=== PATIENT | male | born 1945 | race Caucasian/White ===

== ENCOUNTER 2016-11-28 21:06 | Emergency (ER) | payer MEDICARE, BC ==
[2016-11-28 21:22] VITALS: BP 131/71
[2016-11-28] MEDS ORDERED: methylPREDNISolone Sodium Succinate 40 MG/1 ML SDV IM ONE (22:57)
--- NOTE | 2016-11-28 22:57 | EDM.PDOC ---
ED HPI GENERAL MEDICAL PROBLEM - General Chief Complaint: Lower Extremity Injury/Pain Stated Complaint: PAIN IN THE LEG [id number] Time Seen by Provider: 11/28/16 22:57 Source of Information: Reports: Patient History Limitations: Reports: No Limitations - History of Present Illness INITIAL COMMENTS - FREE TEXT/NARRATIVE: This 71 yo male patient reports to the ED with left knee pain that started this morning and has been getting worse throughout the day. The patient reports he has a history of diabetes, gout and has a stent in his left lower leg. The patient reports all of his pain is in the knee. Onset: Today Duration: Constant, Getting Worse Location: Reports: Lower Extremity, Left Quality: Reports: Ache, Dull Severity: Moderate Improves with: Reports: None Worsens with: Reports: None Associated Symptoms: Reports: No Other Symptoms Left Lower Posterior Leg Pain Score (Numeric/FACES): 10 - Related Data Allergies Allergy/AdvReac Type Severity Reaction Status Date / Time Penicillins Allergy Rash Verified 11/28/16 21:15 Home Meds: Home Meds Albuterol [Proair HFA] 2 puff INH ASDIRECTED PRN 02/08/14 [History] Allopurinol [Allopurinol] 300 mg PO DAILY 02/08/14 [History] Aspirin [Low Dose Aspirin EC] 81 mg PO DAILY 02/08/14 [History] Atenolol [Tenormin] 50 mg PO DAILY 02/08/14 [History] Furosemide [Furosemide] 20 mg PO DAILY 02/08/14 [History] Gabapentin [Gabapentin] 300 mg PO BID 02/08/14 [History] Gemfibrozil [Gemfibrozil] 600 mg PO BID 02/08/14 [History] Insulin Glarg,Human.Rec.Analog [Lantus Solostar] 20 units SQ BEDTIME 02/08/14 [ History] Insulin Lispro [Humalog] 5 units SUBCUT TID 02/08/14 [History] Nitroglycerin [Nitrostat] 0.4 mg SL ASDIRECTED 02/08/14 [History] Omeprazole [Prilosec] 20 mg PO DAILY 02/08/14 [History] Prasugrel [Effient] 10 mg PO DAILY 02/08/14 [History] Pravastatin [Pravachol] 20 mg PO DAILY 02/08/14 [History] amLODIPine/Valsartan [Exforge 10-320 MG] 1 tab PO DAILY 02/08/14 [History] glyBURIDE [Glyburide] 5 mg PO BID 02/08/14 [History] metFORMIN [Glucophage] 1,000 mg PO BID 02/08/14 [History] Past Medical History HEENT History: Reports: Impaired Vision Other HEENT History: wears flasses Cardiovascular History: Reports: ME Gastrointestinal History: Reports: GERD Musculoskeletal History: Reports: Gout Neurological History: Reports: None Psychiatric History: Reports: None Endocrine/Metabolic History: Reports: Diabetes, Type II Hematologic History: Reports: None Immunologic History: Reports: None Oncologic (Cancer) History: Reports: None Dermatologic History: Reports: None - Past Surgical History Cardiovascular Surgical History: Reports: Coronary Artery Stent Other Cardiovascular Surgeries/Procedures: stents in legs Social & Family History - Tobacco Use Smoking Status *Q: Never Smoker - Recreational Drug Use Recreational Drug Use: No Review of Systems - Review of Systems Review Of Systems: ROS reveals no pertinent complaints other than HPI. ED EXAM, GENERAL - Physical Exam Exam: See Below General Appearance: Alert, WD/WN, Moderate Distress Eye Exam: Bilateral Eye: EOMI, Normal Inspection, PERRL Ears: Normal External Exam, Normal Canal, Hearing Grossly Normal, Normal TMs Nose: Normal Inspection, Normal Mucosa, No Blood Throat/Mouth: Normal Inspection, Normal Lips, Normal Teeth, Normal Gums, Normal Oropharynx, Normal Voice, No Airway Compromise Head: Atraumatic, Normocephalic Neck: Normal Inspection, Supple, Non-Tender, Full Range of Motion Respiratory/Chest: No Respiratory Distress, Lungs Clear, Normal Breath Sounds, No Accessory Muscle Use, Chest Non-Tender Cardiovascular: Normal Peripheral Pulses, Regular Rate, Rhythm, No Edema, No Gallop, No JVD, No Murmur, No Rub GI/Abdominal: Normal Bowel Sounds, Soft, Non-Tender, No Organomegaly, No Distention, No Abnormal Bruit, No Mass (Male) Exam: Deferred Rectal (Males) Exam: Deferred Back Exam: Normal Inspection, Full Range of Motion, NT Extremities: Joint Swelling (left knee), Limited Range of Motion, Other ( tenderness to palpation of entire knee joint) Neurological: Alert, Oriented, CN II-XII Intact, Normal Cognition, Normal Gait, Normal Reflexes, No Motor/Sensory Deficits Psychiatric: Normal Affect, Normal Mood Skin Exam: Warm, Dry, Intact, Normal Color, No Rash Lymphatic: No Adenopathy Course - Vital Signs Last Recorded V/S: Last Vital Signs Temp 36.8 C 11/28/16 21:16 Pulse 88 11/28/16 21:16 Resp 18 11/28/16 21:16 BP 131/71 11/28/16 21:16 Pulse Ox 99 11/28/16 21:16 - Orders/Labs/Meds Labs: Laboratory Tests 11/28/16 11/28/16 Range/Units 21:40 21:40 D-Dimer, Quantitative 250 (0-400) ng/mL Uric Acid 7.7 H (2.6-7.2) mg/dL Departure - Departure Time of Disposition: 23:03 Disposition: Home, Self-Care 01 Condition: Fair Clinical Impression: Gout Qualifiers: Gout site: knee Gout etiology: unspecified cause Chronicity: acute Laterality: left Qualified Code(s): M10.9 - Gout, unspecified - Discharge Information Instructions: Low-Purine Diet, Gout, [id number] Forms: ED Department Discharge Care Plan Goals: The patient was advised of the examination and lab results during the visit. The patient was given a dose of IM steroids (Solumedrol). The patient was discharged with a script for a Medrol Dose pack to take as directed. If the patient has any additional symptoms or concerns, the patient should follow-up with his primary care facility or return to the emergency department.
== END 2016-11-28 23:12 | disposition home or self-care (01) ==
LOC: DL.ED 21:06
DX: M10.9 Gout, unspecified (principal); H54.7 Unspecified visual loss; I25.2 Old myocardial infarction; K21.9 Gastro-esophageal reflux disease without esophagitis; E11.9 Type 2 diabetes mellitus without complications; Z95.5 Presence of coronary angioplasty implant and graft; Z88.0 Allergy status to penicillin; Z79.899 Other long term (current) drug therapy; Z79.82 Long term (current) use of aspirin; Z79.4 Long term (current) use of insulin
CPT/HCPCS: 36415; 84550; 85379; 96372; 99283; J2920

== ENCOUNTER 2020-06-27 22:35 | Emergency (ER) | payer MEDICARE, BC ==
[2020-06-27] MEDS ORDERED: Albuterol/Ipratropium 3.0-0.5 MG/3 ML Neb Soln NEB ONE (22:40)
[2020-06-27] MEDS ORDERED: Albuterol/Ipratropium 3.0-0.5 MG/3 ML Neb Soln ONE (22:41)
--- NOTE | 2020-06-27 22:46 | EDM.PDOC ---
ED HPI GENERAL MEDICAL PROBLEM - General Stated Complaint: TROUBLE BREATHING,CHILLS Time Seen by Provider: 06/27/20 22:45 Source of Information: Reports: Patient History Limitations: Reports: No Limitations - History of Present Illness INITIAL COMMENTS - FREE TEXT/NARRATIVE: sudden onset SOB while watching TV. denies CP. denies prior h/o. Throat Pain Score (Numeric/FACES): 8 - Related Data Allergies Allergy/AdvReac Type Severity Reaction Status Date / Time Penicillins Allergy Rash Verified 06/27/20 22:41 Home Meds: Home Meds Albuterol [Proair HFA] 2 puff INH ASDIRECTED PRN 02/08/14 [History] Aspirin [Low Dose Aspirin EC] 81 mg PO DAILY 02/08/14 [History] Gabapentin 300 mg PO BID 02/08/14 [History] Gemfibrozil 600 mg PO BID 02/08/14 [History] Nitroglycerin [Nitrostat] 0.4 mg SL ASDIRECTED 02/08/14 [History] Omeprazole [Prilosec] 20 mg PO DAILY 02/08/14 [History] Pravastatin [Pravachol] 80 mg PO DAILY 02/08/14 [History] metFORMIN [Glucophage] 1,000 mg PO BID 02/08/14 [History] Amlodipine Besylate/Valsartan [Amlodipine-Valsartan 10-320 mg] 10 - 320 mg PO DAILY 04/26/18 [History] Clopidogrel [Plavix] 75 mg PO DAILY 04/26/18 [History] Insulin Aspart [NovoLOG] 10 - 17 units SQ TID 04/26/18 [History] Insulin Detemir [Levemir Flextouch] 30 - 40 units SQ BEDTIME 04/26/18 [History] Warfarin Sodium [Jantoven] 5 mg PO ASDIRECTED 04/26/18 [History] allopurinoL [Zyloprim] 300 mg PO DAILY 04/26/18 [History] Magnesium Oxide 400 mg PO DAILY 05/06/18 [History] Furosemide 20 mg PO DAILY 01/09/20 [History] Metoprolol Succinate 25 mg PO DAILY 01/09/20 [History] Multivitamin [Multi-Vitamin Daily] 1 tab PO DAILY 01/09/20 [History] [place]-3/DHA/Epa/Fish Oil [[place]-3 Fish Oil 1,000 MG Sfgl] 1,000 mg PO DAILY 01/09/20 [History] Potassium Chloride 10 meq PO DAILY 01/09/20 [History] Isosorbide Mononitrate [Imdur] 30 mg PO DAILY 03/12/20 [History] Past Medical History HEENT History: Reports: Impaired Vision Other HEENT History: wears glasses Cardiovascular History: Reports: Blood Clots/VTE/DVT, CAD, Heart Valve Replacement, High Cholesterol, Hypertension, [place], Pacemaker, PTCA, Stents Gastrointestinal History: Reports: GERD Other Genitourinary History: Chronic kidney disease,stage 3 Musculoskeletal History: Reports: Gout Neurological History: Reports: Neuropathy, Peripheral Psychiatric History: Reports: None Endocrine/Metabolic History: Reports: Diabetes, Type II Hematologic History: Reports: None Immunologic History: Reports: None Oncologic (Cancer) History: Reports: None Dermatologic History: Reports: None - Past Surgical History Cardiovascular Surgical History: Reports: Coronary Artery Stent, Valve Replacement Other Cardiovascular Surgeries/Procedures: stents in legs ED ROS GENERAL - Review of Systems Review Of Systems: Comprehensive ROS is negative, except as noted in HPI. ED EXAM, GENERAL - Physical Exam Exam: See Below Exam Limited By: No Limitations General Appearance: Alert, WD/WN, Mild Distress, Moderate Distress, Other (SOB) Ears: Hearing Grossly Normal Throat/Mouth: Normal Voice, No Airway Compromise Head: Atraumatic Neck: Non-Tender, Full Range of Motion Respiratory/Chest: Decreased Breath Sounds, Rhonchi, Wheezing, Accessory Muscle Use Cardiovascular: Regular Rate, Rhythm GI/Abdominal: Soft, Non-Tender (Male) Exam: Deferred Rectal (Males) Exam: Deferred Back Exam: Full Range of Motion Extremities: Pedal Edema, Other (2+ bilateral) Neurological: Alert, Oriented, Normal Cognition, Normal Gait, No Motor/Sensory Deficits Psychiatric: Anxious Skin Exam: Warm, Dry, Normal Color Lymphatic: No Adenopathy Course - Vital Signs Last Recorded V/S: Last Vital Signs Temp 36.3 C 06/27/20 22:47 Pulse 78 06/27/20 23:28 Resp 26 H 06/27/20 23:28 BP 123/49 L 06/27/20 23:28 Pulse Ox 94 L 06/27/20 23:28 - Orders/Labs/Meds Orders: Active Orders 24 hr Category Date Time Status RT Aerosol Therapy [RC] ASDIRECTED Care 06/27/20 22:40 Active RT Aerosol Therapy [RC] ASDIRECTED Care 06/27/20 22:55 Active CULTURE BLOOD [BC] Stat Lab 06/27/20 23:51 Results Cefepime [Maxipime] 1 gm Med 06/28/20 00:23 Active Sodium Chloride 0.9% [Normal Saline] 50 ml IV ONETIME Medication Orders Cefepime HCl 1 gm/ Sodium (Chloride) 50 mls @ 100 mls/hr IV ONETIME ONE Stop: 06/28/20 00:52 Labs: Laboratory Tests 06/27/20 06/27/20 06/27/20 Range/Units 22:51 22:51 22:51 WBC 7.5 (5.0-10.0) 10^3/uL RBC 4.54 L (4.6-6.2) 10^6/uL Hgb 12.9 L (14.0-18.0) g/dL Hct 40.8 (40.0-54.0) % MCV 89.9 (80-100) fL MCH 28.4 (27.0-34.0) pg MCHC 31.6 L (33.0-35.0) g/dL Plt Count 283 (150-450) 10^3/uL Neut % (Auto) 75.6 H (42.2-75.2) % Lymph % (Auto) 17.7 L (20.5-50.1) % Isabela % (Auto) 1.1 L (2-8) % Eos % (Auto) 5.1 H (1.0-3.0) % Baso % (Auto) 0.5 (0.0-1.0) % PT 22.0 H D (9.0-12.0) SEC INR 2.3 H (0.9-1.2) APTT 45.6 H (22.0-34.0) SEC D-Dimer, Quantitative 1020 H (0-400) ng/mL ABG pH (7.35-7.45) ABG pCO2 (35-45) mmHg ABG pO2 (70-100) mmHg ABG HCO3 (22-26) mmol/L ABG O2 Saturation (95-100) % ABG Base Excess ((-2)-(+3)) mmol/L Khurram Test O2 Delivery Device Oxygen Flow Rate Sodium 143 (136-145) mmol/L Potassium 4.4 (3.5-5.1) mmol/L Chloride 105 (98-107) mmol/L Carbon Dioxide 26 (21-32) mmol/L Anion Gap 16.4 H (7-13) mEq/L BUN 54 H (7-18) mg/dL Creatinine 1.79 H (0.70-1.30) mg/dL Est Cr Clr Drug Dosing TNP Estimated GFR (MDRD) 37 BUN/Creatinine Ratio 30.2 (No establ ref range) Glucose 249 H (74-99) mg/dL Lactic Acid (0.4-2.0) mmol/L Calcium 9.6 (8.5-10.1) mg/dL Total Bilirubin 0.4 (0.2-1.0) mg/dL AST 30 (15-37) U/L ALT 19 (16-63) U/L Alkaline Phosphatase 165 H (46-116) U/L Troponin I 0.107 H* (0.000-0.056) ng/mL B-Natriuretic Peptide 1220 H (0-100) pg/ml Total Protein 8.0 (6.4-8.2) g/dL Albumin 3.5 (3.4-5.0) g/dL Globulin 4.5 Albumin/Globulin Ratio 0.8 Urine Color (YELLOW) Urine Appearance (CLEAR) Urine pH (5.0-9.0) Ur Specific [place] (1.005-1.030) Urine Protein (NEGATIVE) Urine Glucose (UA) (NEGATIVE) Urine Ketones (NEGATIVE) Urine Occult Blood (NEGATIVE) Urine Nitrite (NEGATIVE) Urine Bilirubin (NEGATIVE) Urine Urobilinogen (0.2-1.0) mg/dL Ur Leukocyte Esterase (NEGATIVE) Urine RBC /HPF Urine WBC (0-5/HPF) /HPF Ur Epithelial Cells (NOT SEEN) /HPF Amorphous Sediment (NOT SEEN) /HPF Urine Bacteria (0-FEW/HPF) /HPF Granular Casts (Auto) Fine Granular Casts (NOT SEEN) /LPF Urine Mucus (NOT SEEN) /LPF Influenza Type A RNA (NEGATIVE) Influenza Type B RNA (NEGATIVE) SARS-CoV-2 RNA (SHERMAN) (NEGATIVE) 06/27/20 06/27/20 06/27/20 Range/Units 22:51 23:05 23:15 WBC (5.0-10.0) 10^3/uL RBC (4.6-6.2) 10^6/uL Hgb (14.0-18.0) g/dL Hct (40.0-54.0) % MCV (80-100) fL MCH (27.0-34.0) pg MCHC (33.0-35.0) g/dL Plt Count (150-450) 10^3/uL Neut % (Auto) (42.2-75.2) % Lymph % (Auto) (20.5-50.1) % Isabela % (Auto) (2-8) % Eos % (Auto) (1.0-3.0) % Baso % (Auto) (0.0-1.0) % PT (9.0-12.0) SEC INR (0.9-1.2) APTT (22.0-34.0) SEC D-Dimer, Quantitative (0-400) ng/mL ABG pH 7.37 (7.35-7.45) ABG pCO2 34 L (35-45) mmHg ABG pO2 68 L (70-100) mmHg ABG HCO3 18.9 L (22-26) mmol/L ABG O2 Saturation 91 L (95-100) % ABG Base Excess -5 L ((-2)-(+3)) mmol/L Khurram Test pos O2 Delivery Device Om Oxygen Flow Rate 15 Sodium (136-145) mmol/L Potassium (3.5-5.1) mmol/L Chloride (98-107) mmol/L Carbon Dioxide (21-32) mmol/L Anion Gap (7-13) mEq/L BUN (7-18) mg/dL Creatinine (0.70-1.30) mg/dL Est Cr Clr Drug Dosing Estimated GFR (MDRD) BUN/Creatinine Ratio (No establ ref range) Glucose (74-99) mg/dL Lactic Acid 2.4 H* (0.4-2.0) mmol/L Calcium (8.5-10.1) mg/dL Total Bilirubin (0.2-1.0) mg/dL AST (15-37) U/L ALT (16-63) U/L Alkaline Phosphatase (46-116) U/L Troponin I (0.000-0.056) ng/mL B-Natriuretic Peptide (0-100) pg/ml Total Protein (6.4-8.2) g/dL Albumin (3.4-5.0) g/dL Globulin Albumin/Globulin Ratio Urine Color (YELLOW) Urine Appearance (CLEAR) Urine pH (5.0-9.0) Ur Specific [place] (1.005-1.030) Urine Protein (NEGATIVE) Urine Glucose (UA) (NEGATIVE) Urine Ketones (NEGATIVE) Urine Occult Blood (NEGATIVE) Urine Nitrite (NEGATIVE) Urine Bilirubin (NEGATIVE) Urine Urobilinogen (0.2-1.0) mg/dL Ur Leukocyte Esterase (NEGATIVE) Urine RBC /HPF Urine WBC (0-5/HPF) /HPF Ur Epithelial Cells (NOT SEEN) /HPF Amorphous Sediment (NOT SEEN) /HPF Urine Bacteria (0-FEW/HPF) /HPF Granular Casts (Auto) Fine Granular Casts (NOT SEEN) /LPF Urine Mucus (NOT SEEN) /LPF Influenza Type A RNA Negative (NEGATIVE) Influenza Type B RNA Negative (NEGATIVE) SARS-CoV-2 RNA (SHERMAN) Negative (NEGATIVE) 06/27/20 Range/Units 23:19 WBC (5.0-10.0) 10^3/uL RBC (4.6-6.2) 10^6/uL Hgb (14.0-18.0) g/dL Hct (40.0-54.0) % MCV (80-100) fL MCH (27.0-34.0) pg MCHC (33.0-35.0) g/dL Plt Count (150-450) 10^3/uL Neut % (Auto) (42.2-75.2) % Lymph % (Auto) (20.5-50.1) % Isabela % (Auto) (2-8) % Eos % (Auto) (1.0-3.0) % Baso % (Auto) (0.0-1.0) % PT (9.0-12.0) SEC INR (0.9-1.2) APTT (22.0-34.0) SEC D-Dimer, Quantitative (0-400) ng/mL ABG pH (7.35-7.45) ABG pCO2 (35-45) mmHg ABG pO2 (70-100) mmHg ABG HCO3 (22-26) mmol/L ABG O2 Saturation (95-100) % ABG Base Excess ((-2)-(+3)) mmol/L Khurram Test O2 Delivery Device Oxygen Flow Rate Sodium (136-145) mmol/L Potassium (3.5-5.1) mmol/L Chloride (98-107) mmol/L Carbon Dioxide (21-32) mmol/L Anion Gap (7-13) mEq/L BUN (7-18) mg/dL Creatinine (0.70-1.30) mg/dL Est Cr Clr Drug Dosing Estimated GFR (MDRD) BUN/Creatinine Ratio (No establ ref range) Glucose (74-99) mg/dL Lactic Acid (0.4-2.0) mmol/L Calcium (8.5-10.1) mg/dL Total Bilirubin (0.2-1.0) mg/dL AST (15-37) U/L ALT (16-63) U/L Alkaline Phosphatase (46-116) U/L Troponin I (0.000-0.056) ng/mL B-Natriuretic Peptide (0-100) pg/ml Total Protein (6.4-8.2) g/dL Albumin (3.4-5.0) g/dL Globulin Albumin/Globulin Ratio Urine Color Yellow (YELLOW) Urine Appearance Clear (CLEAR) Urine pH 5.5 (5.0-9.0) Ur Specific [place] 1.025 (1.005-1.030) Urine Protein >=300 H (NEGATIVE) Urine Glucose (UA) Negative (NEGATIVE) Urine Ketones Negative (NEGATIVE) Urine Occult Blood Trace-intact H (NEGATIVE) Urine Nitrite Negative (NEGATIVE) Urine Bilirubin Negative (NEGATIVE) Urine Urobilinogen 0.2 (0.2-1.0) mg/dL Ur Leukocyte Esterase Negative (NEGATIVE) Urine RBC 0-5 /HPF Urine WBC 0-5 (0-5/HPF) /HPF Ur Epithelial Cells Rare (NOT SEEN) /HPF Amorphous Sediment Rare (NOT SEEN) /HPF Urine Bacteria Few (0-FEW/HPF) /HPF Granular Casts (Auto) Rare Fine Granular Casts Occasional H (NOT SEEN) /LPF Urine Mucus Rare (NOT SEEN) /LPF Influenza Type A RNA (NEGATIVE) Influenza Type B RNA (NEGATIVE) SARS-CoV-2 RNA (SHERMAN) (NEGATIVE) Meds: Medications Generic Name Dose Route Start Last Admin Trade Name Freq PRN Reason Stop Dose Admin Cefepime HCl 1 gm/ Sodium 50 mls @ 100 mls/hr 06/28/20 00:23 Chloride IV 06/28/20 00:52 ONETIME ONE Discontinued Medications Generic Name Dose Route Start Last Admin Trade Name Freq PRN Reason Stop Dose Admin Albuterol Confirm 06/27/20 22:49 06/27/20 22:55 Proventil Neb Soln Administered 06/27/20 22:50 Not Given Dose 2.5 mg .ROUTE .STK-MED ONE Albuterol Confirm 06/27/20 22:50 06/27/20 22:55 Proventil Neb Soln Administered 06/27/20 22:51 Not Given Dose 2.5 mg .ROUTE .STK-MED ONE Albuterol 2.5 mg 06/27/20 22:55 06/27/20 22:56 Proventil Neb Soln NEB 06/27/20 22:56 2.5 mg ONETIME ONE Administration Albuterol/Ipratropium 3 ml 06/27/20 22:40 06/27/20 22:43 Duoneb 3.0-0.5 Mg/3 Ml NEB 06/27/20 22:41 3 ml ONETIME ONE Administration Albuterol/Ipratropium Confirm 06/27/20 22:41 06/27/20 22:55 Duoneb 3.0-0.5 Mg/3 Ml Administered 06/27/20 22:42 Not Given Dose 3 ml .ROUTE .STK-MED ONE Furosemide 40 mg 06/28/20 00:23 Lasix IVPUSH 06/28/20 00:24 NOW ONE Methylprednisolone Sodium Succinate 125 mg 06/27/20 22:54 06/27/20 22:57 Solu-Medrol IVPUSH 06/27/20 22:55 125 mg ONETIME ONE Administration - Re-Assessments/Exams Free Text/Narrative Re-Assessment/Exam: 06/28/20 00:[address] Jones @ [facility] who kindly accepted pt. 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: with mcfp use Qualified Code(s): E11.65 - Type 2 diabetes mellitus with hyperglycemia; Z79.4 - shelter (current) use of insulin - Discharge Information Forms: ED Department Discharge, Interfacility Transfer [facility] Sepsis Event Note (ED) - Focused Exam Vital Signs: Vital Signs Temp Pulse Resp BP Pulse Ox 06/27/20 23:28 78 26 H 123/49 L 94 L 06/27/20 22:47 36.3 C 84 21 H 154/59 H 74 L - My Orders Last 24 Hours: My Active Orders 06/27/20 22:40 RT Aerosol Therapy [RC] ASDIRECTED 06/27/20 22:55 RT Aerosol Therapy [RC] ASDIRECTED 06/27/20 23:51 CULTURE BLOOD [BC] Stat 06/28/20 00:23 Cefepime [Maxipime] 1 gm Sodium Chloride 0.9% [Normal Saline] 50 ml IV ONETIME - Assessment/Plan Last 24 Hours: My Active Orders 06/27/20 22:40 RT Aerosol Therapy [RC] ASDIRECTED 06/27/20 22:55 RT Aerosol Therapy [RC] ASDIRECTED 06/27/20 23:51 CULTURE BLOOD [BC] Stat 06/28/20 00:23 Cefepime [Maxipime] 1 gm Sodium Chloride 0.9% [Normal Saline] 50 ml IV ONETIME
[2020-06-27] MEDS ORDERED: Albuterol 0.083% 2.5 MG/3 ML Neb Soln ONE ×2 (22:49→22:50)
[2020-06-27] MEDS ORDERED: methylPREDNISolone Sodium Succinate 125 MG/2 ML SDV IVPUSH ONE (22:54)
[2020-06-27] MEDS ORDERED: Albuterol 0.083% 2.5 MG/3 ML Neb Soln NEB ONE (22:55)
[2020-06-27 23:16] LABS: BASE EXCESS ARTERIAL -5 mmol/L ((-2)-(+3)); BICARBONATE,ARTERIAL 18.9 mmol/L (22-26); O2 DELIVERY DEVICE OM; O2 SATURATION ARTERIAL 91 % (95-100); PCO2 ARTERIAL 34 mmHg (35-45); PO2 ARTERIAL 68 mmHg (70-100)
[2020-06-27 23:19] LABS: ALLEN TEST pos; O2 FLOW RATE 15
[2020-06-27 23:27] LABS: ANION GAP 16.4 mEq/L (7-13); CHLORIDE,CL 105 mmol/L (98-107); SODIUM,NA 143 mmol/L (136-145)
[2020-06-27 23:29] VITALS: BP 123/49; PULSE 78
[2020-06-27 23:38] LABS: PTT,PARTIAL THROMBOPLSTIN TIME 45.6 SEC (22.0-34.0)
--- NOTE | 2020-06-28 00:04 | CR ---
PROCEDURE INFORMATION: Exam: XR Chest, 1 View Exam date and time: 06/27/2020 11:45 PM Age: 75 years old Clinical indication: Shortness of breath; Additional info: SOB TECHNIQUE: Imaging protocol: XR of the chest Views: 1 view. Total images: 2 COMPARISON: No relevant prior studies available. FINDINGS: Lungs: Low lung volumes. Mild central vascular congestion. Question mild bilateral perihilar and basilar alveolar opacities which may reflect subsegmental atelectasis versus mild edema or pneumonia. Pleural spaces: No pleural effusion. No pneumothorax. Heart/Mediastinum: Mild cardiomegaly. Prior median sternotomy. No tracheal/mediastinal shift. Bones/joints: Cardiac pacemaker without gross hardware complication. No acute osseous abnormalities are identified. IMPRESSION: 1. Low lung volumes. 2. Mild perihilar and basilar alveolar opacities which could represent atelectasis versus mild edema or multifocal pneumonia. 3. Mild cardiomegaly and vascular congestion with prior median sternotomy and cardiac pacemaker.
[2020-06-28 00:06] LABS: CORONAVIRUS COVID-19 NAA NEGATIVE (NEGATIVE)
[2020-06-28] MEDS ORDERED: Cefepime 1 GM in Sodium Chloride 0.9% 50 ML IV ONE (00:23)
[2020-06-28] MEDS ORDERED: Furosemide 40 MG/4 ML VIAL IVPUSH ONE (00:23)
== END 2020-06-28 00:48 ==
LOC: DL.ED 22:35
DX: J18.9 Pneumonia, unspecified organism (principal); E11.65 Type 2 diabetes mellitus with hyperglycemia; R06.03 Acute respiratory distress; R09.02 Hypoxemia; R79.1 Abnormal coagulation profile; R79.89 Other specified abnormal findings of blood chemistry; I12.9 Hypertensive chronic kidney disease with stage 1 through stage 4 chronic kidney disease, or unspecified chronic kidney disease; E11.22 Type 2 diabetes mellitus with diabetic chronic kidney disease; N18.30 Chronic kidney disease, stage 3 unspecified; I25.10 Atherosclerotic heart disease of native coronary artery without angina pectoris; I25.2 Old myocardial infarction; E11.42 Type 2 diabetes mellitus with diabetic polyneuropathy; Z20.822 Contact with and (suspected) exposure to COVID-19; Z88.0 Allergy status to penicillin; Z79.4 Long term (current) use of insulin; Z79.82 Long term (current) use of aspirin; Z79.02 Long term (current) use of antithrombotics/antiplatelets; Z79.01 Long term (current) use of anticoagulants; Z79.899 Other long term (current) drug therapy
CPT/HCPCS: 0240U; 36415; 36600; 51702; 71045; 80053; 81001; 82803; 83605; 83880; 84484; 85025; 85379; 85610; 85730; 87040; 87077; 87186; 96374; 96375; 99285; J0692; J2930; 99284; J7613-GY; J7620-GY

== ENCOUNTER 2020-08-06 10:31 | Inpatient (IN) | payer MEDICARE, BC ==
[~2020-08-06 10:31] MED LIST: Calcitriol 0.25 MCG Cap PO SCH
--- NOTE | 2020-08-06 12:50 | PCM.HP ---
H&P History of Present Illness - General Date of Service: 08/06/20 Admit Problem/Dx: Admission Diagnosis/Problem Admission Diagnosis/Problem CHF, Congestive heart failure - History of Present Illness Initial Comments - Free Text/Narative: 75M w/ pmh systolic and diastolic CHF, CAD, CKD3, chronic DVT, DM2, CHB s/p PPM, s/p bioprosthetic AVR in 2018, COPD, gout, HT recently w/ in-stent re-stenosis of multiple LAD lesions treated w/ ballooning only followed by re-admission 07/25-08/06 for acute hypoxic respiratory failure 2/2 CHF exacerbation c/b cardiorenal syndrome and NSTEMI where he was nearly started on HD (even had perm cath placed - since removed) but turned around and now transferred to for Swing Bed. Pt currently only c/o 'butt pain' meaning his decubiti. He denies any dyspnea, pain, nausea. He has a good appetite. There is 2+ b/l LE edema but he is unsure whether this is improved from prior. Right Buttock Pain Score (Numeric/FACES): 7 - Related Data Allergies/Adverse Reactions: Allergies Allergy/AdvReac Type Severity Reaction Status Date / Time Penicillins Allergy Rash Verified 06/27/20 22:41 Home Medications: Home Meds Nitroglycerin [Nitrostat] 0.4 mg SL ASDIRECTED 02/08/14 [History] Clopidogrel [Plavix] 75 mg PO DAILY 04/26/18 [History] Insulin Aspart [NovoLOG] 10 - 17 units SQ TID 04/26/18 [History] Insulin Detemir [Levemir Flextouch] 26 units SQ BEDTIME 04/26/18 [History] Warfarin Sodium [Jantoven] 5 mg PO ASDIRECTED 04/26/18 [History] Metoprolol Succinate 25 mg PO DAILY 01/09/20 [History] Multivitamin [Multi-Vitamin Daily] 1 tab PO DAILY 01/09/20 [History] Acetaminophen 650 mg PO Q6HR 08/06/20 [History] Albuterol [Proventil Neb Soln] 2.5 inhalation INH Q4HR PRN 08/06/20 [History] Escitalopram [Lexapro] 10 mg PO DAILY 08/06/20 [History] Isosorbide Dinitrate 5 mg PO TID 08/06/20 [History] Lidocaine 5% [Lidoderm 5%] 1 patch TOP DAILY 08/06/20 [History] Rosuvastatin [Crestor] 20 mg PO DAILY 08/06/20 [History] Sodium Bicarbonate 650 mg PO TID 08/06/20 [History] Torsemide 40 mg PO DAILY 08/06/20 [History] calcitrioL [Calcitriol] 0.25 mcg PO .Q48HRS 08/06/20 [History] traZODone 50 mg PO BEDTIME PRN 08/06/20 [History] Past Medical History HEENT History: Reports: Impaired Vision Other HEENT History: wears glasses Cardiovascular History: Reports: Blood Clots/VTE/DVT, CAD, Heart Failure, Heart Valve Replacement, High Cholesterol, Hypertension, RI, Pacemaker, PTCA, Stents Respiratory History: Reports: COPD Gastrointestinal History: Reports: GERD Genitourinary History: Reports: Acute Renal Failure, Chronic Renal Insuffiency, Dialysis Other Genitourinary History: Chronic kidney disease,stage 3 Musculoskeletal History: Reports: Arthritis, Back Pain, Chronic, Gout Neurological History: Reports: CVA, Neuropathy, Diabetic, Neuropathy, Peripheral Psychiatric History: Reports: None, Depression Endocrine/Metabolic History: Reports: Diabetes, Type II Hematologic History: Reports: Anticoagulation Therapy Immunologic History: Reports: None Oncologic (Cancer) History: Reports: None Dermatologic History: Reports: None - Infectious Disease History Infectious Disease History: Reports: Chicken Pox - Past Surgical History Head Surgeries/Procedures: Reports: None Cardiovascular Surgical History: Reports: Coronary Artery Stent, Valve Replacement Other Cardiovascular Surgeries/Procedures: stents in legs GI Surgical History: Reports: Hernia, Inguinal, Hernia Repair/Other Male Surgical History: Reports: None Endocrine Surgical History: Reports: None Neurological Surgical History: Reports: None Musculoskeletal Surgical History: Reports: None Dermatological Surgical History: Reports: None Social & Family History - Family History Family Medical History: No Pertinent Family History - Tobacco Use Tobacco Use Status *Q: Former Tobacco User Used Tobacco, but Quit: Yes Month/Year Tobacco Last Used: 2008 - Caffeine Use Caffeine Use: Reports: Coffee, Soda, Tea - Recreational Drug Use Recreational Drug Use: No H&P Review of Systems - Review of Systems: Review Of Systems: See Below General: Denies: Fever, Chills HEENT: Denies: Headaches Pulmonary: Denies: Shortness of Breath, Wheezing, Cough Cardiovascular: Denies: Chest Pain, Palpitations Gastrointestinal: Denies: Abdominal Pain Genitourinary: Denies: Dysuria Musculoskeletal: Denies: Neck Pain Skin: Reports: Wound (buttock) Psychiatric: Denies: Confusion Neurological: Denies: Dizziness Hematologic/Lymphatic: Reports: Easy Bruising Immunologic: Denies: Food Allergy Exam - Exam Exam: See Below - Exam Quality Assessment: No: Supplemental Oxygen General: Alert, Oriented, Cooperative HEENT: Conjunctiva Clear Neck: Supple Lungs: Clear to Auscultation, Normal Respiratory Effort Cardiovascular: Regular Rate, Regular Rhythm, Diastolic Murmur GI/Abdominal Exam: Normal Bowel Sounds, Soft, Non-Tender, No Distention Back Exam: Other (could not exam due to body haibuts - will attempt w/ RN during dressing change) Extremities: Pedal Edema (2+ b/l pitting) Neurological: Cranial Nerves Intact Neuro Extensive - Mental Status: Alert, Oriented x3, Normal Mood/Affect Psychiatric: Alert, Normal Affect, Normal Mood - Patient Data Lab Results Last 24 hrs: Laboratory Results - last 24 hr 08/06/20 Range/Units 11:35 POC Glucose 228 H (83-110) mg/dl Problem List Initiated/Reviewed/Updated: No Orders Last 24hrs: Active Orders 24 hr Category Date Time Status Patient Status [ADT] Routine ADT 08/06/20 12:38 Ordered Antiembolic Devices [RC] PER UNIT ROUTINE Care 08/06/20 12:41 Ordered Oxygen Therapy [RC] PRN Care 08/06/20 12:38 Ordered VTE/DVT Education [RC] PER UNIT ROUTINE Care 08/06/20 12:38 Ordered Vital Signs [RC] QSHIFT Care 08/06/20 12:38 Ordered OT Evaluation and Treatment [CONS] Routine Cons 08/06/20 12:38 Ordered PT Evaluation and Treatment [CONS] Routine Cons 08/06/20 12:38 Ordered Heart Healthy Diet [DIET] Diet 08/06/20 Dinner Ordered BASIC METABOLIC PANEL,BMP [CHEM] AM Lab 08/07/20 05:11 Ordered CBC W/O DIFF,HEMOGRAM [HEME] AM Lab 08/07/20 05:11 Ordered INR,PT,PROTHROMBIN TIME [COAG] AM Lab 08/07/20 05:11 Ordered MAGNESIUM [CHEM] AM Lab 08/07/20 05:11 Ordered PHOSPHORUS [CHEM] AM Lab 08/07/20 05:11 Ordered Acetaminophen [TylenoL] Med 08/06/20 12:38 Ordered 650 mg PO Q4H PRN Antiembolic Hose [OM.PC] Per Unit Routine Oth 08/06/20 12:39 Ordered Resuscitation Status Routine Resus Stat 08/06/20 12:38 Ordered Assessment/Plan Comment:: #chronic systolic and diastolic CHF - c/w torsemide and BB #acute hypoxic respiratory failure and cardiorenal syndrome - 2/2 above - respiratory failure resolved - Cr at baseline however BUN still markedly high - high risk for relapse and re-admission - strict daily weights, free water r estriction, med compliance #chronic DVT - c/w coumadin #DM2 - A1c was 9 at OSH - c/w lantus and SORAIDA - adjust as needed #gout / HT / CAD / COPD / hx bioprosthetic AVR - c/w home meds PPX - on coumadin PT/OT eval and treat Full code
[2020-08-06] MEDS ORDERED: Albuterol 0.083% 2.5 MG/3 ML Neb Soln INH PRN (13:32)
[2020-08-06] MEDS ORDERED: traZODone 50 MG Tab PO PRN (13:32)
[2020-08-06] MEDS ORDERED: 50% Dextrose in Water 50 ML Syringe IV PRN (13:41)
[2020-08-06] MEDS ORDERED: Glucagon,Human Recombinant 1 MG Vial IM PRN (13:41)
[2020-08-06] MEDS ORDERED: Warfarin 2.5 MG Tab PO ONE (14:30)
[2020-08-06] MEDS: Isosorbide Dinitrate 10 MG Tab PO SCH ×2 (14:47→20:54)
[2020-08-06] MEDS: Acetaminophen 325 MG Tab PO PRN ×2 (14:48→20:55)
[2020-08-06] MEDS: Sodium Bicarbonate 650 MG Tab PO SCH ×2 (14:48→20:54)
[2020-08-06] MEDS: Insulin Lispro 100 Units/ML 3 ML Vial SUBCUT SCH ×2 (17:39→20:57)
[2020-08-06] MEDS ORDERED: Insulin Glarg,Human.Rec.Analog 100 Unit/ML SUBCUT SCH (21:00)
[2020-08-06] MEDS ORDERED: Bumetanide 1 MG/4 ML MDV IVPUSH ONE (23:05)
--- NOTE | 2020-08-06 23:14 | PCM.PN ---
- General Info Date of Service: 08/06/20 Admission Dx/Problem (Free Text): CRIB TENDER note Called by RN at 1040 pm that pt is in respiratory distress. At shift change pt was reportedly quiet but comfortable and w/ clear lungs. Now pt is requiring 10L via oxy mask, ill appearing, w/ tachypnea. Otherwise VSS. Lung exam nota ble for diffuse rales which is new. Legs w/ 2+ edema same as on admit. Abdominal breathing pattern. Non distended bladder. 12 lead EKG is dual paced and unchanged from prior - no further interpretation can be made. Review of MAR from [facility] included in d/c packet reveals that pt had required 'extra' diuresis w/ IV bumex as recently as yesterday on top of his maintenance torsemide. Will place silverio for strict I/O in this critically ill patient and dose 1 mg IV bumex state. If further doses will be needed to stabilize the pt will require conversion to in-patient status. d/w RN. dx acute hypoxic respiratory failure 2/2 acute cardiogenic pulmonary edema CC time 30 min - Patient Data Vitals - Most Recent: Last Vital Signs Temp 100.4 F 08/06/20 22:40 Pulse 73 08/06/20 22:40 Resp 24 H 08/06/20 22:40 BP 148/59 H 08/06/20 22:40 Pulse Ox 95 08/06/20 22:40 Weight - Most Recent: 222 lb 10.67 oz I&O - Last 24 Hours: Intake & Output 08/06/20 08/06/20 08/07/20 14:59 22:59 06:59 Intake Total 1100 300 Output Total 300 Balance 1100 0 Lab Results Last 24 Hours: Laboratory Results - last 24 hr 08/06/20 08/06/20 08/06/20 Range/Units 11:35 17:02 20:52 POC Glucose 228 H 189 H 228 H (83-110) mg/dl - Patient Data Lab Results Last 24 hrs: Laboratory Results - last 24 hr 08/06/20 08/06/20 08/06/20 Range/Units 11:35 17:02 20:52 POC Glucose 228 H 189 H 228 H (83-110) mg/dl Sepsis Event Note - Evaluation Sepsis Screening Result: No Definite Risk - Focused Exam Vital Signs: Vital Signs Temp Pulse Resp BP BP BP Pulse Ox 08/06/20 22:40 100.4 F 73 24 H 148/59 H 95 08/06/20 20:54 106/66 08/06/20 17:13 98.6 F 71 20 120/57 L 94 L 08/06/20 14:47 125/63 08/06/20 11:30 97.1 F 90 18 125/63 97 - Problem List Review Problem List Initiated/Reviewed/Updated: No - My Orders Last 24 Hours: My Active Orders 08/06/20 09:00 calcitrioL [Rocaltrol] 0.25 mcg PO Q48H 08/06/20 12:38 Patient Status [ADT] Routine Oxygen Therapy [RC] PRN VTE/DVT Education [RC] , Vital Signs [RC] , OT Evaluation and Treatment [CONS] Routine PT Evaluation and Treatment [CONS] Routine Acetaminophen [TylenoL] 650 mg PO Q4H PRN Resuscitation Status Routine 08/06/20 12:39 Antiembolic Hose [OM.PC] Per Unit Routine 08/06/20 12:41 Antiembolic Devices [RC] PER UNIT ROUTINE 08/06/20 13:32 Albuterol [Proventil Neb Soln] 2.5 mg INH Q4H PRN traZODone 50 mg PO BEDTIME PRN 08/06/20 13:40 RT Aerosol Therapy [RC] ASDIRECTED 08/06/20 13:41 Dextrose 50% in Water 50 ml IV ASDIRECTED PRN Glucagon,Human Recombinant [GlucaGen] 1 mg IM ASDIRECTED PRN 08/06/20 13:42 Blood Glucose Check, Bedside [RC] WITHMEALSANDBED 08/06/20 14:00 Isosorbide Dinitrate [Isordil] 5 mg PO TID Sodium Bicarbonate 650 mg PO TID 08/06/20 Dinner Fluid Restriction [DIET] Heart Healthy Diet [DIET] 08/06/20 18:00 Insulin Lispro [HumaLOG] See Protocol SUBCUT WITHMEALSANDBED 08/06/20 21:00 Insulin Glarg,Human.Rec.Analog [LantUS] 26 unit SUBCUT BEDTIME Remove Patch 1 ea TRDERM DAILY@2100 08/06/20 22:41 Chest 1V Frontal [CR] Routine 08/06/20 23:04 Urinary Catheter Assessment [RC] ASDIRECTED 08/06/20 23:15 Silverio Catheter Insertion [Insert Urinary Catheter] [OM.PC] Q24H 08/07/20 05:11 BASIC METABOLIC PANEL,BMP [CHEM] AM CBC W/O DIFF,HEMOGRAM [HEME] AM INR,PT,PROTHROMBIN TIME [COAG] AM MAGNESIUM [CHEM] AM PHOSPHORUS [CHEM] AM 08/07/20 09:00 Clopidogrel [Plavix] 75 mg PO DAILY Escitalopram [Lexapro] 10 mg PO DAILY Lidocaine 5% [Lidoderm 5%] 700 mg TOP DAILY Metoprolol Succinate [Toprol XL] 25 mg PO DAILY Multivitamins,Therapeutic [Thera] 1 each PO DAILY Rosuvastatin [Crestor] 20 mg PO DAILY Torsemide [Demadex] 40 mg PO DAILY - Plan Plan:: #chronic systolic and diastolic CHF - c/w torsemide and BB #acute hypoxic respiratory failure and cardiorenal syndrome - 2/2 above - respiratory failure resolved - Cr at baseline however BUN still markedly high - high risk for relapse and re-admission - strict daily weights, free water restriction, med compliance #chronic DVT - c/w coumadin #DM2 - A1c was 9 at OSH - c/w lantus and SORAIDA - adjust as needed #gout / HT / CAD / COPD / hx bioprosthetic AVR - c/w home meds PPX - on coumadin PT/OT eval and treat Full code
--- NOTE | 2020-08-06 23:17 | CR ---
PROCEDURE INFORMATION: Exam: XR Chest Exam date and time: 08/06/2020 10:51 PM Age: 75 years old Clinical indication: Shortness of breath; Prior surgery TECHNIQUE: Imaging protocol: XR of the chest Views: 1 view. Total images: 1 COMPARISON: CR Chest 1V Frontal 06/27/2020 11:45 PM FINDINGS: Lungs: Low lung volumes. Increased alveolar opacities in the right mid lung and bilateral medial basilar distributions concerning for multifocal pneumonia or edema. Pleural spaces: Blunted left lateral costophrenic angle suspicious for small basilar effusion. No pneumothorax. Heart/Mediastinum: Mild cardiomegaly. No tracheal/mediastinal shift. Bones/joints: Prior median sternotomy. Cardiac pacemaker without gross hardware complication or change. No acute osseous abnormalities are identified. IMPRESSION: 1. Increased alveolar density in the right mid lung and lung bases concerning for multifocal pneumonia versus edema. 2. Cardiomegaly and vascular congestion suggesting an element of chronic CHF, with prior sternotomy and unchanged cardiac pacemaker.
[2020-08-07 00:07] LABS: ANION GAP 14.3 mEq/L (7-13)
[2020-08-07] MEDS ORDERED: Bumetanide 1 MG/4 ML MDV IVPUSH ONE ×2 (00:22→06:00)
[2020-08-07] MEDS ORDERED: Sodium Chloride 0.9% 10 ML Syringe FLUSH PRN (05:49)
[2020-08-07 07:26] LABS: ANION GAP 16.1 mEq/L (7-13)
[2020-08-07] MEDS: Insulin Lispro 100 Units/ML 3 ML Vial SUBCUT SCH (08:41)
[2020-08-07] MEDS: Sodium Bicarbonate 650 MG Tab PO SCH (08:43)
[2020-08-07] MEDS: Isosorbide Dinitrate 10 MG Tab PO SCH (08:43)
[2020-08-07 08:44] VITALS: BP 122/61; PULSE 100
[2020-08-07] MEDS ORDERED: Lidocaine 5% 700 MG Patch TOP SCH (09:00)
[2020-08-07] MEDS ORDERED: Metoprolol Succinate 25 MG Tab.ER PO SCH (09:00)
[2020-08-07] MEDS ORDERED: Rosuvastatin 10 MG Tab PO SCH (09:00)
[2020-08-07] MEDS ORDERED: Torsemide 20 MG Tab PO SCH (09:00)
[2020-08-07] MEDS ORDERED: Clopidogrel 75 MG Tab PO SCH (09:00)
[2020-08-07] MEDS ORDERED: Escitalopram 10 MG Tab PO SCH (09:00)
[2020-08-07] MEDS ORDERED: Multivitamins,Therapeutic Tab PO SCH (09:00)
[2020-08-07] MEDS ORDERED: Potassium Chloride 10 MEQ Tab.ER PO ONE (10:38)
[2020-08-07] MEDS ORDERED: Bumetanide 1 MG/4 ML MDV IVPUSH SCH (14:00)
[2020-08-07] MEDS ORDERED: Warfarin 5 MG Tab PO ONE (14:00)
--- NOTE | 2020-08-07 17:13 | PCM.DCSUM1 ---
Discharge Summary - Hospital Course Free Text/Narrative:: 75M w/ pmh systolic and diastolic CHF, CAD, CKD3, chronic DVT, DM2, CHB s/p PPM, s/p bioprosthetic AVR in 2018, COPD, gout, HT recently w/ in-stent re-stenosis of multiple LAD lesions treated w/ ballooning only followed by re-admission 07/25-08/06 for acute hypoxic respiratory failure 2/2 CHF exacerbation c/b cardiorenal syndrome and NSTEMI where he was nearly started on HD (even had perm cath placed - since removed) but turned around and now transferred to for Swing Bed. The very first night after admission the pt developed respiratory distress and relapse of respiratory failure requiring 10L o2 supp via oxy mask. He required 2 mg IV bumex to produce a diuretic response and 'rescue' him from impending critical respiratory failure. He is being converted from Swing Bed to in- patient since he will need continued IV diuresis and acute level of care and monitoring. Diagnosis: Stroke: No - Discharge Data Discharge Date: 08/07/20 Discharge Disposition: DC/Tfer to Acute Hospital 02 Condition: Serious - Referral to Home Health Primary Care Physician: PCP None - Patient Summary/Data Consults: Consultations 08/06/20 12:38 OT Evaluation and Treatment [CONS] Routine PT Evaluation and Treatment [CONS] Routine - Discharge Plan Home Medications: Home Meds Nitroglycerin [Nitrostat] 0.4 mg SL ASDIRECTED 02/08/14 [History] Clopidogrel [Plavix] 75 mg PO DAILY 04/26/18 [History] Insulin Aspart [NovoLOG] 10 - 17 units SQ TID 04/26/18 [History] Insulin Detemir [Levemir Flextouch] 26 units SQ BEDTIME 04/26/18 [History] Warfarin Sodium [Jantoven] 5 mg PO ASDIRECTED 04/26/18 [History] Metoprolol Succinate 25 mg PO DAILY 01/09/20 [History] Multivitamin [Multi-Vitamin Daily] 1 tab PO DAILY 01/09/20 [History] Acetaminophen 650 mg PO Q6HR 08/06/20 [History] Albuterol [Proventil Neb Soln] 2.5 inhalation INH Q4HR PRN 08/06/20 [History] Escitalopram [Lexapro] 10 mg PO DAILY 08/06/20 [History] Isosorbide Dinitrate 5 mg PO TID 08/06/20 [History] Lidocaine 5% [Lidoderm 5%] 1 patch TOP DAILY 08/06/20 [History] Rosuvastatin [Crestor] 20 mg PO DAILY 08/06/20 [History] Sodium Bicarbonate 650 mg PO TID 08/06/20 [History] calcitrioL [Calcitriol] 0.25 mcg PO .Q48HRS 08/06/20 [History] traZODone 50 mg PO BEDTIME PRN 08/06/20 [History] Acetaminophen [Tylenol] 650 mg PO Q4H PRN tablet 08/07/20 [Rx] Dextrose 50% in Water [Dextrose 50%-Water] 50 ml IV ASDIRECTED PRN syringe 08/07/20 [Rx] Glucagon,Human Recombinant [Glucagen] 1 mg IM ASDIRECTED PRN vial 08/07/20 [Rx] Insulin Glarg,Human.Rec.Analog [Lantus] 26 unit SUBCUT BEDTIME ml 08/07/20 [Rx] Insulin Lispro [HumaLOG] 0 unit SUBCUT WITHMEALSANDBED vial 08/07/20 [Rx] - Discharge Summary/Plan Comment DC Time >30 min.: No - Patient Data Vitals - Most Recent: Last Vital Signs Temp 98.3 F 08/07/20 08:00 Pulse 100 08/07/20 08:43 Resp 20 08/07/20 08:00 BP 122/61 08/07/20 08:43 Pulse Ox 98 08/07/20 08:20 Weight - Most Recent: 225 lb I&O - Last 24 hours: Intake & Output 08/07/20 08/07/20 08/07/20 06:59 14:59 22:59 Intake Total 250 320 Output Total 550 Balance -300 320 Lab Results - Last 24 hrs: Laboratory Results - last 24 hr 08/06/20 08/06/20 08/06/20 Range/Units 17:02 20:52 23:37 WBC 14.2 H (5.0-10.0) 10^3/uL RBC 3.34 L (4.6-6.2) 10^6/uL Hgb 9.2 L D (14.0-18.0) g/dL Hct 29.2 L (40.0-54.0) % MCV 87.4 (80-100) fL MCH 27.5 (27.0-34.0) pg MCHC 31.5 L (33.0-35.0) g/dL Plt Count 193 D (150-450) 10^3/uL PT (9.0-12.0) SEC INR (0.9-1.2) Sodium (136-145) mmol/L Potassium (3.5-5.1) mmol/L Chloride (98-107) mmol/L Carbon Dioxide (21-32) mmol/L Anion Gap (7-13) mEq/L BUN (7-18) mg/dL Creatinine (0.70-1.30) mg/dL Est Cr Clr Drug Dosing mL/min Estimated GFR (MDRD) Glucose (74-99) mg/dL POC Glucose 189 H 228 H (83-110) mg/dl Calcium (8.5-10.1) mg/dL Phosphorus (2.6-4.7) mg/dL Magnesium (1.8-2.4) mg/dL Troponin I (0.000-0.056) ng/mL 08/06/20 08/07/20 08/07/20 Range/Units 23:37 06:44 06:44 WBC 11.6 H (5.0-10.0) 10^3/uL RBC 3.20 L (4.6-6.2) 10^6/uL Hgb 8.9 L (14.0-18.0) g/dL Hct 28.5 L (40.0-54.0) % MCV 89.1 (80-100) fL MCH 27.8 (27.0-34.0) pg MCHC 31.2 L (33.0-35.0) g/dL Plt Count 181 (150-450) 10^3/uL PT 16.7 H D (9.0-12.0) SEC INR 1.8 H (0.9-1.2) Sodium 140 (136-145) mmol/L Potassium 3.3 L (3.5-5.1) mmol/L Chloride 100 (98-107) mmol/L Carbon Dioxide 29 (21-32) mmol/L Anion Gap 14.3 H (7-13) mEq/L BUN 119 H D (7-18) mg/dL Creatinine 1.84 H (0.70-1.30) mg/dL Est Cr Clr Drug Dosing 36.92 mL/min Estimated GFR (MDRD) 36 Glucose 192 H (74-99) mg/dL POC Glucose (83-110) mg/dl Calcium 9.7 (8.5-10.1) mg/dL Phosphorus (2.6-4.7) mg/dL Magnesium (1.8-2.4) mg/dL Troponin I 0.307 H* (0.000-0.056) ng/mL 08/07/20 08/07/20 08/07/20 Range/Units 06:44 06:44 08:09 WBC (5.0-10.0) 10^3/uL RBC (4.6-6.2) 10^6/uL Hgb (14.0-18.0) g/dL Hct (40.0-54.0) % MCV (80-100) fL MCH (27.0-34.0) pg MCHC (33.0-35.0) g/dL Plt Count (150-450) 10^3/uL PT (9.0-12.0) SEC INR (0.9-1.2) Sodium 143 (136-145) mmol/L Potassium 3.1 L (3.5-5.1) mmol/L Chloride 102 (98-107) mmol/L Carbon Dioxide 28 (21-32) mmol/L Anion Gap 16.1 H (7-13) mEq/L BUN 121 H (7-18) mg/dL Creatinine 1.86 H (0.70-1.30) mg/dL Est Cr Clr Drug Dosing 36.52 mL/min Estimated GFR (MDRD) 36 Glucose 171 H (74-99) mg/dL POC Glucose 180 H (83-110) mg/dl Calcium 8.9 (8.5-10.1) mg/dL Phosphorus 3.1 (2.6-4.7) mg/dL Magnesium 2.0 (1.8-2.4) mg/dL Troponin I 0.492 H* (0.000-0.056) ng/mL 08/07/20 Range/Units 11:59 WBC (5.0-10.0) 10^3/uL RBC (4.6-6.2) 10^6/uL Hgb (14.0-18.0) g/dL Hct (40.0-54.0) % MCV (80-100) fL MCH (27.0-34.0) pg MCHC (33.0-35.0) g/dL Plt Count (150-450) 10^3/uL PT (9.0-12.0) SEC INR (0.9-1.2) Sodium (136-145) mmol/L Potassium (3.5-5.1) mmol/L Chloride (98-107) mmol/L Carbon Dioxide (21-32) mmol/L Anion Gap (7-13) mEq/L BUN (7-18) mg/dL Creatinine (0.70-1.30) mg/dL Est Cr Clr Drug Dosing mL/min Estimated GFR (MDRD) Glucose (74-99) mg/dL POC Glucose 221 H (83-110) mg/dl Calcium (8.5-10.1) mg/dL Phosphorus (2.6-4.7) mg/dL Magnesium (1.8-2.4) mg/dL Troponin I (0.000-0.056) ng/mL Med Orders - Current: Current Medications Acetaminophen (Acetaminophen 325 Mg Tab) 650 mg PO Q4H PRN PRN Reason: Pain (Mild 1-3)/fever Last Admin: 08/06/20 20:55 Dose: 650 mg Documented by: - Exam Quality Assessment: Reports: Supplemental Oxygen (4L) General: Reports: Alert, Oriented, Cooperative, Other (ill appearing) HEENT: Reports: Pupils Equal, Pupils Reactive Neck: Reports: Supple Lungs: Reports: Other (dec BS bilaterall, rales at bases) Cardiovascular: Reports: Regular Rate, Regular Rhythm, Other (diastolic ) GI/Abdominal Exam: Normal Bowel Sounds, Soft, Non-Tender, No Distention Back Exam: Reports: Other (aliya-rectal, coccyx stage 3 decubitus ulcer - see pictures in EMR) Extremities: Pedal Edema (2+) Skin: Reports: Warm, Dry Neurological: Reports: No New Focal Deficit Psy/Mental Status: Reports: Alert, Normal Affect, Depressed
--- OUTSIDE RECORDS SUMMARY | 2020-08-09 13:54 | XMSREPORT ---
:1945 Author Organization [facility] s Address [facility] [address] [place] [address] Care Team Providers Name Role Phone MD Paulina Primary Care Provider Provider, Attributed RESOURCE Attributed Provider Unavailab le Reason for Referral (Routine) Status Reason Specialty Diagnoses / Procedures Referred By Tiffanie valencia Referred To Contact [address] [address] Phone: [phone] (Routine) Status Reason Specialty Diagnoses / Procedures Referred By Tiffanie valencia Referred To Contact [address] [address] Phone: [phone] Transitions of Care (Routine) Status Reason Specialty Diagnoses / Referred By Referred To Procedures Contact Contact New Request Patient Diagnoses Acute on chronic HFrEF (heart failure with reduced ejection fraction) (HCC) Amber Holly Go, Jason S, Preference ISAI VALENTINO [address] [place] [id number] [facility] Phone: [place] [address] Fax: Transitions of Care (Urgent) Status Reason Specialty Diagnoses / Referred By Referred To Procedures Contact Contact New Request Patient Diagnoses Stage 4 chronic kidney disease (HCC) Amber Holly Rahman, Malcolm Morales MD [address] [place] [address] [place] [address] Phone: [place] [address] Fax: Reason for Visit Reason Comments Auth/Cert Status Reason Specialty Diagnoses / Procedures Referred By Tiffanie valencia Referred To Contact Encounter Details Date Type Department Care Team Description 07/25/2020 [facility] [address] [place] [address] Acute on chronic 08/06/2020 CENTER [facility] Barbara Mejia MD [address] [place] [address] HFrEF (heart failure [address] [facility] Nidia Lentz MD [address] [place] [address] [phone] [place] [address] Saroj Wilson MD [address] [place] [address] [phone] ejection fraction) [phone] Kenneth Salinas MD [address] [place] [address] [phone] (HCC) Allergies Active Allergy Reactions Severity Noted Date Comments Penicillin Hives (High) High 06/28/2020 documented as of this encounter (statuses as of 08/06/2020) Medications Medication Sig Dispensed Refills Start End Status Date Date nitroglycerin Dissolve 1 tablet 0 Active (NITROSTAT) 0.4 under the tongue 0 mg sublingual Every 5 minutes as tablet needed for chest pain MAX 3 doses acetaminophen Take 2 tablets 100 tablet 0 Active (TYLENOL) 325 mg (650 mg) by mouth 1 tabletIndications Every 6 hours For : SI (sacroiliac) back pain joint dysfunction sodium Take 1 tablet (650 90 tablet 0 A ctive bicarbonate 650 mg) by mouth 3 1 MG times a day CKD tabletIndications : Stage 4 chronic kidney disease ([facility]) isosorbide Take 1 tablet (5 90 tablet 0 Ac tive dinitrate mg) by mouth 3 1 (ISORDIL) 5 mg times a day tabletIndications nitrate CAD/angina : Acute on chronic congestive heart failure, unspecified heart failure type ([facility]) albuterol Inhale 1 nebule 12 each 0 Acti ve (PROVENTIL) (2.5 (2.5 mg) by 1 022 mg/3mL) 0.083% nebulization Every inhalation 4 hours as needed solutionIndicatio for wheezing ns: Wheezing warfarin Take 2.5 mg 3 days 0 A ctive (COUMADIN) 5 mg per week and take 1 tablet 5 mg 4 days per week Hx DVT escitalopram Take 1 tablet (10 90 tablet 3 Active (LEXAPRO) 10 mg mg) by mouth 1 1 tablet time per day Depression traZODone Take 1 tablet (50 30 tablet 0 Ac tive (DESYREL) 50 mg mg) by mouth at 1 022 tabletIndications bedtime as needed : Insomnia, for insomnia unspecified type insulin detemir Inject 26 Units 0 Active (LEVEMIR subcutaneously 1 1 FLEXTOUCH) time a day in the subcutaneous evening injection (pen) insulin aspart TID with meals- 3 mL 0 Active (NOVOLOG) SQ Sliding scale 1 correction scale 150-200- 2units, (Adult) 201-250 4 units, 251-300 6 units, 301-350 8 units, >351 call provider metoprolol Take 1 tablet (25 30 tablet 0 A ctive succinate (TOPROL mg) by mouth 1 1 XL) 25 mg SR time per day CHF/ tablet (24 hr) HTN rosuvastatin Take 1 tablet (20 30 tablet 0 Active (CRESTOR) 20 mg mg) by mouth 1 1 tabletIndications time per day : Acute on Hyperlipidemia/CAD chronic HFrEF (heart failure with reduced ejection fraction) ([facility]), Dyslipidemia lidocaine Apply 1 patch 30 patch 0 Active (LIDODERM) 5% topically 1 time 1 patchIndications: per day Patches SI (sacroiliac) may be left on for joint dysfunction up 12 hours in a 24 hour period. Right SI joint area torsemide Take 2 tablets (40 30 tablet 0 A ctive (DEMADEX) 20 mg mg) by mouth 1 1 tabletIndications time per day CHF : Stage 4 chronic kidney disease ([facility]), Acute on chronic HFrEF (heart failure with reduced ejection fraction) ([facility]) calcitriol Take 1 capsule 30 capsule 0 Act stacia (ROCALTROL) 0.25 (0.25 mcg) by 1 mcg mouth Every other capsuleIndication day CKD s: Stage 4 chronic kidney disease ([facility]) clopidogrel Take 1 tablet (75 90 tablet 3 Active (PLAVIX) 75 mg mg) by mouth 1 1 tabletIndications time per day SP : S/P coronary stent artery stent placement multivitamin Take 1 tablet by 30 tablet 0 Active therapeutic with mouth 1 time per 1 minerals (THERA day Supplement M) TABS tablet multivitamin Take 1 tablet by 0 Discontinued therapeutic with mouth 1 time per 1 021 (Reorder) minerals (THERA day M) TABS tablet albuterol HFA Inhale 2 puffs 0 D iscontinued (PROVENTIL,PROAIR orally every 6 0 021 (Stop Taking at ,VENTOLIN) 108 hours as needed Discharge) (90 Base) MCG/ACT for wheezing inhaler insulin detemir Inject 40 Units 0 Discontinued (LEVEMIR subcutaneously 1 0 021 (Re order) FLEXTOUCH) time a day in the subcutaneous evening injection (pen) metFORMIN Take 1 tablet by 0 Dis continued (GLUCOPHAGE) 1000 mouth 2 times a 1 021 (entry level accounting clerk MG tablet day with meals error ) omega-3 fatty Take 1,000 mg by 0 Discontinued acids (FISH OIL) mouth 1 time per 021 (Stop Taking at 1000 mg capsule day Disc harge) warfarin Take 2.5 mg 3 days 0 D iscontinued (COUMADIN) 5 mg per week and take 0 021 (Reorder) tablet 5 mg 4 days per week clopidogrel Take 1 tablet (75 90 tablet 3 Discontinued (PLAVIX) 75 mg mg) by mouth 1 1 021 (Reorder) tabletIndications time per day : S/P coronary artery stent placement gabapentin Take 1 capsule 30 capsule 0 Dis continued (NEURONTIN) 100 (100 mg) by mouth 1 021 (entry level accounting clerk mg capsule every night at erro r) bedtime Take 1 capsule (100 mg) at bedtime. isosorbide Take 1 tablet (5 90 tablet 0 Di scontinued dinitrate mg) by mouth 3 021 (Reor tito) (ISORDIL) 5 mg times a day tabletIndications nitrate : Acute on chronic congestive heart failure, unspecified heart failure type (HCC) bumetanide Take 1 tablet (2 30 tablet 0 Di scontinued (BUMEX) 2 mg mg) by mouth 1 1 021 (S top Taking at tabletIndications time per day Take Discharge) : Acute on on Wednesday, chronic , congestive heart Wednesday, Wednesday failure, ONLY. Do NOT take unspecified heart on dialysis days failure type (MWF). (HCC) allopurinol Take 1 tablet (300 30 tablet 0 Discontinued (ZYLOPRIM) 300 mg mg) by mouth 1 1 021 (Stop Taking at tablet time per day Dischar ge) gemfibrozil Take 1 tablet (600 60 tablet 0 Discontinued (LOPID) 600 mg mg) by mouth 2 1 021 (Stop Taking at tablet times a day before D ischarge) meals metoprolol Take 1 tablet (25 30 tablet 0 D iscontinued succinate (TOPROL mg) by mouth 1 1 021 (Reorder) XL) 25 mg SR time per day tablet (24 hr) pravastatin Take 1 tablet (80 30 tablet 0 Discontinued (PRAVACHOL) 80 mg mg) by mouth 1 1 021 (Stop Taking at tabletIndications time a day in the Discharge) : Acute on evening chronic congestive heart failure, unspecified heart failure type (HCC) sevelamer Take 2 tablets 15 tablet 0 Disco ntinued carbonate (1,600 mg) by 1 021 (entry level accounting clerk (RENVELA) 800 mg mouth 3 times a error) tabletIndications day with meals Do : ESRD (end stage not give on an renal disease) empty stomach, (HCC) must be given with food to be effective. NOVOLOG FLEXPEN Inject 2-8 Units 7.2 mL 0 Discontinued subcutaneous subcutaneously 3 (Stop Taking at injection times a day with Dis charge) (pen)Indications: meals Diabetes mellitus, type II, insulin dependent (HCC) escitalopram Take 10 mg by 0 Dis continued (LEXAPRO) 10 mg mouth 1 time per (Reorder) tablet day documented as of this encounter (statuses as of 08/06/2020) Active Problems Problem Noted Date Stage 4 chronic kidney disease 08/04/2020 Heart failure 07/26/2020 Hx of cardiac pacemaker 06/29/2020 Chronic combined systolic and diastolic CHF (congestiv e heart failure) 06/29/2020 S/P coronary artery stent placement 06/29/2020 Overview: - 06/26/2019 [facility] at [facility] - 90%p LAD ISR s/p PC/ROSEMARIE, PTCA 80% dLAD ISR, 80% mCIRC s/p PCI/RONALD - 01/04/2020 [facility] at [facility] - PCI/RONALD to IS R pLAD and dLAD and PTCA dLAD. PCI/RONALD to mCIRC. - 01/2018 [facility] at [facility] - pRCA and multip le PCI prior Pneumonia due to infectious organism 06/29/2020 Positive D dimer 06/29/2020 Non-ST elevation [place] (NSTEMI) 06/29/2020 Acute on chronic HFrEF (heart failure with reduced eje ction fraction) 06/28/2020 Diabetes mellitus, type II, insulin dependent 05/11/20 18 Complete heart block 03/23/2018 Overview: [employer] Pacemaker at [facility] 03/22/2018 S/P AVR (aortic valve replacement) 03/23/2018 Atherosclerosis of coronary artery 09/04/2009 Overview: Stents to RCA and LAD in 2009. Cath 08/16/09, Stress 06/21/09 Essential hypertension 09/04/2009 Dyslipidemia 09/04/2009 documented as of this encounter (statuses as of 08/06/2020) Immunizations Name Administration Dates Next Due FLU VACCINE HIGH DOSE 65YR+(Fluzone) 03/25/2018, 05/13/2015, 04/13/2014 Flu Vaccine Subunit Multidose 04/03/2019 4yr+(flucelvax) Influenza Vaccine,unspecified 04/17/2013 Pneumococcal Conj PCV13 01/15/2016 Pneumococcal Polysaccharide PPSV23 03/25/2018, 11/25/2010 TDAP 04/13/2014 documented as of this encounter Social History Tobacco Use Types Packs/Day Years Used Date Former Smoker Smokeless Tobacco: Never Used Alcohol Use Drinks/Week oz/Week Comments Not Currently Sexually Active Control Partners Comments Not Currently Sex Assigned at Date Recorded Not on file documented as of this encounter Last Filed Vital Signs Vital Sign Reading Time Taken Comments Blood Pressure 100/88 08/06/2020 7:20 AM SECURITY AND COMPLIANCE PROJECT MANAGER Pulse 91 08/06/2020 7:20 AM SECURITY AND COMPLIANCE PROJECT MANAGER Temperature 35.8 C (96.5 F) 08/06/2020 7:20 AM SECURITY AND COMPLIANCE PROJECT MANAGER Respiratory Rate 16 08/06/2020 7:20 AM SECURITY AND COMPLIANCE PROJECT MANAGER Oxygen Saturation 93% 08/06/2020 7:20 AM SECURITY AND COMPLIANCE PROJECT MANAGER Inhaled Oxygen Concentration - - Weight 99.7 kg (219 lb 12.8 oz) 08/06/2020 7:20 AM SECURITY AND COMPLIANCE PROJECT MANAGER Height 177.8 cm (5' 10") 07/25/2020 7:08 PM SECURITY AND COMPLIANCE PROJECT MANAGER Body Mass Index 31.54 07/25/2020 7:08 PM SECURITY AND COMPLIANCE PROJECT MANAGER documented in this encounter Functional Status Functional Status Response Date of Assessment Do you have difficulty with walking, balance, climbing No 07/26/2020 stairs, or had a fall in the last 3 months? documented as of this encounter Discharge Summaries Not on filedocumented in this encounter Discharge Instructions Deandra Sierra, PHARM D - 07/27/2020Heart Failure Discharge Instructions Activity: ? Be as active as possible ? Break down tasks to small activities to avoid becoming overly tired ? Talk to your doctor before lifting more than 10 pounds ? Begin to exercise slowly and increase only as tolerated; refer to your education book ? Balance activity and rest periods Nutrition: ? Follow a low sodium (salt) diet ? Choose no added salt or low sodium foods; choose fresh foods as much as possible ? Avoid adding salt to food when cooking or at the table ? Read the nutrition facts labels and avoid foods with more than 300 mg of sodium per serving Medication: ? Make a list and schedule of the medications you take ? Keep a current list of your medications with you ? Take your medications as prescribed ? Avoid NSAIDs or Non-Steroidal Anti-Inflammatory Drugs (i.e. Advil, Ibuprofen, Motrin, etc.) Self-Care: ? Weigh yourself and write it down first thing in the morning after you empty your bladder and before you eat or drink ? Check for swelling of your feet, ankles, legs, and stomach ? Do your daily exercise ? If you smoke, stop ? Keep all follow-up appointments and bring your medications and weight log with you Review the Living Well with Heart Failure booklet for more information on caring for yourself or your loved one at home. Call Your Doctor or Health Brick Sorter If You Have: ? Weight gain of more than 2 pounds overnight or 5 pounds in one week (or whatever weight gain you were told to report by your doctor) ? New or increased swelling of your legs or ankles, swelling or pain in your stomach ? Decrease in amount you urinate ? Increased shortness of breath ? Increased cough with yellow or green sputum (mucus) ? Increased breathing trouble at night (waking up short of breath, needing more pillows to breathe) ? Feeling much more tired than usual ? Racing or pounding heart beat ? Dizziness Go To The Nearest Emergency Room or Call 911 If You Have: ? Shortness of breath so severe that you cannot catch your breath even while resting ? [place], foamy sputum (mucus) ? New problem sleeping; you need to sit straight up to sleep or are not able to sleep due to shortness of breath ? Severe chest pain that does not resolve with rest or Nitroglycerin ? New or increased confusion or cannot think clearly ? A continuous rapid or irregular heart beat ? Fainting or feeling to dizzy to stand up Warfarin Discharge Instructions: Warfarin dose NOT given 08/06/20 in the hospital. Plan to give 2.5 mg at [facility]. Check INR tomorrow on 08/07/20 AttachmentsThe following attachments cannot be sent through Care Everywhere. Heart Failure: Taking Medicine to Control (Brazilian)Kidney Disease, Discharge Instructions for Chronic (Brazilian)documented in this encounter Medications at Time of Discharge Medication Sig Dispensed Refills Start Date End Date acetaminophen Take 2 tablets (650 100 tablet 0 08/06/2020 (TYLENOL) 325 mg mg) by mouth Every 6 tabletIndications: SI hours For back pain (sacroiliac) joint dysfunction sodium bicarbonate 650 Take 1 tablet (650 mg) 90 tablet 0 0 08/05/2020 MG tabletIndications: by mouth 3 times a day Stage 4 chronic kidney CKD disease (HCC) isosorbide dinitrate Take 1 tablet (5 mg) 90 tablet 0 08/05 (ISORDIL) 5 mg by mouth 3 times a day tabletIndications: nitrate CAD/angina Acute on chronic congestive heart failure, unspecified heart failure type ([facility]) albuterol (PROVENTIL) Inhale 1 nebule (2.5 12 each 0 12/202008/10/2021 (2.5 mg/3mL) 0.083% mg) by nebulization inhalation Every 4 hours as solutionIndications: needed for wheezing Wheezing warfarin (COUMADIN) 5 Take 2.5 mg 3 days per 0 mg tablet week and take 5 mg 4 days per week Hx DVT escitalopram (LEXAPRO) Take 1 tablet (10 mg) 90 tablet 3 10 mg tablet by mouth 1 time per day Depression traZODone (DESYREL) 50 Take 1 tablet (50 mg) 30 tablet 0 08/10/2021 mg tabletIndications: by mouth at bedtime as Insomnia, unspecified needed for insomnia type insulin detemir Inject 26 Units 0 08/05/2020 (LEVEMIR FLEXTOUCH) subcutaneously 1 time subcutaneous injection a day in the evening (pen) insulin aspart TID with meals- 3 mL 0 08/05/2020 (NOVOLOG) SQ Sliding scale 150-200- correction scale 2units, 201-250 4 (Adult) units, 251-300 6 units, 301-350 8 units, >351 call provider metoprolol succinate Take 1 tablet (25 mg) 30 tablet 0 12/2020 (TOPROL XL) 25 mg SR by mouth 1 time per tablet (24 hr) day CHF/ HTN rosuvastatin (CRESTOR) Take 1 tablet (20 mg) 30 tablet 0 20 mg by mouth 1 time per tabletIndications: day Hyperlipidemia/CAD Acute on chronic HFrEF (heart failure with reduced ejection fraction) ([facility]), Dyslipidemia lidocaine (LIDODERM) Apply 1 patch 30 patch 0 08/06/2020 5% patchIndications: topically 1 time per SI (sacroiliac) joint day Patches may be dysfunction left on for up 12 hours in a 24 hour period. Right SI joint area torsemide (DEMADEX) 20 Take 2 tablets (40 mg) 30 tablet 0 0 08/06/2020 mg tabletIndications: by mouth 1 time per Stage 4 chronic kidney day CHF disease ([facility]), Acute on chronic HFrEF (heart failure with reduced ejection fraction) ([facility]) calcitriol (ROCALTROL) Take 1 capsule (0.25 30 capsule 0 01/2021 0.25 mcg mcg) by mouth Every capsuleIndications: other day CKD Stage 4 chronic kidney disease ([facility]) clopidogrel (PLAVIX) Take 1 tablet (75 mg) 90 tablet 3 12/2020 75 mg by mouth 1 time per tabletIndications: S/P day SP stent coronary artery stent placement multivitamin Take 1 tablet by mouth 30 tablet 0 08/05/2020 therapeutic with 1 time per day minerals (THERA M) Supplement TABS tablet nitroglycerin Dissolve 1 tablet 0 05/17/2020 (NITROSTAT) 0.4 mg under the tongue Every sublingual tablet 5 minutes as needed for chest pain MAX 3 doses documented as of this encounter Progress Notes Cookie Tamayo RN - 08/05/2020 3:00 PM CSTPt continues to be alert and orientated but is more lethargic today per family. He is showing tachy paced rhythm on telemetry. He was assisted by staff with a shower, he exhibited minimal effort duringprocess. Pressure sore to coccyx opened up from rubbed away skin, barrier cream applied after shower. Lidocaine patch applied to R side. Extra IV diuretic and iron dose administered per JUL. Continues to tolerate ambulation with Ax1 and FWW. Has spent time between chair and bed. No dialysis at this time d/t improving Cr. Call light in reach and will continue to be monitored. RITY AND COMPLIANCE PROJECT MANAGER Deandra Kay, PHARM D - 08/05/2020 11:26 AM CST Warfarin Initial Consult Note Mr. Ruiz has been initiated on warfarin per pharmacy protocol for afib. Desired goal INR is 2-3. Patient has previously been on anticoagulation therapy. Reversal agents given (dose/route/timing): Vitamin K 5 mg PO x1 on 08/02 Labs: Lab Results Component Value Date INR 1.4 (L) 08/05/2020 PT 16.4 (H) 08/05/2020 Protime Date/Time Value Ref Range Status 08/05/2020 07:12 AM 16.4 (H) 12.0 - 14.5 secs Final 08/04/2020 07:47 AM 17.2 (H) 12.0 - 14.5 secs Final 08/03/2020 07:18 AM 20.5 (H) 12.0 - 14.5 secs Final INR Date/Time Value Ref Range Status 08/05/2020 07:12 AM 1.4 (L) 2.0 - 3.5 Final 08/04/2020 07:47 AM 1.5 (L) 2.0 - 3.5 Final 08/03/2020 07:18 AM 1.8 (L) 2.0 - 3.5 Final Platelet Count Date/Time Value Ref Range Status 07/26/2020 05:42 AM 191 140 - 400 K/uL Final Hemoglobin Date/Time Value Ref Range Status 08/05/2020 07:12 AM 9.2 (L) 13.5 - 17.5 g/dL Final Plan: Warfarin: 5 mg today. Pharmacy will monitor and if indicated, adjust dose per the anticoagulation policy. Thank you very much for the consult. Deandra Kay, PHARM D RITY AND COMPLIANCE PROJECT MANAGER Yajaira Young MD - 08/05/2020 8:15 AM CST NEPHROLOGY HOSPITAL FOLLOW UP Impression and Plan: MAMIE on CKD stage IV secondary to diabetic nephropathy and hypertensive nephrosclerosis. Moderate proteinuria Ischemic cardiomyopathy with EF 25% Acute on chronic systolic and diastolic heart failure Anemia of advanced CKD CKDMBD, secondary hyperparathyroidism CAD status post multiple angioplasty, most recently in May 2020 with stent in LAD Diabetes, dyslipidemia, moderate obesity, PAD MAMIE on CKD status post hemodialysis for 4 weeks from May 2020 through July 19, 2020 The patient missed kidney biopsy which is scheduled at outside hospital His renal function improved some with good UOP, responded to Torsemide, his planned PD catheter placement is postponed. I educated the patient and his family about signs of uremia, fluid overload. He needs to watch signs very closely on uremia and fluid overload at home. He needs to weigh himself daily, weekly renal function checks, and follow with his vegetable washer in one week after the hospital discharge. I will give one dose of Bumex 1mg IV today, We will continue torsemide 40 mg daily Strict intake and output Please avoid nephrotoxins including IV contrast and NSAIDs Please dose all medication with decreased GFR to less than 20 Continue iv iron and FREDRICK per protocol Continue all other supportive care. The above are discussed with the primary team. Hilary Ruiz is a 75yr old male admitted on 07/25/2020. Subjective Patient was seen and examined today. He feel better, but still tired, no SOB or other discomfort. The family is at bedside. UOP of 1.475 liter + 2 unmeasured urine, and 700 ml yesterday and 925 ml today. Physical Exam Vitals: 08/04/20 2100 08/04/20 2247 08/05/20 0332 08/05/20 0701 BP: 116/61 129/74 113/64 Pulse: 103 97 91 Resp: 18 16 16 Temp: 96.4 F (35.8 C) 96.9 F (36.1 C) 96 F (35.6 C) SpO2: 95% 93% 95% Weight: 97.3 kg (214 lb 6.4 oz) Height: General Appearance: well developed, well nourished. No distress. HEENT: EOMI, Bilateral pupils are round and equal, no sclera icterus, O/P membrane moist Neck: supple, No JVD. Chest: clear to auscultation, no rales, no wheezes or rhonchi. Heart: S1, S2 present. RRR, No murmurs. Abdomen: soft, nontender, nondistended, no masses or organomegaly. Extremities: +ve peripheral edema. Symmetric pedal pulses. Neurol: AAO x3 Skin: warm and dry Current Vital Signs Temp: 96 F (35.6 C) BP: 113/64 Pulse: 91 O2 Device: Room Air O2 Flow Rate (L/min): 0.5 l/min Resp: 16 Pain Ratin (out of 10) Weight: 97.3 kg (214 lb 6.4 oz) SpO2: 95 % Intake and Output Intake/Output Summary (Last 24 hours) at 08/05/2020 0815 Last data filed at 08/05/2020 0722 Gross per 24 hour Intake 200 ml Output 600 ml Net -400 ml Allergies Allergies have been reviewed. Hilary is allergic to penicillin. Recent labs Labs (Last day) 08/05/20711 - 08/05/20711 CBC 08/05/20711 CBC Hemoglobin 13.5-17.5 (g/dL) 9.2 08/05/20711 - 08/05/20 07 CHEMISTRY 08/05/20711 CHEMISTRY Glucose 70-100 (mg/dL) 118 Sodium 135-145 (meq/L) 136 Potassium 3.5-5.3 (meq/L) 3.8 Chloride 99-110 (meq/L) 105 CO2 20-29 (meq/L) 21 Anion Gap with K 6-20 (meq/L) 14 BUN 6-22 (mg/dL) 116 Creatinine 0.80-1.30 (mg/dL) 2.05 BUN/Creatinine Ratio 10.0-25.0 56.6 Calcium 8.5-10.5 (mg/dL) 9.5 Corrected Calcium 8.5-10.5 (mg/dL) 10.3 Phosphorus 2.5-4.5 (mg/dL) 4.2 Albumin 3.5-5.0 (g/dL) 3.0 eGFR >=60 (mL/min/1.73m2) 39 eGFR Non- >=60 (mL/min/1.73m2) 32 08/05/20 0712 - 08/05/20 07 GENERAL COAGULATION 08/05/20711 GENERAL COAGULATION Protime 12.0-14.5 (secs) 16.4 INR 2.0-3.5 1.4 08/05/20 0511 - 08/04/20 1119 GLUCOSE POINT OF CARE 08/05/20 0511 08/04/20 2036 08/04/20 1700 08/04/20 1245 08/04/20 1119 GLUCOSE POINT OF CARE Glucose POC 70-99 (mg/dL) 108 236 126 212 204 08/04/20 1049 - 08/04/20 1049 URINALYSIS 08/04/20 1049 08/04/20 1049 URINALYSIS Color Urine Renetta, Dark Yellow, Straw, Yellow, Colorless Straw Clarity Urine Clear Clear Specific [place] 1.002-1.030 1.014 Glucose Urine Negative Negative Bilirubin Urine Negative Negative Ketones Urine Negative, 5 mg/dL, 10 mg/dL Negative Blood Urine Negative Small (1+) PH Urine 5.0, 5.5, 6.0, 6.5, 7.0, 7.5, 8.0 5.0 Protein Urine Negative Trace (10-20) mg/dL Nitrite Negative Negative Leukocyte Esterase Urine Negative Negative Urobilinogen < 2 mg/dL < 2 mg/dL WBC Urine Negative, 0-5 /hpf 0-5 /hpf RBC Urine Negative, 0-2 /hpf 6-10 /hpf Squamous Epithelial Cells Negative, Occ (0-10) /lpf, Few (11-20) /lpf Occ (0- 10) /lpf Bacteria Negative Negative Hyaline Cast 0-2 /lpf 0-2 /lpf 08/04/20 1049 - 08/04/20 1049 URINE CHEMISTRY 08/04/20 1049 URINE CHEMISTRY Creatinine Urine 20.0-250.0 (mg/dL) 50.2 Protein Total Urine (mg/dL) 29.4 Protein/Creatinine Ratio 1-150 (mg/g) 586 08/05/20 0712 - 08/05/20 0712 OTHER 08/05/20 0712 OTHER Age (Years) 75 Medications in the hospital: Current Facility-Administered Medications Medication Dose Route Frequency Provider Last Rate Last Admin insulin detemir (LEVEMIR) SQ injection 26 Units Subcutaneous Every evening Amber Holly APRN-CNP 26 Units at 08/04/202101 rosuvastatin (CRESTOR) tablet 20 mg 20 mg Oral Daily Amber Holly APRN-CNP 20 mg at sodium bicarbonate tablet 650 mg 650 mg Oral 3 times a day Agnes Dailey MD 650 mg at 08/04/202101 torsemide (DEMADEX) tablet 40 mg 40 mg Oral Daily Agnes Dailey MD 40 mg at 08/04/20 0805 oxyCODONE (OXY-IR) tablet 5 mg 5 mg Oral Every 6 hours prn Amber Holly APRN-CNP 5 mg at 08/05/20 0504 lidocaine (LIDODERM) 5% patch 1 patch Apply externally Daily Amber Holly APRN-CNP 1 patch at 08/04/20 0805 acetaminophen (TYLENOL) tablet 650 mg 650 mg Oral Every 6 hours Amber Holly APRN-CNP 650 mgat 08/05/20 0504 calcitriol (ROCALTROL) capsule 0.25 mcg 0.25 mcg Oral Every other day Agnes Dailey MD 0.25 mcg at 08/04/20 1518 traZODone (DESYREL) tablet 50 mg 50 mg Oral Bedtime prn Amber Holly APRN- CNP 50 mg at 08/03/20 2252 loperamide (IMODIUM) capsule 2 mg 2 mg Oral Every 1 hour prn Amber Holly APRN-CNP 2 mg at 07/28/20 1842 sodium chloride 0.9% flush (adult) 10 mL 10 mL IV 2 times a day and prn Wade Allison MD 10 mL at 08/04/20 210 metoclopramide (REGLAN) inj soln 5 mg 5 mg IV Every 6 hours prn Wade Allison MD melatonin tablet 3 mg 3 mg Oral Bedtime prn Barbara Mejia MD 3 mg at 07/28/20 2146 senna-docusate sodium (SENOKOT-S;PERICOLACE) tablet 2 tablet 2 tablet Oral 2 times a day prn Barbara Mejia MD And bisacodyl (DULCOLAX) suppository 10 mg 10 mg Rectal 1 time a day prn Barbara Mejia MD And docusate sodium (THEREVAC-SB MINI;ENEMEEZ MINI) 283 MG enema 1 enema 1 enema Rectal 1 time a day prn Barbara Mejia MD ondansetron (ZOFRAN ODT) dispersible tablet 4 mg 4 mg Oral 4 times a day prn Barbara Mejia MD And ondansetron (ZOFRAN) injection solution 4 mg 4 mg IV 4 times a day prn Barbara Mejia MD albuterol (PROVENTIL) (2.5 mg/3mL) 0.083% inhalation soln 2.5 mg 2.5 mg Nebulization Every 4 hours prn Barbara Mejia MD clopidogrel (PLAVIX) tablet 75 mg 75 mg Oral daily Barbara Mejia MD 75 mg at 08/04/20 0805 isosorbide dinitrate (ISORDIL) tablet 5 mg 5 mg Oral 3 times a day nitrate Amber Holly, [employer]K DELIVERY DRIVER 5 mg at 08/04/20 1808 metoprolol succinate (TOPROL XL) SR tablet (24 hr) 25 mg 25 mg Oral daily Barbara Mejia MD 25 mg at 08/04/20 0804 nitroglycerin (NITROSTAT) sublingual tablet 0.4 mg 0.4 mg Sublingual Every 5 minutes prn Barbara Mejia MD omega-3 fatty acids (FISH OIL) capsule 1,000 mg 1,000 mg Oral daily Barbara Mejia MD 1,000 mg at 08/04/20 0805 dextrose 50% IV solution 50 mL 25 g IV PRN per parameter Barbara Mejia MD glucagon for injection 1 mg vial 1 mg 1 mg Intramuscular PRN per parameter Barbara Mejia MD dextrose chewable tablet 16 g 4 tablet Oral PRN per parameter Barbara Mejia MD 16 g at 08/01/20 0542 Or carbohydrate 15 g 15 g Oral PRN per parameter Barbara Mejia MD insulin aspart (NovoLOG) SQ correction scale (Adult) 2-8 Units Subcutaneous 3 times a day Barbara Mejia MD 3 Units at 08/04/20 1249 escitalopram (LEXAPRO) tablet 10 mg 10 mg Oral daily Barbara Mejia MD 10 mg at 08/04/20 0805 Amber Bobo APRN-MILK DELIVERY DRIVER - 08/04/2020 8:36 AM CST DAILY PROGRESS NOTE Hilary Ruiz is a 75yr old male admitted on 07/25/2020 7:05 PM. Impression / Plan Acute on chronic heart failure with reduced EF25% NSTEMI-likely type II secondary toCHF CAD with recent non-ST elevation [place] 07/04/2020-99%LADin-stent restenosis- Underwent balloon angioplasty without stenting - weight down 1.3kg since admission, NOT requiring oxygen,O2 sat normal on RA - trop 0.49 trended down -Echo EF 25%. There is global hypokinesis of the left ventricle. Wall segments are akinetic. -Cardiology consult-recommendGDMT,Continue metoprolol XL 25 daily,isosorbide 5 mg 3 times a day -Torsemide 40 mg daily(diuretics directed per nephology) -HoldACEIdue to acute renal failure -change statin to high intensity statin Crestor 20 mg -continue ASA and PLavix - discussed with Dr Carbajal cardiology, patient needs to continue ASA/Plavix, He spoke to Dr Darius TARANGO to continue ASA/Plavix for procedure -security monitor -Continue strict I&O and daily weight -cardiac rehab following -upon dsg will needoutpatient referral to heart failure clinic thru [facility] -heart healthy diet acute on chronic renal failure stageIV- cardiorenal syndrome - required dialysis after his recent cardiac cath 06/28/20, discontinued on 07/19, (baseline creat 1.8-2.0) Follows with outpatient nephrology thru [facility]- Dr Montoya - Creat down trending 2.38 (baseline 1.8-2.0), Making urine 575 + 2x Protein/creat ratio 198 (improved as compared to 07/01/20) Weight 100.1 (down 6lbs since admission) Discussed with nephrology Dr Young- Sonya improving, suspect cardio renal syndrome. HOLD off on dialysis for now, no need for PD catheter placement at this time - Nephrology following(see consult note) -continue calcitriol -Strict I&O, generalized weakness- -PT/OT consult- Recommend TCU for ongoing therapy Acute right SI joint dysfunction,patient's blaming it on a rough ambulance ride as this is not a chronic issue for him. Continue Tylenol scheduled and oxycodone when necessary. Cold packs or polar pack when necessary to the low back, lidocaine patch to the right SI joint. Pain due to Skin breakdown near rectum-keep area clean, apply mepilex dressing to protect the area, wound care nurse consulted aortic valve replacement (23mm Medtronic avalus bovinevalve) on 03/16/18 History of DVT-massive DVT post AVR and recommended anti-coagulation for 6 months 02/2018- reportedly has chronic DVT Warfarin on hold (last dose of warfarin 07/28/20) was supra therapeutic >10 on admission- Received IV Vitamin K x2 doses 07/25/20 vitamin K 5 mg POgiven 08/02/20 - no plan for PD catheter placement time- Restart warfarin pharmacy to dose Diabetes type 2-hemoglobin A1c 6.7%, Having poor appetite monitor glucose before meals meals and at bedtime Decrease Levemir insulin 26 u, continue Novlog SS with meals Dual chamber Pacemaker in situ-Pacemaker interrogation-3% A-paced and 100% V- paced,Adjustments during testing were made to: lower rate, upper rate, and pacing voltage. -cardiology consult-Could possibly benefit from device upgrade as patient is 100% V paced, as of last admission the plan was for 3 months after optimal medical therapy, pending the course of hospitalization we could consult EP again for reconsideration of sooner upgrade Gout-discontinue allopurinol due to declining renal function Depression-continue Lexapro Hyperlipidemia-continue Crestor 20 mg Hypertension-continue Metoprolol XL Hx common femoral artery pseudoaneurysm SP angioplasty 04/01/20 DVT prophylaxis-resume warfarin Code status- full code Plan: no need for dialysis at this time, cancel PD catheter placement awaiting placement TCU for ongoing therapy Interval History The history is provided by the patient and medical records. Creat down trending 2.38 (baseline 1.8-2.0), Making urine 575 + 2x Protein/creat ratio 198 (improved as compared to 07/01/20) Weight 100.1 (down 6lbs since admission) Discussed with nephrology Dr Young- Sonya improvoing, suspect cardio renal syndrome. HOLD off on dialysis for now, no need for PD catheter placement Review of Systems Review of Systems Constitutional: Positive for fatigue. Negative for fever. Respiratory: Negative for shortness of breath. Cardiovascular: Positive for leg swelling. Negative for chest pain. Genitourinary: Negative. Musculoskeletal: Positive for back pain. Skin: Positive for wound (superficial skin breakdown near rectum ). Neurological: Positive for weakness. Psychiatric/Behavioral: Negative. Physical Exam Vital Signs: Temp: 96.5 F (35.8 C) | BP: 127/71 | Pulse: 99 | Resp: 16 | Pain Ratin (out of 10) | Weight: 100.1 kg (220 lb 11.2 oz) | O2 Device: Room Air O2 Flow Rate (L/min): 0.5 l/min | SpO2: 92 % Maximum Temperatures (last 24 hours) Temperature Maximum Max Temp 98 F (36.7 C) Intake and Output: 08/03 0700 - 08/04 0659 In: 750 [Oral:750] Out: 1475 [Urine:1475] Physical Exam Vitals signs and nursing note reviewed. Constitutional: General: He is not in acute distress. Cardiovascular: Rate and Rhythm: Normal rate. Pulmonary: Effort: Pulmonary effort is normal. No respiratory distress. Breath sounds: Normal breath sounds. No wheezing or rales. Abdominal: General: Bowel sounds are normal. Palpations: Abdomen is soft. Tenderness: Tenderness: co pain near rectum- superficial skin breakdown noted near rectum Musculoskeletal: General: Tenderness (minimal tender right SI joint ) present. Right lower leg: Edema (pitting) present. Left lower leg: Edema (pitting) present. Skin: General: Skin is warm. Labs Labs (Last day) 08/04/20746 - 08/04/20 07 CBC 08/04/20 07 CBC Hemoglobin 13.5-17.5 (g/dL) 9.7 08/04/20746 - 08/04/2047 CHEMISTRY 08/04/20 0747 CHEMISTRY Glucose 70-100 (mg/dL) 134 Sodium 135-145 (meq/L) 137 Potassium 3.5-5.3 (meq/L) 4.2 Chloride 99-110 (meq/L) 101 CO2 20-29 (meq/L) 22 Anion Gap with K 6-20 (meq/L) 18 BUN 6-22 (mg/dL) 134 Creatinine 0.80-1.30 (mg/dL) 2.38 BUN/Creatinine Ratio 10.0-25.0 56.3 Calcium 8.5-10.5 (mg/dL) 9.7 Corrected Calcium 8.5-10.5 (mg/dL) 10.3 Phosphorus 2.5-4.5 (mg/dL) 4.9 Albumin 3.5-5.0 (g/dL) 3.2 eGFR >=60 (mL/min/1.73m2) 33 eGFR Non- >=60 (mL/min/1.73m2) 27 08/04/20 0747 - 08/04/20 0747 GENERAL COAGULATION 08/04/20 0747 GENERAL COAGULATION Protime 12.0-14.5 (secs) 17.2 INR 2.0-3.5 1.5 08/04/20 0540 - 08/03/20 1116 GLUCOSE POINT OF CARE 08/04/20 0540 08/03/20203008/03/20 1648 08/03/20 1116 GLUCOSE POINT OF CARE Glucose POC 70-99 (mg/dL) 119 170 175 128 08/04/20 0747 - 08/04/20 0747 OTHER 08/04/20 0747 OTHER Age (Years) 75 Medical Decision making MDM Reviewed: previous chart, nursing note and vitals Reviewed previous: labs [employer]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 Impression / Plan Acute on chronic heart failure with reduced EF25% NSTEMI-likely type II secondary toCHF CAD with recent non-ST elevation [place] 07/04/2020-99%LADin-stent restenosis- Underwent balloon angioplasty without stenting - weight down 1.3kg since admission, NOT requiring oxygen,O2 sat normal on RA - trop 0.49 trended down -Echo EF 25%. There is global hypokinesis of the left ventricle. Wall segments are akinetic. -Cardiology consult-recommendGDMT,Continue metoprolol XL 25 daily,isosorbide 5 mg 3 times a day -Torsemide 40 mg daily(diuretics directed per nephology) -HoldACEIdue to acute renal failure -change statin to high intensity statin Crestor 20 mg -continue ASA and PLavix - discussed with Dr Carbajal cardiology, patient needs to continue ASA/Plavix, He spoke to Dr Steel- OK to continue ASA/Plavix for procedure -security monitor -Continue strict I&O and daily weight -cardiac rehab following -upon dsg will needoutpatient referral to heart failure clinic thru [facility] -heart healthy diet acute on chronic renal failure stageIV - required dialysis after his recent cardiac cath 06/28/20, discontinued on 07/19, (baseline creat 1.8-2.0) -patientis making urine, Creat 2.94- trending down - Nephrology consult-(see consult note) -Diuretics per nephrology Patient agreeing to PD, will need catheter placement per Dr Steel on Wednesday .[facility] WednesdayINR should be less than 1.5 -continue calcitriol -Strict I&O, generalized weakness- -PT/OT consult- Recommend TCU for ongoing therapy Acute right SI joint dysfunction,patient's blaming it on a rough ambulance ride as this is not a chronic issue for him. Continue Tylenol scheduled and oxycodone when necessary. Cold packs or polar pack when necessary to the low back, lidocaine patch to the right SI joint. Pain due to Skin breakdown near rectum-keep area clean, apply mepilex dressing to protect the area, wound care nurse consulted Supratherapeutic INR-at time of admission INR >10, unclear etiology, reports taking warfarin as prescribedbut had significantdietary change with poor po intake in week prior -Received vitamin K 5 mg IV at outlying facility, repeated 5 mgIV 07/25/20 History of bioprosthetic aortic valve replacement and chronic DVT- Warfarin on hold (last dose of warfarin 07/28/20) vitamin K 5 mg PO given 08/02/20 , repeat INR 1.8 today (Goal for INR <1.5 for procedure) Diabetes type 2-hemoglobin A1c 6.7%, Having poor appetite monitor glucose before meals meals and at bedtime Decrease Levemir insulin 26 u, continue Novlog SS with meals Dual chamber Pacemaker in situ-Pacemaker interrogation-3% A-paced and 100% V- paced,Adjustments during testing were made to: lower rate, upper rate, and pacing voltage. -cardiology consult-Could possibly benefit from device upgrade as patient is 100% V paced, as of last admission the plan was for 3 months after optimal medical therapy, pending the course of hospitalization we could consult EP again for reconsideration of sooner upgrade Gout-discontinue allopurinol due to declining renal function Depression-continue Lexapro Hyperlipidemia-DC gemfibrozil and pravastatin , start high intensity statin Crestor 20 mg Hypertension-continue Metoprolol XL Hx common femoral artery pseudoaneurysm SP angioplasty 04/01/20 DVT prophylaxis- HOLD warfarin pending PD catheter placement Code status- full code PLAN- Will need to tsf to [facility] on Wednesday for scheduled PD catheter placement per Dr Steel Wednesday Interval History The history is provided by the patient and medical records. I& O- Making urine 350 +4 x unmeasured, Weight 101.6. 223 14.4oz)- down 1.3kg/since admission Creat trending down 2.94 (down from 3.53) Sitting up in chair, reportedly walked well with Cardiac rehab today, legs continue to be very edematous- co pain near rectum when he is sitting- continue to notice superficial skin breakdown in the area Review of Systems Review of Systems Constitutional: Positive for fatigue. Negative for fever. Respiratory: Negative for shortness of breath. Cardiovascular: Positive for leg swelling. Negative for chest pain. Genitourinary: Negative. Musculoskeletal: Positive for back pain. Skin: Positive for wound (superficial skin breakdown near rectum ). Neurological: Positive for weakness. Psychiatric/Behavioral: Negative. Physical Exam Vital Signs: Temp: 96.8 F (36 C) | BP: 122/73 | Pulse: 89 | Resp: 18 | Pain Ratin (out of 10) | Weight: 101.6 kg (223 lb 14.4 oz) | O2 Device: Room Air O2 Flow Rate (L/min): 0.5 l/min | SpO2: 96 % Maximum Temperatures (last 24 hours) Temperature Maximum Max Temp 98 F (36.7 C) Intake and Output: 08/02 0700 - 08/03 0659 In: 840 [Oral:840] Out: 350 [Urine:350] Physical Exam Vitals signs and nursing note reviewed. Constitutional: General: He is not in acute distress. Cardiovascular: Rate and Rhythm: Normal rate. Pulmonary: Effort: Pulmonary effort is normal. No respiratory distress. Breath sounds: Normal breath sounds. No wheezing or rales. Abdominal: General: Bowel sounds are normal. Palpations: Abdomen is soft. Tenderness: Tenderness: co pain near rectum- superficial skin breakdown noted near rectum Musculoskeletal: General: Tenderness (minimal tender right SI joint ) present. Right lower leg: Edema (pitting) present. Left lower leg: Edema (pitting) present. Skin: General: Skin is warm. Labs Labs (Last day) 08/03/20717 - 08/03/20717 CBC 08/03/20717 CBC Hemoglobin 13.5-17.5 (g/dL) 9.9 08/03/20 0718 - 08/03/20 07 CHEMISTRY 08/03/20717 CHEMISTRY Glucose 70-100 (mg/dL) 86 Sodium 135-145 (meq/L) 136 Potassium 3.5-5.3 (meq/L) 4.2 Chloride 99-110 (meq/L) 100 CO2 20-29 (meq/L) 19 Anion Gap with K 6-20 (meq/L) 21 BUN 6-22 (mg/dL) 141 Creatinine 0.80-1.30 (mg/dL) 2.94 BUN/Creatinine Ratio 10.0-25.0 48.0 Calcium 8.5-10.5 (mg/dL) 9.5 Corrected Calcium 8.5-10.5 (mg/dL) 10.1 Phosphorus 2.5-4.5 (mg/dL) 6.8 Albumin 3.5-5.0 (g/dL) 3.2 eGFR >=60 (mL/min/1.73m2) 26 eGFR Non- >=60 (mL/min/1.73m2) 21 08/03/20 0718 - 08/03/20 0718 GENERAL COAGULATION 08/03/20717 GENERAL COAGULATION Protime 12.0-14.5 (secs) 20.5 INR 2.0-3.5 1.8 08/03/20 0549 - 08/02/20 1119 GLUCOSE POINT OF CARE 08/03/20 0549 08/02/20 2100 08/02/20 2043 08/02/20 1645 08/02/20 1119 GLUCOSE POINT OF CARE Glucose POC 70-99 (mg/dL) 79 119 113 122 120 08/03/20 0718 - 08/03/20 0718 OTHER 08/03/20 0718 OTHER Age (Years) 75 Medical Decision making MDM Reviewed: previous chart, nursing note and vitals Reviewed previous: labs Yajaira Landry MD - 08/02/2020 1:53 PM CST NEPHROLOGY HOSPITAL FOLLOW UP Impression and Plan: MAMIE on CKD stage IV secondary to diabetic nephropathy and hypertensive nephrosclerosis. Moderate proteinuria Ischemic cardiomyopathy with EF 25% Acute on chronic systolic and diastolic heart failure Anemia of advanced CKD CKDMBD, secondary hyperparathyroidism CAD status post multiple angioplasty, most recently in May 2020 with stent in LAD Diabetes, dyslipidemia, moderate obesity, PAD MAMIE on CKD status post hemodialysis for 4 weeks from May 2020 through July 19, 2020 The patient missed kidney biopsy which is scheduled at outside hospital The patient is open for peritoneal dialysis, Dr. Steel is consulted for PD catheter placement on Wednesday We will continue torsemide 40 mg daily Strict intake and output Please avoid nephrotoxins including IV contrast and NSAIDs Please dose or medication with decreased GFR to less than 20 Continue iv iron and FREDRICK per protocol Continue all other supportive care. The above are discussed with the primary team. Hilary Ruiz is a 75yr old male admitted on 07/25/2020. Subjective Patient was seen and examined today. The patient is seen and examined in his room. He does not have any complaint. There is no acute event overnight. His is at bedside. The last dialysis the patient received was on July 19, 2020. He started to make more urine at home, but become more short of breath even he is on Bumex 2 mgat home. They did not notice any change in his weight. Urine output is 450 mL +1 unmeasured. The patient is on torsemide 40 mg daily. Physical Exam Vitals: 08/02/20 0900 08/02/20 1000 08/02/20 1050 08/02/20 1100 BP: 117/62 Pulse: 86 83 91 87 Resp: 18 Temp: 96 F (35.6 C) SpO2: 93% Weight: Height: General Appearance: well developed, well nourished. No distress. Chronic ill HEENT: EOMI, Bilateral pupils are round and equal, no sclera icterus, O/P membrane moist Neck: supple, No JVD. Chest: clear to auscultation, no rales, no wheezes or rhonchi. Heart: S1, S2 present. RRR, No murmurs. Abdomen: soft, nontender, nondistended, no masses or organomegaly. Extremities: +ve peripheral edema. Symmetric pedal pulses. Neurol: AAO x3 Skin: warm and dry Current Vital Signs Temp: 96 F (35.6 C) BP: 117/62 Pulse: 87 O2 Device: Room Air O2 Flow Rate (L/min): 0.5 l/min Resp: 18 Pain Ratin (out of 10) Weight: 102.6 kg (226 lb 3.2 oz) SpO2: 93 % Intake and Output Intake/Output Summary (Last 24 hours) at 08/02/2020 1353 Last data filed at 08/02/2020 0814 Gross per 24 hour Intake 900 ml Output 450 ml Net 450 ml Allergies Allergies have been reviewed. Hilary is allergic to penicillin. Recent labs Medications in the hospital: Current Facility-Administered Medications Medication Dose Route Frequency Provider Last Rate Last Admin sodium bicarbonate tablet 650 mg 650 mg Oral 3 times a day Agnes Dailey MD 650 mg at 08/02/20 0820 torsemide (DEMADEX) tablet 40 mg 40 mg Oral Daily Agnes Dailey MD 40 mg at 08/02/20 0820 oxyCODONE (OXY-IR) tablet 5 mg 5 mg Oral Every 6 hours prn Amber Holly APRN-CNP 5 mg at 08/01/202054 lidocaine (LIDODERM) 5% patch 1 patch Apply externally Daily Amber Holly APRN-CNP 1 patch at 08/02/20 08 acetaminophen (TYLENOL) tablet 650 mg 650 mg Oral Every 6 hours Amber Holly APRN-CNP 650 mgat 08/02/20 1240 insulin detemir (LEVEMIR) SQ injection 36 Units Subcutaneous Every evening Amber Holly APRN-CNP 36 Units at 08/01/202054 calcitriol (ROCALTROL) capsule 0.25 mcg 0.25 mcg Oral Every other day Agnes Dailey MD 0.25 mcg at 07/31/20 1656 traZODone (DESYREL) tablet 50 mg 50 mg Oral Bedtime prn 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, 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 50 mg at 07/31/20 0056 loperamide (IMODIUM) capsule 2 mg 2 mg Oral Every 1 hour prn Amber Holly APRN-MILK DELIVERY DRIVER 2 mg at 07/28/20 1842 sodium chloride 0.9% flush (adult) 10 mL 10 mL IV 2 times a day and prn Wade Allison MD 10 mL at 08/02/20 0821 metoclopramide (REGLAN) inj soln 5 mg 5 mg IV Every 6 hours prn Wade Allison MD melatonin tablet 3 mg 3 mg Oral Bedtime prn Barbara Mejia MD 3 mg at 07/28/20 2146 senna-docusate sodium (SENOKOT-S;PERICOLACE) tablet 2 tablet 2 tablet Oral 2 times a day prn Barbara Mejia MD And bisacodyl (DULCOLAX) suppository 10 mg 10 mg Rectal 1 time a day prn Barbara Mejia MD And docusate sodium (THEREVAC-SB MINI;ENEMEEZ MINI) 283 MG enema 1 enema 1 enema Rectal 1 time a day prn Barbara Mejia MD ondansetron (ZOFRAN ODT) dispersible tablet 4 mg 4 mg Oral 4 times a day prn Barbara Mejia MD And ondansetron (ZOFRAN) injection solution 4 mg 4 mg IV 4 times a day prn Barbara Mejia MD albuterol (PROVENTIL) (2.5 mg/3mL) 0.083% inhalation soln 2.5 mg 2.5 mg Nebulization Every 4 hours prBarbara Díaz MD clopidogrel (PLAVIX) tablet 75 mg 75 mg Oral daily Barbara Mejia MD 75 mg at 08/02/20 0820 gemfibrozil (LOPID) tablet 600 mg 600 mg Oral 2 times a day before meals Barbara Mejia MD600 mg at 08/02/20 0820 isosorbide dinitrate (ISORDIL) tablet 5 mg 5 mg Oral 3 times a day nitrate Amber Holly APRN-CNP 5 mg at 08/02/20 1240 metoprolol succinate (TOPROL XL) SR tablet (24 hr) 25 mg 25 mg Oral daily Barbara Mejia MD 25 mg at 08/02/20 0820 nitroglycerin (NITROSTAT) sublingual tablet 0.4 mg 0.4 mg Sublingual Every 5 minutes prn Barbara Mejia MD pravastatin (PRAVACHOL) tablet 80 mg 80 mg Oral Every evening Barbara Mejia MD 80 mg at 08/01/20 2055 omega-3 fatty acids (FISH OIL) capsule 1,000 mg 1,000 mg Oral daily Barbara Mejia MD 1,000 mg at 08/02/20 0820 dextrose 50% IV solution 50 mL 25 g IV PRN per parameter Barbara Mejia MD glucagon for injection 1 mg vial 1 mg 1 mg Intramuscular PRN per parameter Barbara Mejia MD dextrose chewable tablet 16 g 4 tablet Oral PRN per parameter Barbara Mejia MD 16 g at 08/01/20 0542 Or carbohydrate 15 g 15 g Oral PRN per parameter Barbara Mejia MD insulin aspart (NovoLOG) SQ correction scale (Adult) 2-8 Units Subcutaneous 3 times a day Barbara Mejia MD 2 Units at 08/01/20 1850 escitalopram (LEXAPRO) tablet 10 mg 10 mg Oral daily Barbara Mejia MD 10 mg at 08/02/20 0821 Amber Bobo APRN-CNP - 08/02/2020 11:39 AM CST DAILY PROGRESS NOTE Hilary Ruiz is a 75yr old male admitted on 07/25/2020 7:05 PM. Impression / Plan Acute on chronic heart failure with reduced EF 25% NSTEMI-likely type II secondary to CHF CAD with recent non-ST elevation [place] 07/04/2020-99% LAD in-stent restenosis- Underwent balloon angioplasty without stenting - Presented with exertional dyspnea requiring oxygen therapy symptomatically has improved, no longerrequiring oxygen - trop 0.49 trended down - Echo EF 25%. There is global hypokinesis of the left ventricle. Wall segments are akinetic. -Cardiology consult-recommend GDMT, Continue metoprolol XL 25 daily, isosorbide 5 mg 3 times a day -Torsemide 40 mg daily (diuretics directed per nephology) -Hold ACEI due to acute renal failure - continue ASA and PLavix and statin -security monitor -Continue strict I&O and daily weight -cardiac rehab following - upon dsg will needoutpatient referral to heart failure clinic thru [facility] -heart healthy diet - discussed with Dr Carbajal cardiology, patient needs to continue ASA/Plavix, He spoke to Dr Steel- OK to continue ASA/Plavix for procedure acute on chronic renal failure stageIV - required dialysis after his recent cardiac cath 06/28/20, discontinued on 07/19, does not want to restart dialysis (baseline creat 1.8-2.0) - creattrending up -patient is making urine approximately 665 mL past 24 hours - Nephrology consult-(see consult note) -Diuretics per nephrology Patient agreeing to PD, will need catheter placement per Dr Steel on Wednesday .[facility] on WednesdayINR should be less than 1.5 -continue calcitriol -Strict I&O, Low mood/ generalized weakness- -PT/OT consult- Recommend TCU for ongoing therapy Acute low back pain-right SI joint dysfunction, patient's blaming it on a rough ambulance ride as this is not a chronic issue for him. Continue Tylenol scheduled and oxycodone when necessary. Cold packs or polar pack when necessary to the low back, lidocaine patch to the right SI joint. Supratherapeutic INR-at time of admission INR >10, unclear etiology, reports taking warfarin as prescribedbut had significantdietary change with poor po intake in week prior -Received vitamin K 5 mg IV at outlying facility, repeated 5 mg IV 07/25/20 History of bioprosthetic aortic valve replacement and chronic DVT- Warfarin on hold pending PD placement planned for Saturday 08/05, (Goal for INR <1.5 for procedure) (last dose of warfarin 07/28/20) - INR 2.6- give vitamin K 5 mg PO today , repeat INR in am Diabetes type 2-hemoglobin A1c 6.7%, monitor glucose before meals meals and at bedtime continueLevemir insulin 36 u, continue Novlog SS with meals Dual chamber Pacemaker in situ-Pacemaker interrogation-3% A-paced and 100% V- paced,Adjustments during testing were made to: lower rate, upper rate, and pacing voltage. -cardiology consult-Could possibly benefit from device upgrade as patient is 100% V paced, as of last admission the plan was for 3 months after optimal medical therapy, pending the course of hospitalization we could consult EP again for reconsideration of sooner upgrade Skin breakdown near rectum-Consult wound care nurse Gout-discontinue allopurinol due to declining renal function Depression-continue Lexapro Hyperlipidemia-continue gemfibrozil and pravastatin Hypertension-continue Metoprolol XL Hx common femoral artery pseudoaneurysm SP angioplasty 04/01/20 DVT prophylaxis- HOLD warfarin pending PD catheter placement Code status- full code PLAN- Will need to tsf to [facility] on Wednesday for scheduled PD catheter placement per Dr Steel Wednesday Interval History The history is provided by the patient and medical records. I&O +50, Making urine 450 ml/24 hours, Weight 102.6 down 0.3kg /24 hours Creat 3.53 (down from 3.56) BUN 140 INR 2.6- (off warfarin- last dose 07/28) Patient up in chair, reports he had ambulated in hallway. Discussed plan for PD catheter placement and he is wanting to move forward with this Review of Systems Review of Systems Constitutional: Negative for fever. Respiratory: Negative for shortness of breath. Cardiovascular: Positive for leg swelling. Negative for chest pain. Genitourinary: Negative. Musculoskeletal: Positive for back pain. Skin: Positive for wound (superficial skin breakdown near rectum ). Neurological: Positive for weakness. Psychiatric/Behavioral: Negative. Physical Exam Vital Signs: Temp: 96 F (35.6 C) | BP: 117/62 | Pulse: 87 | Resp: 18 | Pain Ratin (out of 10) | Weight: 102.6 kg (226 lb 3.2 oz) | O2 Device: Room Air O2 Flow Rate (L/min): 0.5 l/min | SpO2: 93 % Maximum Temperatures (last 24 hours) Temperature Maximum Max Temp 97.7 F (36.5 C) Intake and Output: 08/01 0700 - 08/02 0659 In: 500 [Oral:500] Out: 450 [Urine:450] Physical Exam Vitals signs and nursing note reviewed. Constitutional: General: He is not in acute distress. Cardiovascular: Rate and Rhythm: Normal rate. Pulmonary: Effort: Pulmonary effort is normal. No respiratory distress. Breath sounds: Normal breath sounds. No wheezing or rales. Abdominal: General: Bowel sounds are normal. Palpations: Abdomen is soft. Tenderness: Tenderness: co pain near rectum- superficial skin breakdown noted near rectum Musculoskeletal: General: Tenderness (right SI joint ) present. Right lower leg: Edema present. Left lower leg: Edema present. Skin: General: Skin is warm. Labs Labs (Last day) 08/02/20718 - 08/02/20718 CBC 08/02/20718 CBC Hemoglobin 13.5-17.5 (g/dL) 9.7 08/02/20717 - 08/02/20717 CHEMISTRY 08/02/20717 CHEMISTRY Glucose 70-100 (mg/dL) 106 Sodium 135-145 (meq/L) 135 Potassium 3.5-5.3 (meq/L) 4.6 Chloride 99-110 (meq/L) 98 CO2 20-29 (meq/L) 19 Anion Gap with K 6-20 (meq/L) 23 BUN 6-22 (mg/dL) 140 Creatinine 0.80-1.30 (mg/dL) 3.53 BUN/Creatinine Ratio 10.0-25.0 39.7 Calcium 8.5-10.5 (mg/dL) 9.4 Corrected Calcium 8.5-10.5 (mg/dL) 10.0 Phosphorus 2.5-4.5 (mg/dL) 7.6 Albumin 3.5-5.0 (g/dL) 3.2 eGFR >=60 (mL/min/1.73m2) 21 eGFR Non- >=60 (mL/min/1.73m2) 17 08/02/20718 - 08/02/20718 GENERAL COAGULATION 08/02/20718 GENERAL COAGULATION Protime 12.0-14.5 (secs) 26.7 INR 2.0-3.5 2.6 08/02/20 1119 - 08/01/20 1738 GLUCOSE POINT OF CARE 08/02/20 1119 08/02/20 0525 08/01/20204408/01/20 1738 GLUCOSE POINT OF CARE Glucose POC 70-99 (mg/dL) 120 98 115 166 08/02/20 0718 - 08/02/20 0718 OTHER 08/02/20 0718 OTHER Age (Years) 75 Medical Decision making MDM Reviewed: previous chart, nursing note and vitals Reviewed previous: labs and ECG [employer] PROJECT MANAGER Amber Holly APRN-CNP - 08/01/2020 1:46 PM CST DAILY PROGRESS NOTE Hilary Ruiz is a 75yr old male admitted on 07/25/2020 7:05 PM. Impression / Plan Acute on chronic heart failure with reduced EF 25% NSTEMI-likely type II secondary to CHF CAD with recent non-ST elevation [place] 07/04/2020-99% LAD in-stent restenosis- Underwent balloon angioplasty without stenting - Presented with exertional dyspnea requiring oxygen therapy symptomatically has improved, no longerrequiring oxygen - trop 0.49 trended down - Echo EF 25%. There is global hypokinesis of the left ventricle. Wall segments are akinetic. -Cardiology consult-recommend GDMT, Continue metoprolol XL 25 daily, isosorbide 5 mg 3 times a day -Torsemide 40 mg daily (diuretics directed per nephology) -Hold ACEI due to acute renal failure - continue ASA and PLavix and statin -security monitor -Continue strict I&O and daily weight -cardiac rehab following - upon dsg will needoutpatient referral to heart failure clinic thru [facility] -heart healthy diet acute on chronic renal failure stageIV - required dialysis after his recent cardiac cath 06/28/20, discontinued on 07/19, does not want to restart dialysis (baseline creat 1.8-2.0) - creattrending up -patient is making urine approximately 665 mL past 24 hours - Nephrology consult- (see consult note) -Diuretics per nephrology Patient agreeing to PD, will need catheter placement per Dr Steel on Wednesday .will need transfer [facility] for procedure on Wednesday INR should be less than 1.5 -continue calcitriol -Strict I&O, Low mood/ generalized weakness- -PT/OT consult- Recommend TCU for ongoing therapy Acute low back pain-right SI joint dysfunction, patient's blaming it on a rough ambulance ride as this is not a chronic issue for him. Continue Tylenol scheduled and oxycodone when necessary. Cold packs or polar pack when necessary to the low back, lidocaine patch to the right SI joint. Supratherapeutic INR-(at time of admission INR >10)unclear etiology, reports taking warfarin as prescribedbut had significantdietary change with poor po intake in week prior -Received vitamin K 5 mg IV at outlying facility, repeated 5 mg IV 07/25/20 History of bioprosthetic aortic valve replacement and chronic DVT- on chronic warfarin therapy INR 2.8 today-Warfarin on hold pending PD placement planned for Saturday 08/05, Goal for INR <1.5 for Diabetes type 2-hemoglobin A1c 6.7%, monitor glucose before meals meals and at bedtime continueLevemir insulin 36 u, continue Novlog SS with meals Dual chamber Pacemaker in situ-Pacemaker interrogation-3% A-paced and 100% V- paced,Adjustments during testing were made to: lower rate, upper rate, and pacing voltage. -cardiology consult- Could possibly benefit from device upgrade as patient is 100% V paced, as of last admission the plan was for 3 months after optimal medical therapy, pending the course of hospitalization we could consult EP again for reconsideration of sooner upgrade Skin breakdown near rectum- Consult wound care nurse Gout-on allopurinol Depression-continue Lexapro Hyperlipidemia-continue gemfibrozil and pravastatin Hypertension-continue Metoprolol XL Hx common femoral artery pseudoaneurysm SP angioplasty 04/01/20 DVT prophylaxis- on chronic warfarin therapy Code status- full code Interval History The history is provided by the patient and medical records. Patient is up in chair with significant other present. He looks stronger today. Reportedly has ambulated in the [place]ing[place] for significant distances twice. Strength seems somewhat better. In visiting with patient he appears quite down in the mood. He tells me he is feeling nervous about the idea of a PD catheter and unsure of his decision whether he should go forward with it or not. Endorses poor appetite, "doesn't feel like eating" I discussed determining what his goals of care are and reevaluating again in a.m. Review of Systems Review of Systems Constitutional: Negative for fever. Respiratory: Negative for shortness of breath. Cardiovascular: Positive for leg swelling. Negative for chest pain. Genitourinary: Negative. Musculoskeletal: Positive for back pain. Skin: Positive for wound (superficial skin breakdown near rectum ). Neurological: Positive for weakness. Psychiatric/Behavioral: Negative. Physical Exam Vital Signs: Temp: 96.6 F (35.9 C) | BP: 87/55 | Pulse: 20 | Resp: 90 | Pain Ratin (out of 10) | Weight: 102.9 kg (226 lb 14.4 oz) | O2 Device: Room Air O2 Flow Rate (L/min): 0.5 l/min | SpO2: 93 % Maximum Temperatures (last 24 hours) Temperature Maximum Max Temp 97.7 F (36.5 C) Intake and Output: 07/31 0700 - 08/01 0659 In: 600 [Oral:600] Out: 665 [Urine:665] Physical Exam Vitals signs and nursing note reviewed. Constitutional: General: He is not in acute distress. Cardiovascular: Rate and Rhythm: Normal rate. Pulmonary: Effort: Pulmonary effort is normal. No respiratory distress. Breath sounds: Normal breath sounds. No wheezing or rales. Abdominal: General: Bowel sounds are normal. Palpations: Abdomen is soft. Tenderness: There is abdominal tenderness (co pain near rectum- superficial skin breakdown notednear rectum ). Musculoskeletal: General: Tenderness (right SI joint ) present. Skin: General: Skin is warm. Labs Labs (Last day) 08/01/20 0654 - 08/01/20 0654 CBC 08/01/20 0654 CBC Hemoglobin 13.5-17.5 (g/dL) 9.5 08/01/20 0654 - 08/01/20 0654 CHEMISTRY 08/01/20 0654 CHEMISTRY Glucose 70-100 (mg/dL) 100 Sodium 135-145 (meq/L) 134 Potassium 3.5-5.3 (meq/L) 4.2 Chloride 99-110 (meq/L) 100 CO2 20-29 (meq/L) 20 Anion Gap with K 6-20 (meq/L) 18 BUN 6-22 (mg/dL) 114 Creatinine 0.80-1.30 (mg/dL) 3.56 BUN/Creatinine Ratio 10.0-25.0 32.0 Calcium 8.5-10.5 (mg/dL) 9.2 Corrected Calcium 8.5-10.5 (mg/dL) 9.9 Phosphorus 2.5-4.5 (mg/dL) 7.1 Albumin 3.5-5.0 (g/dL) 3.1 eGFR >=60 (mL/min/1.73m2) 21 eGFR Non- >=60 (mL/min/1.73m2) 17 08/01/20 0654 - 08/01/20 0654 GENERAL COAGULATION 08/01/20 0654 GENERAL COAGULATION Protime 12.0-14.5 (secs) 28.9 INR 2.0-3.5 2.8 08/01/20 1120 - 07/31/20 1724 GLUCOSE POINT OF CARE 08/01/20 1120 08/01/20 0631 08/01/20 0535 07/31/20 2107 07/31/20 1724 GLUCOSE POINT OF CARE Glucose POC 70-99 (mg/dL) 90 84 64 117 118 08/01/20 0654 - 08/01/20 0654 OTHER 08/01/20 0654 OTHER Age (Years) 75 Medical Decision making MDM Reviewed: previous chart, nursing note and vitals Reviewed previous: labs [employer] PROJECT MANAGER Agnes Dailey MD - 08/01/2020 10:21 AM CST NEPHROLOGY DAILY PROGRESS NOTE Name: Hilary Ruiz ASSESSMENT AND PLAN: 1. 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 Moderate proteinuria 3. Ischemic cardiomyopathy, last ejection fraction 25% 4. Acute on chronic systolic and diastolic heart failure 5. Anemia of CKD 6. CKDMBD/secondary hyperparathyroidism last PTH 214 on 07/01/2020 7. Coronary artery disease status post multiple angioplasty most recently in May 2020 had a stent in LAD for restenosis 8. Other comorbidities include type 2 diabetes mellitus, dyslipidemia, moderate obesity, peripheralarterial disease required angioplasty in March 2020 etc. per primary team The patient has fairly advanced chronic kidney disease, he developed acute kidney injury requiring hemodialysis he for almost 4 weeks from late May 2020 until 07/19/20. 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 He was initially on torsemide and switched to IV Lasix, his kidney function slightly worsening Today her renal panel reviewed creatinine 3.56, BUN 114, potassium 4.2, bicarbonate 20 Chest x-ray showed no pulmonary congestion, small left-sided pleural effusion, cardiomegaly noted Dr. Lara did bedside ultrasound on 07/31 confirmed IVC looks euvolemic no significant IVC dilatation or collapse No pericardial effusion The patient is not in favor to do hemodialysis he absolutely hated , he was on HD for 2 weeks he cannot sit in a chair due to ongoing back pain, Discussed with Dr. Steel on 07/31 The plan to transfer over the weekend to [facility] this Wednesday. The patient with [facility] to have PD catheter placement on Wednesday, the family and the patient where in agreement Will continue to hold Coumadin Continue torsemide 40 mg daily Strict intake/output measurement Avoid IV contrast, NSAIDs Please ensure all medication and renally dosed to EGFR less than 20 INTERVAL HISTORY: Patient is doing about the same, awake alert, eating okay, complaining of back pain. I have extensive discussion with his son and daughter and the patient about worsening kidney functions and approaching ESRD , Urine output improved 665 mL in the last 24 hours Vitals: Current Vital Signs Temp: 97.7 F (36.5 C) BP: 122/62 Pulse: 75 O2 Device: Room Air O2 Flow Rate (L/min): 0.5 l/min Resp: 16 Pain Ratin (out of 10) Weight: 102.9 kg (226 lb 14.4 oz) SpO2: 94 % Vitals Min/Max Last 24 Hours Vital Signs Min/Max (last 24 hours) Flowsheet Row Name Min Max Temp 96.5 F (35.8 C) 97.7 F (36.5 C) BP: Systolic 92 125 BP: Diastolic 51 74 Pulse 75 95 Resp 16 20 SpO2 92 % 97 % MAP (mm Hg) 63 mm Hg 88 mm Hg Intake and Output Last 24 Hours Intake/Output Summary (Last 24 hours) at 07/30/2020 1004 Last data filed at 07/29/2020 1400 Gross per 24 hour Intake Output 75 ml Net -75 ml Physical Exam: General Appearance: alert, well appearing, and in no distress Chest: Right side basal crackles, no wheezing Heart: : S1 S2 heard. Soft systolic ejection murmur 07/06 Abdomen: soft, obese no tenderness Extremities: + 2 pedal edema noted Diagnostics and Labs: Labs (Last day) 08/01/20653 - 08/01/20 06 CBC 08/01/20 0654 CBC Hemoglobin 13.5-17.5 (g/dL) 9.5 08/01/20 0654 - 08/01/20 0654 CHEMISTRY 08/01/20 0654 CHEMISTRY Glucose 70-100 (mg/dL) 100 Sodium 135-145 (meq/L) 134 Potassium 3.5-5.3 (meq/L) 4.2 Chloride 99-110 (meq/L) 100 CO2 20-29 (meq/L) 20 Anion Gap with K 6-20 (meq/L) 18 BUN 6-22 (mg/dL) 114 Creatinine 0.80-1.30 (mg/dL) 3.56 BUN/Creatinine Ratio 10.0-25.0 32.0 Calcium 8.5-10.5 (mg/dL) 9.2 Corrected Calcium 8.5-10.5 (mg/dL) 9.9 Phosphorus 2.5-4.5 (mg/dL) 7.1 Albumin 3.5-5.0 (g/dL) 3.1 eGFR >=60 (mL/min/1.73m2) 21 eGFR Non- >=60 (mL/min/1.73m2) 17 08/01/2054 - 08/01/20 0654 GENERAL COAGULATION 08/01/20 0654 GENERAL COAGULATION Protime 12.0-14.5 (secs) 28.9 INR 2.0-3.5 2.8 08/01/20 0631 - 07/31/20 1157 GLUCOSE POINT OF CARE 08/01/20 0631 08/01/20 0535 07/31/20 2107 07/31/20 1724 07/31/20 1157 GLUCOSE POINT OF CARE Glucose POC 70-99 (mg/dL) 84 64 117 118 176 08/01/20 0654 - 08/01/20 0654 OTHER 08/01/20 0654 OTHER Age (Years) 75 Lab Results Component Value Date PTHINTACT 214 (H) 07/01/2020 CA 9.2 08/01/2020 PHOSPHORUS 7.1 (H) 08/01/2020 Last Vitamin D: No results found for: [id number] Last Iron: Lab Results Component Value Date FETOT 14 (L) 07/01/2020 FERRITINSER 309 (H) 07/01/2020 TIBC 312 07/01/2020 FESAT 4 (L) 07/01/2020 Current Facility-Administered Medications Medication Dose Route Frequency Provider Last Rate Last Admin sodium bicarbonate tablet 650 mg 650 mg Oral 3 times a day Agnes Dailey MD 650 mg at 08/01/20 0820 torsemide (DEMADEX) tablet 40 mg 40 mg Oral Daily Agnes Dailey MD 40 mg at 08/01/20 0819 oxyCODONE (OXY-IR) tablet 5 mg 5 mg Oral Every 6 hours prn Amber Holly APRN-CNP 5 mg at 08/01/20 0824 lidocaine (LIDODERM) 5% patch 1 patch Apply externally Daily Amber Holly APRN-CNP 1 patch at 08/01/20 0821 acetaminophen (TYLENOL) tablet 650 mg 650 mg Oral Every 6 hours Amber Holly APRN-CNP 650 mgat 08/01/20 0542 insulin detemir (LEVEMIR) SQ injection 36 Units Subcutaneous Every evening Amber Holly APRN-CNP 36 Units at 07/31/20 210 calcitriol (ROCALTROL) capsule 0.25 mcg 0.25 mcg Oral Every other day Agnes Dailey MD 0.25 mcg at 07/31/20 1656 traZODone (DESYREL) tablet 50 mg 50 mg Oral Bedtime prn Amber Holly APRN- CNP 50 mg at 07/31/20 0056 loperamide (IMODIUM) capsule 2 mg 2 mg Oral Every 1 hour prn Amber Holly, [employer] 2 mg at 07/28/20 1842 sodium chloride 0.9% flush (adult) 10 mL 10 mL IV 2 times a day and prn Wade Allison MD 10 mL at 08/01/20 0845 metoclopramide (REGLAN) inj soln 5 mg 5 mg IV Every 6 hours prn Wade Allison MD melatonin tablet 3 mg 3 mg Oral Bedtime prn Barbara Mejia MD 3 mg at 07/28/20 2146 senna-docusate sodium (SENOKOT-S;PERICOLACE) tablet 2 tablet 2 tablet Oral 2 times a day prn Barbara Mejia MD And bisacodyl (DULCOLAX) suppository 10 mg 10 mg Rectal 1 time a day prn Barbara Mejia MD And docusate sodium (THEREVAC-SB MINI;ENEMEEZ MINI) 283 MG enema 1 enema 1 enema Rectal 1 time a day prn Barbara Mejia MD ondansetron (ZOFRAN ODT) dispersible tablet 4 mg 4 mg Oral 4 times a day prn Barbara Mejia MD And ondansetron (ZOFRAN) injection solution 4 mg 4 mg IV 4 times a day prn Barbara Mejia MD albuterol (PROVENTIL) (2.5 mg/3mL) 0.083% inhalation soln 2.5 mg 2.5 mg Nebulization Every 4 hours prn Barbara Mejia MD allopurinol (ZYLOPRIM) tablet 300 mg 300 mg Oral daily Barbara Mejia MD 300 mg at 08/01/20 0820 clopidogrel (PLAVIX) tablet 75 mg 75 mg Oral daily Barbara Mejia MD 75 mg at 08/01/20 0820 gemfibrozil (LOPID) tablet 600 mg 600 mg Oral 2 times a day before meals Barbara Mejia MD600 mg at 08/01/20 0819 isosorbide dinitrate (ISORDIL) tablet 5 mg 5 mg Oral 3 times a day nitrate Barbara Mejia MD 5 mg at 08/01/20 0820 metoprolol succinate (TOPROL XL) SR tablet (24 hr) 25 mg 25 mg Oral daily Barbara Mejia MD 25 mg at 08/01/20 0820 nitroglycerin (NITROSTAT) sublingual tablet 0.4 mg 0.4 mg Sublingual Every 5 minutes prn Barbara Mejia MD pravastatin (PRAVACHOL) tablet 80 mg 80 mg Oral Every evening Barbara Mejia MD 80 mg at 07/31/20 2106 omega-3 fatty acids (FISH OIL) capsule 1,000 mg 1,000 mg Oral daily Barbara Mejia MD 1,000 mg at 08/01/20 0820 dextrose 50% IV solution 50 mL 25 g IV PRN per parameter Barbara Mejia MD glucagon for injection 1 mg vial 1 mg 1 mg Intramuscular PRN per parameter Barbara Mejia MD dextrose chewable tablet 16 g 4 tablet Oral PRN per parameter Barbara Mejia MD 16 g at 08/01/20 0542 Or carbohydrate 15 g 15 g Oral PRN per parameter Barbara Mejia MD insulin aspart (NovoLOG) SQ correction scale (Adult) 2-8 Units Subcutaneous 3 times a day Barbara Mejia MD 2 Units at 07/31/20 1240 escitalopram (LEXAPRO) tablet 10 mg 10 mg Oral daily Barbara Mejia MD 10 mg at 08/01/20 0819 Amber Bobo APRN-[facility] - 07/31/2020 12:00 PM CST DAILY PROGRESS NOTE Hilary Ruiz is a 75yr old male admitted on 07/25/2020 7:05 PM. Impression / Plan Acute on chronic HFrEF - Echo- EF25 %. There is global hypokinesis of the left ventricle. The wall segments are akinetic. - cardiology consult- GDMT recommended, continue metoprolol XL 25 mg daily, isosorbide 5 mg TID- - HOLD ACEI due to MAMIE - diuretics per nephrology Appreciate nephrology consultation- -upon dsg will need outpatient referral to heart failure clinic thru [facility] -monitor O2 sat- Oxygen prn to maintain sat >90% -Home oxygen evalprior to dsg -continue I&O and daily weight acute on chronic renal failure stage IV - required dialysis after his recent cardiac cath 06/28/20, discontinued on 07/19, does not want to restart dialysis (baseline creat 1.8-2.0) - creat trending up- 2.85 - Nephrology consult- (see consult note) -Diuretics per nephrology Patient agreeing to PD, will need catheter placement per Dr Steel on Wednesday .will need transfer [facility] for procedure on Wednesday INR should be less than 1.5 -continue calcitriol - Strict I&O, - renal diet with 2 liter fluid restriction NSTEMI- CAD with recent NSTEMI 06/28/2198% LAD in-stent restenosis during last admission. Underwent balloon angioplasty without restenting -Troponin elevated 0.49down trending suspect type II secondary to HF - continue ASA and PLavix , metoprolol XL, imdur and statin -cardiologyconsult- no interventions at this time -cardiac rehab following Acute low back pain- right SI joint dysfunction, Blaming it on the rough ambulance ride generalized weakness Consult PT/OT- recommend low intensity setting for ongoing therapy prior to returning home -continue scheduled tylenol, DC tramadol due to ineffective , oxycodone prn -cold packs/ polar pack prn low back , lidocaine patch to right SI joint area Supratherapeutic INR-(at time of admission INR >10) unclear etiology, reports taking warfarin as prescribedbut had significantdietary change with poor po intake in week prior History of bioprosthetic aortic valve replacement and chronic DVT- on chronic warfarin therapy -Received vitamin K 5 mg IV at outlying facility, repeated 5 mg IV on admission -HOLDwarfarin- Goal for INR <1.5 for PD placement planned for Saturday 08/05 Diabetes type 2-hemoglobin A1c 6.7%, monitor glucose before meals meals and at bedtime continue Levemir insulin 36 u, continue Novlog SS with meals Dual chamber Pacemaker in situ-Pacemaker interrogation-3% A-paced and 100% V- paced,Adjustments during testing were made to: lower rate, upper rate, and pacing voltage. -cardiology consult- Could possibly benefit from device upgrade as patient is 100% V paced, as of last admission the plan was for 3 months after optimal medical therapy, pending the course of hospitalization we could consult EP again for reconsideration of sooner upgrade Skin breakdown near rectum- Consult wound care nurse Gout-on allopurinol Depression-continue Lexapro Hyperlipidemia-continue gemfibrozil and pravastatin Hypertension-continue Metoprolol XL Hx common femoral artery pseudoaneurysm SP angioplasty 04/01/20 DVT prophylaxis- on chronic warfarin therapy Code status- full code Plan: plan for PD catheter placement per Dr Steel 08/05/20 Interval History The history is provided by the patient and medical records. I&O- -230, weight down 0.4kg overnight- Creat trending up 3.39 Patient very weak and sleepy, patient examined with Dr Rodriguez For evaluation US IVC and Dr Emeryephrologist- family present Review of Systems Review of Systems Constitutional: Negative for fever. HENT: Negative. Respiratory: Negative for shortness of breath and wheezing. Cardiovascular: Positive for leg swelling. Negative for chest pain. Gastrointestinal: Negative. Genitourinary: Negative. Musculoskeletal: Positive for back pain. Skin: Negative. Neurological: Positive for weakness. Psychiatric/Behavioral: Negative. Physical Exam Vital Signs: Temp: 96.6 F (35.9 C) | BP: 92/51 | Pulse: 87 | Resp: 17 | Pain Ratin (out of 10) | Weight: 103.2 kg (227 lb 9.6 oz) | O2 Device: Room Air O2 Flow Rate (L/min): 0.5 l/min | SpO2: 97 % Maximum Temperatures (last 24 hours) Temperature Maximum Max Temp 97.2 F (36.2 C) Intake and Output: / 0700 - 07/31 0659 In: 220 [Oral:220] Out: 450 [Urine:450] Physical Exam Vitals signs and nursing note reviewed. Constitutional: Appearance: He is ill-appearing. Cardiovascular: Rate and Rhythm: Normal rate. Pulmonary: Effort: Pulmonary effort is normal. No respiratory distress. Breath sounds: No wheezing or rales. Comments: O2 sats normal on RA Abdominal: General: Bowel sounds are normal. Palpations: Abdomen is soft. Tenderness: There is abdominal tenderness (co pain near rectum- superficial skin breakdown notednear rectum ). Musculoskeletal: General: Tenderness (right SI joint ) present. Skin: General: Skin is warm. Labs Labs (Last day) 07/31/20 0703 - 07/31/20 07 CHEMISTRY 07/31/20 0703 CHEMISTRY Glucose 70-100 (mg/dL) 136 Sodium 135-145 (meq/L) 133 Potassium 3.5-5.3 (meq/L) 4.3 Chloride 99-110 (meq/L) 99 CO2 20-29 (meq/L) 17 Anion Gap with K 6-20 (meq/L) 21 BUN 6-22 (mg/dL) 115 Creatinine 0.80-1.30 (mg/dL) 3.39 BUN/Creatinine Ratio 10.0-25.0 33.9 Calcium 8.5-10.5 (mg/dL) 9.0 Corrected Calcium 8.5-10.5 (mg/dL) 9.7 Phosphorus 2.5-4.5 (mg/dL) 6.9 Albumin 3.5-5.0 (g/dL) 3.1 eGFR >=60 (mL/min/1.73m2) 22 eGFR Non- >=60 (mL/min/1.73m2) 18 07/31/20 0703 - 07/31/20 0703 GENERAL COAGULATION 07/31/20 07 GENERAL COAGULATION Protime 12.0-14.5 (secs) 28.7 INR 2.0-3.5 2.8 07/31/20 1724 - 07/30/20 2056 GLUCOSE POINT OF CARE 07/31/20 1724 07/31/20 1157 07/31/20 0503 07/30/20 2056 GLUCOSE POINT OF CARE Glucose POC 70-99 (mg/dL) 118 176 137 175 07/31/20 0703 - 07/31/20 0703 OTHER 07/31/20 0703 OTHER Age (Years) 75 Medical Decision making MDM Reviewed: previous chart, nursing note and vitals Reviewed previous: labs [employer] COMPLIANCE PROJECT MANAGER Agnes Dailey MD - 07/31/2020 11:37 AM CST NEPHROLOGY DAILY PROGRESS NOTE Name: Hilary Ruiz ASSESSMENT AND PLAN: 1. 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 Moderate proteinuria 3. Ischemic cardiomyopathy, last ejection fraction 25% 4. Acute on chronic systolic and diastolic heart failure 5. Anemia of CKD 6. CKDMBD/secondary hyperparathyroidism last PTH 214 on 07/01/2020 7. Coronary artery disease status post multiple angioplasty most recently in May 2020 had a stent in LAD for restenosis 8. Other comorbidities include type 2 diabetes mellitus, dyslipidemia, moderate obesity, peripheralarterial disease required angioplasty in March 2020 etc. per primary team The patient has fairly advanced chronic kidney disease, he developed acute kidney injury requiring hemodialysis he for almost 4 weeks from late May 2020 until 07/19/20. 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 He was initially on torsemide and switched to IV Lasix, his kidney function slightly worsening Today her renal panel reviewed creatinine 3.3, BUN 115, potassium 4.3, bicarbonate 17 Chest x-ray showed no pulmonary congestion, small left-sided pleural effusion, cardiomegaly noted Dr. Lara did bedside ultrasound confirmed IVC looks euvolemic no significant IVC dilatation or collapse No pericardial effusion The patient is not in favor to do hemodialysis he absolutely hated , he was on HD for 2 weeks he cannot sit in a chair due to ongoing back pain, I have extensive discussion with the patient and his family again today about options Dialysis probably will be long-term, he was open to try PD Discussed with Dr. Steel was transferred over the weekend to [facility] INR should be less than 1.5 Tentatively to have PD catheter placement on Wednesday, the family in agreement with the patient and agree Will continue to hold Coumadin I contacted the PD nurse in [place] , he can do the training after 2 weeks Today there is no acute indication to start hemodialysis I'll discontinue IV Lasix and transitioned to torsemide 40 mg daily D/w the patient to drink more water at least 1.5 L daily General recommendation: Strict intake/output measurement Avoid IV contrast, NSAIDs Please ensure all medication and renally dosed to EGFR less than 20 INTERVAL HISTORY: Patient is doing about the same, awake alert, eating okay, complaining of back pain. I have extensive discussion with his son and daughter and the patient about worsening kidney functions and approaching ESRD , Urine output around 400 mL in the last 24 hours Vitals: Current Vital Signs Temp: 96.4 F (35.8 C) BP: 103/65 Pulse: 78 O2 Device: Room Air O2 Flow Rate (L/min): 0.5 l/min Resp: 16 Pain Ratin (out of 10) Weight: 103.2 kg (227 lb 9.6 oz) SpO2: 95 % Vitals Min/Max Last 24 Hours Vital Signs Min/Max (last 24 hours) Flowsheet Row Name Min Max Temp 96.3 F (35.7 C) 97.2 F (36.2 C) BP: Systolic 91 122 BP: Diastolic 55 65 Pulse 78 84 Resp 16 16 SpO2 93 % 96 % MAP (mm Hg) 68 mm Hg 80 mm Hg Intake and Output Last 24 Hours Intake/Output Summary (Last 24 hours) at 07/30/2020 1004 Last data filed at 07/29/2020 1400 Gross per 24 hour Intake Output 75 ml Net -75 ml Physical Exam: General Appearance: alert, well appearing, and in no distress Chest: Right side basal crackles, no wheezing Heart: : S1 S2 heard. Soft systolic ejection murmur / Abdomen: soft, obese no tenderness Extremities: + 2 pedal edema noted Diagnostics and Labs: Labs (Last day) 07/31/20 0703 - 07/31/20 0703 CHEMISTRY 07/31/20 0703 CHEMISTRY Glucose 70-100 (mg/dL) 136 Sodium 135-145 (meq/L) 133 Potassium 3.5-5.3 (meq/L) 4.3 Chloride 99-110 (meq/L) 99 CO2 20-29 (meq/L) 17 Anion Gap with K 6-20 (meq/L) 21 BUN 6-22 (mg/dL) 115 Creatinine 0.80-1.30 (mg/dL) 3.39 BUN/Creatinine Ratio 10.0-25.0 33.9 Calcium 8.5-10.5 (mg/dL) 9.0 Corrected Calcium 8.5-10.5 (mg/dL) 9.7 Phosphorus 2.5-4.5 (mg/dL) 6.9 Albumin 3.5-5.0 (g/dL) 3.1 eGFR >=60 (mL/min/1.73m2) 22 eGFR Non- >=60 (mL/min/1.73m2) 18 07/31/20 0703 - 07/31/20 0703 GENERAL COAGULATION 07/31/20 0703 GENERAL COAGULATION Protime 12.0-14.5 (secs) 28.7 INR 2.0-3.5 2.8 07/31/20 0503 - 07/30/20 1216 GLUCOSE POINT OF CARE 07/31/20 0503 07/30/20 2056 07/30/20 1726 07/30/20 1216 GLUCOSE POINT OF CARE Glucose POC 70-99 (mg/dL) 137 175 106 218 07/31/20 0703 - 07/31/20 0703 OTHER 07/31/20 0703 OTHER Age (Years) 75 Lab Results Component Value Date PTHINTACT 214 (H) 07/01/2020 CA 9.0 07/31/2020 PHOSPHORUS 6.9 (H) 07/31/2020 Last Vitamin D: No results found for: [id number] Last Iron: Lab Results Component Value Date FETOT 14 (L) 07/01/2020 FERRITINSER 309 (H) 07/01/2020 TIBC 312 07/01/2020 FESAT 4 (L) 07/01/2020 Current Facility-Administered Medications Medication Dose Route Frequency Provider Last Rate Last Admin sodium bicarbonate tablet 650 mg 650 mg Oral 3 times a day Agnes Dailey MD 650 mg at 07/31/20 1106 warfarin (COUMADIN) - NO dose today Oral Warfarin no dose Amber Holly APRN-CNP [START ON 08/01/2020] torsemide (DEMADEX) tablet 40 mg 40 mg Oral Daily Agnes Dailey MD oxyCODONE (OXY-IR) tablet 5 mg 5 mg Oral Every 6 hours prn Amber Holly APRN-CNP 5 mg at 07/31/20 0533 lidocaine (LIDODERM) 5% patch 1 patch Apply externally Daily Amber Holly APRN-CNP 1 patch at 07/30/20 1413 acetaminophen (TYLENOL) tablet 650 mg 650 mg Oral Every 6 hours Amber Holly APRN-MILK DELIVERY DRIVER 650 mgat 07/31/20 0533 insulin detemir (LEVEMIR) SQ injection 36 Units Subcutaneous Every evening Amber Holly APRN-PALMER 36 Units at 07/30/20 2207 calcitriol (ROCALTROL) capsule 0.25 mcg 0.25 mcg Oral Every other day Agnes Dailey MD 0.25 mcg at 07/29/20 1606 traZODone (DESYREL) tablet 50 mg 50 mg Oral Bedtime prn Amber Holly APRN- MILK DELIVERY DRIVER 50 mg at 07/31/20 0056 .Anticoagulation (WARFARIN) therapy nursing reminder 1 each Does not apply Reminder Nidia Lentz MD loperamide (IMODIUM) capsule 2 mg 2 mg Oral Every 1 hour prn Amber Holly APRN-CNP 2 mg at 07/28/20 1842 sodium chloride 0.9% flush (adult) 10 mL 10 mL IV 2 times a day and prn Wade Allison MD 10 mL at 07/31/20 1114 metoclopramide (REGLAN) inj soln 5 mg 5 mg IV Every 6 hours prn Wade Allison MD melatonin tablet 3 mg 3 mg Oral Bedtime prn Barbara Mejia MD 3 mg at 07/28/20 2146 senna-docusate sodium (SENOKOT-S;PERICOLACE) tablet 2 tablet 2 tablet Oral 2 times a day prn Barbara Mejia MD And bisacodyl (DULCOLAX) suppository 10 mg 10 mg Rectal 1 time a day prn Barbara Mejia MD And docusate sodium (THEREVAC-SB MINI;ENEMEEZ MINI) 283 MG enema 1 enema 1 enema Rectal 1 time a day prn Barbara Mejia MD ondansetron (ZOFRAN ODT) dispersible tablet 4 mg 4 mg Oral 4 times a day prn Barbara Mejia MD And ondansetron (ZOFRAN) injection solution 4 mg 4 mg IV 4 times a day prn Barbara Mejia MD albuterol (PROVENTIL) (2.5 mg/3mL) 0.083% inhalation soln 2.5 mg 2.5 mg Nebulization Every 4 hours prn Barbara Mejia MD allopurinol (ZYLOPRIM) tablet 300 mg 300 mg Oral daily Barbara Mejia MD 300 mg at 07/31/20 1106 clopidogrel (PLAVIX) tablet 75 mg 75 mg Oral daily Barbara Mejia MD 75 mg at 07/31/20 1106 gemfibrozil (LOPID) tablet 600 mg 600 mg Oral 2 times a day before meals Barbara Meija MD600 mg at 07/31/20 0533 isosorbide dinitrate (ISORDIL) tablet 5 mg 5 mg Oral 3 times a day nitrate Barbara Mejia MD 5 mg at 07/31/20 1106 metoprolol succinate (TOPROL XL) SR tablet (24 hr) 25 mg 25 mg Oral daily Barbara Mejia MD 25 mg at 07/31/20 1106 nitroglycerin (NITROSTAT) sublingual tablet 0.4 mg 0.4 mg Sublingual Every 5 minutes prn Barbara Mejia MD pravastatin (PRAVACHOL) tablet 80 mg 80 mg Oral Every evening Barbara Mejia MD 80 mg at 07/30/20 2206 omega-3 fatty acids (FISH OIL) capsule 1,000 mg 1,000 mg Oral daily Barbara Mejia MD 1,000 mg at 07/31/20 1106 dextrose 50% IV solution 50 mL 25 g IV PRN per parameter Barbara Mejia MD glucagon for injection 1 mg vial 1 mg 1 mg Intramuscular PRN per parameter Barbara Mejia MD dextrose chewable tablet 16 g 4 tablet Oral PRN per parameter Barbara Mejia MD Or carbohydrate 15 g 15 g Oral PRN per parameter Barbara Mejia MD insulin aspart (NovoLOG) SQ correction scale (Adult) 2-8 Units Subcutaneous 3 times a day Barbara Mejia MD 3 Units at 07/30/20 1224 escitalopram (LEXAPRO) tablet 10 mg 10 mg Oral daily Barbara Mejia MD 10 mg at 07/31/20 1106 Amber Bobo, ISAEL-MILK DELIVERY DRIVER - 07/30/2020 10:23 AM CST DAILY PROGRESS NOTE Hilary Ruiz is a 75yr old male admitted on 07/25/2020 7:05 PM. Impression / Plan Acute on chronic HFrEF - Echo- EF25 %. There is global hypokinesis of the left ventricle. The wall segments are akinetic. - cardiology consult- GDMT recommended, continue metoprolol XL 25 mg daily, isosorbide 5 mg TID - HOLD ACEI due to MAMIE - diuretics per nephrology Appreciate nephrology consultation- -upon dsg will need outpatient referral to heart failure clinic thru [facility] -monitor O2 sat- Oxygen prn to maintain sat >90% -Home oxygen evalprior to dsg -continue I&O and daily weight acute on chronic renal failure stage IV - required dialysis after his recent cardiac cath 06/28/20, discontinued on 07/19, does not want to restart dialysis (baseline creat 1.8-2.0) - creat trending up- 2.85 - Nephrology consult- Discussed options of dialysis, patient will discuss with his family -Diuretics per nephrology-IV Lasix 80 mg BId, added meollazone 5 mg daily -continue calcitriol - Strict I&O, - renal diet with 2 liter fluid restriction NSTEMI- CAD with recent NSTEMI 06/28/2198% LAD in-stent restenosis during last admission. Underwent balloon angioplasty without restenting -Troponin elevated 0.49down trending suspect type II secondary to HF - continue ASA and PLavix , metoprolol XL, imdur and statin -cardiologyconsult- no interventions at this time -cardiac rehab following Acute low back pain- right SI joint dysfunction, Blaming it on the rough ambulance ride generalized weakness Consult PT/OT - recommend low intensity setting for ongoing therapy prior to returning home -continue scheduled tylenol, DC tramadol due to ineffective , oxycodone prn -cold packs/ polar pack prn low back , lidocaine patch to right SI joint area Supratherapeutic INR-(at time of admission INR >10) unclear etiology, reports taking warfarin as prescribedbut had significantdietary change with poor po intake in week prior History of bioprosthetic aortic valve replacement and chronic DVT- on chronic warfarin therapy -Received vitamin K 5 mg IV at outlying facility, repeated 5 mg IV on admission -continuewarfarin therapy pharmacy to dose Diabetes type 2-hemoglobin A1c 6.7%, monitor glucose before meals meals and at bedtime continue Levemir insulin 36 u, continue Novlog SS with meals Dual chamber Pacemaker in situ-Pacemaker interrogation-3% A-paced and 100% V- paced,Adjustments during testing were made to: lower rate, upper rate, and pacing voltage. 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 I&O - 3300 intake, output not measured , wt up 2.2kg, creat trending up 2.85 Co back pain , feels it was secondary to the rough ambulance ride - On exam he has point tendernessover the right SI joint. Review of Systems Review of Systems Constitutional: Negative for fever. HENT: Negative. Respiratory: Negative for shortness of breath and wheezing. Cardiovascular: Positive for leg swelling. Negative for chest pain. Gastrointestinal: Negative. Genitourinary: Negative. Musculoskeletal: Positive for back pain. Skin: Negative. Neurological: Positive for weakness. Psychiatric/Behavioral: Negative. Physical Exam Vital Signs: Temp: 97.5 F (36.4 C) | BP: 115/61 | Pulse: 77 | Resp: 16 | Pain Ratin (out of 10) | Weight: 103.6 kg (228 lb 6.4 oz) | O2 Device: Room Air O2 Flow Rate (L/min): 0.5 l/min | SpO2: 93 % Maximum Temperatures (last 24 hours) Temperature Maximum Max Temp 98.6 F (37 C) Intake and Output: 07/29 0700 - 07/30 0659 In: 3300 [Oral:3300] Out: 75 [Urine:75] Physical Exam Constitutional: General: He is not in acute distress. Cardiovascular: Rate and Rhythm: Normal rate. Pulmonary: Effort: Pulmonary effort is normal. Abdominal: General: Bowel sounds are normal. Palpations: Abdomen is soft. Musculoskeletal: General: Tenderness (right SI joint ) present. Skin: General: Skin is warm. Labs Labs (Last day) 07/30/20 0659 - 07/30/20 0659 CHEMISTRY 07/30/20 0659 CHEMISTRY Glucose 70-100 (mg/dL) 132 Sodium 135-145 (meq/L) 132 Potassium 3.5-5.3 (meq/L) 4.4 Chloride 99-110 (meq/L) 99 CO2 20-29 (meq/L) 19 Anion Gap with K 6-20 (meq/L) 18 BUN 6-22 (mg/dL) 122 Creatinine 0.80-1.30 (mg/dL) 2.85 BUN/Creatinine Ratio 10.0-25.0 42.8 Calcium 8.5-10.5 (mg/dL) 9.1 Corrected Calcium 8.5-10.5 (mg/dL) 9.8 Phosphorus 2.5-4.5 (mg/dL) 6.4 Albumin 3.5-5.0 (g/dL) 3.1 eGFR >=60 (mL/min/1.73m2) 27 eGFR Non- >=60 (mL/min/1.73m2) 22 07/30/20 0659 - 07/30/20 0659 GENERAL COAGULATION 07/30/20 0659 GENERAL COAGULATION Protime 12.0-14.5 (secs) 28.3 INR 2.0-3.5 2.8 07/30/20 0512 - 07/29/20 1114 GLUCOSE POINT OF CARE 07/30/20 0512 07/29/20 2040 07/29/20 1657 07/29/20 1114 GLUCOSE POINT OF CARE Glucose POC 70-99 (mg/dL) 132 92 175 162 07/30/20 0520 - 07/30/20 0520 URINALYSIS 07/30/20 0520 URINALYSIS Color Urine Ren[place], Dark Yellow, Straw, Yellow, Colorless Yellow Clarity Urine Clear Clear Specific [place] 1.002-1.030 1.016 Glucose Urine Negative Negative Bilirubin Urine Negative Negative Ketones Urine Negative, 5 mg/dL, 10 mg/dL Negative Blood Urine Negative Negative PH Urine 5.0, 5.5, 6.0, 6.5, 7.0, 7.5, 8.0 5.0 Protein Urine Negative 30 mg/dL Nitrite Negative Negative Leukocyte Esterase Urine Negative Moderate (2+) Urobilinogen < 2 mg/dL < 2 mg/dL WBC Urine Negative, 0-5 /hpf 21-50 /hpf RBC Urine Negative, 0-2 /hpf 6-10 /hpf Squamous Epithelial Cells Negative, Occ (0-10) /lpf, Few (11-20) /lpf Moderate (21-50) /lpf Bacteria Negative Negative Hyaline Cast 0-2 /lpf 11-20 /lpf 07/30/20 0521 - 07/30/20 0521 URINE CHEMISTRY 07/30/20 05 URINE CHEMISTRY Creatinine Urine 20.0-250.0 (mg/dL) 155.2 Protein Total Urine (mg/dL) 30.8 Protein/Creatinine Ratio 1-150 (mg/g) 198 07/30/20 0659 - 07/30/20 0659 OTHER 07/30/20 0659 OTHER Age (Years) 75 Medical Decision making MDM Reviewed: previous chart, nursing note and vitals Reviewed previous: labs [employer] COMPLIANCE PROJECT MANAGER Agnes Dailey MD - 07/30/2020 10:04 AM CST NEPHROLOGY DAILY PROGRESS NOTE Name: Hilary Ruiz ASSESSMENT AND PLAN: 1. 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 Moderate proteinuria 3. Ischemic cardiomyopathy, last ejection fraction 25% 4. Acute on chronic systolic and diastolic heart failure 5. Anemia of CKD 6. CKDMBD/secondary hyperparathyroidism last PTH 214 on 07/01/2020 7. Coronary artery disease status post multiple angioplasty most recently in May 2020 had a stent in LAD for restenosis 8. Other comorbidities include type 2 diabetes mellitus, dyslipidemia, moderate obesity, peripheralarterial disease required angioplasty in March 2020 etc. per primary team The patient has fairly advanced chronic kidney disease, he developed acute kidney injury requiring hemodialysis he for almost 4 weeks from late May 2020 until 07/19/20. 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 Renal panel today creatinine 2.8, BUN 122, potassium 4.4, bicarbonate 19 The patient kidney function worsening despite IV Lasix urine output on the low side, he has only 770ml in the last 24 hours he has severe bilateral lower extremity edema his weight is up, he remains on room air, discussed with the patient that he may need hemodialysis soon, I discussed with his son and daughter extensively about hemodialysis likely will be long-term, he can be transitioned to peritoneal dialysis and have PD catheter placement next week but we have to wait 2 weeks before we start the PD training I contacted the PD nurse in [place] she can do the training after 2 weeks if the patient decided to go for PD Today there is no acute indication to start hemodialysis I will add metolazone 5 mg daily from todayto augment diuresis we will give IV Lasix 80 mg twice daily. General recommendation: Strict intake/output measurement Avoid IV contrast, NSAIDs Please ensure all medication and renally dosed to EGFR less than 20 INTERVAL HISTORY: Patient is doing about the same, awake alert, eating okay, complaining of back pain. I have extensive discussion with his son and daughter and the patient about worsening kidney functions and approaching ESRD and need to have permacath placement. Remains with poor urine output despite IV Lasix he had only 775 mL urine output in the last 24 hours Laboratory data reviewed discussed with the patient and his family creatinine up to 2.85, BUN 122 potassium okay 4.4. Vitals: Current Vital Signs Temp: 97.5 F (36.4 C) BP: 115/61 Pulse: 77 O2 Device: Room Air O2 Flow Rate (L/min): 0.5 l/min Resp: 16 Pain Ratin (out of 10) Weight: 103.6 kg (228 lb 6.4 oz) SpO2: 93 % Vitals Min/Max Last 24 Hours Vital Signs Min/Max (last 24 hours) Flowsheet Row Name Min Max Temp 95.6 F (35.3 C) 98.6 F (37 C) BP: Systolic 85 115 BP: Diastolic 48 79 Pulse 74 87 Resp 14 20 SpO2 91 % 95 % MAP (mm Hg) 70 mm Hg 88 mm Hg Intake and Output Last 24 Hours Intake/Output Summary (Last 24 hours) at 07/30/2020 1004 Last data filed at 07/29/2020 1400 Gross per 24 hour Intake Output 75 ml Net -75 ml Physical Exam: General Appearance: alert, well appearing, and in no distress Chest: Bilateral basal crackles Heart: : S1 S2 heard. Soft systolic ejection murmur 07/06 Abdomen: soft, obese no tenderness Extremities: + 3 pedal edema noted Diagnostics and Labs: Labs (Last day) 07/30/20 0659 - 07/30/20 0659 CHEMISTRY 07/30/20 0659 CHEMISTRY Glucose 70-100 (mg/dL) 132 Sodium 135-145 (meq/L) 132 Potassium 3.5-5.3 (meq/L) 4.4 Chloride 99-110 (meq/L) 99 CO2 20-29 (meq/L) 19 Anion Gap with K 6-20 (meq/L) 18 BUN 6-22 (mg/dL) 122 Creatinine 0.80-1.30 (mg/dL) 2.85 BUN/Creatinine Ratio 10.0-25.0 42.8 Calcium 8.5-10.5 (mg/dL) 9.1 Corrected Calcium 8.5-10.5 (mg/dL) 9.8 Phosphorus 2.5-4.5 (mg/dL) 6.4 Albumin 3.5-5.0 (g/dL) 3.1 eGFR >=60 (mL/min/1.73m2) 27 eGFR Non- >=60 (mL/min/1.73m2) 22 07/30/20 0659 - 07/30/20 0659 GENERAL COAGULATION 07/30/20 0659 GENERAL COAGULATION Protime 12.0-14.5 (secs) 28.3 INR 2.0-3.5 2.8 07/30/20 0512 - 07/29/20 1114 GLUCOSE POINT OF CARE 07/30/20 0512 07/29/20 2040 07/29/20 1657 07/29/20 1114 GLUCOSE POINT OF CARE Glucose POC 70-99 (mg/dL) 132 92 175 162 03/07/21 519 - 07/30/20519 URINALYSIS 07/30/20519 URINALYSIS Color Urine [place], Dark Yellow, Straw, Yellow, Colorless Yellow Clarity Urine Clear Clear Specific [place] 1.002-1.030 1.016 Glucose Urine Negative Negative Bilirubin Urine Negative Negative Ketones Urine Negative, 5 mg/dL, 10 mg/dL Negative Blood Urine Negative Negative PH Urine 5.0, 5.5, 6.0, 6.5, 7.0, 7.5, 8.0 5.0 Protein Urine Negative 30 mg/dL Nitrite Negative Negative Leukocyte Esterase Urine Negative Moderate (2+) Urobilinogen < 2 mg/dL < 2 mg/dL WBC Urine Negative, 0-5 /hpf 21-50 /hpf RBC Urine Negative, 0-2 /hpf 6-10 /hpf Squamous Epithelial Cells Negative, Occ (0-10) /lpf, Few (11-20) /lpf Moderate (21-50) /lpf Bacteria Negative Negative Hyaline Cast 0-2 /lpf 11-20 /lpf 07/30/20520 - 07/30/20520 URINE CHEMISTRY 07/30/20520 URINE CHEMISTRY Creatinine Urine 20.0-250.0 (mg/dL) 155.2 Protein Total Urine (mg/dL) 30.8 Protein/Creatinine Ratio 1-150 (mg/g) 198 07/30/20 0659 - 07/30/20 0659 OTHER 07/30/20 0659 OTHER Age (Years) 75 Lab Results Component Value Date PTHINTACT 214 (H) 07/01/2020 CA 9.1 07/30/2020 PHOSPHORUS 6.4 (H) 07/30/2020 Last Vitamin D: No results found for: [id number] Last Iron: Lab Results Component Value Date FETOT 14 (L) 07/01/2020 FERRITINSER 309 (H) 07/01/2020 TIBC 312 07/01/2020 FESAT 4 (L) 07/01/2020 Current Facility-Administered Medications Medication Dose Route Frequency Provider Last Rate Last Admin warfarin (COUMADIN) tablet 0.5 mg 0.5 mg Oral Warfarin 1 time dose Saroj Wilson MD metOLazone (ZAROXOLYN) tablet 5 mg 5 mg Oral Daily Agnes Dailey MD 5 mg at 07/30/20 0922 oxyCODONE (OXY-IR) tablet 5 mg 5 mg Oral Every 6 hours prn Amber Holly APRN-CNP furosemide (LASIX) injection solution 80 mg 80 mg IV 2 times a day diuretic Agnes Dailey MD 80 mg at 07/29/20 1800 acetaminophen (TYLENOL) tablet 650 mg 650 mg Oral Every 6 hours Amber Holly APRN-CNP 650 mgat 07/30/20 0525 insulin detemir (LEVEMIR) SQ injection 36 Units Subcutaneous Every evening Amber Holly APRN-CNP Stopped at 07/29/20 210 calcitriol (ROCALTROL) capsule 0.25 mcg 0.25 mcg Oral Every other day Agnes Dailey MD 0.25 mcg at 07/29/20 1606 traZODone (DESYREL) tablet 50 mg 50 mg Oral Bedtime prn Amber Holly APRN- CNP 50 mg at 07/27/202036 .Anticoagulation (WARFARIN) therapy nursing reminder 1 each Does not apply Reminder Nidia Lentz MD loperamide (IMODIUM) capsule 2 mg 2 mg Oral Every 1 hour prn Amber Holly APRN-CNP 2 mg at 07/28/20 1842 sodium chloride 0.9% flush (adult) 10 mL 10 mL IV 2 times a day and prn Wade Allison MD 10 mL at 07/29/202112 metoclopramide (REGLAN) inj soln 5 mg 5 mg IV Every 6 hours prn Wade Allison MD melatonin tablet 3 mg 3 mg Oral Bedtime prn Barbara Mejia MD 3 mg at 07/28/20 2146 senna-docusate sodium (SENOKOT-S;PERICOLACE) tablet 2 tablet 2 tablet Oral 2 times a day prn Barbara Mejia MD And bisacodyl (DULCOLAX) suppository 10 mg 10 mg Rectal 1 time a day prn Barbara Mejia MD And docusate sodium (THEREVAC-SB MINI;ENEMEEZ MINI) 283 MG enema 1 enema 1 enema Rectal 1 time a day prn Barbara Mejia MD ondansetron (ZOFRAN ODT) dispersible tablet 4 mg 4 mg Oral 4 times a day prn Barbara Mejia MD And ondansetron (ZOFRAN) injection solution 4 mg 4 mg IV 4 times a day prn Barbara Mejia MD albuterol (PROVENTIL) (2.5 mg/3mL) 0.083% inhalation soln 2.5 mg 2.5 mg Nebulization Every 4 hours prn Barbara Mejia MD allopurinol (ZYLOPRIM) tablet 300 mg 300 mg Oral daily Barbara Mejia MD 300 mg at 07/30/20921 clopidogrel (PLAVIX) tablet 75 mg 75 mg Oral daily Barbara Mejia MD 75 mg at 07/30/20921 gemfibrozil (LOPID) tablet 600 mg 600 mg Oral 2 times a day before meals Barbara Mejia MD600 mg at 07/30/20 06 isosorbide dinitrate (ISORDIL) tablet 5 mg 5 mg Oral 3 times a day nitrate Barbara Mejia MD 5 mg at 07/30/20921 metoprolol succinate (TOPROL XL) SR tablet (24 hr) 25 mg 25 mg Oral daily Barbara Mejia MD 25 mg at 07/30/20921 nitroglycerin (NITROSTAT) sublingual tablet 0.4 mg 0.4 mg Sublingual Every 5 minutes prn Barbara Mejia MD pravastatin (PRAVACHOL) tablet 80 mg 80 mg Oral Every evening Barbara Mejia MD 80 mg at 07/29/202112 omega-3 fatty acids (FISH OIL) capsule 1,000 mg 1,000 mg Oral daily Barbara Mejia MD 1,000 mg at 07/30/20921 dextrose 50% IV solution 50 mL 25 g IV PRN per parameter Barbara Mejia MD glucagon for injection 1 mg vial 1 mg 1 mg Intramuscular PRN per parameter Barbara Mejia MD dextrose chewable tablet 16 g 4 tablet Oral PRN per parameter Barbara Mejia MD Or carbohydrate 15 g 15 g Oral PRN per parameter Barbara Mejia MD insulin aspart (NovoLOG) SQ correction scale (Adult) 2-8 Units Subcutaneous 3 times a day Barbara Mejia MD 2 Units at 07/29/20 1751 escitalopram (LEXAPRO) tablet 10 mg 10 mg Oral daily Barbara Mejia MD 10 mg at 07/30/20 0922 mber Holly, CORE WORKER-MILK DELIVERY DRIVER - 07/29/2020 8:34 AM CST DAILY PROGRESS NOTE Hilary Ruiz is a 75yr old male admitted on 07/25/2020 7:05 PM. Impression / Plan HFrEF- - Echo- EF25 %. There is global hypokinesis of the left ventricle. The wall segments are akinetic. - cardiology consult- GDMT recommended, continue metoprolol XL 25 mg daily, isosorbide 5 mg TID - HOLD lisinopril and Torsemide due to bump in creat, Appreciate nephrology consultation- -outpatient referral to heart failure clinic thru [facility] -monitor O2 sat- Oxygen prn to maintain sat >90% - Home oxygen eval prior to dsg -continue I&O and daily weight acute on chronic renal failure stage III - required dialysis after his recent cardiac cath 06/28/20, discontinued on 07/19, does not want to restart dialysis (baseline creat 1.8-2.0) - creat-2.34- HOLD torsemide and Lisinipril - Consult nephrology NSTEMI- CAD with recent NSTEMI 06/28/20 99% LAD in-stent restenosis during last admission. Underwent balloon angioplasty without restenting -Troponin elevated 0.49down trending - continue ASA and PLavix , metoprolol XL, imdur and statin -cardiologyconsult- no interventions at this time -cardiac rehab consult generalized weakness Consult PT/OT Supratherapeutic INR-unclear etiology, reports taking warfarin as prescribed but had significant dietary change with poor po intake in week prior History of bioprosthetic aortic valve replacementand chronic DVT -Received vitamin K 5 mg IV at outlying facility, repeated 5 mg IV on admission -continue warfarin therapy pharmacy to dose Diabetes type 2-hemoglobin A1c 6.7%, monitor glucose before meals meals and at bedtime, fasting glucose 67-103 past 3 days, Decrease Levemir insulin 36 u, continue Novlog SS with meals Dual chamber Pacemaker in situ- Pacemaker interrogation-3% A-paced and 100% V- paced,Adjustments during testing were made to: lower rate, upper rate, and pacing voltage. 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 I&O -90, Wt 101.4- down 1 kg since admission, Creat trending up 2.34 Review of Systems Review of Systems Constitutional: Negative for fever. HENT: Negative. Respiratory: Positive for shortness of breath. Negative for wheezing. Cardiovascular: Positive for leg swelling. Negative for chest pain. Gastrointestinal: Negative. Genitourinary: Negative. Musculoskeletal: Positive for back pain. Skin: Negative. Neurological: Positive for weakness. Psychiatric/Behavioral: Negative. Physical Exam Vital Signs: Temp: 96.3 F (35.7 C) | BP: 99/65 | Pulse: 84 | Resp: 17 | Pain Ratin (out of 10) | Weight: 101.4 kg (223 lb 7 oz) | O2 Device: Room Air O2 Flow Rate (L/min): 0.5 l/min | SpO2: 90 % Maximum Temperatures (last 24 hours) Temperature Maximum Max Temp 98.2 F (36.8 C) Intake and Output: 07/28 0700 - 07/29 0659 In: 610 [Oral:610] Out: 700 [Urine:700] Physical Exam Vitals signs and nursing note reviewed. Constitutional: General: He is not in acute distress. Comments: Appears fatigued and co low back pain Cardiovascular: Rate and Rhythm: Normal rate and regular rhythm. Pulmonary: Effort: No respiratory distress. Breath sounds: No wheezing or rales. Musculoskeletal: Right lower leg: Edema present. Left lower leg: Edema present. Skin: General: Skin is warm. Neurological: Mental Status: He is oriented to person, place, and time. Psychiatric: Mood and Affect: Mood normal. Labs Labs (Last day) 07/29/20452 - 07/29/20452 CBC 07/29/20452 CBC Hemoglobin 13.5-17.5 (g/dL) 9.7 07/29/20 045 - 07/29/20452 CHEMISTRY 07/29/20452 CHEMISTRY Glucose 70-100 (mg/dL) 105 Sodium 135-145 (meq/L) 135 Potassium 3.5-5.3 (meq/L) 4.2 Chloride 99-110 (meq/L) 102 CO2 20-29 (meq/L) 20 Anion Gap with K 6-20 (meq/L) 17 BUN 6-22 (mg/dL) 111 Creatinine 0.80-1.30 (mg/dL) 2.34 BUN/Creatinine Ratio 10.0-25.0 47.4 Calcium 8.5-10.5 (mg/dL) 9.1 Corrected Calcium 8.5-10.5 (mg/dL) 9.8 Phosphorus 2.5-4.5 (mg/dL) 4.7 Albumin 3.5-5.0 (g/dL) 3.1 eGFR >=60 (mL/min/1.73m2) 33 eGFR Non- >=60 (mL/min/1.73m2) 27 07/29/20 0651 - 07/29/20 0651 GENERAL COAGULATION 07/29/20 0651 GENERAL COAGULATION Protime 12.0-14.5 (secs) 25.4 INR 2.0-3.5 2.4 07/29/20 05 - 07/28/20 1104 GLUCOSE POINT OF CARE 07/29/2052107/28/20205407/28/20 1104 GLUCOSE POINT OF CARE Glucose POC 70-99 (mg/dL) 95 153 206 07/29/20 0453 - 07/29/20 0453 OTHER 07/29/20 0453 OTHER Age (Years) 75 Medical Decision making MDM Reviewed: previous chart, nursing note and vitals Reviewed previous: labs RITY AND COMPLIANCE PROJECT MANAGER Amber Holly APRN-CNP - 07/28/2020 12:59 PM CST DAILY PROGRESS NOTE Hilary Ruiz is a 75yr old male admitted on 07/25/2020 7:05 PM. Impression / Plan HFrEF- - Echo- EF25 %. There is global hypokinesis of the left ventricle. The wall segments are akinetic. - cardiology consult- GDMT recommended, continue Lisinopril 2.5 mg daily, transition to Toresemide 60 BID, continue metoprolol XL 25 mg daily, isosorbide 5 mg TID -repeat renal panel and hgb in am -outpatient referral to heart failure clinic thru [facility] -monitor O2 sat- Oxygen prn to maintain sat >90% - Home oxygen eval prior to dsg -continue I&O and daily weight acute on chronic renal failure stage III - required dialysis after his recent cardiac cath 06/28/20, discontinued on 07/19, does not want to restart dialysis (baseline creat 1.8-2.0) - creat- 2.0 in setting of starting ACEI-continue to monitor, if creat not improved consult nephrology in am - transition to Torsemide 60 mg BID, DC IV Bumex -encourage po hydration NSTEMI- CAD with recent NSTEMI 06/28/20 99% LAD in-stent restenosis during last admission. Underwent balloon angioplasty without restenting -Troponin elevated 0.49 down trending - continue ASA and PLavix , metoprolol XL, imdur and statin -cardiology consult- no interventions at this time Supratherapeutic INR- unclear etiology, reports taking warfarin as prescribed but had significant dietary change with poor po intake in week prior History of bioprosthetic aortic valve replacement and chronic DVT -Received vitamin K 5 mg IV at outlying facility, repeated 5 mg IV on admission -continue warfarin therapy pharmacy to dose Diabetes type 2- hemoglobin A1c 6.7%, monitor glucose before meals meals and at bedtime, continue Levemir insulin and sliding scale with meals when necessary Dual chamber Pacemaker in situ- Pacemaker interrogation-3% A-paced and 100% V- paced, Adjustments during testing were made to: lower rate, upper rate, and pacing voltage. Gout-on allopurinol Depression-continue Lexapro Hyperlipidemia-continue gemfibrozil and pravastatin Hypertension-continue Metoprolol XL Hx common femoral artery pseudoaneurysm SP angioplasty 11/2/20 DVT prophylaxis- on chronic warfarin therapy Code status- full code Interval History The history is provided by the patient and medical records. Hilary Ruiz is a 75-year-old male who has a history of CAD recently had a non-STEMI June 28, 2020 with in-stent stenosis requiring angioplasty. Post angiogram had acute on chronic renal failure and required dialysis. He was discharged to home on hemodialysis. His renal function had improved so this was discontinued around July 19. He had been doing well up until the night before presenting at the clinic with increasing dyspnea with exertion. On arrival creatinine was slightly elevated 2.48, he was started on IV Bumex diuresis and creatininetrended down. Troponin was elevated 0.459 and has trended down. Cardiology consult not recommending any intervention at this time. limited echo was obtained which showed an EF of 25%. Patient has been started on guideline directed medical therapy for heart failure and will need continued tapering as an outpatient. Overnight breathing has improved. He is no longer requiring oxygen therapy. He continues to feel dyspneic with any activity. Interval hx I&O- +260 weight 102.7 kg (up 0.7kg ) Creat 2.08 Not requiring any oxygen today, Continues to feel SOB with minimal activity Review of Systems Review of Systems Constitutional: Negative for fever. HENT: Negative. Respiratory: Positive for shortness of breath. Negative for wheezing. Cardiovascular: Positive for leg swelling. Negative for chest pain. Gastrointestinal: Negative. Genitourinary: Negative. Musculoskeletal: Negative. Skin: Negative. Neurological: Positive for weakness. Psychiatric/Behavioral: Negative. Physical Exam Vital Signs: Temp: 98.2 F (36.8 C) | BP: 104/68 | Pulse: 99 | Resp: 16 | Pain Ratin (out of 10) | Weight: 102.7 kg (226 lb 8 oz) | O2 Device: Room Air O2 Flow Rate (L/min): 0.5 l/min | SpO2: 92 % Maximum Temperatures (last 24 hours) Temperature Maximum Max Temp 99 F (37.2 C) Intake and Output: 07/27 0700 - 07/28 0659 In: 860 [Oral:860] Out: 600 [Urine:600] Physical Exam Constitutional: General: He is not in acute distress. Cardiovascular: Rate and Rhythm: Normal rate and regular rhythm. Pulmonary: Breath sounds: No wheezing or rales. Comments: Mild JVD, no crackles noted, 2 leg edema Musculoskeletal: Normal range of motion. Right lower leg: Edema present. Left lower leg: Edema present. Neurological: Mental Status: He is oriented to person, place, and time. Psychiatric: Mood and Affect: Mood normal. Labs Labs (Last day) 07/28/20 0652 - 07/28/20 0652 CHEMISTRY 07/28/20 0652 CHEMISTRY Glucose 70-100 (mg/dL) 116 Sodium 135-145 (meq/L) 135 Potassium 3.5-5.3 (meq/L) 4.1 Chloride 99-110 (meq/L) 103 CO2 20-29 (meq/L) 19 Anion Gap with K 6-20 (meq/L) 17 BUN 6-22 (mg/dL) 103 Creatinine 0.80-1.30 (mg/dL) 2.08 BUN/Creatinine Ratio 10.0-25.0 49.5 Calcium 8.5-10.5 (mg/dL) 9.1 eGFR >=60 (mL/min/1.73m2) 38 eGFR Non- >=60 (mL/min/1.73m2) 31 07/28/20 0652 - 07/28/20 0652 GENERAL COAGULATION 07/28/20 0652 GENERAL COAGULATION Protime 12.0-14.5 (secs) 19.8 INR 2.0-3.5 1.8 07/28/20 1104 - 07/27/20 1628 GLUCOSE POINT OF CARE 07/28/20 1104 07/28/20 0509 07/27/20 2042 07/27/20 1628 GLUCOSE POINT OF CARE Glucose POC 70-99 (mg/dL) 206 67 111 207 07/28/20 0652 - 07/28/20 0652 OTHER 07/28/20 0652 OTHER Age (Years) 75 Medical Decision making MDM Reviewed: previous chart, nursing note and vitals Reviewed previous: labs and ECG RITY AND COMPLIANCE PROJECT MANAGER mAber Holly APRN-CNP - 07/27/2020 1:10 PM CST DAILY PROGRESS NOTE Hilary Ruiz is a 75yr old male admitted on 07/25/2020 7:05 PM. Impression / Plan Acute on chronic systolic and diastolic heart failure - Telemetry demonstrating a ventricular paced rhythm tachycardic rate 106-124 - limited ECHO - EF 25%, aortic bioprosthesis is present, no significant aortic transvalvular or perivalvular regurg. -Pacemaker interrogation-3% A-paced and 100% V-paced, Adjustments during testing were made to: lowerrate, upper rate, and pacing voltage. -Continue IV Bumex 1 mg every 8 hours -Monitor daily weight and I&O -Oxygen therapy when necessary to maintain O2 sat greater than 90% - start low dose ACEI- Lisinopril 2.5 mg Hypokalemia- Po repletion, repeat BMP in am NSTEMI CAD status post critical 99% LAD in-stent restenosis during last admission. Underwent balloon angioplasty without restenting -Troponin elevated 0.49 down trending - continue ASA and PLavix , metoprolol XL, imdur and statin -cardiology consult Supratherapeutic INR- unclear etiology, reports taking warfarin as prescribed History of bioprosthetic aortic valve replacement and chronic DVT -Received vitamin K 5 mg IV at outlying facility, repeated 5 mg IV on admission -INR 1.6 -Restart warfarin pharmacy to dose CKD stage III -Required dialysis during previous hospitalization. Creatinine down trending with diuresis- Creat 1.95 near baseline - continue to monitor Diabetes type 2- hemoglobin A1c 6.7%, monitor glucose before meals meals and at bedtime, continue Levemir insulin and sliding scale with meals when necessary Dual chamber Pacemaker in situ -Pacemaker interrogation-3% A-paced and 100% V-paced, Adjustments during testing were made to: lower rate, upper rate, and pacing voltage. 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 I&O neg 240, Weight- down 1kg overnight, BP stable SBP 118-120, HR 90's, Continues to require oxygen 2l/nc Denies chest pain Review of Systems Review of Systems Constitutional: Negative for fever. HENT: Negative. Respiratory: Positive for shortness of breath. Cardiovascular: Positive for leg swelling. Negative for chest pain. Gastrointestinal: Negative. Genitourinary: Negative. Musculoskeletal: Negative. Neurological: Positive for weakness. Psychiatric/Behavioral: Positive for confusion (Episodes of confusion that started 3 days ago). Physical Exam Vital Signs: Temp: 98.8 F (37.1 C) | BP: 120/70 | Pulse: 93 | Resp: 16 | Pain Ratin (out of 10) | Weight: 102 kg (224 lb 12.8 oz) | O2 Device: NC - no humidity O2 Flow Rate (L/min): 2 l/min | SpO2: 97 % Maximum Temperatures (last 24 hours) Temperature Maximum Max Temp 99.5 F (37.5 C) Intake and Output: 07/26 0700 - 07/27 0659 In: 510 [Oral:510] Out: 750 [Urine:750] Physical Exam Constitutional: General: He is not in acute distress. Cardiovascular: Rate and Rhythm: Normal rate and regular rhythm. Heart sounds: No murmur. Pulmonary: Effort: Pulmonary effort is normal. Breath sounds: Normal breath sounds. No wheezing or rales. Comments: Oxygen per NC Abdominal: Palpations: Abdomen is soft. Musculoskeletal: Right lower leg: Edema (1+) present. Left lower leg: Edema (1+) present. Skin: General: Skin is warm. Neurological: Mental Status: He is oriented to person, place, and time. Psychiatric: Mood and Affect: Mood normal. Labs Labs (Last day) 07/27/20711 - 07/27/20711 CHEMISTRY 07/27/20 0707/27/20 07 CHEMISTRY Glucose 70-100 (mg/dL) 114 Sodium 135-145 (meq/L) 136 Potassium 3.5-5.3 (meq/L) 3.3 Chloride 99-110 (meq/L) 102 CO2 20-29 (meq/L) 20 Anion Gap with K 6-20 (meq/L) 17 BUN 6-22 (mg/dL) 94 Creatinine 0.80-1.30 (mg/dL) 1.95 BUN/Creatinine Ratio 10.0-25.0 48.2 Calcium 8.5-10.5 (mg/dL) 9.2 Corrected Calcium 8.5-10.5 (mg/dL) 9.8 Phosphorus 2.5-4.5 (mg/dL) 3.9 Magnesium 1.8-2.4 (mg/dL) 2.1 Albumin 3.5-5.0 (g/dL) 3.2 eGFR >=60 (mL/min/1.73m2) 41 eGFR Non- >=60 (mL/min/1.73m2) 34 07/27/20 0712 - 07/27/20 0712 GENERAL COAGULATION 07/27/20 0712 GENERAL COAGULATION Protime 12.0-14.5 (secs) 18.2 INR 2.0-3.5 1.6 07/27/20 1052 - 07/26/20 1316 GLUCOSE POINT OF CARE 07/27/20 1052 07/27/20 0546 07/26/20 2045 07/26/20 1625 07/26/20 1316 GLUCOSE POINT OF CARE Glucose POC 70-99 (mg/dL) 162 103 129 113 229 07/27/20 0712 - 07/27/20 0712 OTHER 07/27/20 0712 OTHER Age (Years) 75 Medical Decision making MDM Reviewed: previous chart, nursing note and vitals Reviewed previous: labs and ECG RITY AND COMPLIANCE PROJECT MANAGER Darshana Lew APRN-CNP - 07/27/2020 11:52 AM CST Cardiology Hospital Progress Note Assessment / Plan Principal Problem: Acute exacerbation of CHF (congestive heart failure) ([facility]) Active Problems: Dyslipidemia Hx of cardiac pacemaker Chronic combined systolic and diastolic CHF (congestive heart failure) ([facility]) S/P coronary artery stent placement Heart failure ([facility]) Resolved Problems: * No resolved hospital problems. * Plan: Acute on Chronic systolic heart failure/ NYHA class III/IV -continue lisinopril 2.5 mg daily, this will need to be adjusted in the outpatient setting to GDMT Iwould not discontinue lisinopril unless creatinine goes over 2.1 -continue toprol XL 25 mg daily, this medication should be optimized in the outpatient setting to GDMT -patient follows with [facility] cardiology; he will need a referral to the [facility] heart failure program for further management -consider switching diuresis from Bumex IV to Torsemide twice a day oral, maybe starting at 60 mg twice daily diuretic. He will need to do daily weights. If he continues to have issues with volume and creatinine he maybe a good cardiomems candidate. -continue isordil 5 mg TID, this medication can be optimized in the outpatient setting to GDMT. -recommend cardiac rehab -EF was 35-40% on 05/06/20, if IF does not improve after 3 months of GDMT, then the patient should bereferred for pacemaker upgrade to [facility] -Cardiology will sign off; thank your for this consult. CAD s/p LAD stent placed 07/04/20 -continue plavix 75 mg daily, he is also on coumadin so he is not on aspirin. -continue isordil 5 mg TID -consider switching to high intensity statin like crestor/lipitor -continue nitroglycerin 0.4 mg sublingual as needed for chest pain -cardiac rehab encouraged. Atrial fibrillation -continue coumadin for stroke prophylaxis HPI / History / ROS Hilaryvirgilio Ruiz is a 75yr old male admitted on 07/25/2020. HPI Today the patient denies any complaints of chest pain, left arm pain, neck pain, jaw pain, dizziness, lightheadedness, and palpitations. He has lower extremity edema, some abdominal distension. He is fairly inactive, he also seems unmotivated. He was encouraged to attend cardiac rehab. Physical / Results Current Vital Signs Temp: 98.2 F (36.8 C) BP: 104/68 Weight: 102.7 kg (226 lb 8 oz) SpO2: 92 % Resp: 16 Pulse: 99 Current BMI (>50 = increased risk): (!) 32.57 O2 Device: Room Air O2 Flow Rate (L/min): 0.5 l/min Pain Ratin Maximum Temperatures (last 24 hours) Temperature Maximum Max Temp 99 F (37.2 C) Physical Exam Constitutional: He appears chronically ill and acutely ill. Neck: JVD present. Cardiovascular: Normal rate, S1 normal and S2 normal. Murmur heard. Pulses: Radial pulses are 2+ on the right side. Telemetry- / v-paced Pulmonary/Chest: Effort normal. Right side rales Abdominal: He exhibits distension. Musculoskeletal: General: Edema present. Neurological: He is alert and oriented to person, place, and time. Skin: Skin is warm and dry. There is pallor. Lab Results Component Value Date GLUCOSE 206 (H) 07/28/2020 BUN 103 (H) 07/28/2020 CREATSERUM 2.08 (H) 07/28/2020 BCRATIO 49.5 (H) 07/28/2020 NA 135 07/28/2020 POTASSIUM 4.1 07/28/2020 CL 103 07/28/2020 CO2 19 (L) 07/28/2020 CA 9.1 07/28/2020 EGFR 31 (L) 07/28/2020 EGFRAF 38 (L) 07/28/2020 RITY AND COMPLIANCE PROJECT MANAGER Associated attestation - Maged Miller MD - 07/30/2020 3:56 PM SECURITY AND COMPLIANCE PROJECT MANAGER I discussed the patient with the MELVINA and personally interviewed and examined the patient. I verifiedin the medical record all MELVINA documentation/findings, including history, physical exam, and medical decision making, and I agree with the MELVINA's documentation.Amber Holly APRN-MILK DELIVERY DRIVER - 07/26/2020 10:51 AM SECURITY AND COMPLIANCE PROJECT MANAGER DAILY PROGRESS NOTE Hilary Ruiz is a 75yr old male admitted on 07/25/2020 7:05 PM. Impression / Plan Acute on chronic systolic and diastolic heart failure with reduced EF 25% per last echo dated 06/28/2020 - Telemetry demonstrating a ventricular paced rhythm tachycardic rate 106-124 -Obtain limited ECHO to assess EF -Pacemaker interrogation -Cardiology consult -Continue IV Bumex 1 mg every 8 hours -Monitor daily weight and I&O -Oxygen therapy when necessary to maintain O2 sat greater than 90% NSTEMI CAD status post critical 99% LAD in-stent restenosis during last admission. Underwent balloon angioplasty without restenting -Troponin elevated 0.49 down trending - continue ASA and PLavix , metoprolol XL, imdur and statin -cardiology consult Supratherapeutic INR- unclear etiology, reports taking warfarin as prescribed History of bioprosthetic aortic valve replacement and chronic DVT -Received vitamin K 5 mg IV at outlying facility, repeated 5 mg IV on admission -INR 2.0 today -Restart warfarin therapy pharmacy to dose CKD stage III -Require dialysis during last hospitalization. 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 Hilary Ruiz is a 75-year-old gentleman who presented to the emergency room with increasing shortness of breath. Past medical history includes aortic stenosis status post aortic valve replacement February 2018, CAD-end STEMI with PCI 2 weeks ago. Had a 99% LAD in- stent restenosis that was treated with PCI and balloon angioplasty., CK D stage III during previous hospitalization required dialysis. Last dialysis run one week ago and port was removed on July 19. Patient's son is present. He reports patient did fairly well up until Saturday 07/22. At that time hebecame very weak and had episodes of confusion. Reportedly was monitoring his weight at home and reports 1 pound weight gain. Also had supratherapeutic INR greater than 10 with no sign of bleeding. He received IV vitamin K 5 mg at the outlying facility and was repeated 5 mg on admission. On admission BNP 2384, chest x-ray reported as stable bilateral pulmonary infiltrates. No rosita pulmonary edema. Trace pleural effusion on the left. Troponin elevated 0.459 and has trended down. Patient has denied chest pain. His creatinine is 2.3 with a GFR of 28. (Baseline creatinine 1.8 2.0 prior to previous admission) Interval hx- Appears SOB, telemetry showing V paced rhythm rate 124, Review of Systems Review of Systems Constitutional: Negative for fever. HENT: Negative. Respiratory: Positive for shortness of breath. Cardiovascular: Positive for leg swelling. Negative for chest pain. Gastrointestinal: Negative. Genitourinary: Negative. Musculoskeletal: Negative. Neurological: Positive for weakness. Psychiatric/Behavioral: Positive for confusion (Episodes of confusion that started 3 days ago). Physical Exam Vital Signs: Temp: 98.7 F (37.1 C) | BP: 114/65 | Pulse: 115 | Resp: 17 | Pain Ratin (out of10) | Weight: 102.4 kg (225 lb 12.8 oz) | O2 Device: Room Air O2 Flow Rate (L/min): 3 l/min | SpO2: 91 % Maximum Temperatures (last 24 hours) Temperature Maximum Max Temp 99 F (37.2 C) Intake and Output: 07/25 0700 - 07/26 0659 In: - Out: 660 [Urine:660] Physical Exam Constitutional: General: He is not in acute distress. Cardiovascular: Rate and Rhythm: Tachycardia present. Heart sounds: No murmur. Pulmonary: Breath sounds: No wheezing or rales. Comments: Appears dyspneic Abdominal: Palpations: Abdomen is soft. Musculoskeletal: Right lower leg: Edema (1+) present. Left lower leg: Edema (1+) present. Skin: General: Skin is warm. Neurological: Mental Status: He is oriented to person, place, and time. Psychiatric: Mood and Affect: Mood normal. Labs Labs (Last day) 07/26/20226 - 07/25/202026 CARDIAC MARKERS 07/26/2022607/25/20 2354 07/25/20202607/25/202026 CARDIAC MARKERS Troponin I 0.000-0.028 (ng/mL) 0.322 0.379 0.459 BNP 0-100 (pg/mL) 2,384 07/26/2042 - 07/25/202026 CBC 07/26/2054107/25/202026 CBC WBC 4.0-11.0 (K/uL) 9.1 9.1 RBC 4.40-5.80 (M/uL) 3.52 3.51 Hemoglobin 13.5-17.5 (g/dL) 9.7 9.8 Hematocrit 40.0-50.0 (%) 31.5 31.4 MCV 80.0-98.0 (fL) 89.5 89.5 MCH 25.5-34.0 (pg) 27.6 27.9 MCHC 31.5-36.5 (g/dL) 30.8 31.2 RDW-CV 11.5-15.5 (%) 16.6 16.5 RDW-SD 35.5-50.0 (fl) 54.4 54.4 Platelet Count 140-400 (K/uL) 191 195 MPV 8.5-12.0 (fL) 11.3 11.1 07/26/20 0542 - 07/25/202026 CHEMISTRY 07/26/20 0542 07/25/20 2354 07/25/20 2354 07/25/20202607/25/202026 CHEMISTRY Glucose 70-100 (mg/dL) 130 168 Sodium 135-145 (meq/L) 137 137 Potassium 3.5-5.3 (meq/L) 3.5 3.8 Chloride 99-110 (meq/L) 103 101 CO2 20-29 (meq/L) 20 20 Anion Gap with K 6-20 (meq/L) 18 20 BUN 6-22 (mg/dL) 84 87 Creatinine 0.80-1.30 (mg/dL) 2.30 2.48 BUN/Creatinine Ratio 10.0-25.0 36.5 35.1 Calcium 8.5-10.5 (mg/dL) 9.0 9.0 Corrected Calcium 8.5-10.5 (mg/dL) 9.6 Phosphorus 2.5-4.5 (mg/dL) 3.4 Magnesium 1.8-2.4 (mg/dL) 2.0 Albumin 3.5-5.0 (g/dL) 3.2 CRP 0.0-8.0 (mg/L) 224.0 Procalcitonin <0.07 (ng/mL) 11.56 eGFR >=60 (mL/min/1.73m2) 34 31 eGFR Non- >=60 (mL/min/1.73m2) 28 26 07/26/20 1100 - 07/25/202035 ECG/EKG 07/26/20 1100 07/25/202035 ECG/EKG EKG WAVEFORM Atrial-sensed ventricular-paced rhythm Abnormal ECG When compared with ECG of 25-JUL-2020 20:36, Vent. rate has increased BY 12 BPM Ventricular Rate: 109 BPM Atrial Rate: 109 BPM P-R Interval: 184 ms QRS Duration: 222 ms Q-T Interval: 404 ms QTc Calculation(Bazett): 544 ms Calculated R [place]: -73 degrees Calculated T [place]: 89 degrees WAVEFORM Atrial-sensed ventricular-paced rhythm Abnormal ECG Ventricular Rate: 97 BPM Atrial Rate: 97 BPM P-R Interval: 112 ms QRS Duration: 222 ms Q-T Interval: 490 ms QTc Calculation(Bazett): 622 ms Calculated R [place]: -65 degrees Calculated T [place]: 95 degrees 07/26/20 0542 - 07/25/202026 GENERAL COAGULATION 07/26/2042 07/25/202026 GENERAL COAGULATION Protime 12.0-14.5 (secs) 22.1 >85.0 INR 2.0-3.5 2.0 >10.0 07/26/2048 - 07/25/202125 GLUCOSE POINT OF CARE 07/26/2048 07/25/202125 GLUCOSE POINT OF CARE Glucose POC 70-99 (mg/dL) 123 198 07/26/20 0542 - 07/25/202026 OTHER 07/26/20 0542 07/25/202026 OTHER [age]Years) [age] Medical Decision making MDM Reviewed: previous chart, nursing note and vitals Reviewed previous: ECG and labs Danya Nails RPh - 07/26/2020 7:29 AM CST Warfarin Initial Consult Note Mr. Ruiz has been initiated on warfarin per pharmacy protocol for history of DVT, AVR. Desired goal INR is 2-3. Patient has previously been on anticoagulation therapy. Previous dose was 2.5 mg M/W/, 5 mg ROW (managed by [facility]). Reversal agents given (dose/route/timing): Vitamin K 5mg IV 07/25 x 2 doses INR Date/Time Value Ref Range Status 07/26/2020 05:42 AM 2.0 2.0 - 3.5 Final 07/25/2020 08:27 PM >10.0 (HH) 2.0 - 3.5 Final 07/10/2020 05:58 AM 2.6 2.0 - 3.5 Final Plan: Warfarin: 2.5 mg today. Pharmacy will monitor and if indicated, adjust dose per the anticoagulation policy. Thank you very much for the consult. Shira OlsonD awyer Colvin, SHIRA D - 07/25/2020 8:47 PM CST 07/25/2020 8:47 PM SECURITY AND COMPLIANCE PROJECT MANAGER Patient was seen by pharmacy for medication reconciliation. Home medications have been reconciled and updated on the home medications list to match the patient's home usage. Medications Deleted: Gabapentin 100 mg capsule - stopped on 07/23 Metformin 1000 mg tablet - stopped on 07/17 Medications Added: Escitalopram 10 mg tablet - started yesterday Medications Changed: Bumetanide 2 mg tablet - changed to daily Sevalmer carbonate 800 mg tablet - not taking (stopped on 07/23) Insulin aspart - changed to 5-24 units Additional information: -Patient's medication managed by S.O. Contacted S.O. (Blanche) via phone who confirmed all medications, doses, and directions. -Warfarin regimen: 2.5 mg M//, 5 mg ROW. Last dose 07/24 PM Patient denies use of other inhalers, creams/ointments, eye/ear drops, patches or injectables, OTCs,vitamins and/or herbal products. Prior to Admission Medications Prescriptions Last Dose Informant Patient Reported? Taking? NOVOLOG FLEXPEN subcutaneous injection (pen) 07/25/2020 at am No Yes Sig: Inject 2-8 Units subcutaneously 3 times a day with meals Patient taking differently: Inject 5-24 Units subcutaneously 3 times a day with meals -60-150 0 units -151-200 5 units -201-250 10 units -251-300 14 units -301-350 21 units 351-400 24 units Call MD if blood sugar is greater than 400 albuterol HFA (PROVENTIL,PROAIR,VENTOLIN) 108 (90 Base) MCG/ACT inhaler Greater than 1 Month Yes Yes Sig: Inhale 2 puffs orally every 6 hours as needed for wheezing allopurinol (ZYLOPRIM) 300 mg tablet 07/24/2020 at noon Yes Yes Sig: Take 1 tablet (300 mg) by mouth 1 time per day bumetanide (BUMEX) 2 mg tablet 07/25/2020 at am No Yes Sig: Take 1 tablet (2 mg) by mouth 1 time per day Take on Wednesday, , Wednesday, Wednesday ONLY. Do NOT take on dialysis days (MWF). Patient taking differently: Take 2 mg by mouth 1 time per day clopidogrel (PLAVIX) 75 mg tablet 07/24/2020 at am No Yes Sig: Take 1 tablet (75 mg) by mouth 1 time per day escitalopram (LEXAPRO) 10 mg tablet 07/25/2020 at am Yes Yes Sig: Take 10 mg by mouth 1 time per day gemfibrozil (LOPID) 600 mg tablet 07/25/2020 at am Yes Yes Sig: Take 1 tablet (600 mg) by mouth 2 times a day before meals insulin detemir (LEVEMIR FLEXTOUCH) subcutaneous injection (pen) 07/24/2020 at pm Yes Yes Sig: Inject 40 Units subcutaneously 1 time a day in the evening isosorbide dinitrate (ISORDIL) 5 mg tablet 07/25/2020 at am No Yes Sig: Take 1 tablet (5 mg) by mouth 3 times a day nitrate metoprolol succinate (TOPROL XL) 25 mg SR tablet (24 hr) 07/25/2020 at am Yes Yes Sig: Take 1 tablet (25 mg) by mouth 1 time per day multivitamin therapeutic with minerals (THERA M) TABS tablet 07/24/2020 at noon Yes Yes Sig: Take 1 tablet by mouth 1 time per day nitroglycerin (NITROSTAT) 0.4 mg sublingual tablet Greater than 1 Month at Unknown time Yes Yes Sig: Dissolve 1 tablet under the tongue Every 5 minutes as needed for chest pain MAX 3 doses omega-3 fatty acids (FISH OIL) 1000 mg capsule 07/24/2020 at noon Yes Yes Sig: Take 1,000 mg by mouth 1 time per day pravastatin (PRAVACHOL) 80 mg tablet 07/24/2020 at pm No Yes Sig: Take 1 tablet (80 mg) by mouth 1 time a day in the evening sevelamer carbonate (RENVELA) 800 mg tablet Not Taking at Unknown time No No Sig: Take 2 tablets (1,600 mg) by mouth 3 times a day with meals Do not give on an empty stomach, must be given with food to be effective. 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 Patient had critical 99% LAD in- stent restenosis with last admission. This was treated with a pure old balloon angioplasty without restenting. He also had 99% distal LAD stenosis, which was treated with balloon angioplasty. He had 70% obtuse marginal branch lesion. - will escalate diuresis to Bumex 1mg every 8 hours - watch RFP closely as well as daily weights/accurate intake and output - continue plavix - continue to trend tropoinin - continuous oximetry and telemetry Chronic kidney disease stage III, baseline creatinine around 1.8-2.2 - stable, continue to monitor - has good urine output as of now - consider nephrology consult but no indication for dialysis at this time Supratherapeutic INR, unclear etiology S/P bioprosthetic AV replacement (hx of aortic stenosis) Chronic DVT Patient initially had INR of 16.5 at outside facility and was given Vitamin K 5mg IV. - give additional vitamin K 5mg IV - monitor for any bleeding - hold warfarin at this time Type II Diabetes Mellitus, controlled, last A1c 7.2 - continue home lantus - low dose SSI Chronic Medical Conditions: Complete heart block s/p dual chamber pacemaker COPD, stable Hyperlipidemia Hypertension PVD Hx of common femoral artery pseudoaneurysm s/p angioplasty 04/01/20 Code: FULL Diet: Heart Healthy DVT prophylaxis: SCDs HPI / History / ROS HPI Hilary Ruiz is a 75yr year old gentleman with a baseline creatinine of 1.8-2.2 mg/dL, past medical history of CKD III, diabetes mellitus type II, COPD, CHF, gout, aortic stenosis S/P AVR 02/2018, peripheral arterial disease, CAD, and hypertension who presents as a direct admission from clinic in [place]. He was actually just admittedly to our facility 2 weeks ago for acute CHF exacerbation, NSTEMI and s/p PCI. He actually had a 99%LAD instent restenosis which was treated with PCI and balloon angioplasty. He states he was actually doing quite well after he was discharged home. He was able to get back to many of his routine activities including doing house work and working outside on the lawn. Unfortunately, over the last couple of days, he has been noting increasing symptoms of generalized weakness, fatigue and shortness of breath. He is also endorsing poor appetite. He has been compliant with all of his medications. He was taken into the clinic today by his significant other because he was not feeling well. Additionally, his son (contacted via phone) states there was some intermittent confusion episodes over the last 3-4 days as well but then "dad clears up on his own". He alsoendorsed that dad has had poor appetite, but when he was eating it would be things like "hot dogs orchicken fingers." Hilary denies any associated headaches, visual disturbance, chest pain or tightness. He has been having orthopnea and some mild lower extremity swelling. He is producing adequate urination, in fact, his son states he has been using the bathroom quite frequently. The patient requireddialysis with his last admission but recently had his port removed earlier this week. Workup from [facility] showed BNP> 4000, INR 16.5, WBC, 11. Hemoglobin, 10.3, platelets 225. CMP showed BUN 78, normal sodium and potassium, albumin 2.5. Initial troponin 0.35. I spoke to the nurse at and he was apparently given Vitamin K 5mg IV. History Patient Active Problem List Diagnosis Acute exacerbation of CHF (congestive heart failure) (HCC) Atherosclerosis of coronary artery Complete heart block (HCC) Diabetes mellitus, type II, insulin dependent ([facility]) Essential hypertension Dyslipidemia S/P AVR (aortic valve replacement) Hx of cardiac pacemaker Chronic combined systolic and diastolic CHF (congestive heart failure) ([facility]) S/P coronary artery stent placement Pneumonia due to infectious organism Positive D dimer Non-ST elevation [place] (NSTEMI) ([facility]) Prior to Admission Medications Prescriptions Last Dose Informant Patient Reported? Taking? NOVOLOG FLEXPEN subcutaneous injection (pen) No No Sig: Inject 2-8 Units subcutaneously 3 times a day with meals albuterol HFA (PROVENTIL,PROAIR,VENTOLIN) 108 (90 Base) MCG/ACT inhaler Yes Yes Sig: Inhale 2 puffs orally every 6 hours as needed for wheezing allopurinol (ZYLOPRIM) 300 mg tablet Yes Yes Sig: Take 1 tablet (300 mg) by mouth 1 time per day bumetanide (BUMEX) 2 mg tablet No No Sig: Take 1 tablet (2 mg) by mouth 1 time per day Take on Wednesday, , Wednesday, Wednesday ONLY. Do NOT take on dialysis days (MWF). clopidogrel (PLAVIX) 75 mg tablet No No Sig: Take 1 tablet (75 mg) by mouth 1 time per day gabapentin (NEURONTIN) 100 mg capsule Yes No Sig: Take 1 capsule (100 mg) by mouth every night at bedtime Take 1 capsule (100 mg) at bedtime. gemfibrozil (LOPID) 600 mg tablet Yes No Sig: Take 1 tablet (600 mg) by mouth 2 times a day before meals insulin detemir (LEVEMIR FLEXTOUCH) subcutaneous injection (pen) Yes No Sig: Inject 40 Units subcutaneously 1 time a day in the evening isosorbide dinitrate (ISORDIL) 5 mg tablet No No Sig: Take 1 tablet (5 mg) by mouth 3 times a day nitrate metFORMIN (GLUCOPHAGE) 1000 MG tablet Yes No Sig: Take 1 tablet by mouth 2 times a day with meals metoprolol succinate (TOPROL XL) 25 mg SR tablet (24 hr) Yes No Sig: Take 1 tablet (25 mg) by mouth 1 time per day multivitamin therapeutic with minerals (THERA M) TABS tablet Yes No Sig: Take 1 tablet by mouth 1 time per day nitroglycerin (NITROSTAT) 0.4 mg sublingual tablet Yes No Sig: Dissolve 1 tablet under the tongue Every 5 minutes as needed for chest pain MAX 3 doses omega-3 fatty acids (FISH OIL) 1000 mg capsule Yes No Sig: Take 1,000 mg by mouth 1 time per day pravastatin (PRAVACHOL) 80 mg tablet No No Sig: Take 1 tablet (80 mg) by mouth 1 time a day in the evening sevelamer carbonate (RENVELA) 800 mg tablet No No Sig: Take 2 tablets (1,600 mg) by mouth 3 times a day with meals Do not give on an empty stomach, must be given with food to be effective. warfarin (COUMADIN) 5 mg tablet Yes No Sig: Take 2.5 mg 3 days per week and take 5 mg 4 days per week Facility-Administered Medications: None Allergies Allergen Reactions Penicillin Hives (High) Past Medical History: Diagnosis Date CAD (coronary artery disease) COPD (chronic obstructive pulmonary disease) (HCC) Diabetes (HCC) Dyslipidemia Essential hypertension Gout Impaired fasting blood sugar Obesity Peripheral arterial disease (HCC) Peripheral neuropathy Past Surgical History: Procedure Laterality Date IR PLACEMENT TUNNELED CENTRAL VENOUS CATHETER 07/06/2020 IR PLACEMENT TUNNELED CENTRAL VENOUS CATHETER 07/06/2020 Eduar Acevedo III, MD INTERVENT RAD [facility] No family history on file. Social History Socioeconomic History Marital status: Spouse name: Not on file Number of children: Not on file Years of education: Not on file Highest education level: Not on file Tobacco Use Smoking status: Former Smoker Smokeless tobacco: Never Used Substance and Sexual Activity Alcohol use: Not Currently Drug use: Never Sexual activity: Not Currently Review of Systems Review of Systems Constitutional: Positive for activity change, appetite change and fatigue. HENT: Negative. Respiratory: Positive for cough, chest tightness and shortness of breath. Cardiovascular: Negative. Gastrointestinal: Negative. Endocrine: Negative. Genitourinary: Negative. Musculoskeletal: Negative. Skin: Negative. Neurological: Positive for weakness. Negative for dizziness. Hematological: Negative. Psychiatric/Behavioral: Negative. Physical / Results Current Vital Signs Temp: 98.1 F (36.7 C) BP: 114/75 Weight: 103 kg (227 lb) SpO2: 92 % Resp: 18 Pulse: 105 Current BMI (>50 = increased risk): (!) 32.57 O2 Device: Room Air Physical Exam Constitutional: General: He is not in acute distress. Appearance: Normal appearance. He is not toxic-appearing. HENT: Head: Normocephalic and atraumatic. Right Ear: External ear normal. Left Ear: External ear normal. Nose: Nose normal. Mouth/Throat: Mouth: Mucous membranes are moist. Cardiovascular: Rate and Rhythm: Normal rate and regular rhythm. Pulses: Normal pulses. Heart sounds: Murmur present. Pulmonary: Breath sounds: Rales present. Abdominal: General: Bowel sounds are normal. Palpations: Abdomen is soft. Musculoskeletal: Normal range of motion. Right lower leg: Edema present. Left lower leg: Edema present. Skin: General: Skin is warm. Capillary Refill: Capillary refill takes less than 2 seconds. Neurological: General: No focal deficit present. Mental Status: He is alert and oriented to person, place, and time. Mental status is at baseline. Psychiatric: Mood and Affect: Mood normal. Behavior: Behavior normal. Thought Content: Thought content normal. Judgment: Judgment normal. RITY AND COMPLIANCE PROJECT MANAGER documented in this encounter Consult Notes Abdiel Coleman MD - 08/02/2020 9:32 AM CSTAssociated Order(s): CONSULT CARDIOLOGY Cardiology Inpatient Consult Note Name: Hilary Ruiz ROOM/BED: [facility] [place][note 3] PCP: Johan Gallardo MD Admission date: 07/25/2020 Reason for Consult: Plavix and ASA Impression / Plan 1. Acute on chronic CHF with EF of 25% 2. S/p pacemaker 3. History of CABG with recent in stent restenosis of LAD s/p angioplasty A 75- year-old male with complicated cardiac history including CAD status post CABG in 2012 with recent in-stent restenosis status post balloon angioplasty on 05/03/2021, status post pacemaker, ischemiccardiomyopathy with a EF of 25%, recently discharged from the hospital after being treated for decompensated heart failure, now again hospitalized for worsening dyspnea. Patient was discharged on 07/10/2020. The plan was for him to have dialysis given the renal failure and to continue with goal-directed medical therapy for heart failure for at least 3 months for his pacemaker could be upgraded to OFFICE HELPER CLERICAL- D. In fact, this was the recommendation from the photoengraving proofer apprentice. Apparently, dialysis was discontinued given presumed improvement in patient's kidney function. Soon after he became very short of breath and now he is hospitalized for acute failure exacerbation. He has been diuresed, nephrology has been following potential plan to have peritoneal dialysis starting on Wednesday. Cardiology has been consulted regarding whether Plavix could be held in anticipation with PD on Wednesday. Plans: Discussed with Dr. Steel, is okay continue with Plavix and aspirin Continue Toprol-XL, Isordil, Plavix, Pravachol and Gemfibrozil --Repeat Echo in 2 months Thank you for consulting us to participate in the care of this patient. Cardiology will sign off at this time. Page with any questions or concerns. Pt was seen and discussed with Dr Solomon Coleman MD Internal Medicine Resident-[id number] Pager Number: [phone] 08/02/2020 History Mr. Ruiz is a 75yr old male with medical history of admitted to the hospital with worsening shortness of breath. He has medical history notable for CHF status post pacemaker placement, status postCABG, status post cardiac stenting in 2012 and 2013 with recent in-stent restenosis status post balloon angioplasty, status post bioprosthetic valve, recurrent DVT. I have personally interviewed and examined the patient with significant other at bedside. Patient was admitted on 06/28/2020 with worsening shortness of breath, NSTEMI. He underwent cardiac angiography which showed restenosis of LAD, status post balloon angioplasty. Patient was not deemed to be a good candidate for CABG. Plan was to have his pacemaker upgraded to OFFICE HELPER CLERICAL-D but only after 3- month of goal directed medical therapy. He also had renal failure and was started on dialysis during that hospitalization the plan was for him to continue with dialysis as outpatient. In fact he was getting dialysis at [facility] [place]. He was discharged on 07/10/2020. Per patient and his significant other at bedside, they report to me that he was not able to be carried on with the dialysis because apparently had improvement in his kidney function. The dialysis portwas removed. However, soon after this patient symptoms started getting worse. Patient reports thathe started becoming more short of breath with significant leg swellings despite being on Bumex 2 mg daily. He then, decided to come back to the hospital on 07/25/2020. During this admission, he was found to have a supratherapeutic INR of 16.5.no sign of rectal bleeding. He had a BNP of greater than 2000 chest x-ray did show some pulmonary congestion. Patient was started on IV diuretics with nephrology following and apparently the plan is to have peritoneal dialysis starting this coming Wednesday. Cardiology has been reconsulted regarding Plavix and ASA given patient will be having peritoneal dialysis on Wednesday Medical / Surgical Past Medical History: Diagnosis Date CAD (coronary artery disease) COPD (chronic obstructive pulmonary disease) (HCC) Diabetes (HCC) Dyslipidemia Essential hypertension Gout Impaired fasting blood sugar Obesity Peripheral arterial disease (HCC) Peripheral neuropathy Past Surgical History: Procedure Laterality Date IR PLACEMENT TUNNELED CENTRAL VENOUS CATHETER 07/06/2020 IR PLACEMENT TUNNELED CENTRAL VENOUS CATHETER 07/06/2020 Eduar Acevedo III, MD INTERVENT RAD [facility] Medications Current Facility-Administered Medications Medication Dose Route Frequency Provider Last Rate Last Admin sodium bicarbonate tablet 650 mg 650 mg Oral 3 times a day Agnes Dailey MD 650 mg at 08/02/20 0820 torsemide (DEMADEX) tablet 40 mg 40 mg Oral Daily Agnes Dailey MD 40 mg at 08/02/20 0820 oxyCODONE (OXY-IR) tablet 5 mg 5 mg Oral Every 6 hours prn Amber Holly APRN-CNP 5 mg at 08/01/202054 lidocaine (LIDODERM) 5% patch 1 patch Apply externally Daily Amber Holly APRN-CNP 1 patch at 08/02/20 08 acetaminophen (TYLENOL) tablet 650 mg 650 mg Oral Every 6 hours Amber Holly APRN-CNP 650 mgat 08/02/20 0609 insulin detemir (LEVEMIR) SQ injection 36 Units Subcutaneous Every evening Amber Holly APRN-CNP 36 Units at 08/01/202054 calcitriol (ROCALTROL) capsule 0.25 mcg 0.25 mcg Oral Every other day Agnes Dailey MD 0.25 mcg at 07/31/20 165 traZODone (DESYREL) tablet 50 mg 50 mg Oral Bedtime prn Amber Holly APRN- CNP 50 mg at 07/31/20 005 loperamide (IMODIUM) capsule 2 mg 2 mg Oral Every 1 hour prn Amber Holly APRN-CNP 2 mg at 07/28/20 1842 sodium chloride 0.9% flush (adult) 10 mL 10 mL IV 2 times a day and prn Wade Allison MD 10 mL at 08/02/20 0821 metoclopramide (REGLAN) inj soln 5 mg 5 mg IV Every 6 hours prn Wade Allison MD melatonin tablet 3 mg 3 mg Oral Bedtime prn Barbara Mejia MD 3 mg at 07/28/20 2146 senna-docusate sodium (SENOKOT-S;PERICOLACE) tablet 2 tablet 2 tablet Oral 2 times a day prn Barbara Mejia MD And bisacodyl (DULCOLAX) suppository 10 mg 10 mg Rectal 1 time a day prn Barbara Mejia MD And docusate sodium (THEREVAC-SB MINI;ENEMEEZ MINI) 283 MG enema 1 enema 1 enema Rectal 1 time a day prn Barbara Mejia MD ondansetron (ZOFRAN ODT) dispersible tablet 4 mg 4 mg Oral 4 times a day prn Barbara Mejia MD And ondansetron (ZOFRAN) injection solution 4 mg 4 mg IV 4 times a day prn Barbara Mejia MD albuterol (PROVENTIL) (2.5 mg/3mL) 0.083% inhalation soln 2.5 mg 2.5 mg Nebulization Every 4 hours prn Barbara Mejia MD clopidogrel (PLAVIX) tablet 75 mg 75 mg Oral daily Barbara Mejia MD 75 mg at 08/02/20 0820 gemfibrozil (LOPID) tablet 600 mg 600 mg Oral 2 times a day before meals Barbara Mejia MD600 mg at 08/02/20 0820 isosorbide dinitrate (ISORDIL) tablet 5 mg 5 mg Oral 3 times a day nitrate Amber Holly, CORE WORKER-MILK DELIVERY DRIVER 5 mg at 08/02/20 0820 metoprolol succinate (TOPROL XL) SR tablet (24 hr) 25 mg 25 mg Oral daily Barbara Mejia MD 25 mg at 08/02/20 0820 nitroglycerin (NITROSTAT) sublingual tablet 0.4 mg 0.4 mg Sublingual Every 5 minutes prn Barbara Mejia MD pravastatin (PRAVACHOL) tablet 80 mg 80 mg Oral Every evening Barbara Mejia MD 80 mg at 08/01/20 2055 omega-3 fatty acids (FISH OIL) capsule 1,000 mg 1,000 mg Oral daily Barbara Mejia MD 1,000 mg at 08/02/20 0820 dextrose 50% IV solution 50 mL 25 g IV PRN per parameter Barbara Mejia MD glucagon for injection 1 mg vial 1 mg 1 mg Intramuscular PRN per parameter Barbara Mejia MD dextrose chewable tablet 16 g 4 tablet Oral PRN per parameter Barbara Mejia MD 16 g at 08/01/20 0542 Or carbohydrate 15 g 15 g Oral PRN per parameter Barbara Mejia MD insulin aspart (NovoLOG) SQ correction scale (Adult) 2-8 Units Subcutaneous 3 times a day Barbara Mejia MD 2 Units at 08/01/20 185 escitalopram (LEXAPRO) tablet 10 mg 10 mg Oral daily Barbara Mejia MD 10 mg at 08/02/20 0821 Allergies Allergies Allergen Reactions Penicillin Hives (High) Family History History reviewed. No pertinent family history. Social History Social History Socioeconomic History Marital status: Spouse name: Not on file Number of children: Not on file Years of education: Not on file Highest education level: Not on file Occupational History Not on file Social Needs Financial resource strain: Not on file Food insecurity Worry: Not on file Inability: Not on file Transportation needs Medical: Not on file Non-medical: Not on file Tobacco Use Smoking status: Former Smoker Smokeless tobacco: Never Used Substance and Sexual Activity Alcohol use: Not Currently Drug use: Never Sexual activity: Not Currently Lifestyle Physical activity Days per week: Not on file Minutes per session: Not on file Stress: Not on file Relationships Social connections Talks on phone: Not on file Gets together: Not on file Attends denominational service: Not on file Active member of club or organization: Not on file Attends meetings of clubs or organizations: Not on file Relationship status: Not on file Intimate partner violence Fear of current or ex partner: Not on file Emotionally abused: Not on file Physically abused: Not on file Forced sexual activity: Not on file Other Topics Concern Transportation Not Asked Stress in your marriage Not Asked Stress with your relationship Not Asked Stress with your family Not Asked Parenting/Being a parent Not Asked Daycare concerns Not Asked Not enough social support Not Asked Housing problems Not Asked Financial stress Not Asked Safety/danger Not Asked Work/job stress Not Asked Legal stress Not Asked Time conflicts (feeling too busy) Not Asked Academic/school stress Not Asked Language difficulties Not Asked Spiritual concerns Not Asked Insurance problems Not Asked The cost of having to take medication Not Asked The costs of buying food/groceries Not Asked Illness of family member/friend/relative Not Asked of a family member/friend/relative Not Asked Violence in your relationship Not Asked Abuse/neglect Not Asked Community stress Not Asked Cultural barriers Not Asked Ability to do self cares Not Asked Social History Narrative Not on file Review of Systems Review of Systems Constitution: Negative for chills, decreased appetite, diaphoresis, fever and weight loss. HENT: Negative for congestion, hoarse voice and sore throat. Cardiovascular: Negative for chest pain, dyspnea on exertion and leg swelling. Respiratory: Positive for shortness of breath. Negative for cough, sputum production and wheezing. Skin: Negative for color change, itching and rash. Musculoskeletal: Negative for back pain, falls and muscle weakness. Gastrointestinal: Negative for bloating, constipation, diarrhea, nausea and vomiting. Genitourinary: Negative for dysuria, flank pain and hesitancy. Neurological: Negative for dizziness, headaches, light-headedness and weakness. Psychiatric/Behavioral: Negative for altered mental status, depression and hallucinations. Physical Exam Vital signs: Blood pressure 112/50, pulse 86, temperature 96 F (35.6 C), resp. rate 16, height 177.8 cm (70"), weight 102.6 kg (226 lb 3.2 oz), SpO2 97 %. Physical Exam Constitutional: He is oriented to person, place, and time and well-developed, well-nourished, and inno distress. No distress. HENT: Head: Normocephalic and atraumatic. Mouth/Throat: No oropharyngeal exudate. Eyes: Pupils are equal, round, and reactive to light. No scleral icterus. Neck: Neck supple. Cardiovascular: Normal rate. Murmur heard. Pulmonary/Chest: Effort normal and breath sounds normal. He has no wheezes. He has no rales. Abdominal: Soft. Bowel sounds are normal. He exhibits no distension. There is no abdominal tenderness. Musculoskeletal: Normal range of motion. General: Edema present. No tenderness. Neurological: He is alert and oriented to person, place, and time. Skin: Skin is warm and dry. No rash noted. He is not diaphoretic. No erythema. Patient Lines/Drains/Airways Status Active Lines Name: Placement date: Placement time: Site: Days: Peripheral IV 07/25/20 Forearm Distal;Right 07/25/20 1900 Forearm 7 Labs/Imaging All labs and imaging were reviewed and pertinent labs are discussed in assessment. RITY AND COMPLIANCE PROJECT MANAGER Associated attestation - Evita Carbajal MD - 08/02/2020 1:13 PM SECURITY AND COMPLIANCE PROJECT MANAGER I discussed the patient with the resident and personally interviewed and examined the patient. I verified in the medical record all resident documentation/findings, including history, physical exam, and medical decision making, and I agree with the resident's documentation. Note the following additions/corrections: Discussed in detail with patient and family members. No need to hold Plavix for PD catheter placement .Discussed with Dr Steel Medical Decision Making I have: Ordered laboratory, radiology or other diagnostic tests. Independently visualized and interpreted an image, tracing or specimen previously or subsequently interpreted by another provider. Discussed results of laboratory, radiology or other diagnostic tests with the physician who performed or interpreted the study. Obtained/reviewed old records from [place] or elsewhere (details outlined elsewhere in note). Obtained history from a person other than the patient (details outlined elsewhere in note). Discussed case with another provider (details outlined elsewhere in note). Discussed with Dr Steel Discussed with Agnes Pickering MD - 07/29/2020 8:50 AM CST NEPHROLOGY INPATIENT CONSULT NOTE Reason for the consultation: Chronic kidney disease HISTORY OF PRESENTING ILLNESS 72-year-old pleasant male patient with complex past medical history significant for type 2 diabetes mellitus, coronary artery disease multiple angioplasty recently had stent placed in LAD for restenosis in late May 2020, peripheral arterial disease, aortic valve stenosis status post bioprosthesis,hypertension, dyslipidemia, moderate obesity, COPD, ischemic cardiomyopathy with ejection fraction 25%, chronic kidney disease a stage IV baseline creatinine around 1 mg/dL, he developed acute kidney injury in late May 2020, creatinine peaked to 6 with fluid overload required 2 weeks of hemodialysis in the outpatient setting at [place] ultimately permacath was removed last hemodialysis on 07/23 creatinine plateau at 2.2 range., Intake at home Bumex 2 mg daily, he was seen by cardiology recommendation he will need upgrade to AICD in few months, he was admitted again on 07/25 with worsening shortness of breath chest x-ray showed pulmonary congestion proBNP was significantly elevated greater than 2000 he was started on his home Bumex dose was increased to 1 mg 3 times daily from his home dose 2 mg daily his creatinine upon admission was 2.3 mg/dL initially improved to 2.0, diuretics were held in the last 24 hours, renal panel this morning creatinine trending upwards 2.34, BUN 111 nephrology consultation for further evaluation urine output documented 700 mL in the last 24 hours Patient had no uremic symptoms set fatigue he denies any nausea or vomiting, he has significant lower extremity edema he is on room air right now. Denies any chest pain, has mild shortness of breath otherwise feeling good I reviewed his records through care everywhere he follows nephrology through [facility] system last nephrology visit on 07/23 is a chronic kidney disease felt secondary to combination of type 2 diabetes mellitus and hypertension he has nephrotic syndrome as well Baseline creatinine has been in the 2 range his diabetes is poorly controlled with HbA1c between 8-9.2 in the past, he has negative serology work-up including complement C3 and C4, SPEP, UPEP LISSET, ANCA panel all negative or within normal He has around 2.8 g proteinuria, The patient is not interested to pursue long-term hemodialysis he tried short- term hemodialysis and develops leg he does not like to have 3 times a week hemodialysis which is far from his home at [place] today do not have a chair for him at this point in time On further questioning he has never been told about peritoneal dialysis, he has no previous abdominal surgeries. ASSESSMENT/PLAN 1. 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 Moderate proteinuria 3. Ischemic cardiomyopathy 4. Acute on chronic systolic and diastolic heart failure 5. Anemia of CKD 6. CKDMBD/secondary hyperparathyroidism last PTH 214 on 07/01/2020 7. Coronary artery disease status post multiple angioplasty most recently in May 2020 had a stent in LAD for restenosis 8. Other comorbidities include type 2 diabetes mellitus, dyslipidemia, moderate obesity, peripheralarterial disease required angioplasty in March 2020 etc. per primary team I discussed with the patient it is difficult situation he has fairly advanced chronic kidney diseasein the setting of ischemic cardiomyopathy and relatively low blood pressure he has significant lowerextremity edema He has moderate proteinuria with negative serology work-up he follows nephrology regularly He required hemodialysis for 3weeks in late May through mid July 2020, baseline creatinine around 2 mg/dL Recommendation: Resume diuretics I will start with IV Lasix 80 mg twice daily for now will transition to p.o. Bumex after wards No indication for renal replacement therapy at this time However the patient is not interested to pursue hemodialysis for long-term I discussed with the patient and his family potentially peritoneal dialysis should be a better option for him considering ischemic cardiomyopathy and poor ejection fraction he might handle PD better from a hemodynamic standpoint but this will need training and having family involved and support. He will make a decision in the next few days. Strict intake/output measurement Continue prerenal dialysis diet Start calcitriol 0.25 mcg on Wednesday, Wednesday and Wednesday Avoid IV contrast, NSAIDs Please ensure all medication are renally dosed to EGFR less than 20 We will continue to follow Past Medical History: Past Medical History: Diagnosis Date CAD (coronary artery disease) COPD (chronic obstructive pulmonary disease) (HCC) Diabetes (HCC) Dyslipidemia Essential hypertension Gout Impaired fasting blood sugar Obesity Peripheral arterial disease (HCC) Peripheral neuropathy Past Surgical History: Past Surgical History: Procedure Laterality Date IR PLACEMENT TUNNELED CENTRAL VENOUS CATHETER 07/06/2020 IR PLACEMENT TUNNELED CENTRAL VENOUS CATHETER 07/06/2020 Eduar Acevedo III, MD INTERVENT RAD F Allergies Allergies have been reviewed. Hilary is allergic to penicillin. Social History Hilary reports that he has quit smoking. He has never used smokeless tobacco. He reports previous alcohol use. He reports that he does not use drugs. Family History Hilary's family history is not on file. Current medications Current Facility-Administered Medications Medication Dose Route Frequency Provider Last Rate Last Admin warfarin (COUMADIN) tablet 1.25 mg 1.25 mg Oral Warfarin 1 time dose Saroj Wilson MD traZODone (DESYREL) tablet 50 mg 50 mg Oral Bedtime prn Amber Holly, ISAEL- [employer]K DELIVERY DRIVER 50 mg at 07/27/202036 .Anticoagulation (WARFARIN) therapy nursing reminder 1 each Does not apply Reminder Nidia Lentz MD loperamide (IMODIUM) capsule 2 mg 2 mg Oral Every 1 hour prn Amber Holly, CORE WORKER-MILK DELIVERY DRIVER 2 mg at 07/28/20 184 sodium chloride 0.9% flush (adult) 10 mL 10 mL IV 2 times a day and prn Wade Allison MD 10 mL at 07/28/202146 acetaminophen (TYLENOL) tablet 650 mg 650 mg Oral Every 4 hours prn Wade Allison MD 650 mg at 07/28/20 114 metoclopramide (REGLAN) inj soln 5 mg 5 mg IV Every 6 hours prn Wade Allison MD melatonin tablet 3 mg 3 mg Oral Bedtime prn Barbara Mejia MD 3 mg at 07/28/202145 senna-docusate sodium (SENOKOT-S;PERICOLACE) tablet 2 tablet 2 tablet Oral 2 times a day prn Barbara Mejia MD And bisacodyl (DULCOLAX) suppository 10 mg 10 mg Rectal 1 time a day prn Barbara Mejia MD And docusate sodium (THEREVAC-SB MINI;ENEMEEZ MINI) 283 MG enema 1 enema 1 enema Rectal 1 time a day prn Barbara Mejia MD ondansetron (ZOFRAN ODT) dispersible tablet 4 mg 4 mg Oral 4 times a day prn Barbara Mejia MD And ondansetron (ZOFRAN) injection solution 4 mg 4 mg IV 4 times a day prn Barbara Mejia MD albuterol (PROVENTIL) (2.5 mg/3mL) 0.083% inhalation soln 2.5 mg 2.5 mg Nebulization Every 4 hours prn Barbara Mejia MD allopurinol (ZYLOPRIM) tablet 300 mg 300 mg Oral daily Barbara Mejia MD 300 mg at 07/28/20 09 clopidogrel (PLAVIX) tablet 75 mg 75 mg Oral daily Barbara Mejia MD 75 mg at 07/28/20 0910 gemfibrozil (LOPID) tablet 600 mg 600 mg Oral 2 times a day before meals Barbara Mejia MD600 mg at 07/29/20 0544 insulin detemir (LEVEMIR) SQ injection 40 Units Subcutaneous Every evening Barbara Mejia MD 40 Units at 07/28/20 2146 isosorbide dinitrate (ISORDIL) tablet 5 mg 5 mg Oral 3 times a day nitrate Barbara Mejia MD 5 mg at 07/28/20 1842 metoprolol succinate (TOPROL XL) SR tablet (24 hr) 25 mg 25 mg Oral daily Barbara Mejia MD 25 mg at 07/28/20 09 nitroglycerin (NITROSTAT) sublingual tablet 0.4 mg 0.4 mg Sublingual Every 5 minutes prn Barbara Mejia MD pravastatin (PRAVACHOL) tablet 80 mg 80 mg Oral Every evening Barbara Mejia MD 80 mg at 07/28/202145 omega-3 fatty acids (FISH OIL) capsule 1,000 mg 1,000 mg Oral daily Barbara Mejia MD 1,000 mg at 07/28/20 09 dextrose 50% IV solution 50 mL 25 g IV PRN per parameter Barbara Mejia MD glucagon for injection 1 mg vial 1 mg 1 mg Intramuscular PRN per parameter Barbara Mejia MD dextrose chewable tablet 16 g 4 tablet Oral PRN per parameter Barbara Mejia MD Or carbohydrate 15 g 15 g Oral PRN per parameter Barbara Mejia MD insulin aspart (NovoLOG) SQ correction scale (Adult) 2-8 Units Subcutaneous 3 times a day Barbara Mejia MD 3 Units at 07/28/20 1145 escitalopram (LEXAPRO) tablet 10 mg 10 mg Oral daily Barbara Mejia MD 10 mg at 07/28/20 0910 REVIEW OF SYSTEMS: GEN: no unintentional weight changes, no change to appetite, energy level normal EYE: no vision changes, no redness/discharge ENT: no nasal congestion/drainage, no sore throat RESPIRATORY: no shortness of breath, no cough, no hemoptysis CARDIAC: no palpitations, no exertional chest pain, no leg swelling GI: no change in bowel habits, no red/black noted in stools, no difficulty swallowing NEURO: no concerning weakness/numbness, no concerning headaches MSK: no back pain, no joint pain/swelling SKIN: no changes in skin, has not noticed any concerning rashes HEME: no bruising or bleeding, no known immune problems : no urinary problems, no dysuria/hematuria Vital Signs Temp: 98.1 F (36.7 C) BP: 114/75 Pulse: 105 Resp: 18 Pain Ratin (out of 10) Weight: 103 kg (227 lb) O2 Device: Room Air O2 Flow Rate (L/min): 2 l/min SpO2: 92 % Height: 177.8 cm (5' 10") Physical Exam General Appearance: alert, awake and not in respiratory distress Eyes: PERRL. No scleral icterus. Mouth: Oral mucosa moist. No pharyngeal lesions. Neck: +JVD not seen. Supple. CVS: S1 S2 heard. Regular in rate and rhythm. Pulmonary: Bilateral basal crackles, Good respiratory effort. Abdomen: Soft, non tender, no distension. :No suprapubic tenderness or fullness. No CVA tenderness. Extremities: +2 Edema. Skin: No diffuse rashes or extensive bruising. No petechiae. Neurologic: No gross focal neurologic deficits. No abnormal movements. Psychiatric: Normal affect, normal fluency, good eye contact. Intake and Output Diagnostics and Labs PTH: Lab Results Component Value Date PTHINTACT 214 (H) 07/01/2020 CA 9.1 07/29/2020 PHOSPHORUS 4.7 (H) 07/29/2020 Dixie Ramirez CNP - 07/26/2020 1:38 PM CST CARDIOLOGY CONSULT Assessment and Plan Principal Problem: Acute exacerbation of CHF (congestive heart failure) ([facility]) Active Problems: Dyslipidemia Hx of cardiac pacemaker Chronic combined systolic and diastolic CHF (congestive heart failure) ([facility]) S/P coronary artery stent placement Resolved Problems: * No resolved hospital problems. * Pt was interviewed/examined and the following plan was developed in conjunction with Dr. May Impression/Plan: CHF exacerbation NSTEMI Type 2 CAD CKD Plan: - Patient currently refusing to go back on dialysis. Recommend nephrology consult to discuss - Continue diuresis with bumex - Continue home fibrate, isordil, toprol, provastatin, clopidogrel, warfarin - Could possibly benefit from device upgrade as patient is 100% V paced, as of last admission the plan was for 3 months after optimal medical therapy, pending the course of hospitalization we could consult EP again for reconsideration of sooner upgrade Cardiac Medications: Bumetanide 1 Q8 Isordil 5 Metoprolol succinate 25 Pravastatin 80 Clopidogrel 75 Gemfibrozil 600 Warfarin Code Status: Full Code I appreciate the opportunity to be involved in this patient's care. Thank you for the consult, cardiology will continue to follow. Dixie Scales, [facility] Cardiology Pager #[phone] [facility], [place] 07/26/2020 Reason for consult NSTEMI, exacerbation CHF H&P Anival Ruiz is a 75-year-old male with PMH of PAD, aortic valve replacement, HTN, dyslipidemia, DM, COPD, CAD, CHF, CKD stage 3, and stent to LAD with restenosis 2 weeks ago who presented yesterday to OSH with SOB and weakness. He was on dialysis during and after his last hospitalization but has since improved and now has had his dialysis catheter removed. Per family, patient has had poor appetite for some time now with mild confusion. He began having diarrhea/GI upset 07/23 and since became quite weak and increasingly short of breath even at rest. His family reports a recent fall where he struck his head 3-4 days ago. He also gained 2 pounds this week. His initial INR was 10 and has since been corrected to 2 with vitamin K. His BNP is 2384, with a troponin of .338, peaking at 0.459 and nowdown to 0.322. His creatinine is 2.3. A chest x-ray shows stable bilateral infiltrates and trace pleural effusion on the left without pulmonary edema. An EKG shows a ventricular paced rhythm at 109. He is seen and examined in the CDU, sitting upright in a chair. He endorses some shortness of breath. He denies chest pain or tightness, fever, chills, dizziness, changes in vision. He does complain ofheadache, decreased appetite, cough, fatigue, weakness, and leg swelling. Cardiac History 07/26/20 Pacer check Intrinsic Rhythm: CHB/V-paced @ 30 ppm. Dependent. Atrial rate 106 bpm, 3% A-paced and 100% V-paced, No AT/AF episodes, Black 0%, on Coumadin 2 nonsustained VT episodes, 3 second duration, rates 162-195 bpm. Last occurred 07/20/20. EGM's suggest VT. 07/26/20 ECHO EF 25%, wall segments are akinetic,aortic bioprosthesis is present with unknown size and type. No prosthetic aortic valve stenosis. No significant aortic transvalvular regurgitation. No significant aortic perivalvular regurgitation, mild to moderate mitral 07/04/20 LHC 99 % prox LAD instent restenosis treated with POBA using 3.0 x 15 NC balloon, 99 % distalLAD instent restenosis treated with balloon angioplasty using 3.0 x 15 NC balloon , 100 % occluded distal LAD medical RX, 70 % OM1 06/28/20 Pacer check 1% A-paced and 99% V-paced No AT/AF episodes, Black 0%, on Coumadin 06/28/20 ECHO EF 25%, basal anterior, basal anteroseptal, basal inferoseptal, mid anterior, mid anteroseptal, mid inferoseptal, apical anterior, apical septal, apical inferior, apical lateral and apex wall segments are akinetic, normal aortic bioprosthesis is present with unknown size and type. No prosthetic aortic valve stenosis. No significant aortic transvalvular regurgitation. Trivial aortic perivalvular regurgitation located anteriorly. 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 Age - positive, 75yr 2. Gender - positive, 3. Hyperlipidemia - positive, Lab Results Component Value Date LDL 116 06/28/2020 4. Hypertension - positive, 5. Obesity - positive, Body mass index is 32.4 kg/m. 6. Family History - positive 7. Peripheral vascular disease - negative 8. Smoking - negative , Social History Tobacco Use Smoking status: Former Smoker Smokeless tobacco: Never Used Substance Use Topics Alcohol use: Not Currently 9. Diabetes Mellitus - negative, Lab Results Component Value Date HGBA1C 6.7 (H) 06/28/2020 10. Chronic kidney disease - positive, Estimated Creatinine Clearance: 29.5 mL/min (A) (based on SCrof 2.3 mg/dL (H)). 11. Obstructive sleep apnea - negative Admission Problem List Active Problems: Patient Active Problem List Diagnosis Hx of cardiac pacemaker Chronic combined systolic and diastolic CHF (congestive heart failure) ([facility]) S/P coronary artery stent placement - 06/26/2019 [facility] at [facility] - 90%p LAD ISR s/p PC/ROSEMARIE, PTCA 80% dLAD ISR, 80% mCIRC s/p PCI/RONALD - 01/04/2020 [facility] at [facility] - PCI/RONALD to ISR pLAD and dLAD and PTCA dLAD. PCI/RONALD to mCIRC. - 01/2018 [facility] at [facility] - pRCA and multiple PCI prior Pneumonia due to infectious organism Positive D dimer Non-ST elevation [place] (NSTEMI) ([facility]) Acute exacerbation of CHF (congestive heart failure) ([facility]) Diabetes mellitus, type II, insulin dependent ([facility]) Complete heart block ([facility]) [employer] Pacemaker at [facility] 03/22/2018 S/P AVR (aortic valve replacement) Atherosclerosis of coronary artery Stents to RCA and LAD in 2009. Cath 08/16/09, Stress 06/21/09 Essential hypertension Dyslipidemia Past Medical History Past Medical History: Diagnosis Date CAD (coronary artery disease) COPD (chronic obstructive pulmonary disease) ([facility]) Diabetes ([facility]) Dyslipidemia Essential hypertension Gout Impaired fasting blood sugar Obesity Peripheral arterial disease ([facility]) Peripheral neuropathy Past Surgical History Past Surgical History: Procedure Laterality Date IR PLACEMENT TUNNELED CENTRAL VENOUS CATHETER 07/06/2020 IR PLACEMENT TUNNELED CENTRAL VENOUS CATHETER 07/06/2020 Eduar Acevedo III, MD INTERVENT RAD [facility] Prior to Admission Medications Medications Prior to Admission Medication Sig Dispense Refill Last Dose escitalopram (LEXAPRO) 10 mg tablet Take 10 mg by mouth 1 time per day 07/25/2020 at am isosorbide dinitrate (ISORDIL) 5 mg tablet Take 1 tablet (5 mg) by mouth 3 times a day nitrate 90 tablet 0 07/25/2020 at am bumetanide (BUMEX) 2 mg tablet Take 1 tablet (2 mg) by mouth 1 time per day Take on Wednesday, , Wednesday, Wednesday ONLY. Do NOT take on dialysis days (MWF). (Patient taking differently: Take 2mg by mouth 1 time per day ) 30 tablet 0 07/25/2020 at am allopurinol (ZYLOPRIM) 300 mg tablet Take 1 tablet (300 mg) by mouth 1 time per day 30 tablet 0 07/24/2020 at noon gemfibrozil (LOPID) 600 mg tablet Take 1 tablet (600 mg) by mouth 2 times a day before meals 60 tablet 0 07/25/2020 at am metoprolol succinate (TOPROL XL) 25 mg SR tablet (24 hr) Take 1 tablet (25 mg) by mouth 1 time per day 30 tablet 0 07/25/2020 at am pravastatin (PRAVACHOL) 80 mg tablet Take 1 tablet (80 mg) by mouth 1 time a day in the evening 30 tablet 0 07/24/2020 at pm NOVOLOG FLEXPEN subcutaneous injection (pen) Inject 2-8 Units subcutaneously 3 times a day with meals (Patient taking differently: Inject 5-24 Units subcutaneously 3 times a day with meals -60-150 0 units -151-200 5 units -201-250 10 units -251-300 14 units -301-350 21 units 351-400 24 units Call MD if blood sugar is greater than 400) 7.2 mL 0 07/25/2020 at am clopidogrel (PLAVIX) 75 mg tablet Take 1 tablet (75 mg) by mouth 1 time per day 90 tablet 3 07/24/2020 at am multivitamin therapeutic with minerals (THERA M) TABS tablet Take 1 tablet by mouth 1 time per day 07/24/2020 at noon albuterol HFA (PROVENTIL,PROAIR,VENTOLIN) 108 (90 Base) MCG/ACT inhaler Inhale 2 puffs orally every 6 hours as needed for wheezing Greater than 1 Month insulin detemir (LEVEMIR FLEXTOUCH) subcutaneous injection (pen) Inject 40 Units subcutaneously 1 time a day in the evening 07/24/2020 at pm nitroglycerin (NITROSTAT) 0.4 mg sublingual tablet Dissolve 1 tablet under the tongue Every 5 minutes as needed for chest pain MAX 3 doses Greater than 1 Month at Unknown time omega-3 fatty acids (FISH OIL) 1000 mg capsule Take 1,000 mg by mouth 1 time per day 07/24/2020t noon warfarin (COUMADIN) 5 mg tablet Take 2.5 mg 3 days per week and take 5 mg 4 days per week 07/24/2020 at pm Allergies Penicillin Social History reports that he has quit smoking. He has never used smokeless tobacco. He reports previous alcohol use. He reports that he does not use drugs. Family History No family history on file. Immunizations Immunization History Administered Date(s) Administered FLU VACCINE HIGH DOSE 65YR+(Fluzone) 04/13/2014, 05/13/2015, 03/25/2018 Flu Vaccine Subunit Multidose 4yr+(flucelvax) 04/03/2019 Influenza Vaccine,unspecified 04/17/2013 Pneumococcal Conj PCV13 01/15/2016 Pneumococcal Polysaccharide PPSV23 11/25/2010, 03/25/2018 TDAP 04/13/2014 ROS Review of Systems Constitution: Positive for weight gain. Negative for chills, fever and weight loss. HENT: Negative for congestion. Cardiovascular: Positive for chest pain and leg swelling. Negative for dyspnea on exertion, orthopnea, palpitations and syncope. Respiratory: Positive for shortness of breath. Skin: Negative. Musculoskeletal: Negative. Gastrointestinal: Positive for bloating. Neurological: Negative. Negative for focal weakness, light-headedness, numbness and weakness. Psychiatric/Behavioral: Negative. Current Vital Signs Temp: 98.7 F (37.1 C) BP: 114/65 Pulse: 115 O2 Device: Room Air O2 Flow Rate (L/min): 3 l/min Resp: 17 Pain Ratin (out of 10) Weight: 102.4 kg (225 lb 12.8 oz) SpO2: 91 % Wt Readings from Last 3 Encounters: 07/26/20 102.4 kg (225 lb 12.8 oz) 07/10/20 103.9 kg (229 lb 0.9 oz) Physical Exam Physical Exam Constitutional: He is oriented to person, place, and time. He appears well- developed and well-nourished. Neck: Normal range of motion. Neck supple. Cardiovascular: Regular rhythm, S1 normal, S2 normal and normal heart sounds. Tachycardia present. Pulses: Radial pulses are 2+ on the right side and 2+ on the left side. Dorsalis pedis pulses are 1+ on the right side and 1+ on the left side. Pulmonary/Chest: Effort normal. Tachypnea noted. He has rhonchi in the right lower field and the left lower field. Abdominal: Soft. He exhibits distension. Musculoskeletal: Normal range of motion. General: Edema (1+ BLE) present. Neurological: He is alert and oriented to person, place, and time. Skin: Skin is warm and dry. Psychiatric: His behavior is normal. His affect is blunt. Cognition and memory are impaired. Nursing note and vitals reviewed. Diagnostics and Labs Relevant diagnostic, laboratory and radiological studies have been reviewed in the Electronic Medical Record. EKG: V paced Lab Results Component Value Date TROPONINI 0.322 (H) 07/26/2020 TROPONINI 0.379 (H) 07/25/2020 TROPONINI 0.459 (H) 07/25/2020 Lab Results Component Value Date WBC 9.1 07/26/2020 NUCRBC 0 07/10/2020 RBC 3.52 (L) 07/26/2020 HEMOGLOBIN 9.7 (L) 07/26/2020 HEMATOCRIT 31.5 (L) 07/26/2020 MCV 89.5 07/26/2020 MCH 27.6 07/26/2020 MCHC 30.8 (L) 07/26/2020 PLTCOUNT 191 07/26/2020 NEUTROPCT 79.5 07/10/2020 LYMPHSPCT 8.4 07/10/2020 MONOSPCT 7.4 07/10/2020 EOSPCT 2.3 07/10/2020 BASOPHILPCT 0.8 07/10/2020 Lab Results Component Value Date CO2 20 07/26/2020 CL 103 07/26/2020 POTASSIUM 3.5 07/26/2020 NA 137 07/26/2020 CREATSERUM 2.30 (H) 07/26/2020 GLUCOSE 229 (H) 07/26/2020 BUN 84 (H) 07/26/2020 CA 9.0 07/26/2020 Lab Results Component Value Date BNP 2,384 (H) 07/25/2020 RITY AND COMPLIANCE PROJECT MANAGER Associated attestation - Kenneth May MD - 08/01/2020 10:41 AM CSTPatient was seen, evaluated, examined and discussed with the Advanced Practice Provider. I agree with the written and documented assessment. documented in this encounter Miscellaneous Notes Care Planning - Mo Puga RN - 08/06/2020 6:29 AM SECURITY AND COMPLIANCE PROJECT MANAGER Problem: IMPAIRED GAS EXCHANGE Goal: RESPIRATORY STATUS Description: DEFINITION: Movement of air in and out of the lungs and exchange of carbon dioxide and oxygen at the alveolar level. 1=Severe deviation from normal range, 2=Substantial deviation from normal range, 3=Moderate deviation from normal range, 4=Mild deviation from normal range, 5=No deviationfrom normal range. Outcome: Outcome acceptable for discharge Problem: RISK FOR FALLS Goal: FALL PREVENTION BEHAVIOR Description: DEFINITION: Personal or family child care specialist actions to minimize risk factors that might precipitate falls in the personal environment. 1=Never demonstrated, 2=Rarely demonstrated, 3=Sometimes demonstrated, 4=Often demonstrated, 5=Consistently demonstrated. 08/06/2020628 by Mo Puga RN Outcome: Outcome acceptable for discharge 08/06/2020228 by Mo Puga RN Flowsheets (Taken 08/06/2020228) Initial Score: 3 Target Score: 4 Plan of care reviewed with: Patient Patient specific goal for the day: No falls. Patient specific goal for the stay: Remain free of falls throughout rest of hospitalization Achieve goal for stay: By discharge Patient Progress: No falls this shift. Pt has bed/chair alarm in place. fall precautions in place. Goal met. Will continue to monitor. Goal: MOBILITY Description: DEFINITION: Ability to move purposefully in own environment independently with or without assistive device. 1=Severely compromised, 2=Substantially compromised, 3=Moderately compromised,4=Mildly compromised, 5=Not compromised. Outcome: Outcome acceptable for discharge Problem: RISK FOR IMPAIRED SKIN INTEGRITY Goal: TISSUE INTEGRITY: SKIN & MUCOUS MEMBRANES Description: DEFINITION: Structural intactness and normal physiological function of skin and mucousmembranes. 1=Severely compromised, 2=Substantially compromised, 3=Moderately compromised, 4=Mildly compromised, 5=Not compromised. 08/06/2020628 by Mo Puga RN Outcome: Outcome acceptable for discharge 08/06/2020228 by Mo Puga RN Flowsheets (Taken 08/06/2020228) Patient specific goal for the day: Turn and reposition frequently throughout the day to allow skin helaing and reduce risk of skin breakdown Patient specific goal for the stay: Remain free of further skin breakdown Achieve goal for stay: By discharge Patient Progress: Barrier cream applied to coccyx wound. Chair cusion ordered. Pt placed in bed turned to side due to sore from sitting in chair. No further breakdown. Goal met. will continue to monitor. Problem: IMBALANCED NUTRITION: LESS THAN BODY REQUIREMENTS Goal: NUTRITIONAL STATUS: NUTRIENT INTAKE Description: DEFINITION: Nutrient intake to meet metabolic needs. 1=Not adequate, 2=Slightly adequate, 3=Moderately adequate, 4=Substantially adequate, 5=Totally adequate. Outcome: Outcome acceptable for discharge Problem: RISK FOR FALLS Goal: MOBILITY Description: DEFINITION: Ability to move purposefully in own environment independently with or without assistive device. 1=Severely compromised, 2=Substantially compromised, 3=Moderately compromised,4=Mildly compromised, 5=Not compromised. Outcome: Outcome acceptable for discharge linical Team - Mo Puga RN - 08/06/2020 4:54 AM CSTAAOX4. VSS on RA. Denies SOB/Chest Pain. Tele-Paced. Patient up to chair most of the night. C/O of pain to buttocks. Patient encourage to rest in bed to relief pressure off bottom. Donut pillows/cushions used while up to chair. Discharging home this morning with family. are Planning - Mo Puga RN - 08/06/2020 2:29 AM SECURITY AND COMPLIANCE PROJECT MANAGER Problem: RISK FOR FALLS Goal: FALL PREVENTION BEHAVIOR Description: DEFINITION: Personal or family child care specialist actions to minimize risk factors that might precipitate falls in the personal environment. 1=Never demonstrated, 2=Rarely demonstrated, 3=Sometimes demonstrated, 4=Often demonstrated, 5=Consistently demonstrated. Flowsheets (Taken 08/06/2020228) Initial Score: 3 Target Score: 4 Plan of care reviewed with: Patient Patient specific goal for the day: No falls. Patient specific goal for the stay: Remain free of falls throughout rest of hospitalization Achieve goal for stay: By discharge Patient Progress: No falls this shift. Pt has bed/chair alarm in place. fall precautions in place. Goal met. Will continue to monitor. Problem: RISK FOR IMPAIRED SKIN INTEGRITY Goal: TISSUE INTEGRITY: SKIN & MUCOUS MEMBRANES Description: DEFINITION: Structural intactness and normal physiological function of skin and mucousmembranes. 1=Severely compromised, 2=Substantially compromised, 3=Moderately compromised, 4=Mildly compromised, 5=Not compromised. Flowsheets (Taken 08/06/2020 8212) Patient specific goal for the day: Turn and reposition frequently throughout the day to allow skin helaing and reduce risk of skin breakdown Patient specific goal for the stay: Remain free of further skin breakdown Achieve goal for stay: By discharge Patient Progress: Barrier cream applied to coccyx wound. Chair cusion ordered. Pt placed in bed turned to side due to sore from sitting in chair. No further breakdown. Goal met. will continue to monitor. are Planning - Graham Gutierrez RD - 08/05/2020 4:44 PM SECURITY AND COMPLIANCE PROJECT MANAGER Problem: IMBALANCED NUTRITION: LESS THAN BODY REQUIREMENTS Goal: NUTRITIONAL STATUS: NUTRIENT INTAKE Description: DEFINITION: Nutrient intake to meet metabolic needs. 1=Not adequate, 2=Slightly adequate, 3=Moderately adequate, 4=Substantially adequate, 5=Totally adequate. Outcome: NOC Rating 3 Flowsheets (Taken 08/05/2020 9744) Plan of care reviewed with: Patient Son/Daughter Patient specific goal for the stay: meet >75% of estimated needs Achieve goal for stay: By discharge Patient Progress: Sub-optimal intake so far during admit, <75% of estimated needs. He declined snacks/supplements. RITY AND COMPLIANCE PROJECT MANAGER Nutrition Team - Graham Gutierrez RD - 08/05/2020 4:17 PM CST Nutrition Therapy Follow Up Hospital Day: 10 days Active Problems: HFrEF Acute on chronic renal failure stage IV - cardiorenal syndrome NSTEMI Acute low back pain- right SI joint dysfunction Generalized weakness PMH:T2DM, Gout, HLD, HTN Recommendations: Assist with ordering meals d/t pt fatigue/weakness and encourage 3 meals per day. Consider an outpatient RD referral for CKD diet education. Malnutrition Summary Malnutrition Assessment Date: 08/05/20 Moderate (non-severe) protein calorie malnutrition Malnutrition Characteristics in the Context of Acute Illness or Injury: Energy Intake: Less than or equal to 75% intake of estimated needs for greater than or equal to 7 days Severe Weight Loss: Greater than 5% in 1 month Interventions: Monitor oral intake/advance diet as tolerated;Supplement diet with ONS (oral nutrition supplements)/nutrient dense foods NUTRITION ASSESSMENT Anthropometrics: Height: 177.8 cm (5' 10") Admission Weight: Weight: 103 kg (227 lb) as of 07/25/2020 per electronic stand up scale Most Recent Weight: Weight: 97.3 kg (214 lb 6.4 oz) (08/05/20 0701) per electronic stand up scale Lowest Weight Since Admission: 97.3 kg Weight Change: -5.7 kg (12.5 lb) since admission - he is on Demadex BMI: Body mass index is 30.76 kg/m. IBW: 75kg %IBW:1 35% (based onadmitweight) Usual Body Weight:250lb Unintentional Weight Loss:Limited weight history available. Down ~6 lbs in the past 3 weeks. 08/05 - Current weight is down ~15 lbs (6.4%) in 1 month. Adjusted Body Weight:81kg Estimated Needs: 1775kcal/day([place] [address]. Jeor q8Nstxt: Most Recent Weight) 65gm protein(0.8gm/kg Using:Adjusted Body Weight)- monitor renal funtion Fluids per MD Estimated average intake over the last 3 days: 735 kcal and 35 gm protein, which meets: 41% of estimated kcal needs and 54% of estimated protein needs. Intake Records: Intake Prior to Admit: <75% of estimated needs for >7 days. Intake had been decreased for the past few weeks since recent discharge. He states he had mostly been eating a bowl of cereal and some peaches. He had also been having GI issues (diarrhea), which he attributes to too much fruit intake. Current Intake: Sub optimal - meeting <75% of estimated needs during admit. Has eaten about 1/2 ahamburger this afternoon at time of visit. Current Diet: Nutrition (From admission, onward) Start Ordered 08/04/20 1645 CONTINUE DIET ORDERED (PANEL - NPO AFTER MIDNIGHT/CONTINUE DIET ORDERED) ONCE Comments: Patient to remain on previously ordered diet. Call if one is not available. 08/04/20 1640 08/01/20 1425 Diet - Heart Healthy Now Question: Modified Diets Answer: Heart Healthy 08/01/20 1421 Physical Assessment: Edema: (per billing adjudicator at 1510 today) ? Generalized Edema 1 ? Facial Edema Periorbital ? Genital Edema Slight ? Sacral Edema Trace ? LUE Edema Trace ? RUE Edema Trace ? LLE Edema 2 ? RLE Edema 2 GI Assessment: ? Abdominal exam: Distended and Rounded with Active, Audible bowel sounds, per billing adjudicator at 1510today. ? Stool Frequency: 1x/day over the last 3 days Wounds/Pressure Points: (per billing adjudicator at 1510 today) ? Coccyx Non-Blanchable Redness Functional Status: PT Following OT Following Nutrition Focused Physical Exam: Completed by RD on 08/05/2020 Below the Eye (fat): Slightly dark circles, somewhat hollow look (mild-moderate)(mild) Amish (muscle): Slight depression (mild-moderate)(mild) Buccal (fat): Full, round/filled out cheeks (Within defined limits) Clavicle (muscle): Some protrusion of bone (mild-moderate)(mild) Shoulder (muscle)/Deltoid muscle: Rounded curves at arm/shoulder/neck (Within defined limits) Triceps/Biceps (fat): Some depth to pinch, but not ample (mild-moderate)(mild) Hand/Interosseous (muscle): Flat to bulging muscle (Within defined limits) Nutritionally-Relevant Medications, Vitamins and Minerals: Novolog, Levemir, Fish oil (1,000 mg), Oxycodone, Statin, Sodium bicarbonate, Demadex Nutritionally-Relevant Biochemical Data: (08/05/2020) Glucose 118 H BUN 116 H Creatinine 2.05 H Albumin 3.0 L GFR 32 L Allergies/Food Intolerance: Hilary is allergic to penicillin. Culturally Zoroastrianism Needs: no INTERVENTIONS Encouraged adequate calories and optimal protein in small, frequent meals and snacks Discussed limiting sodium intake. Per chart review, PD cath placement was cancelled. Encouraged pt to follow-up with an outpatient RD for CKD diet education/management. Offered oral nutritional supplements - patient declined Completed [facility] EMR reviewed MONITORING/EVALUATION Monitor ability to consume and tolerate adequate intake to approximate estimated needs with accomodation of preferences and tolerances until intake is sustained within desirable limits Monitor I&O, weight trends, nutrition-related labs and medications, clinical status, and planof care r/t need for nutrition intervention and provide as warranted Stable renal panel Nutrition Therapy will reassess every 1-[address], LRD [facility] Pager #[phone] are Planning - Shelli Perez RN - 08/05/2020 4:10 PM SECURITY AND COMPLIANCE PROJECT MANAGER Problem: RISK FOR FALLS Goal: FALL PREVENTION BEHAVIOR Description: DEFINITION: Personal or family child care specialist actions to minimize risk factors that might precipitate falls in the personal environment. 1=Never demonstrated, 2=Rarely demonstrated, 3=Sometimes demonstrated, 4=Often demonstrated, 5=Consistently demonstrated. Outcome: NOC Rating 3 Flowsheets (Taken 08/05/2020 5846) Initial Score: 3 Target Score: 4 Plan of care reviewed with: Patient Patient specific goal for the day: No falls. Patient specific goal for the stay: Remain free of falls throughout rest of hospitalization Achieve goal for stay: By discharge Patient Progress: No falls this shift. Pt has bed/chair alarm in place. fall precautions in place. Goal met. Will continue to monitor. Problem: RISK FOR IMPAIRED SKIN INTEGRITY Goal: TISSUE INTEGRITY: SKIN & MUCOUS MEMBRANES Description: DEFINITION: Structural intactness and normal physiological function of skin and mucousmembranes. 1=Severely compromised, 2=Substantially compromised, 3=Moderately compromised, 4=Mildly compromised, 5=Not compromised. Outcome: NOC Rating 3 Flowsheets (Taken 08/05/2020 7494) Initial Score: 3 Target Score: 4 Plan of care reviewed with: Patient Patient specific goal for the day: Turn and reposition frequently throughout the day to allow skin helaing and reduce risk of skin breakdown Patient specific goal for the stay: Remain free of further skin breakdown Achieve goal for stay: By discharge Patient Progress: Barrier cream applied to coccyx wound. Chair cusion ordered. Pt placed in bed turned to side due to sore from sitting in chair. No further breakdown. Goal met. will continue to monitor. ase Mgmt - Nikki Gonzalez LSW - 08/05/2020 3:21 PM CSTCASE MANAGEMENT / SOCIAL SERVICE FINAL TRANSITION PLAN TRANSITION DATE: 08/06/2020 TRANSITION TIME: 729 INTENDED PAYER SOURCE FOR AGENCY: Medicare TRANSITION DESTINATION: [facility] [address] [place] [address] Nurse to Nurse: [phone] SPECIAL TRANSITION DAY INSTRUCTIONS TO NURSE / MD: PROMOTIONS INTERN: Please fax paperwork to above fax number Nursing: please call report at above number before or just as patient leaves. DOES ACCEPTING FACILITY REQUIRE COVID TESTING BEFORE DISCHARGE: Needs one negative test within 24-48 hours TRANSITION TRANSPORTATION: Family Car TRANSPORTATION PAYMENT: Not applicable TRANSITION CHOICES OFFERED: Cardiac Rehab Swing Bed DOES THE PATIENT HAVE A PRIMARY CARE PHYSICIAN? Yes Johan Gallardo MD PATIENT / SUBSTITUTE DECISION MAKER GOAL UPON TRANSITION: First Choice: Cardiac Rehab Swing Bed PATIENT CHOICE EDUCATION: Choice form completed in Case Management note and copy given to patient/family MEDICARE 3 IP MIDNIGHT CRITERIA MET: Yes: met RESOURCE(S) PROVIDED: Placement DOES PATIENT HAVE CLOTHING TO WEAR AT DISCHARGE? Yes ANTICIPATED MODE OF TRANSPORT TO AND FROM FOLLOW UP APPOINTMENTS: Family Car VERIFIED CORRECT PHARMACY IS ENTERED FOR DISCHARGE: No METHOD OF PRESCRIBING MEDICATIONS: Reconcile medications as Patient Transfer ("65 button") TRANSITION ROUNDING COMPLETED WITH THE FOLLOWING: Patient / family Instructor Business Education BODY BUILDER APPRENTICE / PA Bedside RN Discussed in person Discussed via telephone COMMENTS / PATIENT AND FAMILY RESPONSE TO PLAN: Met with patient/family at bedside and reviewed discharge plan. Patient no longer needs PD at this time. Patient reprofiled to [facility] offer received for tomorrow. [facility] would prefer pt to be there no later than 1130. Update provided to son Nestor and sig other Blanche. Son will provide transportation to [facility] tomorrow. Per Henry at [facility], [place] screen is not needed. CURRENT READMISSION RISK SCORE / HANDOFF: Predictive Risk Score Risk of Unplanned Readmission: 23.4 Handoff given: N/A SIGNED: PEDRO [facility] Licensed Pesticide Applicator Case Management [facility] RUPALI P) [phone] RITY AND COMPLIANCE PROJECT MANAGER Occupational Therapy - Jaz Sage, OTR/L - 08/05/2020 3:20 PM SECURITY AND COMPLIANCE PROJECT MANAGER Occupational Therapy Acute Care Progress Note Impression/Recommendations Recommend low intensity therapy setting upon medical stability. Patient requiring assist of 1 with ADLs, presents with decreased strength/endurance. Will follow acutely Objective Cognition: Eyes open on arrival, but reports fatigue from just walking, Ox3, follows 1 step commands. Son, [id number] present U/E: Reviewed UE HEP to complete on own once more rested, recommend 10 rep 1-2 times daily as tolerate. Reports to fatigued to complete at this time. ADLs: Grooming: CGA standing at sink to wash/dry hands, using FWW, cues to step closer to sink/lean hipsin for balance Transfers: Chair: minimal assist, FWW Toilet: minimal assist, FWW Patient ambulated to/from chair, toilet, sink then requested to sit back in chair with minimal assist using FWW. Stood x1 additional time to place chair cushion and nneka chair alarm for safety. Calllight within reach, family present Pain: 09/07 Location: Back Education Education/Training provided: Role of OT, plan of care, recommendations, ADLs, UE exercises Learners: Patient, son/daughter in law Readiness: Acceptance Method of Training: Verbal education, demonstration Response: Verbalized/demonstrated understanding, will benefit from continued reinfocement Adaptive Equipment Recommendations Logging Shovel Operator, sockaide, long-handled sponge/brush/loofah, long-handled shoehorn, may need bedrail - will continue to assess and update as appropriate AE available: Handicapped ht toilet, FWW Plan to obtain adaptive equipment: Choices were given on where to purchase adaptive equipment and patient and/or family to obtain recommended ADL equipment independently. Goals Patient/Family Stated Goal for Session: none stated; agreeable to OT Short Term Goals: Patient will tolerate 15-30 minutes U/E exercise to further increase independence with ADL/IADLs (ongoing) Patient will complete grooming task safely standing at the sink withSBAusing adaptive equipment as needed. (ongoing) Patient will complete LB dressing safely withSBAusing adaptive equipment as needed. (ongoing) Patient will complete toileting safely withSBAusing adaptive equipment as needed. (ongoing) Patient will complete functional transfers safely withSBAusing adaptive equipment as needed. (ongoing) Patient will further participate with cognitive assessment to increase safety with functional tasks.(ongoing) Patient will have AE in place to increase safety with ADLs by discharge. (ongoing) Patient continues to progress towards goals. Charges Treatment/Minutes: Today's Evaluation/Treatment Self care/home management: 24 minute Total Treatment Time: 24 minutes Treatment Session 09/02 Weekly Assessment/Plan (): Cont OT per POC Therapist [facility] Pager Number [phone] RITY AND COMPLIANCE PROJECT MANAGER Cardiac Rehab - Laquita Squires EP - 08/05/2020 11:14 AM CSTCardiac Rehab Phase 1 Inpatient Note: Diagnosis: CHF EF 25% Physical Activity Completed: Ambulate in dominguez Distance Ambulated: 100 feet Ambulation Assistance: Contact guard assist + FWW Patient response to Exercise: good Exercise Comments: Patient seemed more fatigued with activity today, however had already worked withPT this morning as well. Gaitbelt used with activity Vitals Exercise Heart Rate - 118 bpm O2 Device - RA Exercise SpO2 - >90% Assessment/Plan: Tolerates activity well. Encouraged patient to ambulate in hallway 3-4 times daily as tolerated with gradual progression. -Progress as tolerated -Patient referred to outpatient Cardiac Rehab program -Continue to follow until until Discharge -Home activity and exercise teaching completed Recommendation: "Outpatient Cardiac Rehab Continue Inpatient Cardiac Rehab Plan of Care daily until discharge. Cardiac Rehab [facility] Pager: [phone] hysical Therapy - Luis Barrios PT - 08/05/2020 9:58 AM CST Physical Therapy Acute Inpatient Treatment Note ASSESSMENT/RECOMMENDATIONS Patient is more drowsy and fatigued this date. Per chart and patient, patient did not ambulate in the dom[place] all weekend. Hilary would likely benefit from continued physical therapy at a low intensitysetting upon discharge. 6-Clicks Basic Mobility Score: 20 Activity Prescription with Nursing: With assist of 1, walk in dom[place] 3 times per day. At a minimum, up to chair for all meals or 3 times per day. Encourage patient to perform personal cares at sink when able. Encourage walking to bathroom rather than use commode or bedpan. Anticipated D/C Service needs: Low intensity setting SUBJECTIVE Wound pain. Agreeable to PT. OBJECTIVE Bed Mobility: Mod assist of one. Transfers: Sit to/from stand with CGA. Gait: Ambulates ~ 140 feet x 2 with front-wheeled walker and CGA. Reduced step length and christina compared to last week. Fatigues quickly. No dizziness, LOB or SOB. Stairs: Not assessed. Balance Training: Good sitting balance. Good ambulation balance with front- wheeled walker. Other: Up in chair upon conclusion of PT. Call button within reach. Education: Discussed the importance of continued ambulation during acute stay. PLAN Continue plan of care. Today's Treatment: Gait Trainin minutes Therapeutic Exercise: 0 minutes Therapeutic Activity: 23 minutes TOTAL TIMED CODES: 23 minutes TREATMENT TOTAL TIME: 23 minutes Luis Barrios PT, DPT Board-Certified Clinical Specialist in Geriatric Physical Therapy Certified Exercise Expert for Aging Adults Pager: [phone] are Planning - Ernestine Galicia RN - 08/04/2020 10:24 PM SECURITY AND COMPLIANCE PROJECT MANAGER Problem: RISK FOR FALLS Goal: FALL PREVENTION BEHAVIOR Description: DEFINITION: Personal or family child care specialist actions to minimize risk factors that might precipitate falls in the personal environment. 1=Never demonstrated, 2=Rarely demonstrated, 3=Sometimes demonstrated, 4=Often demonstrated, 5=Consistently demonstrated. Outcome: NOC Rating 3 Flowsheets (Taken 08/04/20202223) Initial Score: 3 Target Score: 4 Plan of care reviewed with: Patient Patient specific goal for the day: No falls. Patient specific goal for the stay: Remain free of falls throughout rest of hospitalization Achieve goal for stay: By discharge Patient Progress: No falls occured during shift. pt has chair alarm in place for safety. call light within reach. will continue to monitor RITY AND COMPLIANCE PROJECT MANAGER Clinical Team - Ernestine Galicia RN - 08/04/2020 10:16 PM CSTPt is alert and oriented x4. Pt vss on RA. Pt is on tele- Paced. Pt is up with 1, gb and fww. Barrier cream applied to coccyx. Pt encouraged to get in bed but mostly refusing and spent most of the night in wheelchair. Prn and scheduled tylenol given for coccyx pain. are Planning - Jessica Deleon RN - 08/04/2020 2:39 PM SECURITY AND COMPLIANCE PROJECT MANAGER Problem: IMPAIRED GAS EXCHANGE Goal: RESPIRATORY STATUS Description: DEFINITION: Movement of air in and out of the lungs and exchange of carbon dioxide and oxygen at the alveolar level. 1=Severe deviation from normal range, 2=Substantial deviation from normal range, 3=Moderate deviation from normal range, 4=Mild deviation from normal range, 5=No deviationfrom normal range. Flowsheets (Taken 08/04/2020 1301) Initial Score: 3 Target Score: 5 Plan of care reviewed with: Patient Patient specific goal for the day: Pt will maintain SPO2 > 90% on RA Patient specific goal for the stay: Return to baseline. Achieve goal for stay: By discharge Patient Progress: Pt VSS on RA. SPO2 > 90%. Denies SOB at rest. Will continue to monitor. Problem: RISK FOR IMPAIRED SKIN INTEGRITY Goal: TISSUE INTEGRITY: SKIN & MUCOUS MEMBRANES Description: DEFINITION: Structural intactness and normal physiological function of skin and mucousmembranes. 1=Severely compromised, 2=Substantially compromised, 3=Moderately compromised, 4=Mildly compromised, 5=Not compromised. Flowsheets (Taken 08/04/2020 0074) Plan of care reviewed with: Patient Patient specific goal for the day: Turn and reposition frequently throughout the day to allow skin helaing and reduce risk of skin breakdown Patient specific goal for the stay: Remain free of further skin breakdown Achieve goal for stay: By discharge Patient Progress: Pt's coccyx washed with soap and water. Mepilex applied. Pt went from wheelchair to recliner. Pt refused laying in bed to be turned from side to side. Pt standing up every hour to relieve pressure from coccyx. Will continue to monitor. RITY AND COMPLIANCE PROJECT MANAGER Clinical Team - Jessica Deleon RN - 08/04/2020 2:34 PM CSTPt's VSS on RA. Pt rates pain in coccyx 4-01/07. PRN pain meds given (see MAR). Pt moved from wheelchair to recliner to relieve pressure from coccyx. Pt encourage to lay down on bed and turn side to side but pt refused many times. Pt was finally convinced by two family members and two staff members. Mepilex applied to coccyx and washed with soap and water. Pt encouraged to walk, but pt refused. Pt's ileana moses tried to convince pt to walk also without success. are Planning - Ernestine Galicia RN - 08/04/2020 3:22 AM SECURITY AND COMPLIANCE PROJECT MANAGER Problem: IMPAIRED GAS EXCHANGE Goal: RESPIRATORY STATUS Description: DEFINITION: Movement of air in and out of the lungs and exchange of carbon dioxide and oxygen at the alveolar level. 1=Severe deviation from normal range, 2=Substantial deviation from normal range, 3=Moderate deviation from normal range, 4=Mild deviation from normal range, 5=No deviationfrom normal range. Outcome: NOC Rating 4 Flowsheets (Taken 08/04/2020317) Initial Score: 3 Target Score: 5 Plan of care reviewed with: Patient Patient specific goal for the day: Pt will maintain SPO2 > 90% on RA Patient specific goal for the stay: Return to baseline. Achieve goal for stay: By discharge Patient Progress: Pt VSS on RA. SPO2 > 90%. Denies SOB at rest. Will continue to monitor. Problem: RISK FOR FALLS Goal: FALL PREVENTION BEHAVIOR Description: DEFINITION: Personal or family child care specialist actions to minimize risk factors that might precipitate falls in the personal environment. 1=Never demonstrated, 2=Rarely demonstrated, 3=Sometimes demonstrated, 4=Often demonstrated, 5=Consistently demonstrated. Outcome: NOC Rating 2 Flowsheets (Taken 08/04/2020 7182) Initial Score: 3 Target Score: 4 Plan of care reviewed with: Patient Patient specific goal for the day: No falls. Patient specific goal for the stay: Remain free of falls throughout rest of hospitalization Achieve goal for stay: By discharge Patient Progress: No falls occured during shift. pt has chair alarm in place for safety. call light within reach. will continue to monitor RITY AND COMPLIANCE PROJECT MANAGER Clinical Team - Ernestine Galicia RN - 08/04/2020 2:54 AM CSTPt is alert and oriented x4, bed and chair alarm in place for safety. Pt vss on RA. Pt is on tele- Paced. Pt is up with 1 and FWW. Pt insists on sitting in chair through most of night, despsite encouragement to get in bed to prevent pressure ulcer, pt has cushion on wheel chair. linical Team - Jessica Deleon RN - 08/03/2020 4:25 PM CSTPt's VSS on RA. Pt alert and oriented times 4. Fall precautions in place. Mepilex applied to coccyx.Pt encouraged to walk multiple times. Pt refused. Pt encouraged to lay on bed on a side and pt refused. Pt educated on pressure ulcer treatment and prevention methods. are Planning - Jessica Deleon RN - 08/03/2020 4:25 PM SECURITY AND COMPLIANCE PROJECT MANAGER Problem: IMPAIRED GAS EXCHANGE Goal: RESPIRATORY STATUS Description: DEFINITION: Movement of air in and out of the lungs and exchange of carbon dioxide and oxygen at the alveolar level. 1=Severe deviation from normal range, 2=Substantial deviation from normal range, 3=Moderate deviation from normal range, 4=Mild deviation from normal range, 5=No deviationfrom normal range. Flowsheets (Taken 08/03/2020 5761) Initial Score: 3 Target Score: 5 Plan of care reviewed with: Patient Patient specific goal for the day: Pt will maintain SPO2 > 90% on RA and deny SOB at rest. Patient specific goal for the stay: Return to baseline. Achieve goal for stay: By discharge Patient Progress: Pt VSS on RA. SPO2 > 90%. Denies SOB at rest. Will continue to monitor. Problem: RISK FOR IMPAIRED SKIN INTEGRITY Goal: TISSUE INTEGRITY: SKIN & MUCOUS MEMBRANES Description: DEFINITION: Structural intactness and normal physiological function of skin and mucousmembranes. 1=Severely compromised, 2=Substantially compromised, 3=Moderately compromised, 4=Mildly compromised, 5=Not compromised. Flowsheets (Taken 08/03/2020 3084) Plan of care reviewed with: Patient Patient specific goal for the day: Turn and reposition frequently throughout the day to allow skin helaing and reduce risk of skin breakdown Patient specific goal for the stay: Remain free of further skin breakdown Achieve goal for stay: By discharge Patient Progress: Mepilex applied to coccyx. Pt up to toilet and back to chair throughout shift. Pt encouraged to lay down and lay on side but pt refused. [facility] - Cherry Sanchez EP - 08/03/2020 8:53 AM CSTCardiac Rehab Phase 1 Inpatient Note: Diagnosis: CHF Physical Activity Completed: Ambulate in dominguez Distance Ambulated: 120 feet Ambulation Assistance: Contact guard assist with FWW Patient response to Exercise: good Exercise Comments: Needs minimal assist of 1 to stand. Then walked well today. Gaitbelt used with activity Vitals Exercise Heart Rate - 96 bpm O2 Device - RA Exercise SpO2 - 97% Assessment/Plan: Tolerates activity well. Encouraged patient to ambulate in hallway 3-4 times daily as tolerated with gradual progression. -Progress as tolerated -Patient referred to outpatient Cardiac Rehab program -Continue to follow until until Discharge -Home activity and exercise teaching completed Recommendation: Physical Therapy Continue Inpatient Cardiac Rehab Plan of Care daily until discharge. Cardiac Rehab [facility] Pager: [phone] are Planning - Adelaide Yeager RN - 08/03/2020 12:45 AM SECURITY AND COMPLIANCE PROJECT MANAGER Problem: RISK FOR FALLS Goal: FALL PREVENTION BEHAVIOR Description: DEFINITION: Personal or family child care specialist actions to minimize risk factors that might precipitate falls in the personal environment. 1=Never demonstrated, 2=Rarely demonstrated, 3=Sometimes demonstrated, 4=Often demonstrated, 5=Consistently demonstrated. Outcome: NOC Rating 3 Flowsheets (Taken 08/03/2020 0045) Plan of care reviewed with: Patient Patient specific goal for the day: No falls. Patient specific goal for the stay: Remain free of falls. Patient Progress: Pt VSS on RA. Using call light appropriately. Up w/ 1-2 w/gb and FWW. Fall precautions in place. Will continue to monitor. are Planning - Graham Gutierrez RD - 08/02/2020 5:05 PM SECURITY AND COMPLIANCE PROJECT MANAGER Problem: IMBALANCED NUTRITION: LESS THAN BODY REQUIREMENTS Goal: NUTRITIONAL STATUS: NUTRIENT INTAKE Description: DEFINITION: Nutrient intake to meet metabolic needs. 1=Not adequate, 2=Slightly adequate, 3=Moderately adequate, 4=Substantially adequate, 5=Totally adequate. Outcome: NOC Rating 2 Flowsheets (Taken 08/02/2020 1705) Initial Score: 2 Target Score: 4 Plan of care reviewed with: Patient Patient specific goal for the stay: meet >75% of estimated needs Achieve goal for stay: By discharge Patient Progress: Sub-optimal intake so far during admit. He declined snacks/supplements. RITY AND COMPLIANCE PROJECT MANAGER Nutrition Team - Graham Gutierrez RD - 08/02/2020 4:52 PM CST Nutrition Therapy Follow Up Hospital Day: 7 days Active Problems: HFrEF Acute on chronic renal failure stage IV NSTEMI Supratherapeutic INR Acute low back pain- right SI joint dysfunction Generalized weakness PMH:T2DM, Gout, HLD, HTN Recommendations: Assist with ordering meals d/t pt fatigue/weakness and encourage 3 meals per day. NUTRITION ASSESSMENT Anthropometrics: Height: 177.8 cm (5' 10") Admission Weight: Weight: 103 kg (227 lb) as of 07/25/2020 per electronic stand up scale Most Recent Weight: Weight: 102.6 kg (226 lb 3.2 oz) (08/02/20 2194) per electronic stand up scale Lowest Weight Since Admission: 101.3 kg Weight Change: -0.4 kg (-0.9 lb) since admission BMI: Body mass index is 32.46 kg/m. IBW: 75kg %IBW:1 35% (based onadmitweight) Usual Body Weight:250lb Unintentional Weight Loss:Limited weight history available. Down ~6 lbs in the past 3 weeks. Adjusted Body Weight:81kg Estimated Needs: 1775kcal/day([place] [address]. Jeor i4Demiw: Most Recent Weight) 65gm protein(0.8gm/kg Using:Adjusted Body Weight)- monitor renal funtion Fluids per MD Estimated average intake over the last 2 days: 900 kcal and 43 gm protein, which meets: 51% of estimated kcal needs and 66% of estimated protein needs. Intake Records: Intake Prior to Admit: <75% of estimated needs for >7 days. Intake had been decreased for the past few weeks since recent discharge. He states he had mostly been eating a bowl of cereal and some peaches. He had also been having GI issues (diarrhea), which he attributes to too much fruit intake. Current Intake: Continues to have sub optimal intake - meeting <75% of estimated needs daily. He declined snacks/supplements. He is going to [facility] for PD cath placement on Wednesday. Current Diet: Nutrition (From admission, onward) Start Ordered 08/01/20 1425 Diet - Heart Healthy Now Question: Modified Diets Answer: Heart Healthy 08/01/20 1421 Physical Assessment: Edema: (per billing adjudicator at 161 today) ? LUE Edema 1 ? RUE Edema 1 ? LLE Edema 2 ? RLE Edema 2 GI Assessment: ? Abdominal exam: WDL, per billing adjudicator at 1614 today. ? Stool Frequency: 0-1x/day over the last 2 days Wounds/Pressure Points: (per billing adjudicator at 161 today) ? WDL Functional Status: Weakness Fatigue Nutrition Focused Physical Exam: Completed by RD on 07/29 Below the Eye (fat): Slightly Bulged Fat Pads (Within Defined Limits) Amish (muscle): Able to see/feel well-defined muscle (Within defined limits) Buccal (fat): Full, round/filled out cheeks (Within defined limits) Clavicle (muscle): Some protrusion of bone (mild-moderate)(mild) Shoulder (muscle)/Deltoid muscle: Rounded curves at arm/shoulder/neck (Within defined limits) Triceps/Biceps (fat): Ample fat tissue obvious between folds of skin (Within defined limits) Hand/Interosseous (muscle): Flat to bulging muscle (Within defined limits) Nutritionally-Relevant Medications, Vitamins and Minerals: Calcitriol, Gemfibrozil, Novolog, Levemir, Lexa-3 (1,000 mg), Statin, Demadex Nutritionally-Relevant Biochemical Data: (08/02/2020) Glucose 106 H BUN 140 H Creatinine 3.53 H Phosphorus 7.6 H Albumin 3.2 L GFR 17 L Allergies/Food Intolerance: Hilary is allergic to penicillin. Culturally Zoroastrianism Needs: no INTERVENTIONS Encouraged adequate calories and optimal protein in small, frequent meals and snacks Offered oral nutritional supplements - patient declined EMR reviewed MONITORING/EVALUATION Monitor ability to consume and tolerate adequate intake to approximate estimated needs with accomodation of preferences and tolerances until intake is sustained within desirable limits Monitor I&O, weight trends, nutrition-related labs and medications, clinical status, and planof care r/t need for nutrition intervention and provide as warranted Stable renal panel Nutrition Therapy will reassess every 1-[address], LRD Alpha Pager #[phone] are Planning - Alise Gonzalez RN - 08/02/2020 2:36 PM SECURITY AND COMPLIANCE PROJECT MANAGER Problem: RISK FOR FALLS Goal: MOBILITY Description: DEFINITION: Ability to move purposefully in own environment independently with or without assistive device. 1=Severely compromised, 2=Substantially compromised, 3=Moderately compromised,4=Mildly compromised, 5=Not compromised. Flowsheets (Taken 08/02/2020 1434) Initial Score: 3 Target Score: 5 Plan of care reviewed with: Patient Patient specific goal for the day: To walk x3 in hallway Patient specific goal for the stay: To return to baseline mobility and strength Achieve goal for stay: By discharge Patient Progress: Patient has been up in room multiple times today. Transferring with assist of 1, GB, and walker. Steady on feet. Strength is improving. Patient walked in dom[place]uez with cardiac rehab/PT today. C/o some lower back pain but denied PRN pain meds. Will continue to monitor. RITY AND COMPLIANCE PROJECT MANAGER Physical Therapy - Luis Barrios PT - 08/02/2020 12:53 PM CST Physical Therapy Acute Inpatient Treatment Note ASSESSMENT/RECOMMENDATIONS Patient is generally weak and deconditioned. Anticipate he will need continued physical therapy at a low intensity setting upon discharge. Will continue to follow. 6-Clicks Basic Mobility Score: 20 Activity Prescription with Nursing: With assist of 1, walk in dominguez 3 times per day. Will need assist of 2 to stand. Anticipated D/C Service needs: Low intensity setting SUBJECTIVE Back pain. Agreeable to PT. OBJECTIVE Bed Mobility: Not assessed. Transfers: Sit to/from stand with min/mod assist of one. Gait: Ambulates ~ 140 feet x 5. Slow but fairly steady. No dizziness, LOB or SOB. Stairs: Not assessed. Balance Training: Good sitting balance. Good ambulation balance with front- wheeled walker. Other: Up in chair upon conclusion of PT. Call button within reach. Education: Discussed the importance of continued ambulation during acute stay. PLAN Continue plan of care. Today's Treatment: Gait Trainin minutes Therapeutic Exercise: 0 minutes Therapeutic Activity: 25 minutes TOTAL TIMED CODES: 25 minutes TREATMENT TOTAL TIME: 25 minutes Luis Barrios, PT, DPT Board-Certified Clinical Specialist in Geriatric Physical Therapy Certified Exercise Expert for Aging Adults Pager: [phone] [facility] - Laquita Squires EP - 08/02/2020 10:31 AM CSTCardiac Rehab Phase 1 Inpatient Note: Diagnosis: CHF EF 25% Physical Activity Completed: Ambulate in dominguez Distance Ambulated: 120 feet Ambulation Assistance: min assist of 1 Patient response to Exercise: good Exercise Comments: Overall, tolerating activity fairly well. Gaitbelt used with activity Vitals Exercise Heart Rate - 77 bpm O2 Device - RA Exercise SpO2 - >90% Assessment/Plan: Tolerates activity well. Encouraged patient to ambulate in hallway 3-4 times daily as tolerated with gradual progression. -Progress as tolerated -Patient referred to outpatient Cardiac Rehab program -Continue to follow until until Discharge -Home activity and exercise teaching completed Recommendation: "Outpatient Cardiac Rehab Continue Inpatient Cardiac Rehab Plan of Care daily until discharge. Cardiac Rehab [facility] Pager: [phone] ase Mgmt - Tameka Badillo RN - 08/02/2020 10:28 AM CSTCASE MANAGEMENT / SOCIAL SERVICE TRANSITION PLAN - PROGRESS NOTE PLAN: Will continue to work with care team on medical barriers: transfer to [facility] on Wednesday for PD catheter placement on Wednesday. Will Continue to Follow for Support and Progression Towards Final Transition Plan BARRIERS TO TRANSITION: Medical barriers:transfer to [facility] on Wednesday for planned PD catheter placement Wednesday. DOES ACCEPTING FACILITY REQUIRE COVID TESTING BEFORE DISCHARGE: N/A COMMENTS / PATIENT AND FAMILY RESPONSE TO PLAN: Visited with patient and SO Blanche, he was c/o some discomfort and this hand sign writer assisted him with positioning in wheelchair. Reviewed with them I was aware of the plan to transfer Wednesday, and that the time for this would not be able to be established until that day, so we know where he will be going. They verbalized understanding of this. Blanche reports she will have his belongings organized, and wondered if family should transfer the items. Informed her this would be ideal. Patient's son will be here Wednesday, so she will advise him of this need. Reviewed with Hilary he would have a new supervisor case loading at [facility], but they would be able to machine operator hop picker with discharge planning. They verbalized understanding of this. Contacted CHRISTINE Clark and Patient Flow staff about Wednesday transfer to ensure all parties are in agreement. IS PATIENT'S ADMISSION ASSOCIATED WITH TIA, ISCHEMIC, OR HEMORRHAGIC STROKE?: No PATIENT / SUBSTITUTE DECISION MAKER GOAL UPON TRANSITION: First Choice: [facility] ANTICIPATED NEEDS UPON TRANSITION: [facility] RESOURCE(S) PROVIDED: NA ANTICIPATED MODE OF TRANSPORT UPON TRANSITION: Other: ambulance transfer to [facility] ANTICIPATED MODE OF TRANSPORT TO AND FROM FOLLOW UP APPOINTMENTS: As arranged by accepting facility VERIFIED CORRECT PHARMACY IS ENTERED FOR DISCHARGE: No TRANSITION ROUNDING COMPLETED WITH THE FOLLOWING: Patient / family Instructor Business Education BODY BUILDER APPRENTICE / PA Bedside bicycle repair technician RN Discussed in person SIGNED: IVANA Price, RN, [facility] Instructor Business Education Java Development Manager, Case Management/Financial Planning Analyst [facility] [place] Cell/pager [phone] RITY AND COMPLIANCE PROJECT MANAGER Clinical Team - Soy Guido RN - 08/02/2020 6:00 AM [id number] - 0700 AO x 4 VSS on RA Tele Paced HR 80s Pt denies SOB at rest. Pt reports pain 7-8 to R) side of intergluteal cleft. PRN pain medication given (see MAR). Barrier cream applied. Frequent repositioning. Encouraging PO fluid intake and monitoring output. UO minimal during shift (see flowsheets). Will continue to monitor. are Planning - Soy Guido RN - 08/02/2020 6:00 AM SECURITY AND COMPLIANCE PROJECT MANAGER Problem: IMPAIRED GAS EXCHANGE Goal: RESPIRATORY STATUS Description: DEFINITION: Movement of air in and out of the lungs and exchange of carbon dioxide and oxygen at the alveolar level. 1=Severe deviation from normal range, 2=Substantial deviation from normal range, 3=Moderate deviation from normal range, 4=Mild deviation from normal range, 5=No deviationfrom normal range. Flowsheets (Taken 08/02/2020 0148) Initial Score: 3 Target Score: 5 Plan of care reviewed with: Patient Patient specific goal for the day: Pt will maintain SPO2 > 90% on RA and deny SOB at rest. Patient specific goal for the stay: Return to baseline. Achieve goal for stay: By discharge Patient Progress: Pt VSS on RA. SPO2 > 90%. Denies SOB at rest. Will continue to monitor. Problem: RISK FOR FALLS Goal: FALL PREVENTION BEHAVIOR Description: DEFINITION: Personal or family child care specialist actions to minimize risk factors that might precipitate falls in the personal environment. 1=Never demonstrated, 2=Rarely demonstrated, 3=Sometimes demonstrated, 4=Often demonstrated, 5=Consistently demonstrated. Flowsheets (Taken 08/02/2020 0148) Initial Score: 3 Target Score: 5 Plan of care reviewed with: Patient Patient specific goal for the day: No falls. Patient specific goal for the stay: Remain free of falls. Achieve goal for stay: By discharge Patient Progress: Pt VSS on RA. Using call light appropriately. Up w/ 1-2 w/ gb and FWW. Bed alarm and chair alarm in place. Call light and possessions in place. are Planning - Magnus Hill RN - 08/01/2020 6:30 PM SECURITY AND COMPLIANCE PROJECT MANAGER Problem: RISK FOR IMPAIRED SKIN INTEGRITY Goal: TISSUE INTEGRITY: SKIN & MUCOUS MEMBRANES Description: DEFINITION: Structural intactness and normal physiological function of skin and mucousmembranes. 1=Severely compromised, 2=Substantially compromised, 3=Moderately compromised, 4=Mildly compromised, 5=Not compromised. Outcome: NOC Rating 3 Flowsheets (Taken 08/01/2020 1221) Plan of care reviewed with: Patient Patient specific goal for the day: Turn and reposition frequently throughout the day to allow skin helaing and reduce risk of skin breakdown Patient specific goal for the stay: Remain free of further skin breakdown Achieve goal for stay: By discharge Patient Progress: Wound nurse consult completed for wound on buttocks. Pt alternating time between bed and chair more frequenlty this shift linical Team - Magnus Hill RN - 08/01/2020 6:29 PM CSTVSS on RA, A/O x4. Pt denies nausea, dizziness, SOB. Pt states pain to intergluteal cleft wound. PRN pain medication given, see MAR. Barrier cream applied to wound, repositioned frequently ase Mgmt - Nikki Gonzalez LSW - 08/01/2020 3:33 PM CSTCASE MANAGEMENT / SOCIAL SERVICE TRANSITION PLAN - PROGRESS NOTE PLAN: Awaiting Patient/Family Decision Regarding Plan of Care Awaiting Medical Doctor Recommendations for Transition Discharge Placement Barriers: Peritoneal dialysis Transition Options Being Explored Will Continue to Follow for Support and Progression Towards Final Transition Plan BARRIERS TO TRANSITION: Awaiting Placement: [facility]/Swing Bed/TCU Awaiting Therapy Recommendations Discharge Needs to be Determined Medical barriers:medical stability; nephrology following, anticipate PD catheter placement Wednesday DOES ACCEPTING FACILITY REQUIRE COVID TESTING BEFORE DISCHARGE: Other: TBD COMMENTS / PATIENT AND FAMILY RESPONSE TO PLAN: Chart review completed. Met with patient and significant other at bedside to review discharge planning. Per nephrology - Plan is to transfer to [facility] this Wednesday. Tentatively to have PD catheter placement on Wednesday. Placement options will have to be at a SNF that is willing to "contract" with [place] [facility] and complete training. Pt anticipated to have PD catheter placed on Wednesday and will begin PD training towards end of month. While at facility, patient will need PD catheter "sterile" dressing change/flushes which can only be done by PD nurse. Patient profiled to [facility]; unable to accommodate PD need. Reviewed with patient and sig other. Agreeable to expand profile to "[place] [facility] contracted facilities" Including [facility] in [place], [place], and [place], [place]. Also expanded profile to [facility] to check if able to accommodate PD. Spoke with Paul vásquez/ [facility]. Unfortunately, they do not have everything arranged yet to start accepting PD pts. Awaiting bed offers at this time. Per sig other, they will need to pursue placement. Before this hospitalization, patient had been receiving HH and sig other states she is unable to care for pt at home due to weakness. Will continue to follow, await treatment team recommendations and provide discharge options as appropriate. IS PATIENT'S ADMISSION ASSOCIATED WITH TIA, ISCHEMIC, OR HEMORRHAGIC STROKE?: No PATIENT / SUBSTITUTE DECISION MAKER GOAL UPON TRANSITION: First Choice: [facility] Facility Other: PD catheter ANTICIPATED NEEDS UPON TRANSITION: [facility] Facility Other: PD catheter RESOURCE(S) PROVIDED: Placement ANTICIPATED MODE OF TRANSPORT UPON TRANSITION: Family Car ANTICIPATED MODE OF TRANSPORT TO AND FROM FOLLOW UP APPOINTMENTS: Family Car VERIFIED CORRECT PHARMACY IS ENTERED FOR DISCHARGE: No TRANSITION ROUNDING COMPLETED WITH THE FOLLOWING: Patient / family Instructor Business Education Discussed in person SIGNED: PEDRO [employer] Licensed Pesticide Applicator Case Management [facility], [place] P) [phone] hysical Therapy - Luis Barrios PT - 08/01/2020 1:06 PM CST Physical Therapy Acute Inpatient Treatment Note ASSESSMENT/RECOMMENDATIONS Patient is generally weak and deconditioned. Anticipate he will need continued physical therapy at a low intensity setting upon discharge. Will continue to follow. 6-Clicks Basic Mobility Score: 15 Activity Prescription with Nursing: With assist of 1, walk in dominguez 3 times per day. Will need assist of 2 to stand. Anticipated D/C Service needs: Low intensity setting SUBJECTIVE Back pain. Agreeable to PT. OBJECTIVE Bed Mobility: Not assessed. Transfers: Sit to/from stand with min/mod assist of one. Gait: Ambulates ~ 140 feet, and 250 feet x 2. Slow but fairly steady. No dizziness, LOB or SOB. Stairs: Not assessed. Balance Training: Good sitting balance. Good ambulation balance with front- wheeled walker. Other: Up in chair upon conclusion of PT. Call button within reach. Education: Discussed the importance of continued ambulation during acute stay. PLAN Continue plan of care. Today's Treatment: Gait Trainin minutes Therapeutic Exercise: 0 minutes Therapeutic Activity: 24 minutes TOTAL TIMED CODES: 24 minutes TREATMENT TOTAL TIME: 24 minutes Luis Barrios PT, DPT Board-Certified Clinical Specialist in Geriatric Physical Therapy Certified Exercise Expert for Aging Adults Pager: [phone] OCN / Skin Team - Oxana Ngo RN - 08/01/2020 12:52 PM CSTWound Care Nurse Visit: Location of visit: Hospital, [facility] Indication for visit: Consult for chronic wounds to patients inner gluteal folds. Assessment: Location of wound: Gluteal folds Status: chronic Wound type: mirroring wounds, friction/moisture related. Pain: None Wound Configuration: Dimension: length: 1 cm, width: 1 cm and depth: 0.1 cm Wound Bed: Before debridement: Color: pink and yellow After debridement: Not indicated Janet-wound skin: intact Wound exudate: none Wound Odor: no Treatment per wound care protocols: Wound Irrigation/Cleansing: wash with mild soap and water Dressing Type per wound care protocols: Barrier cream applied Tucked small piece of interdry AG into gluteal fold to help with moisture control/friction control Recommendations / Plan: Cleanse wound bases with soap and water daily, apply barrier cream. May try to tuck small piece of interdry AG into gluteal fold. Wound care to follow weekly and PRN. RITY AND COMPLIANCE PROJECT MANAGER Occupational Therapy - Adriana Royal OTR/Giovanna - 08/01/2020 11:20 AM CST Occupational Therapy Acute Care Progress Note Impression/Recommendations Recommend low intensity therapy setting upon medical stability. Pt presents with back pain, decreased activity tolerance, weakness, impaired balance, and edema and now requiring assist x 1-2 with transfers. Pt demonstrated increased drowsiness on this date declining EOB/OOB activity though was agreeable to some activity in bed including L Ue AAROM but falling asleep at times. Pt currently functioning below baseline and is not safe to return home. OT will continue to follow acutely. Objective Cognition: A&Ox3, drowsy, significant other reports pt had received pain medication and now demonstrating increased drowsiness. U/E: Pt lying in R side and significant other reports wound care had been in approximately 30 minutes prior and positioned pt on R side for pressure relief to buttocks. Pt used R Ue as able with washing/drying face otherwise participated in L Ue AAROM exercises x 10 reps all available planes. Attempted AROM but decreased alertness and falling asleep at times so modified to AAROM with improved tolerance/performance noted. No indications of Ue discomfort during exercises. Oxygen Level: Rest >90% Activity >90% on room air in bed ADLs: Grooming: SBA after setup in bed to wash/dry face Transfers: Declined EOB/OOB activity at this time and was wanting to rest. Significant other reports pt ambulated in hallway with PT this morning. Communication board in room indicates pt assist x 1-2 for transfers with FWW. Pain: 12/07 Location: Back - significant other reports pt did receive pain medication and now more drowsy Pt was left lying comfortably in bed at end of session, with bed positioned in locked/lowest setting, safety parameters in place, bed alarm on, 2 nursing students in room along with significant other when OT left. Call light, phone, and bedside table placed within reach at end of session. Education provided on using call light and waiting for staff assistance before getting up. Pt verbalizes understanding/agreement. Education Education/Training provided: Role of OT, plan of care, recommendations, ADLs, Ue ROM exercises, safety Learners: Patient, significant other Readiness: Acceptance Method of Training: Verbal education, demonstration Response: Verbalized/demonstrated understanding, will benefit from continued reinfocement Adaptive Equipment Recommendations Logging Shovel Operator, sockaide, long-handled sponge/brush/loofah, long-handled shoehorn, may need bedrail - will continue to assess and update as appropriate AE available: Handicapped ht toilet, FWW Plan to obtain adaptive equipment: Choices were given on where to purchase adaptive equipment and patient and/or family to obtain recommended ADL equipment independently. Goals Patient/Family Stated Goal for Session: none stated; agreeable to OT Short Term Goals: Patient will tolerate 15-30 minutes U/E exercise to further increase independence with ADL/IADLs (ongoing) Patient will complete grooming task safely standing at the sink withSBAusing adaptive equipment as needed. (ongoing) Patient will complete LB dressing safely withSBAusing adaptive equipment as needed. (ongoing) Patient will complete toileting safely withSBAusing adaptive equipment as needed. Patient will complete functional transfers safely withSBAusing adaptive equipment as needed. (ongoing) Patient will further participate with cognitive assessment to increase safety with functional tasks.(ongoing) Patient will have AE in place to increase safety with ADLs by discharge. (ongoing) Patient continues to progress towards goals. Charges Treatment/Minutes: Today's Evaluation/Treatment Self care/home management: 1 minute Therapeutic exercise: 8 minutes Total Treatment Time: 9 minutes Treatment Session / Weekly Assessment/Plan (Day 5): Cont OT per POC Therapist [facility] Pager Number [phone] [facility] - Ana Ramirez EP - 08/01/2020 10:43 AM CSTCardiac Rehab Phase 1 Inpatient Note: Diagnosis: CHF Physical Activity Completed: Stand at Bedside Ambulation Assistance: max assist of 1 Patient response to Exercise: fair Exercise Comments: Pt wanting to reposition in chair, Needed a full assist of 1 to stand. Pt had just completed a walk in the halls, declined walking again. Gaitbelt used with activity Assessment/Plan: Tolerates activity well. Encouraged patient to ambulate in hallway 3-4 times daily as tolerated with gradual progression. -Progress as tolerated -Patient referred to outpatient Cardiac Rehab program -Continue to follow until until Discharge Recommendation: "Outpatient Cardiac Rehab- Trung Doty Continue Inpatient Cardiac Rehab Plan of Care daily until discharge. Cardiac Rehab [facility] Pager: [phone] linical Team - Soy Guido RN - 08/01/2020 6:00 AM [id number] - 0700 AO x 4 VSS on RA Tele Paced HR 80s Pt denies SOB at rest. Pt reports pain 12/07 to R) side of intergluteal cleft. PRN pain medication given (see MAR). Barrier cream applied. Frequent repositioning. BG 64 in AM. PRN dextrose chewables given with increase in BG to 84. Oncoming RN notified. Voiding (see flowsheets). Will continue to monitor. are Planning - Soy Guido RN - 08/01/2020 6:00 AM SECURITY AND COMPLIANCE PROJECT MANAGER Problem: IMPAIRED GAS EXCHANGE Goal: RESPIRATORY STATUS Description: DEFINITION: Movement of air in and out of the lungs and exchange of carbon dioxide and oxygen at the alveolar level. 1=Severe deviation from normal range, 2=Substantial deviation from normal range, 3=Moderate deviation from normal range, 4=Mild deviation from normal range, 5=No deviationfrom normal range. Flowsheets (Taken 08/01/2020 0209) Initial Score: 3 Target Score: 5 Plan of care reviewed with: Patient Patient specific goal for the day: Pt will maintain SPO2 > 90% on RA and deny SOB at rest. Patient specific goal for the stay: Return to baseline. Achieve goal for stay: By discharge Patient Progress: Pt VSS on RA. SPO2 > 90%. Denies SOB at rest. Will continue to monitor. Problem: RISK FOR FALLS Goal: FALL PREVENTION BEHAVIOR Description: DEFINITION: Personal or family child care specialist actions to minimize risk factors that might precipitate falls in the personal environment. 1=Never demonstrated, 2=Rarely demonstrated, 3=Sometimes demonstrated, 4=Often demonstrated, 5=Consistently demonstrated. Flowsheets (Taken 08/01/2020 0203) Initial Score: 3 Target Score: 5 Plan of care reviewed with: Patient Patient specific goal for the day: No falls. Patient specific goal for the stay: Remain free of falls. Achieve goal for stay: By discharge Patient Progress: Pt VSS on RA. Using call light appropriately. Up w/ 1-2 w/ gb and FWW. Bed alarm and chair alarm in place. Call light and possessions in place. RITY AND COMPLIANCE PROJECT MANAGER Clinical Team - Magnus Hill RN - 07/31/2020 6:50 PM CSTA/O x4, VSS on RA, SBP in 90s this shift. Lidocaine patch and oxycodone administered for back pain, see MAR. Pt continues to have very low output. Wound nurse consult ordered for open sore on pt buttocks are Planning - Magnus Hill RN - 07/31/2020 6:50 PM SECURITY AND COMPLIANCE PROJECT MANAGER Problem: RISK FOR FALLS Goal: FALL PREVENTION BEHAVIOR Description: DEFINITION: Personal or family child care specialist actions to minimize risk factors that might precipitate falls in the personal environment. 1=Never demonstrated, 2=Rarely demonstrated, 3=Sometimes demonstrated, 4=Often demonstrated, 5=Consistently demonstrated. Outcome: NOC Rating 4 Flowsheets (Taken 07/31/2020 0833) Plan of care reviewed with: Patient Patient specific goal for the day: Remain free of falls during admission Patient specific goal for the stay: Remain call light appropriate and free of falls by waiting for assistance from staff when needed Achieve goal for stay: By discharge Patient Progress: Patient requires assistance of 2, gb, FWW for ambulation/repositioning when up to chair. Pt ambulating in halls with assistance this shift ase Melissa - Nikki GonzalezCRIS - 07/31/2020 3:39 PM CSTCASE MANAGEMENT / SOCIAL SERVICE TRANSITION PLAN - PROGRESS NOTE PLAN: Awaiting Patient/Family Decision Regarding Plan of Care Awaiting Medical Doctor Recommendations for Transition Discharge Placement Barriers: Peritoneal dialysis Transition Options Being Explored Will Continue to Follow for Support and Progression Towards Final Transition Plan BARRIERS TO TRANSITION: Awaiting Placement: [facility]/Swing Bed/TCU Awaiting Therapy Recommendations Discharge Needs to be Determined Medical barriers:medical stability; nephrology following, anticipate PD catheter placement Wednesday DOES ACCEPTING FACILITY REQUIRE COVID TESTING BEFORE DISCHARGE: Other: TBD COMMENTS / PATIENT AND FAMILY RESPONSE TO PLAN: Chart review completed. Met with patient and family at bedside to review discharge planning. Per nephrology - pt tentatively to have PD catheter placement on Wednesday. This CM spoke with [place] [facility] nurse, both Sarah ([place] [phone]) and Ann Marie ([place]) to clarify information regarding PD catheter needs and placement. Patient/family preference is for swingbed. Per Sarah w/ PD, [place] [facility] cannot contract with any swingbeds. Placement options will have to be at a SNF that is willing to "contract" with [place] [facility] and complete training. Pt anticipated to have PD catheter placed on Wednesday and will begin PD training towards end of month. While at facility, patient will need PD catheter "sterile" dressing change/flusheswhich can only be done by PD nurse. Reviewed information with family, sig other agreeable to expand profile to [facility] to inquire if they will accommodate PD. Per sig other, they will need to pursue placement. Before this hospitalization, patient had been receiving HH and sig other states she is unable to care for pt at home due to weakness. Awaiting responses at this time. Will continue to follow, await treatment team recommendations and provide discharge options as appropriate. IS PATIENT'S ADMISSION ASSOCIATED WITH TIA, ISCHEMIC, OR HEMORRHAGIC STROKE?: No PATIENT / SUBSTITUTE DECISION MAKER GOAL UPON TRANSITION: First Choice: [facility] Facility Other: PD catheter ANTICIPATED NEEDS UPON TRANSITION: [facility] Facility Other: PD catheter RESOURCE(S) PROVIDED: Placement ANTICIPATED MODE OF TRANSPORT UPON TRANSITION: Family Car ANTICIPATED MODE OF TRANSPORT TO AND FROM FOLLOW UP APPOINTMENTS: Family Car VERIFIED CORRECT PHARMACY IS ENTERED FOR DISCHARGE: No TRANSITION ROUNDING COMPLETED WITH THE FOLLOWING: Patient / family Instructor Business Education Discussed in person PD nurse SIGNED: PEDRO [employer] Licensed Pesticide Applicator Case Management [facility], [place] P) [phone] hysical Therapy - Luis Barrios PT - 07/31/2020 1:50 PM CST Physical Therapy Acute Inpatient Treatment Note ASSESSMENT/RECOMMENDATIONS Patient is generally weak and deconditioned. Anticipate he will need continued physical therapy at a low intensity setting upon discharge. Will continue to follow. 6-Clicks Basic Mobility Score: 15 Activity Prescription with Nursing: With assist of 1, walk in dominguez 3 times per day. Will need assist of 2 to stand. Anticipated D/C Service needs: Low intensity setting SUBJECTIVE Back pain. Agreeable to PT. OBJECTIVE Bed Mobility: Not assessed. Transfers: Sit to/from stand with mod assist of 2. Gait: Ambulates ~ 50 feet, 75 feet and 100 feet with front-wheeled walker. Slow but fairly steady. No dizziness, LOB or SOB. Stairs: Not assessed. Balance Training: Good sitting balance. Good ambulation balance with front- wheeled walker. Other: Up in chair upon conclusion of PT. Call button within reach. Education: Discussed the importance of continued ambulation during acute stay. PLAN Continue plan of care. Today's Treatment: Gait Trainin minutes Therapeutic Exercise: 0 minutes Therapeutic Activity: 23 minutes TOTAL TIMED CODES: 23 minutes TREATMENT TOTAL TIME: 23 minutes Luis Barrios PT, DPT Board-Certified Clinical Specialist in Geriatric Physical Therapy Certified Exercise Expert for Aging Adults Pager: [phone] utrition Team - Graham Gutierrez RD - 07/31/2020 1:50 PM CST Nutrition Therapy Follow Up Hospital Day: 5 days Active Problems: HFrEF Acute on chronic renal failure stage IV NSTEMI Supratherapeutic INR Acute low back pain- right SI joint dysfunction Generalized weakness PMH: T2DM, Gout, HLD, HTN Recommendations: Assist with ordering meals d/t pt fatigue/weakness and encourage 3 meals per day. Consider liberalizing diet d/t reduced intakes. NUTRITION ASSESSMENT Anthropometrics: Height: 177.8 cm (5' 10") Admission Weight: Weight: 103 kg (227 lb) as of 07/25/2020 per electronic stand up scale Most Recent Weight: Weight: 103.2 kg (227 lb 9.6 oz) (07/31/20 0550) per electronic stand up scale Lowest Weight Since Admission: 101.3 kg Weight Change: +0.2 kg (+0.5 lb) since admission BMI: Body mass index is 32.66 kg/m. IBW: 75 kg %IBW: 135% (based on admit weight) Usual Body Weight: 250 lb Unintentional Weight Loss: Limited weight history available. Down ~6 lbs in the past 3 weeks. Adjusted Body Weight: 81 kg Estimated Needs: 1775 kcal/day ([place] [address]. Jeor x 1 Using: Most Recent Weight) 65 gm protein (0.8 gm/kg Using:Adjusted Body Weight) - monitor renal funtion Fluids per MD Estimated average intake over the last 2 days: 865 kcal and 31 gm protein, which meets: 49% of estimated kcal needs and 48% of estimated protein needs. Intake Records: Intake Prior to Admit: <75% of estimated needs for >7 days. Intake had been decreased for the past few weeks since recent discharge. He states he had mostly been eating a bowl of cereal and some peaches. He had also been having GI issues (diarrhea), which he attributes to too much fruit intake. Current Intake: Sub-optimal, meeting <50% of estimated kcal needs. Though per pt and family, appetite better than it had been prior to admit. Current Diet: Nutrition (From admission, onward) Start Ordered 07/30/20 1020 Diet - 2000 mls FL Restr.; Non Dialysis Renal Now Question Answer Comment Sodium Control/Fluid Restriction 2000 mls FL Restr. Renal Diet Non Dialysis Renal 07/30/20 1019 Physical Assessment: Edema: (per billing adjudicator at 0721 today) ? Generalized Edema 1 ? LUE Edema 1 ? RUE Edema 1 ? LLE Edema 3 ? RLE Edema 3 GI Assessment: ? Abdominal exam: WDL, per billing adjudicator at 0721 today. ? Stool Frequency: 0-1x/day over the last 2 days Wounds/Pressure Points: (per billing adjudicator at 0721 today) ? WDL Functional Status: PT Following OT Following Nutrition Focused Physical Exam: Completed by RD on 07/29/2020 Below the Eye (fat): Slightly Bulged Fat Pads (Within Defined Limits) Amish (muscle): Able to see/feel well-defined muscle (Within defined limits) Buccal (fat): Full, round/filled out cheeks (Within defined limits) Clavicle (muscle): Some protrusion of bone (mild-moderate)(mild) Shoulder (muscle)/Deltoid muscle: Rounded curves at arm/shoulder/neck (Within defined limits) Triceps/Biceps (fat): Ample fat tissue obvious between folds of skin (Within defined limits) Hand/Interosseous (muscle): Flat to bulging muscle (Within defined limits) Nutritionally-Relevant Medications, Vitamins and Minerals: Calcitriol, Gemfibrozil, Novolog, Levemir, Fish oil (1,000 mg), Oxycodone, Statin, Sodium bicarbonate, Warfarin Nutritionally-Relevant Biochemical Data: (07/31/2020) Glucose 136 H Sodium 133 L BUN 115 H Creatinine 3.39 H Phosphorus 6.9 H Albumin 3.1 L GFR 18 L Allergies/Food Intolerance: Hilary is allergic to penicillin. Culturally Zoroastrianism Needs: no INTERVENTIONS Encouraged adequate calories and optimal protein in small, frequent meals and snacks EMR reviewed. Spoke with pt and today. Pt is now planning to do peritoneal dialysis. Will provide PD diet education before discharge. MONITORING/EVALUATION Monitor ability to consume and tolerate adequate intake to approximate estimated needs with accomodation of preferences and tolerances until intake is sustained within desirable limits Monitor I&O, weight trends, nutrition-related labs and medications, clinical status, and planof care r/t need for nutrition intervention and provide as warranted Stable renal panel Nutrition Therapy will reassess every 1-[address], LRD [facility] Pager #[phone] ccupational Therapy - Adriana Royal, OTR/L - 07/31/2020 12:59 PM CSTAttempted to see pt for OT however pt was busy with another discipline. Through chart review, recommendations of low intensity therapy setting continue to appear appropriate. OT will continue to follow acutely as pt able/appropriate. TONIO Ching, OTR/L Pager [phone] linical Team - Caitlin Garcia RN - 07/31/2020 6:04 AM CSTPt A&Ox4. VSS on RA. BP has been soft, 90s-110s systolic this shift. Tele paced rhytm. Pt is reporting back pain, oxycodone given with some relief. Pt continues to have very low urine output despite IV Lasix given at 1705 by previous shift. Pitting edema in bilateral extremities, crackles noted inlower lobes. Up with 2 GB, FWW due to weakness. PRN trazodone given for sleep at 0100 with little effect. Pt was more restless overnight. are Planning - Caitlin Garcia RN - 07/30/2020 10:58 PM SECURITY AND COMPLIANCE PROJECT MANAGER Problem: RISK FOR FALLS Goal: FALL PREVENTION BEHAVIOR Description: DEFINITION: Personal or family child care specialist actions to minimize risk factors that might precipitate falls in the personal environment. 1=Never demonstrated, 2=Rarely demonstrated, 3=Sometimes demonstrated, 4=Often demonstrated, 5=Consistently demonstrated. Outcome: NOC Rating 4 Flowsheets (Taken 07/30/2020 0208) Plan of care reviewed with: Patient Patient specific goal for the day: Remain free of falls during admission Patient specific goal for the stay: Remain call light appropriate and free of falls by waiting for assistance from staff when needed Achieve goal for stay: By discharge Patient Progress: Patient requires assistance of 2, gb, FWW for ambulation/repositioning when up to chair. Using call light appropriately for assistance are Planning - Magnus Hill RN - 07/30/2020 6:54 PM SECURITY AND COMPLIANCE PROJECT MANAGER Problem: RISK FOR FALLS Goal: FALL PREVENTION BEHAVIOR Description: DEFINITION: Personal or family child care specialist actions to minimize risk factors that might precipitate falls in the personal environment. 1=Never demonstrated, 2=Rarely demonstrated, 3=Sometimes demonstrated, 4=Often demonstrated, 5=Consistently demonstrated. Outcome: NOC Rating 4 Flowsheets (Taken 07/30/2020 1838) Plan of care reviewed with: Patient Patient specific goal for the day: Remain free of falls during admission Patient specific goal for the stay: Remain call light appropriate and free of falls by waiting for assistance from staff when needed Achieve goal for stay: By discharge Patient Progress: Patient requires assistance of 2, gb, FWW for ambulation/repositioning when up to chair. Using call light appropriately for assistance linical Team - Magnus Hill RN - 07/30/2020 6:50 PM CSTA/O x4, VSS on RA, SBP in 90-110s this shift. Pt still having back pain, lidocaine patch and oxycodone ordered per MD, see MAR for administration. Pt continues to have very low output. RITY AND COMPLIANCE PROJECT MANAGER Case Mgmt - Nikki Gonzalez LSW - 07/30/2020 3:29 PM CSTCASE MANAGEMENT / SOCIAL SERVICE TRANSITION PLAN - PROGRESS NOTE PLAN: Awaiting Medical Doctor Recommendations for Transition Will Continue to Follow for Support and Progression Towards Final Transition Plan BARRIERS TO TRANSITION: Awaiting Placement: Mcc/Swing Bed/TCU Awaiting Therapy Recommendations Diagnostic Tests Pending Discharge Needs to be Determined Medical barriers:medical stability; nephrology following DOES ACCEPTING FACILITY REQUIRE COVID TESTING BEFORE DISCHARGE: Other: TBD COMMENTS / PATIENT AND FAMILY RESPONSE TO PLAN: Chart review completed. PT/OT : Both recommending low-intensity setting upon dc. Patient/family agreeable and preference is for [facility]. Patient profiled via ensocare to swingbed. Called and left voicemail for Henry(admissions) with [facility]. Awaiting response at thistime. Will continue to follow, await treatment team recommendations and provide discharge options as appropriate. IS PATIENT'S ADMISSION ASSOCIATED WITH TIA, ISCHEMIC, OR HEMORRHAGIC STROKE?: No PATIENT / SUBSTITUTE DECISION MAKER GOAL UPON TRANSITION: First Choice: Cardiac Rehab Swing Bed ANTICIPATED NEEDS UPON TRANSITION: Cardiac Rehab Swing Bed RESOURCE(S) PROVIDED: Placement ANTICIPATED MODE OF TRANSPORT UPON TRANSITION: Family Car ANTICIPATED MODE OF TRANSPORT TO AND FROM FOLLOW UP APPOINTMENTS: Family Car VERIFIED CORRECT PHARMACY IS ENTERED FOR DISCHARGE: No TRANSITION ROUNDING COMPLETED WITH THE FOLLOWING: Instructor Business Education SIGNED: PEDRO Cox Licensed Pesticide Applicator Case Management [facility], [place] P) [phone] [facility] - Cherry Sanchez EP - 07/30/2020 8:45 AM CSTSaw patient this am. He was in the chair. Willing to attempt a walk. Attempted to stand 3 times with assist and was not able too due to pain and weakness.. Then he decided to eat breakfast first. When we stopped back later, he had stood 3 times but with a lot of assist and then was very shaky - per his son. Has just had narcotic for pain now and is quite sleepy. Will let PT and OT assess today and follow up again tomorrow as appropriate. linical Team - Caitlin Garcia RN - 07/30/2020 6:34 AM CSTPt A&Ox4. VSS on RA. Pt reports pain 7/10 in back when lying down, sleeping in chair all night. PRN tramadol q6h with relief. Tele paced rhythm. BP has been soft. 80 mg IV Lasix given 07/29 1800, however pt has had very low urine output, creatinine 2.34. Pitting edema in bilateral lower extremities.Evening BG was 92, provider notified and Levemir was held. Pt has been weak, up with 2. linical Team - Magnus Hill RN - 07/29/2020 7:00 PM CSTVSS on RA, A/O x4. Pt stating 8/10 back pain, PRN tramadol q6h ordered by , see REBE[facility]. Continue to di urese with IV lasix BID. are Planning - Magnus Hill RN - 07/29/2020 7:00 PM SECURITY AND COMPLIANCE PROJECT MANAGER Problem: RISK FOR FALLS Goal: FALL PREVENTION BEHAVIOR Description: DEFINITION: Personal or family child care specialist actions to minimize risk factors that might precipitate falls in the personal environment. 1=Never demonstrated, 2=Rarely demonstrated, 3=Sometimes demonstrated, 4=Often demonstrated, 5=Consistently demonstrated. Outcome: NOC Rating 4 Flowsheets (Taken 07/29/2020 4746) Plan of care reviewed with: Patient Patient specific goal for the day: Remain free of falls during admission Patient specific goal for the stay: Remain call light appropriate and free of falls by waiting for assistance from staff when needed Patient Progress: Patient requires assistance of 1-2, gb, FWW for ambulation. Using call light appropriately for assistance RITY AND COMPLIANCE PROJECT MANAGER Nutrition Team - Graham Gutierrez RD - 07/29/2020 5:16 PM CST Nutrition Therapy Initial Assessment Hospital Day: 3 days Active Problems: HFrEF acute on chronic renal failure stage III NSTEMI Supratherapeutic INR PMH: T2DM, Gout, HLD, HTN Recommendations: Consider an outpatient RD referral for CKD diet education/management. Assist with ordering meals d/t pt fatigue/weakness and encourage 3 meals per day. NUTRITION ASSESSMENT Anthropometrics: Height: 177.8 cm (5' 10") Admission Weight: Weight: 103 kg (227 lb) as of 07/25/2020 per electronic stand up scale Most Recent Weight: Weight: 101.4 kg (223 lb 7 oz) (07/29/20 0600) per electronic stand up scale Lowest Weight Since Admission: 101.4 kg Weight Change: -1.6 kg (-3.5 lb) since admission BMI: Body mass index is 32.06 kg/m. IBW: 75 kg %IBW: 135% (based on admit weight) Usual Body Weight: 250 lb Unintentional Weight Loss: Limited weight history available. Down ~6 lbs in the past 3 weeks. Adjusted Body Weight: 81 kg Estimated Needs: 1775 kcal/day ([place] St. Jeor x 1 Using: Most Recent Weight) 65 gm protein (0.8 gm/kg Using:Adjusted Body Weight) - monitor renal funtion Fluids per MD Estimated average intake over the last 3 days: 715 kcal and 41 gm protein, which meets: 40% of estimated kcal needs and 63% of estimated protein needs. Intake Records: Intake Prior to Admit: <75% of estimated needs for >7 days. Intake had been decreased for the past few weeks since recent discharge. He states he had mostly been eating a bowl of cereal and some peaches. He had also been having GI issues (diarrhea), which he attributes to too much fruit intake. Current Intake: Improving the past couple days per daughter. Current Diet: Nutrition (From admission, onward) Start Ordered 07/25/201949 Diet - Heart Healthy Now Question: Modified Diets Answer: Heart Healthy 07/25/201945 Physical Assessment: Edema: (per billing adjudicator at 0900 today) ? LUE Edema 1 ? RUE Edema 1 ? LLE Edema 2 ? RLE Edema 2 GI Assessment: ? Abdominal exam: WDL, per billing adjudicator at 0900 today. ? Stool Frequency: 1-4x/day over the last 3 days Wounds/Pressure Points: (per billing adjudicator at 0900 today) ? WDL Functional Status: PT Following OT Following Weakness Nutrition Focused Physical Exam: Completed by RD on 07/29/2020 Below the Eye (fat): Slightly Bulged Fat Pads (Within Defined Limits) Amish (muscle): Able to see/feel well-defined muscle (Within defined limits) Buccal (fat): Full, round/filled out cheeks (Within defined limits) Clavicle (muscle): Some protrusion of bone (mild-moderate)(mild) Shoulder (muscle)/Deltoid muscle: Rounded curves at arm/shoulder/neck (Within defined limits) Triceps/Biceps (fat): Ample fat tissue obvious between folds of skin (Within defined limits) Hand/Interosseous (muscle): Flat to bulging muscle (Within defined limits) Nutritionally-Relevant Medications, Vitamins and Minerals: Calcitriol, Lasix, Gemfibrozil, Novolog, Levemir, Omeg-3, Statin Nutritionally-Relevant Biochemical Data: (07/29/2020) Glucose 105 H BUN 111 H Creatinine 2.34 H Albumin 3.1 L GFR 27 L HgbA1C 6.7 on 06/28/2020 Allergies/Food Intolerance: Hilary is allergic to penicillin. Culturally Zoroastrianism Needs: no INTERVENTIONS Encouraged adequate calories and optimal protein in small, frequent meals and snacks Per daughter, pt has been ordering a Boost 1x/day Discussed moderation of protein instead of high-protein diet now that he is off dialysis. Dialysis discontinued around 07/19. Conducted NFPE Obtained diet history EMR reviewed MONITORING/EVALUATION Monitor ability to consume and tolerate adequate intake to approximate estimated needs with accomodation of preferences and tolerances until intake is sustained within desirable limits Monitor I&O, weight trends, nutrition-related labs and medications, clinical status, and planof care r/t need for nutrition intervention and provide as warranted Stable renal panel Nutrition Therapy will reassess every 1-[address], LRD [facility] Pager #[phone] ase [facility] - Nikki Gonzalez LSW - 07/29/2020 3:39 PM CSTCASE MANAGEMENT / SOCIAL SERVICE TRANSITION PLAN - PROGRESS NOTE PLAN: Awaiting Medical Doctor Recommendations for Transition Will Continue to Follow for Support and Progression Towards Final Transition Plan BARRIERS TO TRANSITION: Awaiting Placement: Mcc/Swing Bed/TCU Awaiting Therapy Recommendations Diagnostic Tests Pending Discharge Needs to be Determined Medical barriers:medical stability DOES ACCEPTING FACILITY REQUIRE COVID TESTING BEFORE DISCHARGE: Other: TBD COMMENTS / PATIENT AND FAMILY RESPONSE TO PLAN: Chart review completed. Met with patient, significant other, and daughter at bedside to review discharge plan. PT/OT : Both recommending low-intensity setting upon dc. Patient/family agreeable and preference is for [facility] swing[facility]. Patient profiled via ensocare to swingbed. Awaiting response at this time. Will continue to follow, await treatment team recommendations and provide discharge options as appropriate. IS PATIENT'S ADMISSION ASSOCIATED WITH TIA, ISCHEMIC, OR HEMORRHAGIC STROKE?: No PATIENT / SUBSTITUTE DECISION MAKER GOAL UPON TRANSITION: First Choice: Swing Bed ANTICIPATED NEEDS UPON TRANSITION: Swing Bed RESOURCE(S) PROVIDED: Placement ANTICIPATED MODE OF TRANSPORT UPON TRANSITION: Family Car ANTICIPATED MODE OF TRANSPORT TO AND FROM FOLLOW UP APPOINTMENTS: Family Car VERIFIED CORRECT PHARMACY IS ENTERED FOR DISCHARGE: No TRANSITION ROUNDING COMPLETED WITH THE FOLLOWING: Patient / family Instructor Business Education Discussed in person SIGNED: PEDRO [employer] Licensed Pesticide Applicator Case Management [facility], [place] P) [phone] [facility] - Cherry Sanchez EP - 07/29/2020 11:48 AM CSTCardiac Rehab Phase 1 Inpatient Note: Diagnosis: CHF Physical Activity Completed: Ambulate in dominguez Distance Ambulated: 30 feet Ambulation Assistance: Contact guard assist walking with FWW. Needed mod-max assist of 1 from sit tostand - then moved well but became fatigued quickly. Lots of back pain and has loose stools as well so did not want to get too far from the bathroom. Gait belt used with activity. Patient response to Exercise: fair Assessment/Plan: Tolerates activity fair. Encouraged patient to ambulate in hallway 3-4 times daily as tolerated with gradual progression. -Progress as tolerated -Patient referred to outpatient Cardiac Rehab program -Continue to follow until until Discharge -Home activity and exercise teaching to be completed Recommendation: Physical Therapy Continue Inpatient Cardiac Rehab Plan of Care daily until discharge. Cardiac Rehab Alpha Pager: [phone] RITY AND COMPLIANCE PROJECT MANAGER Physical Therapy - Jessika Morris, PT - 07/29/2020 10:21 AM CST Physical Therapy Acute Inpatient Treatment Note ASSESSMENT/RECOMMENDATIONS Pt presents with general weakness, deconditioning, and back pain limiting tolerance for mobility. 6-Clicks Basic Mobility Score: 22,15 Activity Prescription with Nursing: At a minimum, up to chair for all meals or 3 times per day. Encourage walking to bathroom rather than use commode or bedpan. Anticipated D/C Service needs: Low intensity setting SUBJECTIVE 8/10 R side back pain OBJECTIVE Bed Mobility: NA Transfers: Sit to/from stand variable mod a x 2, max a x 1. Training for forward lean and hip/knee extension.Multiple attempts of not able to stand 2/2 back pain Gait: 25' FWW, min assist, mild unsteady Other: Up in chair, call light in reach, family present Education: Pt was educated on POC for today's session, pt agreeable. PLAN Continue plan of care. Today's Treatment: Gait Trainin minutes Therapeutic Exercise: 0 minutes Therapeutic Activity: 14 minutes TOTAL TIMED CODES: 24 minutes TREATMENT TOTAL TIME: 24 minutes [id number] ccupational Therapy - Adriana Royal OTR/Giovanna - 07/29/2020 9:50 AM CST Occupational Therapy Acute Care Progress Note Impression/Recommendations Recommend low intensity therapy setting upon medical stability. Pt presents with back pain, decreased activity tolerance, weakness, impaired balance, and edema requiring assist x 1 with observed ADLs/transfers/mobility using FWW. Pt currently functioning below baseline. OT will continue to follow acutely. Objective Cognition: A&Ox4, demonstrates appropriate safety/judgment with observed activities U/E: AROM WFL with observed activities but Ue weakness noted and requires assist x 1 with observed activities. Oxygen Level: Rest >90% Activity >90% ADLs: Grooming: Reports already completed Dressing: Unable to doff/long gripper socks while sitting EOB. Education on use of manager grocery to doff gripper socks and then completes SBA. OT did not have sockaid present during session but provided verbal and visual education on sockaid and technique to use to increase independence. Also provided education regarding benefits of long-handled shoehorn. Toileting: Denied need and reports recently comleted Bathing: To further assess however did educate pt on recommendation for seated bathing on shower stool and how long-handled sponge/brush/loofah would increase ease with bathing activities given back pain/issues. Also recommend GB. Transfers: Bed: ModA and cues sit->supine for log roll technique to decrease stress on back and mod-maxA supine->sit with bedrail. Reports often sleeps in recliner however does sleep in bed at times also.Samia and cues sit->stand EOB, CGA and cues stand->sit. Chair: CGA and cues stand->sit on chair, Samia and cues sit->stand from wc Toilet: Samia and cues with GB and handicapped ht toilet. Reports having handicapped ht toilet withvanity beside for support. CGA ambulate<->bathroom with FWW. Pain: 12/07 Location: Back - reports has chronic back pain but feels it has been worse since ambulance ride Transfer belt and nonslip footwear on with all out of bed activities. Pt sitting safely and comfortably reclined in chair with call light and all needed items within reach. Educated on safety and use of call light, waiting for assistance, and not attempting self transfers/standing. Pt indicates under standing. Pt's significant other and daughter present throughout session. Education Education/Training provided: Role of OT, plan of care, back protection techniques, ADLs, transfers, mobility, recommendations, AE/DME Learners: Patient, significant other, and daughter Readiness: Acceptance Method of Training: Verbal education, demonstration Response: Verbalized/demonstrated understanding, will benefit from continued reinfocement Adaptive Equipment Recommendations Logging Shovel Operator, sockaide, long-handled sponge/brush/loofah, long-handled shoehorn, may need bedrail - will continue to assess and update as appropriate AE available: Handicapped ht toilet, FWW Plan to obtain adaptive equipment: Choices were given on where to purchase adaptive equipment and patient and/or family to obtain recommended ADL equipment independently. Goals Patient/Family Stated Goal for Session: none stated; agreeable to OT Short Term Goals: Patient will tolerate 15-30 minutes U/E exercise to further increase independence with ADL/IADLs Patient will complete grooming task safely standing at the sink withSBAusing adaptive equipment as needed. Patient will complete LB dressing safely withSBAusing adaptive equipment as needed. (ongoing) Patient will complete toileting safely withSBAusing adaptive equipment as needed. Patient will complete functional transfers safely withSBAusing adaptive equipment as needed. (ongoing) Patient will further participate with cognitive assessment to increase safety with functional tasks. Patient will have AE in place to increase safety with ADLs by discharge. (ongoing) Patient continues to progress towards goals. Charges Treatment/Minutes: Today's Evaluation/Treatment Self care/home management: 32 minutes Total Treatment Time: 32 minutes Treatment Session 07/05 Weekly Assessment/Plan (Day ): Cont OT per POC Therapist [facility] Pager Number [phone] RITY AND COMPLIANCE PROJECT MANAGER Supplemental Progress Note - Mer Lal APRN-CNP - 07/29/2020 7:16 AM CSTNo reported issues last night. linical Team - Rosanna White RN - 07/29/2020 6:21 AM CSTAOx4, RA, VSS, up with 2 assist, No new complaints. Call light within reach will continue to monitor. are Planning - Rosanna White RN - 07/29/2020 4:07 AM SECURITY AND COMPLIANCE PROJECT MANAGER Problem: RISK FOR FALLS Goal: FALL PREVENTION BEHAVIOR Description: DEFINITION: Personal or family child care specialist actions to minimize risk factors that might precipitate falls in the personal environment. 1=Never demonstrated, 2=Rarely demonstrated, 3=Sometimes demonstrated, 4=Often demonstrated, 5=Consistently demonstrated. Outcome: NOC Rating 3 Goal: MOBILITY Description: DEFINITION: Ability to move purposefully in own environment independently with or without assistive device. 1=Severely compromised, 2=Substantially compromised, 3=Moderately compromised,4=Mildly compromised, 5=Not compromised. Outcome: NOC Rating 3 Problem: RISK FOR FALLS Goal: MOBILITY Description: DEFINITION: Ability to move purposefully in own environment independently with or without assistive device. 1=Severely compromised, 2=Substantially compromised, 3=Moderately compromised,4=Mildly compromised, 5=Not compromised. Outcome: NOC Rating 3 are Planning - Danya Alvarez RN - 07/28/2020 6:02 PM SECURITY AND COMPLIANCE PROJECT MANAGER Problem: IMPAIRED GAS EXCHANGE Goal: RESPIRATORY STATUS Description: DEFINITION: Movement of air in and out of the lungs and exchange of carbon dioxide and oxygen at the alveolar level. 1=Severe deviation from normal range, 2=Substantial deviation from normal range, 3=Moderate deviation from normal range, 4=Mild deviation from normal range, 5=No deviationfrom normal range. Outcome: NOC Rating 3 Flowsheets (Taken 07/28/2020 180) Plan of care reviewed with: Patient Patient specific goal for the day: to wean oxygen off as I get rid of more fluid Patient specific goal for the stay: get better and return to baseline Achieve goal for stay: By discharge Patient Progress: Patient wean to RA keeping O2 sat >90%. Still SOB when ambulating. Started on PO torsemide with lesser UO. VSS. Tele 100% paced in the 90s. Will conitnue to monitor. are Planning - Rosanna White RN - 07/28/2020 12:46 AM SECURITY AND COMPLIANCE PROJECT MANAGER Problem: IMPAIRED GAS EXCHANGE Goal: RESPIRATORY STATUS Description: DEFINITION: Movement of air in and out of the lungs and exchange of carbon dioxide and oxygen at the alveolar level. 1=Severe deviation from normal range, 2=Substantial deviation from normal range, 3=Moderate deviation from normal range, 4=Mild deviation from normal range, 5=No deviationfrom normal range. Outcome: NOC Rating 4 Problem: RISK FOR FALLS Goal: FALL PREVENTION BEHAVIOR Description: DEFINITION: Personal or family child care specialist actions to minimize risk factors that might precipitate falls in the personal environment. 1=Never demonstrated, 2=Rarely demonstrated, 3=Sometimes demonstrated, 4=Often demonstrated, 5=Consistently demonstrated. Outcome: NOC Rating 3 are Planning - Danya Alvarez RN - 07/27/2020 5:14 PM SECURITY AND COMPLIANCE PROJECT MANAGER Problem: IMPAIRED GAS EXCHANGE Goal: RESPIRATORY STATUS Description: DEFINITION: Movement of air in and out of the lungs and exchange of carbon dioxide and oxygen at the alveolar level. 1=Severe deviation from normal range, 2=Substantial deviation from normal range, 3=Moderate deviation from normal range, 4=Mild deviation from normal range, 5=No deviationfrom normal range. Outcome: NOC Rating 3 Flowsheets (Taken 07/27/20201711) Plan of care reviewed with: Patient Patient specific goal for the day: to wean oxygen off as I get rid of more fluid Patient specific goal for the stay: get better and return to baseline Achieve goal for stay: By discharge Patient Progress: Patient requires 1L O2 to keep O2 sat >90%. Still SOB when ambulating. On scheduled IV Bumex with good UO. VSS. Tele 100% paced in the 90s. Will conitnue to monitor. are Planning - Rosanna White RN - 07/27/2020 6:50 AM SECURITY AND COMPLIANCE PROJECT MANAGER Problem: IMPAIRED GAS EXCHANGE Goal: RESPIRATORY STATUS Description: DEFINITION: Movement of air in and out of the lungs and exchange of carbon dioxide and oxygen at the alveolar level. 1=Severe deviation from normal range, 2=Substantial deviation from normal range, 3=Moderate deviation from normal range, 4=Mild deviation from normal range, 5=No deviationfrom normal range. Outcome: NOC Rating 3 linical Team - Rosanna White RN - 07/26/2020 11:14 PM CSTPt has labored breathing and bilat lung sounds diminished with crackles heard. Respiratory notified and treatment give w/ no improvement. Mews score of 5. MD resident application administrator notified. Awaiting orders. are Planning - Danya Alvarez RN - 07/26/2020 5:14 PM SECURITY AND COMPLIANCE PROJECT MANAGER Problem: IMPAIRED GAS EXCHANGE Goal: RESPIRATORY STATUS Description: DEFINITION: Movement of air in and out of the lungs and exchange of carbon dioxide and oxygen at the alveolar level. 1=Severe deviation from normal range, 2=Substantial deviation from normal range, 3=Moderate deviation from normal range, 4=Mild deviation from normal range, 5=No deviationfrom normal range. 07/26/2020 1714 by Danya Alvarez RN Outcome: NOC Rating 2 07/26/2020 1713 by Danya Alvarez RN Outcome: NOC Rating 2 Flowsheets (Taken 07/26/20201712) Plan of care reviewed with: Patient Patient specific goal for the day: to wean oxygen off as I get rid of more fluid Patient specific goal for the stay: get better and return to baseline Achieve goal for stay: By discharge Patient Progress: Patient requires 2-3L O2 to keep O2 sat >90%. Still very SOB when ambulating and gets a little bit better at rest. On scheduled IV Bumex with good UO. VSS. Tele 100% paced in the 100s. Will conitnue to monitor. RITY AND COMPLIANCE PROJECT MANAGER Clinical Team - Danya Alvarez RN - 07/26/2020 4:28 PM CSTAssessment completed. 4 Eyes on Skin assessment completed with MARGY José. Patient's skin is with exception. Areas of note or concern include Blanchable redness behind right ear,right outer big toe and coccyx. Will add appropriate LDA and Consult WOCN. RITY AND COMPLIANCE PROJECT MANAGER Clinical Team - Analisa Tompkins RN - 07/26/2020 1:54 PM CSTReport given to Danya JI as pt is being transferred to room 663, family made aware. All valuables and belongings with pt. Pt transferred per wheelchair. hysical Therapy - Noah Nguyen, PT - 07/26/2020 1:24 PM CST PHYSICAL THERAPY ACUTE INPATIENT INITIAL EVALUATION RECOMMENDATIONS Assessment: Pt is mobilizing Stand by assist w/ a front-wheeled walker at this time. Pt will benefit from continued PT services for endurance/gait training. Pt will benefit from a referral to PT at d/c from the hospital. Acute PT will continue to follow. Admission Date: 07/25/2020 Admission Diagnosis: No diagnosis found. Procedures: No admission procedures for hospital encounter. Past Medical History: Diagnosis Date CAD (coronary artery disease) COPD (chronic obstructive pulmonary disease) (HCC) Diabetes (HCC) Dyslipidemia Essential hypertension Gout Impaired fasting blood sugar Obesity Peripheral arterial disease (HCC) Peripheral neuropathy Past Surgical History: Procedure Laterality Date IR PLACEMENT TUNNELED CENTRAL VENOUS CATHETER 07/06/2020 IR PLACEMENT TUNNELED CENTRAL VENOUS CATHETER 07/06/2020 Eduar Acevedo III, MD INTERVENT RAD [facility] Activity Orders: as tolerated, mobility bundle. Precautions: none. SUBJECTIVE Pt is in a chair and agreeable to PT. Cognition: Alert and orientated x4 Direction Following: intact. Pain: At rest: Patient reports no pain. With activity: Patient reports no pain. Current Living Situation: Lives With spouse, in House 5 steps to enter; 0 steps to bed/bath. Functional Level Prior to Admit: Independent and Modified Independent, FWW History of falls: Yes Mobility Equipment Available: FWW OBJECTIVE Observation: Pt is on 3LO2. O2 remained during the PT session. Strength/ROM: Within Functional Limits Except As Indicated Right Left ROM WFL WFL Strength WFL WFL UE screen: unremarkable. Functional Mobility: Bed mobility: not performed. Supine to Sit: not performed. Sit to Supine: not performed. Sit to/from Stand:Stand by assist w/ a front-wheeled walker. Stand Pivot: Stand by assist w/ a front-wheeled walker Gait: 100 feet, standby assistance using FWW Gait Quality: slow pace. Otherwise, no other deficits noted. Balance: Sitting Balance: Static - good Dynamic - good Standing Balance: Static - fair-w/ AD Dynamic - fair-w/ AD Coordination: intact Sensation: intact Functional Measure: Attempted 5 times sit<>stand. Pt able to complete 3 reps w/o u/e support and then felt too fatigued to complete the test. Patient Education: Patient was educated on role of acute PT and PT assessment today through explanation. They accepted teaching and verbalized understanding. ASSESSMENT SUMMARY/RECOMMENDATIONS Factors affecting function: Physical Impairments: gait/locomotion/balance and ventilation/respiration Functional Limitations: ambulation and functional endurance Goals: Patient/Family Penitentiary/Ultimate Goals: Return home. Related Clinical Goals: Ambulation: Patient will be able to ambulate at least 300 feet over even terrain using least restrictive assistive device independently to progess to safe functional mobility in the home. Stairs: Patient will be able to negotiate 5 stairs with rail in safest pattern with none to progess to safe functional mobility in the home. Provision of appropriate assistive device and education as needed. PLAN PT Frequency of therapy recommended: 3x/wk. PT Plan of Care: gait training aerobic capacity/endurance conditioning device and equipment use and training Evaluation, goals, and plan discussed with patient and family Total Time Spent: PT = 25 minutes Eval = 25 min TherAct = 0 min Gait = 0 min TherEx = 0 min Physical Therapist: Noah Nguyen PT Alpha Pager: [phone] RITY AND COMPLIANCE PROJECT MANAGER Occupational Therapy - Grecia Vega, OTR/L - 07/26/2020 10:25 AM SECURITY AND COMPLIANCE PROJECT MANAGER Occupational Therapy Acute Care Evaluation - Certification Impression/Recommendations Recommend return home upon medical stability with 21/12 supervision and OT. Ambulated around room with SBA. Presents with deconditioning and will benefit from increased activity while admitted. OT will continue to follow per POC to maximize functional strength, activity tolerance, safety, balance, and independence with ADLs, IADLs, transfers and functional mobility needed for optimal quality of life. Admitting Diagnosis: No diagnosis found. History of Present Illness: Refer to H&P for details Past Medical History: Past Medical History: Diagnosis Date CAD (coronary artery disease) COPD (chronic obstructive pulmonary disease) (HCC) Diabetes (HCC) Dyslipidemia Essential hypertension Gout Impaired fasting blood sugar Obesity Peripheral arterial disease (HCC) Peripheral neuropathy Activity Level: Prog mob Precautions: Fall, Low haz Infection Control: Standard Patient History Social/Home Environment: Patient lives: lives with their significant other House: house, 5 steps to enter Home Environment: Bed/Bath on main: Yes Bath Setup: Walk-In Shower with curtain Employment: not employed Prior Level of Function Independent with: dressing, bathing and driving Assistance needed with: medication management, cooking, cleaning and laundry, donning socks Comments: Ambulates with FWW as of the last few days, typically without AE. Son reports pt recentlydischarged from hospital ~2 weeks ago. therapies had signed off and things were going fairly well. Adaptive Equipment Available: shower stool, FWW Present for Eval: Pt, pt's son Objective Activities of Daily Living: Feeding: Not observed Grooming: Not observed Upper Extremity Dressing: Not observed Lower Extremity Dressing: Mod A to don brief, declined trialing independently. Able to pull up/downwithout difficulty. Bathing: Not observed Toileting: SBA for janet cares after BM Homemaking: Significant other assists at baseline Transfers: Bed: Not observed Chair: SBA sit <> stand with FWW Toilet: SBA with FWW and grab bar Tub/Shower: Not observed Comments: Ambulated bathroom to chair with SBA, steady gait though fatigued quickly RN consented to therapy session. Gait belt and non-slip footwear used for safety during OT session. Pt educated on importance of using call light and wait for nursing assistance with OOB/chair activity, patient verbalized understanding. At end of session, pt comfortable in chair and call light, phone and tray table within reach. PT resuming cares at end of session. Son and PT at bedside. Pain: Comment: No reports of pain during session Upper Extremity Function: Range of Motion: Right:within functional limits Left: within functional limits Strength: Right: limited generalized weakness Left: limited generalized weakness Endurance: limited Oxygen Level: Rest 95% Activity 86% O2 was removed by NA prior to toileting, after toileting 3L O2 placed back on pt and sats quickly climbed to >90% Coordination: intact Sensation: intact Edema: no Dominant Hand: right Orientation: Cognition: alert Attention: intact Following Directions: intact Safety Awareness: impaired Comments: Lacks insight into deficits. Will continue to monitor. Visual/Perception: Glasses: Yes Comments: Denies acute changes Education Education/Training provided: Role of OT, plan of care, functional transfers, ADLs, discharge recs Learners: Patient, son Readiness: Acceptance Method of Training: Verbal education, demonstration Response: Verbalized/demonstrated understanding, will benefit from continued reinforcement Adaptive Equipment Recommendations Adaptive Equipment Recommended: grab bars tub/shower Plan to obtain adaptive equipment: To further assess. Assessment/Plan Assessment: Patient demonstrates decreased UE strength, decreased physical conditioning, decreased independence with ADL/IADL tasks and decreased independence with functional mobility Patient showing a decrease in ADL/transfer performance and will benefit from continued OT. Plan: Patient to be seen 3-5 times a week to work toward above goals Treatment plan will consist of Wednesday thru Wednesday sessions Goals Patient/Family Stated Goal for Session: none stated Short Term Goals: Patient will tolerate 15-30 minutes U/E exercise to further increase independence with ADL/IADLs Patient will complete grooming task safely standing at the sink withSBAusing adaptive equipment as needed. Patient will complete LB dressing safely withSBAusing adaptive equipment as needed. Patient will complete toileting safely withSBAusing adaptive equipment as needed. Patient will complete functional transfers safely withSBAusing adaptive equipment as needed. Patient will further participate with cognitive assessment to increase safety with functional tasks. Patient will have AE in place to increase safety with ADLs by discharge Certification dates: 07/26/2020 to 08/25/20 Treatment Provided See above for treatment provided Charges Treatment/Minutes: Today's Evaluation/Treatment Evaluation Self care/home management: 10 minutes Total for time-based codes: 10 minutes Total treatment time: 27 minutes Evaluation Complexity PMH/Comorbidities that affect Occupational Performance: See [facility] Occupational Profile/Medical and Therapy History: LOW - Brief history relating to presenting problem Patient Assessment: LOW - 1-3 performance deficits relating to physical, cognitive, psychosocial limitations/restrictions Clinical Decision Making: LOW - Low complexity, limited amount of treatment options, no assessment modification, no comorbidities Evaluation Complexity: Low Therapist Alpha Pager Number: [phone] ase Mgmt - Melodie Carpio RN - 07/26/2020 9:12 AM CSTCASE MANAGEMENT / SOCIAL SERVICE TRANSITION PLAN - INITIAL ASSESSMENT TRANSITION PLAN: Awaiting Medical Doctor Recommendations for Transition Will Continue to Follow for Support and Progression Towards Final Transition Plan BARRIERS TO TRANSITION: Medical barriers:PT/OT recommendations, O2 therpay, Continuous tele, IV Bumex. COMMENTS / PATIENT AND FAMILY RESPONSE TO PLAN: Chart reviewed and case discussed. Hilary has pending recommendations from PT/OT. He is currently on IV bumex, continuous Tele and O2 Therapy. Met with Hilary and his son in room today, Case management role explained and discharge planning discussed. He lives at home with significant other. He is independent with ADLs. Denies any use of service/assistance or DME. Patient drives, has a PCP and manages own medications/finances. He does not use O2 at home. He recently discharge from [facility] home health and [facility] hemodialysis. His last Dialysis was 07/19. His son will provide transportation at time of discharge. CM will continue to follow for transition planning needs. ADMISSION DX: SOB, Elevated troponin PATIENT STATUS: OP in a Bed DID THE PATIENT RECEIVE OBSERVATION STATUS INFORMATION / EDUCATION? Yes LOCKSTITCH ZIPPER SETTER TO ASSESS IF PATIENT CAN BE UPGRADED TO INPATIENT STATUS: Yes RELEASE OF INFORMATION: Yes -- verbal for: discharge planning SOURCES OF INFORMATION (See demographics for contact information): Family: Son Medical Record Patient CURRENT LIVING SITUATION / LEVEL OF ASSISTANCE: Lives with significant other COMMUNITY SERVICES: None HEALTHCARE DIRECTIVE: Declined POWER OF INSTRUCTIONAL MATERIAL DIRECTOR: None FINANCIAL CONCERNS: No Concerns PRIMARY CARE PHYSICIAN: Yes Johan Gallardo MD : No IS PATIENT'S ADMISSION ASSOCIATED WITH TIA, ISCHEMIC, OR HEMORRHAGIC STROKE?: No LANGUAGE / COMMUNICATION BARRIERS: No PATIENT / SUBSTITUTE DECISION MAKER GOAL UPON TRANSITION: First Choice: Home: Family/Friend Support ANTICIPATED NEEDS, TRANSITION CHOICES OFFERED: Home: Family/Friend Support RESOURCE(S) PROVIDED: nothing needed at this time DOES PATIENT HAVE CLOTHING TO WEAR AT DISCHARGE? Yes ANTICIPATED MODE OF TRANSPORT UPON DISCHARGE: Family Car VERIFIED CORRECT PHARMACY IS ENTERED FOR DISCHARGE: Yes - Pharmacy: [id number], [address] [id number] CURRENT READMISSION RISK SCORE Predictive Risk Score Risk of Unplanned Readmission: 19.2 Please refer to readmission risk assessment flowsheet for further details. SIGNED: Melodie Carpio RN, MSN Case Management, [facility] [place] Pager: #[phone] Routin are Planning - Chapis Florence RN - 07/26/2020 4:47 AM SECURITY AND COMPLIANCE PROJECT MANAGER Problem: IMPAIRED GAS EXCHANGE Goal: RESPIRATORY STATUS Description: DEFINITION: Movement of air in and out of the lungs and exchange of carbon dioxide and oxygen at the alveolar level. 1=Severe deviation from normal range, 2=Substantial deviation from normal range, 3=Moderate deviation from normal range, 4=Mild deviation from normal range, 5=No deviationfrom normal range. Outcome: NOC Rating 3 Flowsheets (Taken 07/26/2020 0437) Initial Score: 2 Target Score: 3 Plan of care reviewed with: Patient Patient specific goal for the stay: get better and return to baseline Achieve goal for stay: By discharge Patient Progress: Patient requires 2-3L O2 to keep O2 sat >90%. Still very SOB when ambulating and gets a little bit better at rest. On scheduled IV Bumex with good UO. VSS. Tele 100% paced in the 100-110s. Serial troponin still elevated but trending down. No other complaints at this time. Awaitingfurther plans in AM Problem: RISK FOR FALLS Goal: FALL PREVENTION BEHAVIOR Description: DEFINITION: Personal or family child care specialist actions to minimize risk factors that might precipitate falls in the personal environment. 1=Never demonstrated, 2=Rarely demonstrated, 3=Sometimes demonstrated, 4=Often demonstrated, 5=Consistently demonstrated. Outcome: NOC Rating 3 Flowsheets (Taken 07/26/2020 1175) Initial Score: 3 Target Score: 4 Plan of care reviewed with: Patient Patient specific goal for the day: no falls during hospital stay Patient specific goal for the stay: no falls during hospital stay Patient Progress: Patient requires assistance of 1, gb, FWW for ambulation. Using call light appropriately to call for assistance. linical Team - Lazara Olvera NA - 07/25/2020 8:20 PM CSTEKG for SOB done by [facility]. EKG print out handed to Chapis Choudhury RN. Floor nurse to follow-up. linical Team - Yaquelin Bernardo RN - 07/25/2020 8:00 PM CSTArrived at 1905 accompanied by ambulance crew. Admitted for shortness of breath & elevated troponin. Currently complains of shortnes of breath with exertion. Denies complaints of chest pain, nausea, or dizziness. Settled in room CDU 12 and oriented to call light, bed/tv control. Refer to Patient Admission Education. Hospitalist notified of patients arrival. Upon Admission to CDU 12, skin assessment completed with Tam Florence RN. Upon skin assessment including pressure points findings include: Healing incision from port removal on (R) chest, scabs to bilateral arms & knees, patient states from dog scratches. Edema noted to bilateral lower legs. No other wounds or pressure areas noted. Plan/Intervention: Will encourage patient to ambulate with assistance & monitor incision as needed. documented in this encounter Plan of Treatment Name Type Priority Associated Diagnoses Order S chedule PROTIME/INR Lab Routine every [address] arting 07/27/2020, 11 completed PACEMAKER IN PERSON [facility] Now for 1 Occurrences PROGRAMMING starting 2020 until 07/26/2020 RENAL FUNCTION PANEL Lab Routine Early A M draw for labs until discontin ued starting 2020, 6 completed Name Type Priority Associated Diagnoses Order S chedule CLINIC REFERRAL Referral Routine Stage 4 chronic kidney Or dered: 08/05/2020 NEPHROLOGY NON ONE disease ([facility]) CHART CLINIC REFERRAL Referral Routine Acute on chronic HFrEF Or dered: 08/05/2020 CARDIOLOGY NON ONE (heart failure with CHART reduced ejection fraction) (HCC) HOSPITAL DISCHARGE Referral Routine Once for 1 Occurrences WARFARIN ANTICOAG starting 0 08/05/2020 ORDER until 1 HOSPITAL DISCHARGE Referral Routine Once for 1 Occurrences WARFARIN ANTICOAG starting 0 08/06/2020 ORDER until 1 documented as of this encounter Implants Implanted Type Area Branch Office Manager Device Shelf Model / Identifier Expiration Serial / Date Lot Medtronic Dual Chamber Pacemaker-03/24/2018 Cardiovascular Left: M EDTRONIC [id number] XT MRI / Implanted: Qty: 1 on 03/24/2018 by Hermilo Dorantes MD CHES T [id number] / ANGELA Description:06/28/20 follows at [facility] GF documented as of this encounter Procedures Procedure Name Priority Date/Time Associated Comments Diagnosis PROTIME/INR Timed Routine 08/06/2020 7:05 Results fo r this AM SECURITY AND COMPLIANCE PROJECT MANAGER procedure are i n the results section. RENAL FUNCTION PANEL Routine 08/06/2020 7:05 Res ults for this AM SECURITY AND COMPLIANCE PROJECT MANAGER procedure are i n the results section. GLUCOSE BY METER, Routine 08/06/2020 5:23 Result s for this POCT AM SECURITY AND COMPLIANCE PROJECT MANAGER procedure are i n the results section. GLUCOSE BY METER, Routine 08/05/2020 8:57 Result s for this POCT PM SECURITY AND COMPLIANCE PROJECT MANAGER procedure are i n the results section. GLUCOSE BY METER, Routine 08/05/2020 5:07 Result s for this POCT PM SECURITY AND COMPLIANCE PROJECT MANAGER procedure are i n the results section. SARS-COV-2, INFLUENZA STAT 08/05/2020 3:50 Re sults for this A+B, AND/OR RSV PM SECURITY AND COMPLIANCE PROJECT MANAGER procedure ar e in NUCLEIC ACID TESTING the res ults PANEL section. GLUCOSE BY METER, Routine 08/05/2020 10:34 Result s for this POCT AM SECURITY AND COMPLIANCE PROJECT MANAGER procedure are i n the results section. PROTIME/INR Timed Routine 08/05/2020 7:12 Results fo r this AM SECURITY AND COMPLIANCE PROJECT MANAGER procedure are i n the results section. HEMOGLOBIN Routine 08/05/2020 7:12 Results for this AM SECURITY AND COMPLIANCE PROJECT MANAGER procedure are i n the results section. RENAL FUNCTION PANEL Routine 08/05/2020 7:12 Res ults for this AM SECURITY AND COMPLIANCE PROJECT MANAGER procedure are i n the results section. GLUCOSE BY METER, Routine 08/05/2020 5:11 Result s for this POCT AM SECURITY AND COMPLIANCE PROJECT MANAGER procedure are i n the results section. GLUCOSE BY METER, Routine 08/04/2020 8:36 Result s for this POCT PM SECURITY AND COMPLIANCE PROJECT MANAGER procedure are i n the results section. GLUCOSE BY METER, Routine 08/04/2020 5:00 Result s for this POCT PM SECURITY AND COMPLIANCE PROJECT MANAGER procedure are i n the results section. GLUCOSE BY METER, Routine 08/04/2020 12:45 Result s for this POCT PM SECURITY AND COMPLIANCE PROJECT MANAGER procedure are i n the results section. GLUCOSE BY METER, Routine 08/04/2020 11:19 Result s for this POCT AM SECURITY AND COMPLIANCE PROJECT MANAGER procedure are i n the results section. PROTEIN / CREATININE Routine 08/04/2020 10:49 Res ults for this INDEX, URINE AM SECURITY AND COMPLIANCE PROJECT MANAGER procedure are i n the results section. URINALYSIS Routine 08/04/2020 10:49 Results for this MICROSCOPIC AM SECURITY AND COMPLIANCE PROJECT MANAGER procedure are i n the results section. URINALYSIS DIPSTICK Routine 08/04/2020 10:49 Resu lts for this REFLEX TO MICROSCOPIC AM SECURITY AND COMPLIANCE PROJECT MANAGER proced ure are in the results section. PROTIME/INR Timed Routine 08/04/2020 7:47 Results fo r this AM SECURITY AND COMPLIANCE PROJECT MANAGER procedure are i n the results section. HEMOGLOBIN Routine 08/04/2020 7:47 Results for this AM SECURITY AND COMPLIANCE PROJECT MANAGER procedure are i n the results section. RENAL FUNCTION PANEL Routine 08/04/2020 7:47 Res ults for this AM SECURITY AND COMPLIANCE PROJECT MANAGER procedure are i n the results section. GLUCOSE BY METER, Routine 08/04/2020 5:40 Result s for this POCT AM SECURITY AND COMPLIANCE PROJECT MANAGER procedure are i n the results section. GLUCOSE BY METER, Routine 08/03/2020 8:31 Result s for this POCT PM SECURITY AND COMPLIANCE PROJECT MANAGER procedure are i n the results section. GLUCOSE BY METER, Routine 08/03/2020 4:48 Result s for this POCT PM SECURITY AND COMPLIANCE PROJECT MANAGER procedure are i n the results section. GLUCOSE BY METER, Routine 08/03/2020 11:16 Result s for this POCT AM SECURITY AND COMPLIANCE PROJECT MANAGER procedure are i n the results section. PROTIME/INR Timed Routine 08/03/2020 7:18 Results fo r this AM SECURITY AND COMPLIANCE PROJECT MANAGER procedure are i n the results section. HEMOGLOBIN Routine 08/03/2020 7:18 Results for this AM SECURITY AND COMPLIANCE PROJECT MANAGER procedure are i n the results section. RENAL FUNCTION PANEL Routine 08/03/2020 7:18 Res ults for this AM SECURITY AND COMPLIANCE PROJECT MANAGER procedure are i n the results section. GLUCOSE BY METER, Routine 08/03/2020 5:49 Result s for this POCT AM SECURITY AND COMPLIANCE PROJECT MANAGER procedure are i n the results section. GLUCOSE BY METER, Routine 08/02/2020 9:00 Result s for this POCT PM SECURITY AND COMPLIANCE PROJECT MANAGER procedure are i n the results section. GLUCOSE BY METER, Routine 08/02/2020 8:43 Result s for this POCT PM SECURITY AND COMPLIANCE PROJECT MANAGER procedure are i n the results section. GLUCOSE BY METER, Routine 08/02/2020 4:45 Result s for this POCT PM SECURITY AND COMPLIANCE PROJECT MANAGER procedure are i n the results section. GLUCOSE BY METER, Routine 08/02/2020 11:19 Result s for this POCT AM SECURITY AND COMPLIANCE PROJECT MANAGER procedure are i n the results section. PROTIME/INR Timed Routine 08/02/2020 7:19 Results fo r this AM SECURITY AND COMPLIANCE PROJECT MANAGER procedure are i n the results section. HEMOGLOBIN Routine 08/02/2020 7:19 Results for this AM SECURITY AND COMPLIANCE PROJECT MANAGER procedure are i n the results section. RENAL FUNCTION PANEL Routine 08/02/2020 7:18 Res ults for this AM SECURITY AND COMPLIANCE PROJECT MANAGER procedure are i n the results section. GLUCOSE BY METER, Routine 08/02/2020 5:25 Result s for this POCT AM SECURITY AND COMPLIANCE PROJECT MANAGER procedure are i n the results section. GLUCOSE BY METER, Routine 08/01/2020 8:45 Result s for this POCT PM SECURITY AND COMPLIANCE PROJECT MANAGER procedure are i n the results section. GLUCOSE BY METER, Routine 08/01/2020 5:38 Result s for this POCT PM SECURITY AND COMPLIANCE PROJECT MANAGER procedure are i n the results section. GLUCOSE BY METER, Routine 08/01/2020 11:20 Result s for this POCT AM SECURITY AND COMPLIANCE PROJECT MANAGER procedure are i n the results section. PROTIME/INR Timed Routine 08/01/2020 6:54 Results fo r this AM SECURITY AND COMPLIANCE PROJECT MANAGER procedure are i n the results section. HEMOGLOBIN Routine 08/01/2020 6:54 Results for this AM SECURITY AND COMPLIANCE PROJECT MANAGER procedure are i n the results section. RENAL FUNCTION PANEL Routine 08/01/2020 6:54 Res ults for this AM SECURITY AND COMPLIANCE PROJECT MANAGER procedure are i n the results section. GLUCOSE BY METER, Routine 08/01/2020 6:31 Result s for this POCT AM SECURITY AND COMPLIANCE PROJECT MANAGER procedure are i n the results section. GLUCOSE BY METER, Routine 08/01/2020 5:35 Result s for this POCT AM SECURITY AND COMPLIANCE PROJECT MANAGER procedure are i n the results section. GLUCOSE BY METER, Routine 07/31/2020 9:07 Result s for this POCT PM SECURITY AND COMPLIANCE PROJECT MANAGER procedure are i n the results section. GLUCOSE BY METER, Routine 07/31/2020 5:24 Result s for this POCT PM SECURITY AND COMPLIANCE PROJECT MANAGER procedure are i n the results section. GLUCOSE BY METER, Routine 07/31/2020 11:57 Result s for this POCT AM SECURITY AND COMPLIANCE PROJECT MANAGER procedure are i n the results section. XRAY CHEST PORTABLE Routine 07/31/2020 9:14 Resu lts for this AM SECURITY AND COMPLIANCE PROJECT MANAGER procedure are i n the results section. PROTIME/INR Timed Routine 07/31/2020 7:03 Results fo r this AM SECURITY AND COMPLIANCE PROJECT MANAGER procedure are i n the results section. RENAL FUNCTION PANEL Routine 07/31/2020 7:03 Res ults for this AM SECURITY AND COMPLIANCE PROJECT MANAGER procedure are i n the results section. GLUCOSE BY METER, Routine 07/31/2020 5:03 Result s for this POCT AM SECURITY AND COMPLIANCE PROJECT MANAGER procedure are i n the results section. GLUCOSE BY METER, Routine 07/30/2020 8:56 Result s for this POCT PM SECURITY AND COMPLIANCE PROJECT MANAGER procedure are i n the results section. GLUCOSE BY METER, Routine 07/30/2020 5:26 Result s for this POCT PM SECURITY AND COMPLIANCE PROJECT MANAGER procedure are i n the results section. GLUCOSE BY METER, Routine 07/30/2020 12:16 Result s for this POCT PM SECURITY AND COMPLIANCE PROJECT MANAGER procedure are i n the results section. PROTIME/INR Timed Routine 07/30/2020 6:59 Results fo r this AM SECURITY AND COMPLIANCE PROJECT MANAGER procedure are i n the results section. RENAL FUNCTION PANEL Routine 07/30/2020 6:59 Res ults for this AM SECURITY AND COMPLIANCE PROJECT MANAGER procedure are i n the results section. PROTEIN / CREATININE Routine 07/30/2020 5:21 Res ults for this INDEX, URINE AM SECURITY AND COMPLIANCE PROJECT MANAGER procedure are i n the results section. URINALYSIS DIPSTICK Routine 07/30/2020 5:20 Resu lts for this AND MICROSCOPIC AM SECURITY AND COMPLIANCE PROJECT MANAGER procedure ar e in the results section. GLUCOSE BY METER, Routine 07/30/2020 5:12 Result s for this POCT AM SECURITY AND COMPLIANCE PROJECT MANAGER procedure are i n the results section. GLUCOSE BY METER, Routine 07/29/2020 8:40 Result s for this POCT PM SECURITY AND COMPLIANCE PROJECT MANAGER procedure are i n the results section. GLUCOSE BY METER, Routine 07/29/2020 4:57 Result s for this POCT PM SECURITY AND COMPLIANCE PROJECT MANAGER procedure are i n the results section. GLUCOSE BY METER, Routine 07/29/2020 11:14 Result s for this POCT AM SECURITY AND COMPLIANCE PROJECT MANAGER procedure are i n the results section. PROTIME/INR Timed Routine 07/29/2020 6:51 Results fo r this AM SECURITY AND COMPLIANCE PROJECT MANAGER procedure are i n the results section. GLUCOSE BY METER, Routine 07/29/2020 5:22 Result s for this POCT AM SECURITY AND COMPLIANCE PROJECT MANAGER procedure are i n the results section. HEMOGLOBIN Routine 07/29/2020 4:53 Results for this AM SECURITY AND COMPLIANCE PROJECT MANAGER procedure are i n the results section. HEPATIC FUNCTION Routine 07/29/2020 4:53 Results for this PANEL AM SECURITY AND COMPLIANCE PROJECT MANAGER procedure are i n the results section. RENAL FUNCTION PANEL Routine 07/29/2020 4:53 Res ults for this AM SECURITY AND COMPLIANCE PROJECT MANAGER procedure are i n the results section. GLUCOSE BY METER, Routine 07/28/2020 8:55 Result s for this POCT PM SECURITY AND COMPLIANCE PROJECT MANAGER procedure are i n the results section. GLUCOSE BY METER, Routine 07/28/2020 5:08 Result s for this POCT PM SECURITY AND COMPLIANCE PROJECT MANAGER procedure are i n the results section. GLUCOSE BY METER, Routine 07/28/2020 11:04 Result s for this POCT AM SECURITY AND COMPLIANCE PROJECT MANAGER procedure are i n the results section. PROTIME/INR Timed Routine 07/28/2020 6:52 Results fo r this AM SECURITY AND COMPLIANCE PROJECT MANAGER procedure are i n the results section. BASIC METABOLIC PANEL Routine 07/28/2020 6:52 Re sults for this AM SECURITY AND COMPLIANCE PROJECT MANAGER procedure are i n the results section. GLUCOSE BY METER, Routine 07/28/2020 5:09 Result s for this POCT AM SECURITY AND COMPLIANCE PROJECT MANAGER procedure are i n the results section. GLUCOSE BY METER, Routine 07/27/2020 8:42 Result s for this POCT PM SECURITY AND COMPLIANCE PROJECT MANAGER procedure are i n the results section. GLUCOSE BY METER, Routine 07/27/2020 4:28 Result s for this POCT PM SECURITY AND COMPLIANCE PROJECT MANAGER procedure are i n the results section. GLUCOSE BY METER, Routine 07/27/2020 10:52 Result s for this POCT AM SECURITY AND COMPLIANCE PROJECT MANAGER procedure are i n the results section. PROTIME/INR Timed Routine 07/27/2020 7:12 Results fo r this AM SECURITY AND COMPLIANCE PROJECT MANAGER procedure are i n the results section. MAGNESIUM Routine 07/27/2020 7:12 Results for this AM SECURITY AND COMPLIANCE PROJECT MANAGER procedure are i n the results section. RENAL FUNCTION PANEL Routine 07/27/2020 7:12 Res ults for this AM SECURITY AND COMPLIANCE PROJECT MANAGER procedure are i n the results section. GLUCOSE BY METER, Routine 07/27/2020 5:46 Result s for this POCT AM SECURITY AND COMPLIANCE PROJECT MANAGER procedure are i n the results section. GLUCOSE BY METER, Routine 07/26/2020 8:45 Result s for this POCT PM SECURITY AND COMPLIANCE PROJECT MANAGER procedure are i n the results section. GLUCOSE BY METER, Routine 07/26/2020 4:25 Result s for this POCT PM SECURITY AND COMPLIANCE PROJECT MANAGER procedure are i n the results section. PACEMAKER IN PERSON Routine 07/26/2020 1:26 Resu lts for this PROGRAMMING PM SECURITY AND COMPLIANCE PROJECT MANAGER procedure are i n the results section. GLUCOSE BY METER, Routine 07/26/2020 1:16 Result s for this POCT PM SECURITY AND COMPLIANCE PROJECT MANAGER procedure are i n the results section. ECHO ADULT LIMITED BALDO 07/26/2020 11:09 Resul ts for this AM SECURITY AND COMPLIANCE PROJECT MANAGER procedure are i n the results section. EKG BALDO 07/26/2020 11:00 Results for this AM SECURITY AND COMPLIANCE PROJECT MANAGER procedure are i n the results section. GLUCOSE BY METER, Routine 07/26/2020 5:48 Result s for this POCT AM SECURITY AND COMPLIANCE PROJECT MANAGER procedure are i n the results section. PROTIME/INR Routine 07/26/2020 5:42 Results for this AM SECURITY AND COMPLIANCE PROJECT MANAGER procedure are i n the results section. COMPLETE BLOOD COUNT Routine 07/26/2020 5:42 Res ults for this WITHOUT DIFFERENTIAL AM SECURITY AND COMPLIANCE PROJECT MANAGER procedu re are in the results section. RENAL FUNCTION PANEL Routine 07/26/2020 5:42 Res ults for this AM SECURITY AND COMPLIANCE PROJECT MANAGER procedure are i n the results section. TROPONIN I Timed Routine 07/26/2020 2:27 Results fo r this AM SECURITY AND COMPLIANCE PROJECT MANAGER procedure are i n the results section. PROCALCITONIN Routine 07/25/2020 11:54 Results fo r this PM SECURITY AND COMPLIANCE PROJECT MANAGER procedure are i n the results section. C-REACTIVE PROTEIN Routine 07/25/2020 11:54 Resul ts for this (INFLAMMATION) PM SECURITY AND COMPLIANCE PROJECT MANAGER procedure are in the results section. TROPONIN I Timed Routine 07/25/2020 11:54 Results fo r this PM SECURITY AND COMPLIANCE PROJECT MANAGER procedure are i n the results section. GLUCOSE BY METER, Routine 07/25/2020 9:26 Result s for this POCT PM SECURITY AND COMPLIANCE PROJECT MANAGER procedure are i n the results section. XRAY CHEST PORTABLE Routine 07/25/2020 9:08 Resu lts for this PM SECURITY AND COMPLIANCE PROJECT MANAGER procedure are i n the results section. EKG Routine 07/25/2020 8:36 Results for this PM SECURITY AND COMPLIANCE PROJECT MANAGER procedure are i n the results section. PROTIME/INR Routine 07/25/2020 8:27 Results for this PM SECURITY AND COMPLIANCE PROJECT MANAGER procedure are i n the results section. COMPLETE BLOOD COUNT Routine 07/25/2020 8:27 Res ults for this WITHOUT DIFFERENTIAL PM SECURITY AND COMPLIANCE PROJECT MANAGER procedu re are in the results section. TROPONIN I Routine 07/25/2020 8:27 Results for this PM SECURITY AND COMPLIANCE PROJECT MANAGER procedure are i n the results section. MAGNESIUM Routine 07/25/2020 8:27 Results for this PM SECURITY AND COMPLIANCE PROJECT MANAGER procedure are i n the results section. BASIC METABOLIC PANEL Routine 07/25/2020 8:27 Re sults for this PM SECURITY AND COMPLIANCE PROJECT MANAGER procedure are i n the results section. BRAIN NATRIURETIC STAT 07/25/2020 8:27 Result s for this PEPTIDE PM SECURITY AND COMPLIANCE PROJECT MANAGER procedure are i n the results section. documented in this encounter Results RENAL FUNCTION PANEL (08/06/2020 7:05 AM SECURITY AND COMPLIANCE PROJECT MANAGER) Pathologist Sig [facility] Glucose 145 (H) 70 - 100 mg/dL [address] BUN 123 (H) 6 - 22 mg/dL [address] Creatinine 1.78 (H) 0.80 - 1.[address] mg/dL BUN/Creatinine Ratio 69.1 (H) 10.0 - 25.[address] Sodium 138 135 - 145 meq/L [address] Potassium 3.5 3.5 - 5.3 meq/L [address] Chloride 99 99 - 110 meq/L [address] CO2 25 20 - 29 meq/L [address] Anion Gap with K 18 6 - 20 meq/L [address] Calcium 9.8 8.5 - 10.[address] mg/dL Phosphorus 3.3 2.5 - 4.5 mg/dL [address] Albumin 3.2 (L) 3.5 - 5.0 g/dL [address] Corrected Calcium 10.4 8.5 - 10.[address] mg/dL Age [address] eGFR Non- 38 (L) >=[address] [place] mL/min/1.73m2 eGFR 46 (L) >=[address] mL/min/1.73m2 Specimen Blood - Blood specimen (specimen) Performing Organization Address City/State/Zipcode Phone Number [address] [place] [address] PROTIME/INR (08/06/2020 7:05 AM SECURITY AND COMPLIANCE PROJECT MANAGER) Pathologist Sig nature Protime 17.4 (H) 12.0 - 14.[address] INR 1.5 (L) 2.0 - 3.[address] Specimen Blood - Blood specimen (specimen) Narrative Performed At Normal INR reference range (patients not on oral antic oagulants) [address] 0.9-1.1. INR Standard Intensity = (2.0 - 3.0) INR Higher Intensity = (2.5 - 3.5) Performing Organization Address [facility] Phone Number [address] [place] [address] GLUCOSE BY METER, POCT (08/06/2020 5:23 AM SECURITY AND COMPLIANCE PROJECT MANAGER) Pathologist Sig nature Glucose POC 127 (H) 70 - 99 mg/dL [facility] POINT OF CARE TESTING Specimen Blood - Blood specimen (specimen) Performing Organization Address [facility] Phone Number [facility] POINT OF [address] [place] [address] CARE TESTING GLUCOSE BY METER, POCT (08/05/2020 8:57 PM SECURITY AND COMPLIANCE PROJECT MANAGER) Pathologist Sig nature Glucose POC 140 (H) 70 - 99 mg/dL [facility] POINT OF CARE TESTING Specimen Blood - Blood specimen (specimen) Performing Organization Address [facility] Phone Number [facility] POINT OF [address] [place] [address] CARE TESTING GLUCOSE BY METER, POCT (08/05/2020 5:07 PM SECURITY AND COMPLIANCE PROJECT MANAGER) Pathologist Sig nature Glucose POC 211 (H) 70 - 99 mg/dL [facility] POINT OF CARE TESTING Specimen Blood - Blood specimen (specimen) Performing Organization Address [facility] Phone Number [facility] POINT OF [address] [place] [address] CARE TESTING SARS-COV-2, INFLUENZA A+B, AND/OR RSV NUCLEIC ACID TESTING PANEL (08/05/2020 3:50 PM SECURITY AND COMPLIANCE PROJECT MANAGER) Pathologist Sig nature SARS-CoV-2 Not Detected Not Detected [address] Specimen Respiratory - Entire nasopharynx (body s tructure) Narrative Performed At Please read entire report. Results for Influenza A and B or RSV [address] may also be available depending on which viruses your provider selected for testing. Your Covid-19 test is negative: 1)Avoiding close contact is s till recommended. 2)Cover your coughs and snee zes. 3)Wash your hands often with soap and wate r for at least 20 seconds or use an alcohol-based shear operator automatic con taining over 60% alcohol. Avoid touching your fa ce. 4)Avoid sharing personal household items, including dishes, cups, utensils, towels, clothing, or bedding. These items should be cleaned thoroughly with soap and water after use. Clean all "high touch" surfaces in your home d aily. 5) Monitor your symptoms. Contact your provider if you are feeling worse. If you have shortness of breath or diff iculty breathing, call 911. This assay is for in vitro diagnostic use under FDA Em ergency Use Authorization only. Optimal performance of this test requires appropriate specimen collection, storage, and transport to city hospital test site. Detection of SARS-CoV-2 RNA may be affected by sample collection methods, patient factors (eg, presence of symptoms), a nd/or stage of infection. False-negative results may arise from degradation of v iral RNA during shipping/storage. Results should be interpreted by a trained professiona l in conjunction with the patient s history and clinical signs and symptoms, and epidemi ological risk factors. Negative (Not Detected) results do not preclude infect ion with the SARS-CoV-2 virus and should not be the sole basis of patient treatment/management or public health decision. Follow up testing should be performed according to the current CDC recom mendations. This test was performed by polymerase chain reaction ( PCR) on the GeneXpert instrument. Performing Organization Address [facility] Phone Number [facility] [address] [place] [address] GLUCOSE BY METER, POCT (08/05/2020 10:34 AM SECURITY AND COMPLIANCE PROJECT MANAGER) Pathologist [facility] Glucose POC 121 (H) 70 - 99 mg/dL [facility] O POINT OF CARE TESTING Specimen Blood - Blood specimen (specimen) Performing Organization Address [facility] Phone Number [facility] POINT OF [address] [place] [address] CARE TESTING HEMOGLOBIN (08/05/2020 7:12 AM SECURITY AND COMPLIANCE PROJECT MANAGER) [facility] Hemoglobin 9.2 (L) 13.5 - 17.5 g/dL [address] Specimen Blood - Blood specimen (specimen) Performing Organization Address [facility] Phone Number [address] [place] [address] RENAL FUNCTION PANEL (08/05/2020 7:12 AM SECURITY AND COMPLIANCE PROJECT MANAGER) Pathologist Sig nature Glucose 118 (H) 70 - 100 mg/dL [address] BUN 116 (H) 6 - 22 mg/dL [address] Creatinine 2.05 (H) 0.80 - 1.[address] mg/dL BUN/Creatinine Ratio 56.6 (H) 10.0 - 25.[address] Sodium 136 135 - 145 meq/L [address] Potassium 3.8 3.5 - 5.3 meq/L [address] Chloride 105 99 - 110 meq/L [address] CO2 21 20 - 29 meq/L [address] Anion Gap with K 14 6 - 20 meq/L [address] Calcium 9.5 8.5 - 10.[address] mg/dL Phosphorus 4.2 2.5 - 4.5 mg/dL [address] Albumin 3.0 (L) 3.5 - 5.0 g/dL [address] Corrected Calcium 10.3 8.5 - 10.[address] mg/dL Age [address] eGFR Non- 32 (L) >=[address] [place] mL/min/1.73m2 eGFR 39 (L) >=[address] mL/min/1.73m2 Specimen Blood - Blood specimen (specimen) Performing Organization Address [facility] Phone Number [address] [place] [address], [place] [address] PROTIME/INR (08/05/2020 7:12 AM SECURITY AND COMPLIANCE PROJECT MANAGER) Pathologist Sig nature Protime 16.4 (H) 12.0 - 14.[address] INR 1.4 (L) 2.0 - 3.[address] Specimen Blood - Blood specimen (specimen) Narrative Performed At Normal INR reference range (patients not on oral antic oagulants) [address] 0.9-1.1. INR Standard Intensity = (2.0 - 3.0) INR Higher Intensity = (2.5 - 3.5) Performing Organization Address [facility] Number [address] [place] [address] GLUCOSE BY METER, POCT (08/05/2020 5:11 AM SECURITY AND COMPLIANCE PROJECT MANAGER) Pathologist Sig nature Glucose POC 108 (H) 70 - 99 mg/dL [facility] POINT OF CARE TESTING Specimen Blood - Blood specimen (specimen) Performing Organization Address [facility] Phone Number [facility] POINT OF [address] [place] [address] CARE TESTING GLUCOSE BY METER, POCT (08/04/2020 8:36 PM SECURITY AND COMPLIANCE PROJECT MANAGER) Pathologist Sig nature Glucose POC 236 (H) 70 - 99 mg/dL [facility] POINT OF CARE TESTING Specimen Blood - Blood specimen (specimen) Performing Organization Address [facility] Phone Number [facility] PO[facility] OF [address] [place] [address]181 CARE TESTING GLUCOSE BY METER, POCT (08/04/2020 5:00 PM SECURITY AND COMPLIANCE PROJECT MANAGER) Pathologist Sig nature Glucose POC 126 (H) 70 - 99 mg/dL [facility] POINT OF CARE TESTING Specimen Blood - Blood specimen (specimen) Performing Organization Address [facility] Phone Number [facility] PO[facility] OF [address] [place] [address]107 CARE TESTING GLUCOSE BY METER, POCT (08/04/2020 12:45 PM SECURITY AND COMPLIANCE PROJECT MANAGER) Pathologist Sig nature Glucose POC 212 (H) 70 - 99 mg/dL [facility] POINT OF CARE TESTING Specimen Blood - Blood specimen (specimen) Performing Organization Address [facility] Phone Number [facility] POINT OF [address] [place] [address]348 CARE TESTING GLUCOSE BY METER, POCT (08/04/2020 11:19 AM SECURITY AND COMPLIANCE PROJECT MANAGER) Pathologist Sig nature Glucose POC 204 (H) 70 - 99 mg/dL [facility] POINT OF CARE TESTING Specimen Blood - Blood specimen (specimen) Performing Organization Address [facility] Phone Number [facility] POINT OF [address] [place] [address]70 CARE TESTING URINALYSIS MICROSCOPIC (08/04/2020 10:49 AM SECURITY AND COMPLIANCE PROJECT MANAGER) WBC Urine 0-5 /hpf Negative, 0-5 [facility] RBC Urine 6-10 /hpf (A) Negative, 0-2 [facility] Squamous Occ (0-10) /lpf Negative, Occ [facility]- Epithelial Cells (0-10) /lpf, Few CLINIC (11-20) /lpf Bacteria Negative Negative [address] Hyaline Cast 0-2 /lpf 0-2 /lpf [address] Specimen Urine - Urine specimen obtained by clean catch procedure (specimen) Performing Organization Address [facility] Phone Number [address] [place] [address] PROTEIN/CREATININE INDEX, URINE (08/04/2020 10:49 AM SECURITY AND COMPLIANCE PROJECT MANAGER) Pathologist Sig nature Protein Total Urine 29.4 mg/dL [address] Creatinine Urine 50.2 20.0 - 250.[address] mg/dL Protein/Creatinine 586 (H) 1 - 150 mg/g [address] Ratio Specimen Urine - Urine specimen (specimen) Performing Organization Address [facility] Phone Number [address] [place] [address] URINALYSIS DIPSTICK REFLEX TO MICROSCOPIC (08/04/2020 10:49 AM SECURITY AND COMPLIANCE PROJECT MANAGER) Color Urine Straw [place], Dark [place] [address] Yellow, Straw, CLINIC Yellow, Colorless Clarity Urine Clear Clear [address] Glucose Urine Negative Negative [address] Bilirubin Urine Negative Negative [address] Ketones Urine Negative Negative, 5 [facility] mg/dL, 10 mg/dL CLINIC Specific [place] 1.014 1.002 - 1.[address] Blood Urine Small (1+) (A) Negative [address] PH Urine 5.0 5.0, 5.5, 6.0, [place] [address] 6.5, 7.0, 7.5, CLINIC 8.0 Protein Urine Trace (10-20) Negative [place] [address] mg/dL (A) CLINIC Urobilinogen < 2 mg/dL < 2 mg/dL [address] Nitrite Negative Negative [address] Leukocyte Esterase Negative Negative [place] [address] Urine CLINIC Specimen Urine - Urine specimen obtained by clean catch procedure (specimen) Performing Organization Address [facility] Phone Number [address] [place] [address], [place] [address] HEMOGLOBIN (08/04/2020 7:47 AM SECURITY AND COMPLIANCE PROJECT MANAGER) Pathologist Sig [facility] Hemoglobin 9.7 (L) 13.5 - 17.5 g/dL [address] Specimen Blood - Blood specimen (specimen) Performing Organization Address [facility] Phone Number [address] [place] [address] RENAL FUNCTION PANEL (08/04/2020 7:47 AM SECURITY AND COMPLIANCE PROJECT MANAGER) Pathologist [facility] Glucose 134 (H) 70 - 100 mg/dL [address] BUN 134 (H) 6 - 22 mg/dL [address] Creatinine 2.38 (H) 0.80 - 1.[address] mg/dL BUN/Creatinine Ratio 56.3 (H) 10.0 - 25.[address] Sodium 137 135 - 145 meq/L [address] Potassium 4.2 3.5 - 5.3 meq/L [address] Chloride 101 99 - 110 meq/L [address] CO2 22 20 - 29 meq/L [address] Anion Gap with K 18 6 - 20 meq/L [address] Calcium 9.7 8.5 - 10.5 [place] [address] CLINIC mg/dL Phosphorus 4.9 (H) 2.5 - 4.5 mg/dL [address] Albumin 3.2 (L) 3.5 - 5.0 g/dL [address] Corrected Calcium 10.3 8.5 - 10.5 [place] [address] CLINIC mg/dL Age [address] eGFR Non- 27 (L) >=[address] [place] mL/min/1.73m2 eGFR 33 (L) >=[address] mL/min/1.73m2 Specimen Blood - Blood specimen (specimen) Performing Organization Address [facility] Phone Number [address] [address] PROTIME/INR (08/04/2020 7:47 AM SECURITY AND COMPLIANCE PROJECT MANAGER) Pathologist Sig nature Protime 17.2 (H) 12.0 - 14.[address] INR 1.5 (L) 2.0 - 3.[address] Specimen Blood - Blood specimen (specimen) Narrative Performed At Normal INR reference range (patients not on oral antic oagulants) [address] 0.9-1.1. INR Standard Intensity = (2.0 - 3.0) INR Higher Intensity = (2.5 - 3.5) Performing Organization Address [facility] Number [address] [address] GLUCOSE BY METER, POCT (08/04/2020 5:40 AM SECURITY AND COMPLIANCE PROJECT MANAGER) Pathologist Sig nature Glucose POC 119 (H) 70 - 99 mg/dL [facility] POINT OF CARE TESTING Specimen Blood - Blood specimen (specimen) Performing Organization Address [facility] Phone Number [facility] POINT OF [address] [place] [address] CARE TESTING GLUCOSE BY METER, POCT (08/03/2020 8:31 PM SECURITY AND COMPLIANCE PROJECT MANAGER) Pathologist Sig nature Glucose POC 170 (H) 70 - 99 mg/dL [facility] POINT OF CARE TESTING Specimen Blood - Blood specimen (specimen) Performing Organization Address [facility] Phone Number [facility] POINT OF [address] [place] [address] CARE TESTING GLUCOSE BY METER, POCT (08/03/2020 4:48 PM SECURITY AND COMPLIANCE PROJECT MANAGER) Pathologist Sig nature Glucose POC 175 (H) 70 - 99 mg/dL [facility] POINT OF CARE TESTING Specimen Blood - Blood specimen (specimen) Performing Organization Address [facility] Phone Number [facility] [address] [address] CARE TESTING GLUCOSE BY METER, POCT (08/03/2020 11:16 AM SECURITY AND COMPLIANCE PROJECT MANAGER) Pathologist Sig [facility] Glucose POC 128 (H) 70 - 99 mg/dL [facility] O POINT OF CARE TESTING Specimen Blood - Blood specimen (specimen) Performing Organization Address [facility] Phone Number [facility] OF [address] [address] CARE TESTING HEMOGLOBIN (08/03/2020 7:18 AM SECURITY AND COMPLIANCE PROJECT MANAGER) Pathologist Sig [facility] Hemoglobin 9.9 (L) 13.5 - 17.5 g/dL [address] Specimen Blood - Blood specimen (specimen) Performing Organization Address [facility] Phone Number [address] [place] [address], [place] [address] RENAL FUNCTION PANEL (08/03/2020 7:18 AM SECURITY AND COMPLIANCE PROJECT MANAGER) Pathologist Sig [facility] Glucose 86 70 - 100 mg/dL [address] BUN 141 (H) 6 - 22 mg/dL [address] Creatinine 2.94 (H) 0.80 - 1.[address] mg/dL BUN/Creatinine Ratio 48.0 (H) 10.0 - 25.[address] Sodium 136 135 - 145 meq/L [address] Potassium 4.2 3.5 - 5.3 meq/L [address] Chloride 100 99 - 110 meq/L [address] CO2 19 (L) 20 - 29 meq/L [address] Anion Gap with K 21 (H) 6 - 20 meq/L [address] Calcium 9.5 8.5 - 10.[address] mg/dL Phosphorus 6.8 (H) 2.5 - 4.5 mg/dL [address] Albumin 3.2 (L) 3.5 - 5.0 g/dL [address] Corrected Calcium 10.1 8.5 - 10.[address] mg/dL Age [address] eGFR Non- 21 (L) >=[address] [place] mL/min/1.73m2 eGFR 26 (L) >=[address] mL/min/1.73m2 Specimen Blood - Blood specimen (specimen) Performing Organization Address [facility] Phone Number [address] [place] [phone] PROTIME/INR (08/03/2020 7:18 AM SECURITY AND COMPLIANCE PROJECT MANAGER) Pathologist Sig nature Protime 20.5 (H) 12.0 - 14.[address] INR 1.8 (L) 2.0 - 3.[address] Specimen Blood - Blood specimen (specimen) Narrative Performed At Normal INR reference range (patients not on oral antic oagulants) [address] 0.9-1.1. INR Standard Intensity = (2.0 - 3.0) INR Higher Intensity = (2.5 - 3.5) Performing Organization Address [facility] Number [address] [address] GLUCOSE BY METER, POCT (08/03/2020 5:49 AM SECURITY AND COMPLIANCE PROJECT MANAGER) Pathologist Sig nature Glucose POC 79 70 - 99 mg/dL [facility] POINT OF CARE TESTING Specimen Blood - Blood specimen (specimen) Performing Organization Address [facility] Phone Number [facility] POINT OF [address] [place] [address] CARE TESTING GLUCOSE BY METER, POCT (08/02/2020 9:00 PM SECURITY AND COMPLIANCE PROJECT MANAGER) Pathologist Sig nature Glucose POC 119 (H) 70 - 99 mg/dL [facility] POINT OF CARE TESTING Specimen Blood - Blood specimen (specimen) Performing Organization Address [facility] Phone Number [facility] POINT OF [address] [place] [address] CARE TESTING GLUCOSE BY METER, POCT (08/02/2020 8:43 PM SECURITY AND COMPLIANCE PROJECT MANAGER) Pathologist Sig nature Glucose POC 113 (H) 70 - 99 mg/dL [facility] POINT OF CARE TESTING Specimen Blood - Blood specimen (specimen) Performing Organization Address [facility]/Zipcode Phone Number [facility] POINT OF [address] [place] [address], [place] [address] CARE TESTING GLUCOSE BY METER, POCT (08/02/2020 4:45 PM SECURITY AND COMPLIANCE PROJECT MANAGER) Pathologist Sig nature Glucose POC 122 (H) 70 - 99 mg/dL [facility] O POINT OF CARE TESTING Specimen Blood - Blood specimen (specimen) Performing Organization Address [facility] Phone Number [facility] POINT OF [address] [place] [address], [place] [address] CARE TESTING GLUCOSE BY METER, POCT (08/02/2020 11:19 AM SECURITY AND COMPLIANCE PROJECT MANAGER) Pathologist Sig nature Glucose POC 120 (H) 70 - 99 mg/dL [facility] POINT OF CARE TESTING Specimen Blood - Blood specimen (specimen) Performing Organization Address [facility] Phone Number [facility] POINT OF [address] [place] [address], [place] [address] CARE TESTING HEMOGLOBIN (08/02/2020 7:19 AM SECURITY AND COMPLIANCE PROJECT MANAGER) Pathologist Sig nature Hemoglobin 9.7 (L) 13.5 - 17.5 g/dL [address] Specimen Blood - Blood specimen (specimen) Performing Organization Address [facility] Phone Number [place] [address] [place] [address] PROTIME/INR (08/02/2020 7:19 AM SECURITY AND COMPLIANCE PROJECT MANAGER) Pathologist Sig nature Protime 26.7 (H) 12.0 - 14.5 secs [place] [address] [facility] INR 2.6 2.0 - 3.[address] Specimen Blood - Blood specimen (specimen) Narrative Performed At Normal INR reference range (patients not on oral antic oagulants) [address] 0.9-1.1. INR Standard Intensity = (2.0 - 3.0) INR Higher Intensity = (2.5 - 3.5) Performing Organization Address [facility] Phone Number [address] [address] RENAL FUNCTION PANEL (08/02/2020 7:18 AM SECURITY AND COMPLIANCE PROJECT MANAGER) Pathologist Sig nature Glucose 106 (H) 70 - 100 mg/dL [address] BUN 140 (H) 6 - 22 mg/dL [address] Creatinine 3.53 (H) 0.80 - 1.[address] mg/dL BUN/Creatinine Ratio 39.7 (H) 10.0 - 25.[address] Sodium 135 135 - 145 meq/L [address] Potassium 4.6 3.5 - 5.3 meq/L [address] Chloride 98 (L) 99 - 110 meq/L [address] CO2 19 (L) 20 - 29 meq/L [address] Anion Gap with K 23 (H) 6 - 20 meq/L [address] Calcium 9.4 8.5 - 10.[address] mg/dL Phosphorus 7.6 (H) 2.5 - 4.5 mg/dL [address] Albumin 3.2 (L) 3.5 - 5.0 g/dL [address] Corrected Calcium 10.0 8.5 - 10.[address] mg/dL Age [address] eGFR Non- 17 (L) >=[address] [place]une[place] mL/min/1.73m2 eGFR 21 (L) >=[address] mL/min/1.73m2 Specimen Blood - Blood specimen (specimen) Performing Organization Address [facility] Phone Number [address] [place] [address], [place] [address] GLUCOSE BY METER, POCT (08/02/2020 5:25 AM SECURITY AND COMPLIANCE PROJECT MANAGER) Pathologist Sig nature Glucose POC 98 70 - 99 mg/dL [facility] POINT OF CARE TESTING Specimen Blood - Blood specimen (specimen) Performing Organization Address [facility] Phone Number [facility] POINT OF [address] [place] [address] CARE TESTING GLUCOSE BY METER, POCT (08/01/2020 8:45 PM SECURITY AND COMPLIANCE PROJECT MANAGER) Pathologist Sig nature Glucose POC 115 (H) 70 - 99 mg/dL [facility] POINT OF CARE TESTING Specimen Blood - Blood specimen (specimen) Performing Organization Address [facility]/Zipcode Phone Number [facility] POINT OF [address] [place] [address] CARE TESTING GLUCOSE BY METER, POCT (08/01/2020 5:38 PM SECURITY AND COMPLIANCE PROJECT MANAGER) Pathologist Sig nature Glucose POC 166 (H) 70 - 99 mg/dL [facility] O POINT OF CARE TESTING Specimen Blood - Blood specimen (specimen) Performing Organization Address [facility] Phone Number [facility] POINT OF [address] [place] [address] CARE TESTING GLUCOSE BY METER, POCT (08/01/2020 11:20 AM SECURITY AND COMPLIANCE PROJECT MANAGER) Pathologist Sig nature Glucose POC 90 70 - 99 mg/dL [facility] POINT OF CARE TESTING Specimen Blood - Blood specimen (specimen) Performing Organization Address [facility] Phone Number [facility] POINT OF [address] [place] [address] CARE TESTING HEMOGLOBIN (08/01/2020 6:54 AM SECURITY AND COMPLIANCE PROJECT MANAGER) Pathologist Sig nature Hemoglobin 9.5 (L) 13.5 - 17.5 g/dL [place] [address] [facility] Specimen Blood - Blood specimen (specimen) Performing Organization Address [facility] Phone Number [address] [address] RENAL FUNCTION PANEL (08/01/2020 6:54 AM SECURITY AND COMPLIANCE PROJECT MANAGER) Pathologist Sig nature Glucose 100 70 - 100 mg/dL [address] BUN 114 (H) 6 - 22 mg/dL [place] [address] [facility] Creatinine 3.56 (H) 0.80 - 1.30 [place] [address] [facility] mg/dL BUN/Creatinine Ratio 32.0 (H) 10.0 - 25.0 [place] [address] [facility] Sodium 134 (L) 135 - 145 meq/L [place] [address] [facility] Potassium 4.2 3.5 - 5.3 meq/L [place] [address] [facility] Chloride 100 99 - 110 meq/L [place] [address] [facility] CO2 20 20 - 29 meq/L [address] Anion Gap with K 18 6 - 20 meq/L [place] [address] [facility] Calcium 9.2 8.5 - 10.5 [facility] mg/dL Phosphorus 7.1 (H) 2.5 - 4.5 mg/dL [address] Albumin 3.1 (L) 3.5 - 5.0 g/dL [address] Corrected Calcium 9.9 8.5 - 10.[address] mg/dL Age [address] eGFR Non- 17 (L) >=[address] [place]une[place] mL/min/1.73m2 eGFR 21 (L) >=[address] mL/min/1.73m2 Specimen Blood - Blood specimen (specimen) Performing Organization Address [facility] Phone Number [address] [place] [address] PROTIME/INR (08/01/2020 6:54 AM SECURITY AND COMPLIANCE PROJECT MANAGER) Pathologist Sig nature Protime 28.9 (H) 12.0 - 14.[address] INR 2.8 2.0 - 3.[address] Specimen Blood - Blood specimen (specimen) Narrative Performed At Normal INR reference range (patients not on oral antic oagulants) [address] 0.9-1.1. INR Standard Intensity = (2.0 - 3.0) INR Higher Intensity = (2.5 - 3.5) Performing Organization Address [facility] Phone Number [address] [place] [address] GLUCOSE BY METER, POCT (08/01/2020 6:31 AM SECURITY AND COMPLIANCE PROJECT MANAGER) Pathologist Sig nature Glucose POC 84 70 - 99 mg/dL [facility] O POINT OF CARE TESTING Specimen Blood - Blood specimen (specimen) Performing Organization Address [facility] Phone Number [facility] POINT OF [address], [place] [address] CARE TESTING GLUCOSE BY METER, POCT (08/01/2020 5:35 AM SECURITY AND COMPLIANCE PROJECT MANAGER) Pathologist Sig nature Glucose POC 64 (L) 70 - 99 mg/dL [facility] O POINT OF CARE TESTING Specimen Blood - Blood specimen (specimen) Performing Organization Address [facility] Phone Number [facility] POINT OF [address] [place] [address], [place] [address] CARE TESTING GLUCOSE BY METER, POCT (07/31/2020 9:07 PM SECURITY AND COMPLIANCE PROJECT MANAGER) Pathologist Sig nature Glucose POC 117 (H) 70 - 99 mg/dL [facility] O POINT OF CARE TESTING Specimen Blood - Blood specimen (specimen) Performing Organization Address [facility] Phone Number [facility] POINT OF [address] [place] [address] CARE TESTING GLUCOSE BY METER, POCT (07/31/2020 5:24 PM SECURITY AND COMPLIANCE PROJECT MANAGER) Pathologist Sig nature Glucose POC 118 (H) 70 - 99 mg/dL [facility] O POINT OF CARE TESTING Specimen Blood - Blood specimen (specimen) Performing Organization Address [facility] Phone Number [facility] POINT OF [address] [place] [address] CARE TESTING GLUCOSE BY METER, POCT (07/31/2020 11:57 AM SECURITY AND COMPLIANCE PROJECT MANAGER) Pathologist Sig nature Glucose POC 176 (H) 70 - 99 mg/dL [facility] O POINT OF CARE TESTING Specimen Blood - Blood specimen (specimen) Performing Organization Address [facility] Phone Number [facility] POINT OF [address] [place] [address] CARE TESTING XRAY CHEST PORTABLE - (07/31/2020 9:14 AM SECURITY AND COMPLIANCE PROJECT MANAGER)Only the most recent of2 results within the time period is included. Specimen Narrative Performed At [facility] Patient Name: HILARY RUIZ Date of : 1945 Procedure: XRAY CHEST PORTABLE Date of Service: 07/31/2020 EXAM: XRAY CHEST PORTABLE INDICATION: Male, 75 years patient, chf COMPARISON(S): Chest x-ray 07/25/2020 TECHNIQUE: AP portable view FINDINGS: Support Devices: There is a multichamber left-sided ca rdiac pacer with intact electrode leads in stable and satisfactory posi tions. Sternal cerclage wires are present. Lungs/pleura: The lungs are underexpanded. Persisten t left base subsegmental consolidation. There is no pneumothorax o n either side. There is minimal pleural effusion on the left side. Co ntralateral costophrenic angle is sharp. Heart/mediastinum/vasculature: There is moderate cardi omegaly. Normal mediastinum and liza. There is prominence of the pulmo nary hilar veins and peripheral pulmonary veins, consistent with conges tive heart failure (CHF). Normal visualized aortic arch a nd descending thoracic aorta. Osseous: Normal visualized thoracic spine. Normal vi sualized ribs, clavicles, and shoulders. IMPRESSION: 1. Moderate cardiomegaly with small left pleural effus ion, left base subsegmental consolidation. Finalized by: Tiesha Lara MD on 10:56 AM SECURITY AND COMPLIANCE PROJECT MANAGER Patient/Procedure Information: [facility] MRN/MATHEW: [id number] Order Number: [id number] Accession Number: [id number] Ordering Provider: AGNES DAILEY Authorizing Provider: AGNES DAILEY Procedure Note Interface, Radiantres - 07/31/2020 11:11 AM SECURITY AND COMPLIANCE PROJECT MANAGER Patient Name: HILARY RUIZ Date of : 1945 Procedure: XRAY CHEST PORTABLE Date of Service: 07/31/2020 EXAM: XRAY CHEST PORTABLE INDICATION: Male, 75 years patient, ch f COMPARISON(S): Chest x-ray 07/25/2020 TECHNIQUE: AP portable view FINDINGS: Support Devices: There is a multichamber left-sided cardiac pacer with intact electrode leads in stable and satisfactory positions. Sternal cerclage wires are present. Lungs/pleura: The lungs are underexpande d. Persistent left base subsegmental consolidation. There is no pneumothorax on either side. There is minimal pleural effusion on the left side. Contralateral costophrenic angle is sharp. Heart/mediastinum/vasculature: There is moderate cardiomegaly. Normal mediastinum and liza. There is prominence of the pulmonary hilar veins and peripheral pulmonary veins, consistent with congestive heart failure (CHF). Normal visualized aortic arch an d descending thoracic aorta. Osseous: Normal visualized thoracic spin e. Normal visualized ribs, clavicles, and shoulders. IMPRESSION: 1. Moderate cardiomegaly with small left pleural effusion, left base subsegmental consolidation. Finalized by: Tiesha Lara MD on 10:56 AM SECURITY AND COMPLIANCE PROJECT MANAGER Patient/Procedure Information: [facility] MRN/MATHEW: [id number] Order Number: [id number] Accession Number: [id number] Ordering Provider: AGNES DAILEY Authorizing Provider: AGNES DAILEY Performing Organization Address [facility] Phone Number [id number] RENAL FUNCTION PANEL (07/31/2020 7:03 AM SECURITY AND COMPLIANCE PROJECT MANAGER) Pathologist [facility] nature Glucose 136 (H) 70 - 100 mg/dL [address] BUN 115 (H) 6 - 22 mg/dL [address] Creatinine 3.39 (H) 0.80 - 1.[address] mg/dL BUN/Creatinine Ratio 33.9 (H) 10.0 - 25.[address] Sodium 133 (L) 135 - 145 meq/L [address] Potassium 4.3 3.5 - 5.3 meq/L [address] Chloride 99 99 - 110 meq/L [address] CO2 17 (L) 20 - 29 meq/L [address] Anion Gap with K 21 (H) 6 - 20 meq/L [address] Calcium 9.0 8.5 - 10.[address] mg/dL Phosphorus 6.9 (H) 2.5 - 4.5 mg/dL [address] Albumin 3.1 (L) 3.5 - 5.0 g/dL [address] Corrected Calcium 9.7 8.5 - 10.[address] mg/dL Age [address] eGFR Non- 18 (L) >=[address] [place] mL/min/1.73m2 eGFR 22 (L) >=[address] mL/min/1.73m2 Specimen Blood - Blood specimen (specimen) Performing Organization Address [facility]/Zipcode Phone Number [address] [facility] [place] [address] PROTIME/INR (07/31/2020 7:03 AM SECURITY AND COMPLIANCE PROJECT MANAGER) Pathologist Sig nature Protime 28.7 (H) 12.0 - 14.5 secs [place] [address] [facility] INR 2.8 2.0 - 3.[address] Specimen Blood - Blood specimen (specimen) Narrative Performed At Normal INR reference range (patients not on oral antic oagulants) [address] 0.9-1.1. INR Standard Intensity = (2.0 - 3.0) INR Higher Intensity = (2.5 - 3.5) Performing Organization Address [facility] Phone Number [address] [place] [address] GLUCOSE BY METER, POCT (07/31/2020 5:03 AM SECURITY AND COMPLIANCE PROJECT MANAGER) Pathologist Sig nature Glucose POC 137 (H) 70 - 99 mg/dL [facility] POINT OF CARE TESTING Specimen Blood - Blood specimen (specimen) Performing Organization Address [facility] Phone Number [facility] POINT OF [address] [place] [address], [place] [address] CARE TESTING GLUCOSE BY METER, POCT (07/30/2020 8:56 PM SECURITY AND COMPLIANCE PROJECT MANAGER) Pathologist Sig nature Glucose POC 175 (H) 70 - 99 mg/dL [facility] POINT OF CARE TESTING Specimen Blood - Blood specimen (specimen) Performing Organization Address [facility] Phone Number [facility] POINT OF [address] [place] [address], [place] [address] CARE TESTING GLUCOSE BY METER, POCT (07/30/2020 5:26 PM SECURITY AND COMPLIANCE PROJECT MANAGER) Pathologist Sig nature Glucose POC 106 (H) 70 - 99 mg/dL [facility] POINT OF CARE TESTING Specimen Blood - Blood specimen (specimen) Performing Organization Address [facility] Phone Number [facility] POINT OF [address] [place] [address], [place] [address] CARE TESTING GLUCOSE BY METER, POCT (07/30/2020 12:16 PM SECURITY AND COMPLIANCE PROJECT MANAGER) Pathologist Sig nature Glucose POC 218 (H) 70 - 99 mg/dL [facility] POINT OF CARE TESTING Specimen Blood - Blood specimen (specimen) Performing Organization Address [facility] Phone Number [facility] POINT OF [address] [place] [address], [place] [address] CARE TESTING RENAL FUNCTION PANEL (07/30/2020 6:59 AM SECURITY AND COMPLIANCE PROJECT MANAGER) Pathologist Sig nature Glucose 132 (H) 70 - 100 mg/dL [address] BUN 122 (H) 6 - 22 mg/dL [address] Creatinine 2.85 (H) 0.80 - 1.[address] mg/dL BUN/Creatinine Ratio 42.8 (H) 10.0 - 25.[address] Sodium 132 (L) 135 - 145 meq/L [address] Potassium 4.4 3.5 - 5.3 meq/L [address] Chloride 99 99 - 110 meq/L [address] CO2 19 (L) 20 - 29 meq/L [address] Anion Gap with K 18 6 - 20 meq/L [address] Calcium 9.1 8.5 - 10.[address] mg/dL Phosphorus 6.4 (H) 2.5 - 4.5 mg/dL [address] Albumin 3.1 (L) 3.5 - 5.0 g/dL [address] Corrected Calcium 9.8 8.5 - 10.[address] mg/dL Age [address] eGFR Non- 22 (L) >=[address] [place] mL/min/1.73m2 eGFR 27 (L) >=[address] mL/min/1.73m2 Specimen Blood - Blood specimen (specimen) Performing Organization Address [facility] Phone Number [address] [place] [address] PROTIME/INR (07/30/2020 6:59 AM SECURITY AND COMPLIANCE PROJECT MANAGER) Pathologist Sig nature Protime 28.3 (H) 12.0 - 14.[address] INR 2.8 2.0 - 3.[address] Specimen Blood - Blood specimen (specimen) Narrative Performed At Normal INR reference range (patients not on oral antic oagulants) [address] 0.9-1.1. INR Standard Intensity = (2.0 - 3.0) INR Higher Intensity = (2.5 - 3.5) Performing Organization Address [facility]/Zipcode Phone Number [address] [address] PROTEIN / CREATININE INDEX, URINE (07/30/2020 5:21 AM SECURITY AND COMPLIANCE PROJECT MANAGER) Pathologist Sig nature Protein Total Urine 30.8 mg/dL [address] Creatinine Urine 155.2 20.0 - 250.[address] mg/dL Protein/Creatinine 198 (H) 1 - 150 mg/g [place] [address] [facility] Ratio Specimen Urine - Urine specimen (specimen) Performing Organization Address City/State/Zipcode Phone Number [address] [place] [address] URINALYSIS DIPSTICK AND MICROSCOPIC (07/30/2020 5:20 AM SECURITY AND COMPLIANCE PROJECT MANAGER) Color Urine Yellow [place], Dark [place] [address] Yellow, Straw, CLINIC Yellow, Colorless Clarity Urine Clear Clear [address] Glucose Urine Negative Negative [address] Bilirubin Urine Negative Negative [address] Ketones Urine Negative Negative, 5 [place] [address] mg/dL, 10 mg/dL [facility] Specific [place] 1.016 1.002 - 1.[address] Blood Urine Negative Negative [address] PH Urine 5.0 5.0, 5.5, 6.0, [place] [address] 6.5, 7.0, 7.5, CLINIC 8.0 Protein Urine 30 mg/dL (A) Negative [address] Urobilinogen < 2 mg/dL < 2 mg/dL [address] Nitrite Negative Negative [address] Leukocyte Esterase Moderate (2+) Negative [place] [address] Urine (A) CLINIC WBC Urine 21-50 /hpf (A) Negative, 0-5 [place] [address] /hpf CLINIC RBC Urine 6-10 /hpf (A) Negative, 0-2 [place] [facility] /hpf CLINIC Squamous Epithelial Moderate Negative, Occ [place] [address] Cells (21-50) /lpf (0-10) /lpf, Few CLINIC (A) (11-20) /lpf Bacteria Negative Negative [address] Hyaline Cast 11-20 /lpf (A) 0-2 /lpf [place] [address] [facility] Specimen Urine - Urine specimen obtained by clean catch procedure (specimen) Narrative Performed At The presence of moderate or many squamous epithelial c ells is [address] suggestive of possible contamination during collection . Performing Organization Address [facility] Phone Number [address] [place] [address] GLUCOSE BY METER, POCT (07/30/2020 5:12 AM SECURITY AND COMPLIANCE PROJECT MANAGER) Pathologist Sig nature Glucose POC 132 (H) 70 - 99 mg/dL [facility] POINT OF CARE TESTING Specimen Blood - Blood specimen (specimen) Performing Organization Address [facility]/Zipcode Phone Number [facility] POINT OF [address] [place] [address] CARE TESTING GLUCOSE BY METER, POCT (07/29/2020 8:40 PM SECURITY AND COMPLIANCE PROJECT MANAGER) Pathologist Sig nature Glucose POC 92 70 - 99 mg/dL [facility] POINT OF CARE TESTING Specimen Blood - Blood specimen (specimen) Performing Organization Address [facility] Phone Number [facility] POINT OF [address] [place] [address] CARE TESTING GLUCOSE BY METER, POCT (07/29/2020 4:57 PM SECURITY AND COMPLIANCE PROJECT MANAGER) Pathologist Sig nature Glucose POC 175 (H) 70 - 99 mg/dL [facility] POINT OF CARE TESTING Specimen Blood - Blood specimen (specimen) Performing Organization Address [facility] Phone Number [facility] POINT OF [address] [place] [address] CARE TESTING GLUCOSE BY METER, POCT (07/29/2020 11:14 AM SECURITY AND COMPLIANCE PROJECT MANAGER) Pathologist Sig nature Glucose POC 162 (H) 70 - 99 mg/dL [facility] POINT OF CARE TESTING Specimen Blood - Blood specimen (specimen) Performing Organization Address [facility] Phone Number [facility] POINT OF [address] [place] [address] CARE TESTING PROTIME/INR (07/29/2020 6:51 AM SECURITY AND COMPLIANCE PROJECT MANAGER) Pathologist Sig nature Protime 25.4 (H) 12.0 - 14.5 secs [place] [address] [facility] INR 2.4 2.0 - 3.5 [facility] Specimen Blood - Blood specimen (specimen) Narrative Performed At Normal INR reference range (patients not on oral antic oagulants) [address] 0.9-1.1. INR Standard Intensity = (2.0 - 3.0) INR Higher Intensity = (2.5 - 3.5) Performing Organization Address [facility] Phone Number [address] [place] [address], [place] [address] GLUCOSE BY METER, POCT (07/29/2020 5:22 AM SECURITY AND COMPLIANCE PROJECT MANAGER) Pathologist [facility] Glucose POC 95 70 - 99 mg/dL [facility] POINT OF CARE TESTING Specimen Blood - Blood specimen (specimen) Performing Organization Address [facility] Phone Number [facility] POINT OF [address] [place] [address], [place] [address] CARE TESTING HEPATIC FUNCTION PANEL (07/29/2020 4:53 AM SECURITY AND COMPLIANCE PROJECT MANAGER) Pathologist [facility] Alkaline Phosphatase 150 30 - 150 U/L [address] AST - SGOT 24 0 - 35 U/L [address] ALT - SGPT 17 0 - 55 U/L [address] Bilirubin Total 0.3 0.2 - 1.2 mg/dL [address] Bilirubin Indirect 0.1 0.0 - 0.8 mg/dL [address] Bilirubin Direct 0.2 0.0 - 0.4 mg/dL [address] Albumin 3.1 (L) 3.5 - 5.0 g/dL [address] Protein Total 6.9 6.0 - 8.2 g/dL [address] Specimen Blood - Blood specimen (specimen) Performing Organization Address [facility] Phone Number [place] [address] [facility] [place] [address], [place] [address] HEMOGLOBIN (07/29/2020 4:53 AM SECURITY AND COMPLIANCE PROJECT MANAGER) Pathologist Sig [facility] Hemoglobin 9.7 (L) 13.5 - 17.5 g/dL [address] Specimen Blood - Blood specimen (specimen) Performing Organization Address [facility] Phone Number [place] [address] [facility] [address] [place] [address], [place] [address] RENAL FUNCTION PANEL (07/29/2020 4:53 AM SECURITY AND COMPLIANCE PROJECT MANAGER) Pathologist Sig nature Glucose 105 (H) 70 - 100 mg/dL [address] BUN 111 (H) 6 - 22 mg/dL [address] Creatinine 2.34 (H) 0.80 - 1.[address] mg/dL BUN/Creatinine Ratio 47.4 (H) 10.0 - 25.[address] Sodium 135 135 - 145 meq/L [address] Potassium 4.2 3.5 - 5.3 meq/L [address] Chloride 102 99 - 110 meq/L [address] CO2 20 20 - 29 meq/L [address] Anion Gap with K 17 6 - 20 meq/L [address] Calcium 9.1 8.5 - 10.[address] mg/dL Phosphorus 4.7 (H) 2.5 - 4.5 mg/dL [address] Albumin 3.1 (L) 3.5 - 5.0 g/dL [address] Corrected Calcium 9.8 8.5 - 10.[address] mg/dL Age [address] eGFR Non- 27 (L) >=[address] Bruneian mL/min/1.73m2 eGFR 33 (L) >=[address] mL/min/1.73m2 Specimen Blood - Blood specimen (specimen) Performing Organization Address [facility] Phone Number [place] [address] [facility] [address] [place] [address], [place] [address] GLUCOSE BY METER, POCT (07/28/2020 8:55 PM SECURITY AND COMPLIANCE PROJECT MANAGER) Pathologist Sig nature Glucose POC 153 (H) 70 - 99 mg/dL [facility] POINT OF CARE TESTING Specimen Blood - Blood specimen (specimen) Performing Organization Address [facility] Phone Number [facility] POINT OF [address] [address] CARE TESTING GLUCOSE BY METER, POCT (07/28/2020 5:08 PM SECURITY AND COMPLIANCE PROJECT MANAGER) Pathologist Sig nature Glucose POC 98 70 - 99 mg/dL [facility] POINT OF CARE TESTING Specimen Blood - Blood specimen (specimen) Performing Organization Address [facility] Phone Number [facility] POINT OF [address] [place] [address] CARE TESTING GLUCOSE BY METER, POCT (07/28/2020 11:04 AM SECURITY AND COMPLIANCE PROJECT MANAGER) Pathologist Sig nature Glucose POC 206 (H) 70 - 99 mg/dL [facility] POINT OF CARE TESTING Specimen Blood - Blood specimen (specimen) Performing Organization Address [facility] Phone Number [facility] POINT OF [address] [place] [address] CARE TESTING BASIC METABOLIC PANEL (07/28/2020 6:52 AM SECURITY AND COMPLIANCE PROJECT MANAGER) Pathologist Sig [facility] Glucose 116 (H) 70 - 100 mg/dL [address] BUN 103 (H) 6 - 22 mg/dL [address] Creatinine 2.08 (H) 0.80 - 1.[address] mg/dL BUN/Creatinine Ratio 49.5 (H) 10.0 - 25.[address] Sodium 135 135 - 145 meq/L [address] Potassium 4.1 3.5 - 5.3 meq/L [address] Chloride 103 99 - 110 meq/L [address] CO2 19 (L) 20 - 29 meq/L [address] Anion Gap with K 17 6 - 20 meq/L [address] Calcium 9.1 8.5 - 10.[address] mg/dL Age [address] eGFR Non- 31 (L) >=[address] Brune[place] mL/min/1.73m2 eGFR 38 (L) >=[address] mL/min/1.73m2 Specimen Blood - Blood specimen (specimen) Performing Organization Address [facility] Phone Number [address] [place] [address] PROTIME/INR (07/28/2020 6:52 AM SECURITY AND COMPLIANCE PROJECT MANAGER) Pathologist Sig nature Protime 19.8 (H) 12.0 - 14.5 secs [place] [address] [facility] INR 1.8 (L) 2.0 - 3.[address] Specimen Blood - Blood specimen (specimen) Narrative Performed At Normal INR reference range (patients not on oral antic oagulants) [address] 0.9-1.1. INR Standard Intensity = (2.0 - 3.0) INR Higher Intensity = (2.5 - 3.5) Performing Organization Address [facility] Phone Number [address] [address] GLUCOSE BY METER, POCT (07/28/2020 5:09 AM SECURITY AND COMPLIANCE PROJECT MANAGER) Pathologist Sig nature Glucose POC 67 (L) 70 - 99 mg/dL [facility] POINT OF CARE TESTING Specimen Blood - Blood specimen (specimen) Performing Organization Address [facility] Phone Number [facility] POINT OF [address] [place] [address] CARE TESTING GLUCOSE BY METER, POCT (07/27/2020 8:42 PM SECURITY AND COMPLIANCE PROJECT MANAGER) Pathologist Sig nature Glucose POC 111 (H) 70 - 99 mg/dL [facility] POINT OF CARE TESTING Specimen Blood - Blood specimen (specimen) Performing Organization Address [facility] Phone Number [facility] POINT OF [address] [place] [address] CARE TESTING GLUCOSE BY METER, POCT (07/27/2020 4:28 PM SECURITY AND COMPLIANCE PROJECT MANAGER) Pathologist Sig nature Glucose POC 207 (H) 70 - 99 mg/dL [facility] POINT OF CARE TESTING Specimen Blood - Blood specimen (specimen) Performing Organization Address [facility] Phone Number [facility] POINT OF [address] [place] [address] CARE TESTING GLUCOSE BY METER, POCT (07/27/2020 10:52 AM SECURITY AND COMPLIANCE PROJECT MANAGER) Pathologist Sig nature Glucose POC 162 (H) 70 - 99 mg/dL [facility] POINT OF CARE TESTING Specimen Blood - Blood specimen (specimen) Performing Organization Address [facility] Phone Number [facility] POINT OF [address] [place] [address] CARE TESTING MAGNESIUM (07/27/2020 7:12 AM SECURITY AND COMPLIANCE PROJECT MANAGER) Pathologist Sig nature Magnesium 2.1 1.8 - 2.4 mg/dL [place] [address] [facility] Specimen Blood - Blood specimen (specimen) Performing Organization Address [facility] Phone Number [address] [place] [address] RENAL FUNCTION PANEL (07/27/2020 7:12 AM SECURITY AND COMPLIANCE PROJECT MANAGER) Pathologist Sig nature Glucose 114 (H) 70 - 100 mg/dL [address] BUN 94 (H) 6 - 22 mg/dL [address] Creatinine 1.95 (H) 0.80 - 1.[address] mg/dL BUN/Creatinine Ratio 48.2 (H) 10.0 - 25.[address] Sodium 136 135 - 145 meq/L [address] Potassium 3.3 (L) 3.5 - 5.3 meq/L [address] Chloride 102 99 - 110 meq/L [address] CO2 20 20 - 29 meq/L [address] Anion Gap with K 17 6 - 20 meq/L [address] Calcium 9.2 8.5 - 10.[address] mg/dL Phosphorus 3.9 2.5 - 4.5 mg/dL [address] Albumin 3.2 (L) 3.5 - 5.0 g/dL [address] Corrected Calcium 9.8 8.5 - 10.[address] mg/dL Age [address] eGFR Non- 34 (L) >=[address] [place]une[place] mL/min/1.73m2 eGFR 41 (L) >=[address] mL/min/1.73m2 Specimen Blood - Blood specimen (specimen) Performing Organization Address [facility] Phone Number [address] [place] [address], [place] [address] PROTIME/INR (07/27/2020 7:12 AM SECURITY AND COMPLIANCE PROJECT MANAGER) Pathologist Sig nature Protime 18.2 (H) 12.0 - 14.[address] INR 1.6 (L) 2.0 - 3.[address] Specimen Blood - Blood specimen (specimen) Narrative Performed At Normal INR reference range (patients not on oral antic oagulants) [address] 0.9-1.1. INR Standard Intensity = (2.0 - 3.0) INR Higher Intensity = (2.5 - 3.5) Performing Organization Address City/[facility] Phone Number [address] [address] GLUCOSE BY METER, POCT (07/27/2020 5:46 AM SECURITY AND COMPLIANCE PROJECT MANAGER) Pathologist Sig nature Glucose POC 103 (H) 70 - 99 mg/dL [facility] POINT OF CARE TESTING Specimen Blood - Blood specimen (specimen) Performing Organization Address [facility] Phone Number [facility] POINT OF [address] [place] [address] CARE TESTING GLUCOSE BY METER, POCT (07/26/2020 8:45 PM SECURITY AND COMPLIANCE PROJECT MANAGER) Pathologist Sig nature Glucose POC 129 (H) 70 - 99 mg/dL [facility] POINT OF CARE TESTING Specimen Blood - Blood specimen (specimen) Performing Organization Address [facility] Phone Number [facility] POINT OF [address] [place] [address] CARE TESTING GLUCOSE BY METER, POCT (07/26/2020 4:25 PM SECURITY AND COMPLIANCE PROJECT MANAGER) Pathologist Sig nature Glucose POC 113 (H) 70 - 99 mg/dL [facility] POINT OF CARE TESTING Specimen Blood - Blood specimen (specimen) Performing Organization Address City/[facility] Phone Number [facility] POINT OF [address] [place] [address] CARE TESTING PACEMAKER IN PERSON PROGRAMMING (07/26/2020 1:26 PM SECURITY AND COMPLIANCE PROJECT MANAGER) Narrative Performed At This result has an attachment that is no t available. Performing Organization Address City/[facility]/Zipcode Phone Number [facility] GLUCOSE BY METER, POCT (07/26/2020 1:16 PM SECURITY AND COMPLIANCE PROJECT MANAGER) Pathologist Sig nature Glucose POC 229 (H) 70 - 99 mg/dL [facility] POINT OF CARE TESTING Specimen Blood - Blood specimen (specimen) Performing Organization Address City/State/Zipcode Phone Number [facility] POINT OF [address] [place] [address] CARE TESTING ECHO ADULT LIMITED (07/26/2020 11:09 AM SECURITY AND COMPLIANCE PROJECT MANAGER) Specimen Narrative Performed At This result has an attachment that is no t available. [facility] Patient: HILARY RUIZ MR#: [id number] Exam Date: 07/26/2020 [facility] [address] [place]hor[place] [address] BP: 114/65 mmHg HR: 104 bpm : 1945 Exam Location: Bedside Height: 70.00 "(177.8 cm) Age: 75 year(s) Patient Room: [place] [address] Weight: 225 lbs.(102.06 kg) Gender: Male Patient Status: Inpatient BSA: 2.19 m2 Public Health Program Manager: EDISON RUSSELL Reading Physician: GRECIA MUNOZ MD Ordering Physician: AMBER HOLLY NP Referring Physician: Yeison CALVIN Procedure Indication(s): Acute dyspne a, Re evaluate EF Examination: TTE Limited 2D, Limited Spectral Doppler, Color Doppler, with Contrast,Optison Clinical History Most Recent PCI Date: 07/04/2020 Comment: History of aortic valve replacement Conclusions Left Ventricle: Upper limits of normal left ventricular size. Markedly reduced left ventricular systolic function. The ejection fraction is visually estimated to be 25 %. There is global hy pokinesis of the left ventricle. The wall segments are akinetic. Aortic Valve: aortic bioprosthesis is present with unk nown size and type. No prosthetic aortic valve stenosis. No significant aortic transvalvular regurgitation. No signific ant aortic perivalvular regurgitation. Mitral Valve: Ycgw-qk-zowsezjo mitral regurgitation. Moderate mitral stenosis. Right Ventricle: Normal right ventricular size. Low lu l right ventricular systolic function. Pulmonary artery systolic pressure is measured at 52 mmHg. Pulmonary Artery: Moderate pulmonary artery hypertension. Tricuspid Valve: Mild tricuspid regurgitation. Comparison Study Comparison Date: 06/28/2020 Comparison Study: Transthoracic Echocardiogram Mitral valve mean gradient has increased from 5 mmHg to 11 mmHg, LV overall function has not changed Findings Left Ventricle: Upper limits of normal left ventricular size. Upper normal left ventricular wall thickness. Markedly reduced left ventricular systolic function. The ejection fraction is visually estimated to be 25 %. There is global hypokinesis of the left ventricle. The apical anterior, apical septal, apical i nferior, apical lateral and apex wall segments are akinetic. Left Atrium: Mildly dilated left atrium. Aortic Valve: A(n) aortic bioprosthesis is present wit h unknown size and type. No prosthetic aortic valve stenosis. No significant aortic transvalvular regurgitation. No signific ant aortic perivalvular regurgitation. The peak valve velocity is 214 cm/s. Aortic valve mean gradient is 10 mmHg. Aortic valve acceleration ti me is 82 ms. Aorta: The ascending aorta is normal in size measuring 33.0 m m. Mitral Valve: Etbw-sx-wdhsvnma mitral Leaflet thickeni ng. Posterior mitral leaflet calcification is present. There is restricted mobility of both the anterior and posterior mitral leafle ts. There is mild mitral annular calcification. Aaoz-hf-xeubwlte mitral regurgitation. Moderate mitral stenosis. Transmitral ve locity and gradient are increased due to stenosis, as well as concomitant increased transaortic flow. Mitral valve mean grad ient is 11 mmHg with a heart rate of 104 bpm. Right Ventricle: Normal right ventricular size. Low lu l right ventricular systolic function. Normal right ventricular wall thickness. Pulmonary artery systolic pressure is measured at 52 mmHg. Pulmonary Artery: Moderate pulmonary artery hypertension. Right Atrium: Normal right atrial size by visual assessment. Tricuspid Valve: Normal tricuspid valve structure. Mild tricuspid regur gitation. Pulmonic Valve: Normal pulmonary valve structure. No significant pulmo nary regurgitation. IVC: Dilated IVC with minimal respirophasic changes. Pericardium: No significant pericardial effusion. There is pericard ial fat. Measurements Left Ventricle Aortic Valve Label Value Normal Value Label Value Normal Value LVDd, 2D 58.1 mm AV Vmean 149 cm/s LVDs, 2D 49.5 mm AV VTI 35.2 cm IVSd, 2D 10.7 mm AV PGmax 18 mmHg LVPWd, 2D 10.3 mm AV Vmax, Caliper 214 cm/s FS, 2D 14.8 % AV Vmax 214 cm/s LVEDV, 2D 167 ml AV PGmean 10 mmHg LVESV, 2D 116 ml Mitral Valve LVEDVI, 2D 76.3 ml/m 2 Label Value Normal Value LVESVI, 2D 53 ml/m2 MV VTI 31 cm Left Atrium MV PGmax 25 mmHg Label Value Normal Value MV PGmean 11 mmHg LADs Long. 59 mm Tricuspid Valve LA Volume Index 34 ml/m-sq Label Value Normal Value Aorta TR Vmax 305 cm/s Label Value Normal Value TR Pmax 37 mmHg Ao Asc 33 mm RA Pressure 15 mmHg Great Vessels RVSP 52 mmHg Label Value Norm al Value PVein S 35 cm/s PVein D 56 cm/s S/D Ratio 0.6 Heart Rate Label Value Norm al Value Heart Rate 104 bpm Contrast Details Contrast: 3.0 ml Optison is requested. The patient denies contraindications and gives verbal consent. Optison contrast (3 ml of activated Opti son diluted with 3 ml of saline) was used to evaluate left ventricular function to enhance endocardial borde r delineation Lot #: [id number] Electronically signed by GRECIA MUNOZ MD on 021 at 12:16 PM Wall Motion Scores -1 - Not Scored, 0 - Unknown, 1 - Normal or hyperkinesia, 2 - Hypokinesia, 3 - Akinesia, 4 - Dyskinesia, 5 - Aneurysm Procedure Note Interface, Inc Results No Pull Forward - 07/26/2020 1:09 PM SECURITY AND COMPLIANCE PROJECT MANAGER Patient: HILARY RUIZ MR#: [id number] Exam Date: 07/26/2020 [facility] [address] [place]hor[place] [address] BP: 114/65 mmHg HR: 104 bpm : 1945 Exa m Location: Bedside Height: 70.00 "(177.8 cm) Age: 75 year(s) Pat ient Room: [place] [address] Weight: 225 lbs.(102.06 kg) Gender: Male Pat ient Status: Inpatient BSA: 2.19 m2 Public Health Program Manager: PAUL GORDON RDCS Reading Physician: GRECIA DUMONT MD Ordering Physician: AMBER Heredia NP Referring Physician: JOHAN MARCOS MD Procedure Indication(s): Acute d yspnea, Re evaluate EF Examination: TTE Mendes ited 2D, Limited Spectral Doppler, Color Doppler, with Contrast,Optison Clinical History Most Recent PCI Date: 07/04/2020 Comment: History of aortic valve replac ement Conclusions Left Ventricle: Upper limits of normal left ventricular size. Markedly reduced left ventricular systolic function. The ejection fraction is visually estimated to be 25 %. There is global hy pokinesis of the left ventricle. The wall segments are akinetic. Aortic Valve: aortic bioprosthesis is present with unk nown size and type. No prosthetic aortic valve stenosis. No significant aortic transvalvular regurgitation. No signific ant aortic perivalvular regurgitation. Mitral Valve: Zohr-vf-lurtrmvh mitral regurgitation. M oderate mitral stenosis. Right Ventricle: Normal right ventricular size. Low lu l right ventricular systolic function. Pulmonary artery systolic pressure is measured at 52 mmHg. Pulmonary Artery: Moderate pulmonary artery hypertension. Tricuspid Valve: Mild tricuspid regurgitation. Comparison Study Comparison Date: 06/28/2020 Comparison Study: Transthoracic Echocard iogram Mitral valve mean gradient has increased from 5 mmHg to 11 mmHg, LV overall function has not changed Findings Left Ventricle: Upper limits of normal left ventricular size. Upper normal left ventricular wall thickness. Markedly reduced left ventricular systolic function. The ejection fraction is visually estimated to be 25 %. There is global hypokinesis of the left ventricle. The apical anterior, apical septal, apical i nferior, apical lateral and apex wall segments are akinetic. Left Atrium: Mildly dilated left atrium. Aortic Valve: A(n) aortic bioprosthesis is present wit h unknown size and type. No prosthetic aortic valve stenosis. No significant aortic transvalvular regurgitation. No signific ant aortic perivalvular regurgitation. The peak valve velocity is 214 cm/s. Aortic valve mean gradient is 10 mmHg. Aortic valve a cceleration time is 82 ms. Aorta: The ascending aorta is normal in size me asuring 33.0 mm. Mitral Valve: Brfn-nh-xvghwyms mitral Leaflet thickeni ng. Posterior mitral leaflet calcification is present. There is restricted mobility of both the anterior and posterior mitral leafle ts. There is mild mitral annular calcification. Zltw-gd-iezfibtp mitral regurgitation. Moderate mitral stenosis. Transmitral ve locity and gradient are increased due to stenosis, as well as concomitant increased transaortic flow. Mitral valve mean grad ient is 11 mmHg with a heart rate of 104 bpm. Right Ventricle: Normal right ventricular size. Low lu l right ventricular systolic function. Normal right ventricular wall thickness. Pulmonary artery systolic pressure is measured at 52 mmHg. Pulmonary Artery: Moderate pulmonary artery hypertension. Right Atrium: Normal right atrial size by visual asses sment. Tricuspid Valve: Normal tricuspid valve structure. Mild t ricuspid regurgitation. Pulmonic Valve: Normal pulmonary valve structure. No sig nificant pulmonary regurgitation. IVC: Dilated IVC with minimal respirophasic c hanges. Pericardium: No significant pericardial effusion. The re is pericardial fat. Measurements Left Ventricle Aortic Valve Label Value Nor mal Value Label Value Normal Value LVDd, 2D 58.1 mm AV Vmean 149 cm/s LVDs, 2D 49.5 mm AV VTI 35.2 cm IVSd, 2D 10.7 mm AV PGmax 18 mmHg LVPWd, 2D 10.3 mm AV Vmax, Caliper 214 cm/s FS, 2D 14.8 % AV Vmax 214 cm/s LVEDV, 2D 167 ml AV PGmean 10 mmHg LVESV, 2D 116 ml Mitral Valve LVEDVI, 2D 76.3 ml/m2 Label Value Normal Value LVESVI, 2D 53 ml/m2 MV VTI 31 cm Left Atrium MV PGmax 25 mmHg Label Value Nor mal Value MV PGmean 11 mmHg LADs Long. 59 mm Tricuspid Valve LA Volume Index 34 ml/m-sq Label Value Normal Value Aorta TR Vmax 305 cm/s Label Value Nor mal Value TR Pmax 37 mmHg Ao Asc 33 mm RA Pressure 15 mmHg Great Vessels RVSP 52 mmHg Label Value Nor mal Value PVein S 35 cm/s PVein D 56 cm/s S/D Ratio 0.6 Heart Rate Label Value Nor mal Value Heart Rate 104 bpm Contrast Details Contrast: 3.0 ml Optison is requested. The patient denies contraindications and gives verbal consent. Optison contrast (3 ml of activated Opti son diluted with 3 ml of saline) was used to evaluate left ventricular function to enhance end ocardial border delineation Lot #: [id number] Wall Motion Scores -1 - Not Scored, 0 - Unknown, 1 - Normal or hyperkinesia, 2 - Hypokinesia, 3 - Akinesia, 4 - Dyskinesia, 5 - Aneurysm Performing Organization Address City/State/Zipcode Phone Number [facility], [place] EKG (07/26/2020 11:00 AM SECURITY AND COMPLIANCE PROJECT MANAGER)Only the most recent of2 resultswithin the time period is included. Pathologist Sig nature EKG [employer] Ventricular-paced rhythm Abnormal ECG Ventricular Rate: 109 BPM Atrial Rate: 109 BPM P-R Interval: 184 ms QRS Duration: 222 ms Q-T Interval: 404 ms QTc Calculation(Bazett): 544 ms Calculated R [place]: -73 degrees Calculated T [place]: 89 degrees Specimen Narrative Performed At This result has an attachment that is no t available. Performing Organization Address City/[facility] Phone Number BRITTNEY CUELLO GLUCOSE BY METER, POCT (07/26/2020 5:48 AM SECURITY AND COMPLIANCE PROJECT MANAGER) Pathologist Sig nature Glucose POC 123 (H) 70 - 99 mg/dL [facility] POINT OF CARE TESTING Specimen Blood - Blood specimen (specimen) Performing Organization Address [facility] Phone Number [facility] POINT OF [address], [place] [address] CARE TESTING PROTIME/INR (07/26/2020 5:42 AM SECURITY AND COMPLIANCE PROJECT MANAGER) Pathologist Sig nature Protime 22.1 (H) 12.0 - 14.[address] INR 2.0 2.0 - 3.[address] Specimen Blood - Blood specimen (specimen) Narrative Performed At Normal INR reference range (patients not on oral antic oagulants) [address] 0.9-1.1. INR Standard Intensity = (2.0 - 3.0) INR Higher Intensity = (2.5 - 3.5) Performing Organization Address [facility] Phone Number [address] [place] [address], [place] [address] RENAL FUNCTION PANEL (07/26/2020 5:42 AM SECURITY AND COMPLIANCE PROJECT MANAGER) Pathologist Sig nature Glucose 130 (H) 70 - 100 mg/dL [address] BUN 84 (H) 6 - 22 mg/dL [address] Creatinine 2.30 (H) 0.80 - 1.[address] mg/dL BUN/Creatinine Ratio 36.5 (H) 10.0 - 25.[address] Sodium 137 135 - 145 meq/L [address] Potassium 3.5 3.5 - 5.3 meq/L [address] Chloride 103 99 - 110 meq/L [address] CO2 20 20 - 29 meq/L [address] Anion Gap with K 18 6 - 20 meq/L [address] Calcium 9.0 8.5 - 10.[address] mg/dL Phosphorus 3.4 2.5 - 4.5 mg/dL [address] Albumin 3.2 (L) 3.5 - 5.0 g/dL [address] Corrected Calcium 9.6 8.5 - 10.[address] mg/dL Age [address] eGFR Non- 28 (L) >=[address] [place] mL/min/1.73m2 eGFR 34 (L) >=[address] mL/min/1.73m2 Specimen Blood - Blood specimen (specimen) Performing Organization Address [facility] Phone Number [address] [place] [address] COMPLETE BLOOD COUNT WITHOUT DIFFERENTIAL (07/26/2020 5:42 AM SECURITY AND COMPLIANCE PROJECT MANAGER) [facility] WBC 9.1 4.0 - 11.0 K/uL [address] RBC 3.52 (L) 4.40 - 5.80 M/uL [address] Hemoglobin 9.7 (L) 13.5 - 17.5 g/dL [address] Hematocrit 31.5 (L) 40.0 - 50.0 % [address] MCV 89.5 80.0 - 98.[address] MCH 27.6 25.5 - 34.[address] MCHC 30.8 (L) 31.5 - 36.5 g/dL [address] RDW-CV 16.6 (H) 11.5 - 15.5 % [address] RDW-SD 54.4 (H) 35.5 - 50.[address] Platelet Count 191 140 - 400 K/uL [address] MPV 11.3 8.5 - 12.[address] Specimen Blood - Blood specimen (specimen) Performing Organization Address [facility] Phone Number [address] [place] [address] TROPONIN I (07/26/2020 2:27 AM SECURITY AND COMPLIANCE PROJECT MANAGER) Pathologist Sig [facility] Troponin I 0.322 (H) 0.000 - 0.028 ng/mL [address] Specimen Blood - Blood specimen (specimen) Performing Organization Address [facility] Phone Number [address] [place] [address] C-REACTIVE PROTEIN QUANTITATIVE (07/25/2020 11:54 PM SECURITY AND COMPLIANCE PROJECT MANAGER) Pathologist [facility] CRP 224.0 (H) 0.0 - 8.0 mg/L [address] Specimen Blood - Blood specimen (specimen) Performing Organization Address [facility] Phone Number [address] [place] [phone] PROCALCITONIN (07/25/2020 11:54 PM SECURITY AND COMPLIANCE PROJECT MANAGER) Pathologist [facility] Procalcitonin 11.56 (H) <0.07 ng/mL [address] Specimen Blood - Blood specimen (specimen) Narrative Performed At Suspected Lower Respiratory Tract Infect ion: [place] [id number] [facility] 0.1-0.25: Low risk for bacterial infection; Antibiotic s discouraged. > 0.25: Increased likelihood for bacterial infection; Antibiotics encouraged. Suspected Sepsis: 0.1-0.5: Low likelihood for sepsis; Anti biotics discouraged. > 0.5: Increased Likelihood for sepsis; Antibiotics encouraged. > 2.0: High risk of sepsis/septic shock; Antibiotics s trongly encouraged. Decisions on antibiotic use should not be based solely on procalcitonin levels. If antibiotics are administered, repeat procalcitonin testing should be performed every 2-3 da ys to consider early antibiotic cessation. PCT is a dynamic biomarker and most useful when trends are analyzed over time in accompaniment with other clinical data. Performing Organization Address [facility] Phone Number [address] [place] [phone] TROPONIN I (07/25/2020 11:54 PM SECURITY AND COMPLIANCE PROJECT MANAGER) Pathologist [facility] Troponin I 0.379 (H) 0.000 - 0.028 ng/mL [address] Specimen Blood - Blood specimen (specimen) Performing Organization Address [facility] Phone Number [address] [place] [phone] GLUCOSE BY METER, POCT (07/25/2020 9:26 PM SECURITY AND COMPLIANCE PROJECT MANAGER) Pathologist [facility] Glucose POC 198 (H) 70 - 99 mg/dL [facility] O POINT OF CARE TESTING Specimen Blood - Blood specimen (specimen) Performing Organization Address [facility] Phone Number [facility] POINT OF [address] [place] [phone] CARE TESTING BRAIN NATRIURETIC PEPTIDE (07/25/2020 8:27 PM SECURITY AND COMPLIANCE PROJECT MANAGER) Pathologist [facility] BNP 2,384 (H) 0 - 100 pg/mL [address] Specimen Blood - Blood specimen (specimen) Performing Organization Address [facility] Phone Number [address] [place] [phone] PROTIME/INR (07/25/2020 8:27 PM SECURITY AND COMPLIANCE PROJECT MANAGER) Pathologist [facility] Protime >85.0 (H) 12.0 - 14.[address] INR >10.0 (HH) 2.0 - 3.[address] Specimen Blood - Blood specimen (specimen) Narrative Performed At Normal INR reference range (patients not on oral antic oagulants) [address] 0.9-1.1. INR Standard Intensity = (2.0 - 3.0) INR Higher Intensity = (2.5 - 3.5) Performing Organization Address [facility] Number [address] [place] [address] MAGNESIUM (07/25/2020 8:27 PM SECURITY AND COMPLIANCE PROJECT MANAGER) Pathologist [facility] Magnesium 2.0 1.8 - 2.4 mg/dL [address] Specimen Blood - Blood specimen (specimen) Performing Organization Address [facility] Phone Number [address] [place] [address] [phone] TROPONIN I (07/25/2020 8:27 PM SECURITY AND COMPLIANCE PROJECT MANAGER) Pathologist [facility] Troponin I 0.459 (H) 0.000 - 0.028 ng/mL [address] Specimen Blood - Blood specimen (specimen) Performing Organization Address [facility] Phone Number [address] [place] [address] BASIC METABOLIC PANEL WITH GFR (07/25/2020 8:27 PM SECURITY AND COMPLIANCE PROJECT MANAGER) [facility] Glucose 168 (H) 70 - 100 mg/dL [address] BUN 87 (H) 6 - 22 mg/dL [address] Creatinine 2.48 (H) 0.80 - 1.[address] mg/dL BUN/Creatinine Ratio 35.1 (H) 10.0 - 25.[address] Sodium 137 135 - 145 meq/L [address] Potassium 3.8 3.5 - 5.3 meq/L [address] Chloride 101 99 - 110 meq/L [address] CO2 20 20 - 29 meq/L [address] Anion Gap with K 20 6 - 20 meq/L [address] Calcium 9.0 8.5 - 10.[address] mg/dL Age [address] eGFR Non- 26 (L) >=[address] Brune[place] mL/min/1.73m2 eGFR 31 (L) >=[address] mL/min/1.73m2 Specimen Blood - Blood specimen (specimen) Performing Organization Address [facility] Phone Number [address] [place] [address] COMPLETE BLOOD COUNT WITHOUT DIFFERENTIAL (07/25/2020 8:27 PM SECURITY AND COMPLIANCE PROJECT MANAGER) [facility] WBC 9.1 4.0 - 11.0 K/uL [address] RBC 3.51 (L) 4.40 - 5.80 M/uL [address] Hemoglobin 9.8 (L) 13.5 - 17.5 g/dL [address] Hematocrit 31.4 (L) 40.0 - 50.0 % [address] MCV 89.5 80.0 - 98.[address] MCH 27.9 25.5 - 34.[address] MCHC 31.2 (L) 31.5 - 36.5 g/dL [address] RDW-CV 16.5 (H) 11.5 - 15.5 % [address] RDW-SD 54.4 (H) 35.5 - 50.[address] Platelet Count 195 140 - 400 K/uL [address] MPV 11.1 8.5 - 12.[address] Specimen Blood - Blood specimen (specimen) Performing Organization Address City/State/Zipcode Phone Number [address] [address] documented in this encounter Visit Diagnoses Diagnosis Acute on chronic HFrEF (heart failure wi th reduced ejection fraction) ([facility]) - Primary Stage 4 chronic kidney disease ([facility]) Acute on chronic congestive heart failur e, unspecified heart failure type ([facility]) S/P coronary artery stent placement Postsurgical percutaneous transluminal c oronary angioplasty status SI (sacroiliac) joint dysfunction Disorders of sacrum Generalized weakness Other malaise and fatigue Wheezing Insomnia, unspecified type Dyslipidemia Other and unspecified hyperlipidemia Hx of cardiac pacemaker Personal history of unspecified circulat ory disease Diabetes mellitus, type II, insulin depe ndent ([facility]) Type II or unspecified type diabetes reza litus without mention of complication, not stated as uncontrolled Essential hypertension Unspecified essential hypertension S/P AVR (aortic valve replacement) Heart valve replaced by other means documented in this encounter Discharge Diagnoses Not on filedocumented in this encounter Administered Medications Medication Order MAR Action Action Date Dose Rate Site .Anticoagulation (WARFARIN) therapy nurs ing reminder Anti-coag reminder, First dose on Wed08/05/20 at 1130, Until Discontinued acetaminophen (TYLENOL) tablet 650 mg Given 08/06/2020 5:24 AM SECURITY AND COMPLIANCE PROJECT MANAGER 650 mg 650 mg, Oral, Every six hours, First dose (after last modification) on Wed07/29/20 at 1325, Until Discontinued, Pain stratification is defined as follows for either analog scale (0-10) or critical care pain observation tool (CPOT, 0-8). a. No pain (0) b. Mild pain level (1-3) c. Moderate pain level (4-6) d. Severe pain level (greater than or equal to 7) Adult patients: Total dose of acetaminophen from all acetaminophen containing products should not exceed 4 grams (4,000 mg) per day. Pediatric Patients 0 - 3 months: Maximum of 60 mg/kg/24 hours of acetaminophen. Pediatric Patients older than 3 months: Maximum of 75 mg/kg/24 hours of acetaminophen (Never exceeding 4 grams/day)., Given 08/06/2020 12:05 AM SECURITY AND COMPLIANCE PROJECT MANAGER 650 mg Given 08/05/2020 5:28 PM SECURITY AND COMPLIANCE PROJECT MANAGER 650 mg bisacodyl (DULCOLAX) suppository 10 mg 10 mg, Rectal, One time a day prn, Starting Shantelle 1 at 1946, Until Discontinued, constipation, Use SECOND for constipatio n. If patient cannot take oral medications, use first for constipation., calcitriol (ROCALTROL) capsule 0.25 mcg Given 08/04/2020 3:18 PM SECURITY AND COMPLIANCE PROJECT MANAGER 0.25 mcg 0.25 mcg, Oral, Every other day, First dose on Wed07/29/20 at 1500, Until Discontinued Given 07/31/2020 4:56 PM SECURITY AND COMPLIANCE PROJECT MANAGER 0.25 mcg Given 07/29/2020 4:06 PM SECURITY AND COMPLIANCE PROJECT MANAGER 0.25 mcg carbohydrate 15 g 15 g, Oral, PRN per parameter, Starting [facility] 07/25/20 at 2020, Until Discontinued, low blood glucose, Give 15 grams of carb ohydrate if blood glucose is less than 70 mg/dL, patient is responsive and able to take food or oral meds. Recheck blood glucose in 15 minutes. Repeat 1 time and call MD. If recheck is greater than 70 mg/dL and able to take food or oral meds, give 15 gram carbohydrate if meal or snack due in more than an hour. Serve meal or snack if due in less than 1 hour. See hypoglycemia treatment on cardex. S ources of 15 grams carbohydrate: a. 4 oz of fruit juice or b. 4 oz of soda pop (NOT diet) or c. 1 tablespoon of honey, clopidogrel (PLAVIX) tablet 75 mg Given 08/06/2020 7:29 AM SECURITY AND COMPLIANCE PROJECT MANAGER 75 mg 75 mg, Oral, DAILY, First dose on Wed07/26/20 at 0900, Until Discontinued Given 08/05/2020 9:09 AM SECURITY AND COMPLIANCE PROJECT MANAGER 75 mg Given 08/04/2020 8:05 AM SECURITY AND COMPLIANCE PROJECT MANAGER 75 mg dextrose 50% IV solution 50 mL 50 mL (25 g), IV, PRN per parameter, Starting Shantelle07/25 at 2020, Until Discontinued, low blood glucose, 50 mL, Give if blood glucose is less than 70 mg/dL, patient is unresponsive or NPO, a nd has IV access. Recheck blood glucose in 15 minutes and call MD. Repeat dose if r echeck less than 70 mg/dL and call MD. If recheck is greater than 70 mg/dL and abl e to take food or oral meds, give 15 gram carbohydrate if meal or snack due in mor e than an hour. Serve meal or snack if due in less than 1 hour. See hypoglycemia treatment on car dex., dextrose chewable tablet 16 g Given 08/01/2020 5:42 AM SECURITY AND COMPLIANCE PROJECT MANAGER 16 g 16 g (4 tablet), Oral, PRN per parameter, Starting Shantelle 07/25/20 at 2020, Until Discontinued, low blood glucose, Chew before swallowing. Give 15 gram of carbohydrate if blood glucose is less than 70 mg/dL, patient is responsive and able to take food or oral meds. Recheck blood glucose in 15 minutes. Repeat 15 gram carbohydrate if recheck is less than 70 mg/dL and call MD. If recheck is greater than 70 mg/dL and able to take food or oral meds, give 15 gram carbohydrate if meal or snack due in more than an hour. Serve meal or snack if due in less than 1 hour. See hypoglycemia treatment on cardex. (Sources of 15 gram carbohydrate: 4 oz fruit juice or 4 oz soda pop (NOT diet) or 1 tablespoonful honey or 4 glucose tablets)., docusate sodium (THEREVAC-SB MINI;ENEMEE Z MINI) 283 MG enema 1 enema 1 enema, Rectal, One time a day prn, Starting Shantelle07/25 at 1946, Until Discontinued, constipation, Use THIRD for constipation - if no BM 8 hours after dulcolax suppository. If patient cannot take oral medi cations, use second for constipation., escitalopram (LEXAPRO) tablet 10 mg Given 08/06/2020 7:29 AM SECURITY AND COMPLIANCE PROJECT MANAGER 10 mg 10 mg, Oral, DAILY, First dose on Wed07/26/20 at 0900, Until Discontinued Given 08/05/2020 9:08 AM SECURITY AND COMPLIANCE PROJECT MANAGER 10 mg Given 08/04/2020 8:05 AM SECURITY AND COMPLIANCE PROJECT MANAGER 10 mg glucagon for injection 1 mg vial 1 mg 1 mg, Intramuscular, PRN per parameter, Starting Shantelle at 2020, Until Discontinued, low blood glucose, Give if blood glucose less than 70 mg/dL, patient is unresponsive or NPO, and has no IV ac cess. Establish IV access. Recheck blood glucose in 15 minutes and call MD. If r echeck is greater than 70 mg/dL and able to take food or oral meds, give 15 gram car bohydrate if meal or snack due in more than an hour. Serve meals or snack if due in less than 1 ho ur. See hypoglycemia treatment on cardex. Reconstitute vial with 1 mL of sterile water for injection for reconstitution for a final concentra tion of 1 mg/mL. Shake vial gently. Use immediately and discard unused portion. Reconstitute with 1 mL of sterile water for injection to yield 1 mg/mL. Shake vial gently. Use immediately and discard unused portion., insulin aspart (NovoLOG) SQ correction Given 08/05/2020 5:29 PM SECURITY AND COMPLIANCE PROJECT MANAGER 3 Units scale (Adult) 2-8 Units, Subcutaneous, Three times a day, First dose on Wed07/26/20 at 0600, Until Discontinued, 0.08 mL, Give this dose whether patient is eating or patient is NPO LOW DOSE insulin aspart (NovoLOG) subcutaneous correction scale Premeal Blood Glucose = Insulin Dose 150-199 2 units 200-249 3 units 250-299 5 units 300-349 7 units Over 349 8 units, Given 08/04/2020 12:49 PM SECURITY AND COMPLIANCE PROJECT MANAGER 3 Units Given 08/03/2020 5:38 PM SECURITY AND COMPLIANCE PROJECT MANAGER 2 Units insulin detemir (LEVEMIR) SQ injection Given 08/05/2020 9:17 PM SECURITY AND COMPLIANCE PROJECT MANAGER 26 Units 26 Units, Subcutaneous, Every evening, First dose (after last modification) on 08/03/20 at 2100, Until Discontinued, 0.26 mL, Blood Glucose greater than or equal to 100 mg/dL - Do Not Hold If Blood Glucose LESS than 100 mg/dL, if patient changed to NPO, or if tube feedings stopped - Immediately notify provider before administration., Given 08/04/2020 9:02 PM SECURITY AND COMPLIANCE PROJECT MANAGER 26 Units Given 08/03/2020 7:49 PM SECURITY AND COMPLIANCE PROJECT MANAGER 26 Units iron sucrose (VENOFER) IV solution 200 m g Given 08/06/2020 5:52 AM SECURITY AND COMPLIANCE PROJECT MANAGER 200 mg 200 mg, IV, Daily, 4 doses, First dose (after last modification) on Wed08/06/20 at 0600, Last dose on Wed08/09/20 at 0600, 10 mL, Observe patient for 30 minutes after infusion is completed for hypotension or hypersensitivity reaction. Administer 100 mg doses IV push over 5 minutes and 200 mg doses IV over 10 minutes. Administer doses greater than 200 mg via IV piggyback. Observe patient for 30 minutes after administration., isosorbide dinitrate (ISORDIL) tablet 5 mg Given 08/06/2020 7:39 AM SECURITY AND COMPLIANCE PROJECT MANAGER 5 mg 5 mg, Oral, Three times a day nitrate, First dose on Wed07/26/20 at 0800, Until Discontinued, Hold for SBP <100 Dosing schedule should allow 14 hour nitrate-free period., Given 08/05/2020 5:29 PM SECURITY AND COMPLIANCE PROJECT MANAGER 5 mg Given 08/05/2020 1:14 PM SECURITY AND COMPLIANCE PROJECT MANAGER 5 mg lidocaine (LIDODERM) 5% patch Applied 08/06/2020 7:30 AM SECURITY AND COMPLIANCE PROJECT MANAGER 1 patch 1 patch, Apply externally, Daily, First dose on Wed07/30/20 at 1330, Until Discontinued, Administer over 12 Hours Applied 08/05/2020 9:08 AM SECURITY AND COMPLIANCE PROJECT MANAGER 1 patch Applied 08/04/2020 8:05 AM SECURITY AND COMPLIANCE PROJECT MANAGER 1 patch loperamide (IMODIUM) capsule 2 mg Given 07/28/2020 6:42 PM SECURITY AND COMPLIANCE PROJECT MANAGER 2 mg 2 mg, Oral, Every one hour prn, Starting Wed07/26/20 at 1637, Until Discontinued, diarrhea, Recommended maximum for children greater than 12 years and adults: 16 mg in 24 hours., Given 07/26/2020 6:47 PM SECURITY AND COMPLIANCE PROJECT MANAGER 2 mg melatonin tablet 3 mg Given 07/28/2020 9:46 PM SECURITY AND COMPLIANCE PROJECT MANAGER 3 mg 3 mg, Oral, Bedtime prn, Starting Wed07/25/20 at 1946, Until Discontinued, other (Specify), insomnia, Use FIRST for insomnia. If inadequate response in 60 minutes, may proceed to next choice option or, if no other options, contact provider., metoclopramide (REGLAN) inj soln 5 mg 5 mg, IV, Every six hours prn, Starting Shantelle 07/25/20 at 1917, Until Discontinued, nausea, vomiting, 1 mL, Use SECOND. If ineffective and ondansetron used, call physician for alternative If preference is to further dilute for IV administration: First draw up patient-specific dose, then dilute to 10 mL with 0.9% sodium chloride., metoprolol succinate (TOPROL XL) SR tablet Given 08/06/2020 7:3 1 AM SECURITY AND COMPLIANCE PROJECT MANAGER 25 mg (24 hr) 25 mg 25 mg, Oral, DAILY, First dose on Wed07/26/20 at 0900, Until Discontinued, Tablet may be broken in half, but should not be crushed or chewed., Given 08/05/2020 9:08 AM SECURITY AND COMPLIANCE PROJECT MANAGER 25 mg Given 08/04/2020 8:04 AM SECURITY AND COMPLIANCE PROJECT MANAGER 25 mg omega-3 fatty acids (FISH OIL) capsule Given 08/06/2020 7:30 AM SECURITY AND COMPLIANCE PROJECT MANAGER 1,000 mg 1,000 mg 1,000 mg, Oral, DAILY, First dose on Wed07/26/20 at 0900, Until Discontinued Given 08/05/2020 9:08 AM SECURITY AND COMPLIANCE PROJECT MANAGER 1,000 mg Given 08/04/2020 8:05 AM SECURITY AND COMPLIANCE PROJECT MANAGER 1,000 mg ondansetron (ZOFRAN ODT) dispersible tab let 4 mg 4 mg, Oral, Four times a day prn, Starti ng [facility] 07/25/20 at 1946, Until Discontinued, nausea, vomiting, Use FIRST for nausea / vomiting. If ineffective after 30 minutes use ondansetron IV, ondansetron (ZOFRAN) injection solution 4 mg 4 mg, IV, Four times a day prn, Starting Shantelle 07/25/20 at 1946, Until Discontinued, nausea, vomiting, 2 mL, Use SECOND for n ausea / vomiting. If ineffective after 30 minutes and ondansetron ODT used, call gregg urrutia for alternative. If preference is to further dilute for IV administration: First draw up patient-specific dose, then dilute to 10 mL with 0.9% sodium chloride., rosuvastatin (CRESTOR) tablet 20 mg Given 08/06/2020 7:29 AM SECURITY AND COMPLIANCE PROJECT MANAGER 20 mg 20 mg, Oral, Daily, First dose on Wed08/04/20 at 0900, Until Discontinued Given 08/05/2020 9:08 AM SECURITY AND COMPLIANCE PROJECT MANAGER 20 mg Given 08/04/2020 8:05 AM SECURITY AND COMPLIANCE PROJECT MANAGER 20 mg senna-docusate sodium (SENOKOT-S;PERICOL TAYLOR) tablet 2 tablet 2 tablet, Oral, Two times a day prn, Starting Shantelle /25 /21 at 1946, Until Discontinued, constipation, Use FIRST fo r constipation unless patient cannot take oral medications., sodium bicarbonate tablet 650 mg Given 08/06/2020 7:30 AM SECURITY AND COMPLIANCE PROJECT MANAGER 650 mg 650 mg, Oral, Three times a day, First dose on Wed07/31/20 at 0900, Until Discontinued Given 08/05/2020 8:07 PM SECURITY AND COMPLIANCE PROJECT MANAGER 650 mg Given 08/05/2020 3:44 PM SECURITY AND COMPLIANCE PROJECT MANAGER 650 mg sodium chloride 0.9% flush (adult) 10 mL Given 08/05/2020 8:07 PM SECURITY AND COMPLIANCE PROJECT MANAGER 10 mL 10 mL, IV, Two times a day and prn, First dose on Wed07/25/20 at 2100, Until Discontinued, 10 mL, Flush IV line as scheduled and as often as necessary before and after meds., Given 08/05/2020 9:09 AM SECURITY AND COMPLIANCE PROJECT MANAGER 10 mL Given 08/04/2020 9:02 PM SECURITY AND COMPLIANCE PROJECT MANAGER 10 mL torsemide (DEMADEX) tablet 40 mg Given 08/06/2020 7:39 AM SECURITY AND COMPLIANCE PROJECT MANAGER 40 mg 40 mg, Oral, Daily, First dose on Wed08/01/20 at 0900, Until Discontinued Given 08/05/2020 9:08 AM SECURITY AND COMPLIANCE PROJECT MANAGER 40 mg Given 08/04/2020 8:05 AM SECURITY AND COMPLIANCE PROJECT MANAGER 40 mg traZODone (DESYREL) tablet 50 mg Given 08/03/2020 10:52 PM SECURITY AND COMPLIANCE PROJECT MANAGER 50 mg 50 mg, Oral, Bedtime prn, Starting 07/27/20 at 1629, Until Discontinued, insomnia Given 07/31/2020 12:56 AM SECURITY AND COMPLIANCE PROJECT MANAGER 50 mg Given 07/27/2020 8:37 PM SECURITY AND COMPLIANCE PROJECT MANAGER 50 mg warfarin (COUMADIN) tablet 2.5 mg 2.5 mg, Oral, Warfarin one time dose, 1 dose, Tue at 1600, If patient is receiving tube feeding, hold tube feedin g 1 hour before and 1 hour after warfarin administration. If unable to administer dose intact, w ear universal precautions (one pair of gloves)., Medication Order MAR Action Action Date Dose Rate Site acetaminophen (TYLENOL) tablet Given 07/28/2020 11:45 AM SECURITY AND COMPLIANCE PROJECT MANAGER 650 mg 650 mg 650 mg, Oral, Every four hours prn, Starting Wed07/25/20 at 1917, Until 07/29/20 at 1323, mild pain, fever, pain scale 3 or less, Pain stratification is defined as follows for either analog scale (0-10) or critical care pain observation tool (CPOT, 0-8). a. No pain (0) b. Mild pain level (1-3) c. Moderate pain level (4-6) d. Severe pain level (greater than or equal to 7) Adult patients: Total dose of acetaminophen from all acetaminophen containing products should not exceed 4 grams (4,000 mg) per day. Pediatric Patients 0 - 3 months: Maximum of 60 mg/kg/24 hours of acetaminophen. Pediatric Patients older than 3 months: Maximum of 75 mg/kg/24 hours of acetaminophen (Never exceeding 4 grams/day)., Given 07/27/2020 2:57 PM SECURITY AND COMPLIANCE PROJECT MANAGER 650 mg allopurinol (ZYLOPRIM) tablet 300 mg Given 08/02/2020 8:21 AM SECURITY AND COMPLIANCE PROJECT MANAGER 300 mg 300 mg, Oral, DAILY, First dose on Wed07/26/20 at 0900, Until Discontinued Given 08/01/2020 8:20 AM SECURITY AND COMPLIANCE PROJECT MANAGER 300 mg Given 07/31/2020 11:06 AM SECURITY AND COMPLIANCE PROJECT MANAGER 300 mg bumetanide (BUMEX) injection solution 1 mg Given 07/28/2020 5:32 AM SECURITY AND COMPLIANCE PROJECT MANAGER 1 mg 1 mg, IV, Every eight hours, First dose on Wed07/25/20 at 2200, Until Discontinued, 4 mL Given 07/27/2020 8:37 PM SECURITY AND COMPLIANCE PROJECT MANAGER 1 mg Given 07/27/2020 2:34 PM SECURITY AND COMPLIANCE PROJECT MANAGER 1 mg bumetanide (BUMEX) injection solution 1 mg Given 08/05/2020 11:54 AM SECURITY AND COMPLIANCE PROJECT MANAGER 1 mg 1 mg, IV, One time, 1 dose, Wed08/05/20 at 1155, 4 mL furosemide (LASIX) injection solution 80 mg Given 07/30/2020 5:05 PM SECURITY AND COMPLIANCE PROJECT MANAGER 80 mg 80 mg, IV, Two times a day diuretic, First dose on Wed07/29/20 at 1050, Until Discontinued, 8 mL, If preference is to further dilute for IV administration: First draw up patient-specific dose, then dilute to 10 mL with 0.9% sodium chloride. Administer SLOW IV push., Given 07/30/2020 10:00 AM SECURITY AND COMPLIANCE PROJECT MANAGER 80 mg Given 07/29/2020 6:00 PM SECURITY AND COMPLIANCE PROJECT MANAGER 80 mg gemfibrozil (LOPID) tablet 600 mg Given 08/03/2020 5:57 AM SECURITY AND COMPLIANCE PROJECT MANAGER 600 mg 600 mg, Oral, Two times a day before meals, First dose on Wed07/26/20 at 0700, Until Discontinued, Give 30 minutes before meals., Given 08/02/2020 5:26 PM SECURITY AND COMPLIANCE PROJECT MANAGER 600 mg Given 08/02/2020 8:20 AM SECURITY AND COMPLIANCE PROJECT MANAGER 600 mg HYDROcodone-acetaminophen (NORCO) 5-325 mg Given 07/28 10:15 PM SECURITY AND COMPLIANCE PROJECT MANAGER 1 tablet tablet 1 tablet 1 tablet, Oral, Now, 1 dose, 07/28/20 at 2155, Total dose of acetaminophen from all acetaminophen containing products should not exceed 4 grams (4000 mg) per day., insulin detemir (LEVEMIR) SQ injection Given 07/28/2020 9:46 PM SECURITY AND COMPLIANCE PROJECT MANAGER 40 Units 40 Units, Subcutaneous, Every evening, First dose on Shantelle 07/25/20 at 2200, Until Discontinued, 0.4 mL, Blood Glucose greater than or equal to 100 mg/dL Do Not Hold If Blood Glucose LESS than 100 mg/dL, if patient changed to NPO, or if tube feedings stopped Immediately notify provider before administration., Given 07/27/2020 8:37 PM SECURITY AND COMPLIANCE PROJECT MANAGER 40 Units Given 07/26/2020 10:01 PM SECURITY AND COMPLIANCE PROJECT MANAGER 40 Units insulin detemir (LEVEMIR) SQ injection Given 08/02/2020 8:43 PM SECURITY AND COMPLIANCE PROJECT MANAGER 36 Units 36 Units, Subcutaneous, Every evening, First dose (after last modification) on Wed07/29/20 at 2100, Until Discontinued, 0.36 mL, Blood Glucose greater than or equal to 100 mg/dL - Do Not Hold If Blood Glucose LESS than 100 mg/dL, if patient changed to NPO, or if tube feedings stopped - Immediately notify provider before administration., Given 08/01/2020 8:55 PM [employer] PROJECT [employer]NAGER 36 Units Arm Left Upper TD Given 07/31/2020 9:06 PM [employer]IANCE PROJECT MANAGER 36 Units Arm Left Upper TD iron sucrose (VENOFER) IV solution 200 m g Given 08/05/2020 11:54 AM SEC[employer] AND [employer]IANCE PROJECT MANAGER 200 mg 200 mg, IV, Daily, 5 doses, First dose on Wed08/05/20 at 1130, Last dose on Wed08/09/20 at 0900, 10 mL, Observe patient for 30 minutes after infusion is completed for hypotension or hypersensitivity reaction. Administer 100 mg doses IV push over 5 minutes and 200 mg doses IV over 10 minutes. Administer doses greater than 200 mg via IV piggyback. Observe patient for 30 minutes after administration., lisinopril (PRINIVIL, ZESTRIL) tablet 2. 5 mg Given 07/28/2020 9:10 AM SECUR[employer] AND [employer]IANCE PROJECT MANAGER 2.5 mg 2.5 mg, Oral, Daily, First dose on Wed07/27/20 at 0935, Until Discontinued, Hold for SBP less than 100, Given 07/27/2020 11:49 AM SEC[employer]IANCE PROJECT MANAGER 2.5 mg metOLazone (ZAROXOLYN) tablet 5 mg Given 07/31/2020 7:22 AM SEC[employer] AND [employer]IANCE PROJECT MANAGER 5 mg 5 mg, Oral, Daily, First dose on Wed07/30/20 at 0840, Until Discontinued, If being given with furosemide or bumetanide, give metolazone 30 minutes prior to furosemide or bumetanide., Given 07/30/2020 9:22 AM SECUR[employer] AND [employer]IANCE PROJECT MANAGER 5 mg oxyCODONE (OXY-IR) tablet 5 mg Given 08/05/2020 5:04 AM SEC[employer] AND [employer]IANCE PROJECT MANAGER 5 mg 5 mg, Oral, Every six hours prn, Starting Wed07/30/20 at 0954, Until Wed08/05/20 at 1755, severe pain Given 08/04/2020 3:18 PM [employer]IANCE PROJECT MANAGER 5 mg Given 08/04/2020 8:06 AM SEC[employer]IANCE PROJECT MANAGER 5 mg phytonadione (vitamin K) (MEPHYTON) tablet 5 Given 12:40 PM SEC[employer] AND [employer]IANCE PROJECT MANAGER 5 mg mg 5 mg, Oral, One time, 1 dose, Wed08/02/20 at 1245 phytonadione (Vitamin K, AQUAMEPHYTON) 5 mg in Given 0 07/25/2020 10:23 PM SEC[employer]IANCE PROJECT MANAGER 5 mg sodium chloride 0.9% 50 mL 5 mg, IV, One time, 1 dose, [facility] 07/25/20 at 2230, 50 mL, Protect from light during administration., potassium chloride (KLOR-CON M20) CR tablet Given 07/02 8:37 PM SEC[employer]ANCE PROJECT MANAGER 40 mEq 40 mEq 40 mEq, Oral, Two times a day, 2 doses, First dose on Wed07/27/20 at 0935, Last dose on Wed07/27/20 at 2100, Tablet may be broken in half, but should not be crushed or chewed. Tablet may be dissolved in 4 oz of water., Given 07/27/2020 11:49 AM [employer]IANCE PROJECT MANAGER 40 mEq pravastatin (PRAVACHOL) tablet 80 mg Given 08/02/2020 8:02 PM SEC[employer] AND [employer]IANCE PROJECT MANAGER 80 mg 80 mg, Oral, Every evening, First dose on [place] 07/25/20 at 2100, Until Discontinued Given 08/01/2020 8:55 PM SEC[employer]IANCE PROJECT MANAGER 80 mg Given 07/31/2020 9:06 PM SEC[employer] AND [employer]IANCE PROJECT MANAGER 80 mg torsemide (DEMADEX) tablet 60 mg Given 07/28/2020 2:17 PM SEC[employer] AND [employer]IANCE PROJECT MANAGER 60 mg 60 mg, Oral, Two times a day ([id number]), First dose on 07/28/20 at 1400, Until Discontinued, Hold for SBP less than 100, traMADol (ULTRAM) tablet 50 mg Given 07/29/2020 9:13 PM SEC[employer]IANCE PROJECT MANAGER 50 mg 50 mg, Oral, Every six hours prn, Starting Wed07/29/20 at 1024, Until Wed07/30/20 at 0954, severe pain, Recommended maximum daily dose of tramadol = 400 mg. Recommended maximum daily dose in patients 75 years or older = 300 mg., Given 07/29/2020 12:09 PM SEC[employer]IANCE PROJECT MANAGER 50 mg warfarin (COUMADIN) - NO dose Verified No Dose Today 07/30/2020 5:10 PM SECUR[employer] AND COM[employer]IANCE PROJECT MANAGER today Oral, Warfarin no dose, 1 dose, Wed07/30/20 at 1600, If unable to administer dose intact, wear universal precautions (one pair of gloves)., warfarin (COUMADIN) - NO dose Verified No Dose Today 07/31/2020 4:59 PM SECUR[employer] AND [employer]IANCE PROJECT MANAGER today Oral, Warfarin no dose, 1 dose, Wed07/31/20 at 1600, If unable to administer dose intact, wear universal precautions (one pair of gloves)., warfarin (COUMADIN) tablet 1.25 mg Given 07/29/2020 4:06 PM SEC[employer] AND [employer]IANCE PROJECT MANAGER 1.25 mg 1.25 mg, Oral, Warfarin one time dose, 1 dose, Wed07/29/20 at 1600, If patient is receiving tube feeding, hold tube feeding 1 hour before and 1 hour after warfarin administration. If unable to administer dose intact, wear universal precautions (one pair of gloves)., warfarin (COUMADIN) tablet 2.5 mg Given 07/26/2020 4:05 PM SECUR[employer] AND COMPLIANCE PROJECT MANAGER 2.5 mg 2.5 mg, Oral, Warfarin one time dose, 1 dose, 07/26/20 at 1600, If patient is receiving tube feeding, hold tube feeding 1 hour before and 1 hour after warfarin administration. If unable to administer dose intact, wear universal precautions (one pair of gloves)., warfarin (COUMADIN) tablet 5 mg Given 07/27/2020 4:23 PM SECUR[employer] AND [employer]IANCE PROJECT MANAGER 5 mg 5 mg, Oral, Warfarin one time dose, 1 dose, 07/27/20 at 1600, If patient is receiving tube feeding, hold tube feeding 1 hour before and 1 hour after warfarin administration. If unable to administer dose intact, wear universal precautions (one pair of gloves)., warfarin (COUMADIN) tablet 5 mg Given 07/28/2020 5:05 PM SEC[employer]IANCE PROJECT MANAGER 5 mg 5 mg, Oral, Warfarin one time dose, 1 dose, 07/28/20 at 1600, If patient is receiving tube feeding, hold tube feeding 1 hour before and 1 hour after warfarin administration. If unable to administer dose intact, wear universal precautions (one pair of gloves)., warfarin (COUMADIN) tablet 5 mg Given 08/05/2020 3:44 PM SECUR[employer] AND [employer]IANCE PROJECT MANAGER 5 mg 5 mg, Oral, Warfarin one time dose, 1 dose, 08/05/20 at 1600, If patient is receiving tube feeding, hold tube feeding 1 hour before and 1 hour after warfarin administration. If unable to administer dose intact, wear universal precautions (one pair of gloves)., documented in this encounter
== END 2020-08-07 09:42 | DRG 280 ==
LOC: DL.MS 10:31 → UNDOADMIN 10:31 → DL.MS 12:38 → UNDODISIN 08-07 09:42
PROVIDERS: ADMIT Internal Medicine; ATTEND Internal Medicine
DX: I13.0 Hypertensive heart and chronic kidney disease with heart failure and stage 1 through stage 4 chronic kidney disease, or unspecified chronic kidney disease (principal); J96.01 Acute respiratory failure with hypoxia; I21.4 Non-ST elevation (NSTEMI) myocardial infarction; I50.42 Chronic combined systolic (congestive) and diastolic (congestive) heart failure; I25.10 Atherosclerotic heart disease of native coronary artery without angina pectoris; N18.30 Chronic kidney disease, stage 3 unspecified; E11.22 Type 2 diabetes mellitus with diabetic chronic kidney disease; J44.9 Chronic obstructive pulmonary disease, unspecified; M10.9 Gout, unspecified; H54.7 Unspecified visual loss; K21.9 Gastro-esophageal reflux disease without esophagitis; M19.90 Unspecified osteoarthritis, unspecified site; E11.42 Type 2 diabetes mellitus with diabetic polyneuropathy; Z86.73 Personal history of transient ischemic attack (TIA), and cerebral infarction without residual deficits; Z87.891 Personal history of nicotine dependence; Z79.01 Long term (current) use of anticoagulants; Z79.4 Long term (current) use of insulin; Z79.899 Other long term (current) drug therapy; Z86.718 Personal history of other venous thrombosis and embolism; Z95.0 Presence of cardiac pacemaker; Z95.2 Presence of prosthetic heart valve; Z88.0 Allergy status to penicillin; I25.2 Old myocardial infarction; Z95.5 Presence of coronary angioplasty implant and graft; Z98.890 Other specified postprocedural states; E78.00 Pure hypercholesterolemia, unspecified
CPT/HCPCS: 36415; 51702; 71045; 80048; 82962; 83735; 84100; 84484; 85027; 85610; 93005; 94760; 97162-GP; 97166-GO; 99306; 99315; A9270-GY; J1815-GY; J3490; J7613-GY

== ENCOUNTER 2020-08-07 09:12 | Inpatient (IN) | payer MEDICARE, BC ==
[2020-08-07] MEDS ORDERED: Glucagon,Human Recombinant 1 MG Vial IM PRN ×2 (09:40)
[2020-08-07] MEDS ORDERED: 50% Dextrose in Water 50 ML Syringe IV PRN (09:40)
[2020-08-07] MEDS ORDERED: Albuterol 0.083% 2.5 MG/3 ML Neb Soln INH PRN (09:40)
[2020-08-07] MEDS ORDERED: Sodium Chloride 0.9% 10 ML Syringe FLUSH PRN (09:40)
[2020-08-07] MEDS: Insulin Lispro 100 Units/ML 3 ML Vial SUBCUT SCH ×3 (12:57→22:01)
[2020-08-07] MEDS: Sodium Bicarbonate 650 MG Tab PO SCH ×2 (15:34→22:01)
[2020-08-07] MEDS: Isosorbide Dinitrate 10 MG Tab PO SCH ×2 (15:35→22:06)
[2020-08-07] MEDS: Bumetanide 1 MG/4 ML MDV IVPUSH SCH ×2 (15:38→21:55)
--- NOTE | 2020-08-07 17:28 | PCM.HP ---
H&P History of Present Illness - General Date of Service: 08/07/20 Admit Problem/Dx: Admission Diagnosis/Problem Admission Diagnosis/Problem CHF, Congestive heart failure - History of Present Illness Initial Comments - Free Text/Narative: 75M w/ pmh systolic and diastolic CHF, CAD, CKD3, chronic DVT, DM2, CHB s/p PPM, s/p bioprosthetic AVR in 2018, COPD, gout, HT recently w/ in-stent re-stenosis of multiple LAD lesions treated w/ ballooning only followed by re-admission 07/25-08/06 for acute hypoxic respiratory failure 2/2 CHF exacerbation c/b cardiorenal syndrome and NSTEMI where he was nearly started on HD (even had perm cath placed - since removed) but turned around and now transferred to for Swing Bed. The very first night after admission the pt developed respiratory distress and relapse of respiratory failure requiring 10L o2 supp via oxy mask. He required 2 mg IV bumex to produce a diuretic response and 'rescue' him from impending critical respiratory failure. He is being converted from Swing Bed to in- patient since he will need continued IV diuresis and acute level of care and monitoring. I held a family meeting w/ the pt, his significant other Blanche and son Nestor. I explained current acute process of acute respiratory failure, pulmonary edema due to heart failure, cardio-renal syndrome. I summarized prior hospital stays to the best of my knowledge. The pt is adamant he never wants to do HD ever again. This is despite attempts to convince him by the family. I explained that this is not a decision that needs to be made today and he has so far re sponded to high dose IV bumex. We discussed that if this fails or renal function worsens significantly that decision will have to be made. 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 Pt also made a unilateral decision to be DNR/DNI. In my opinion he has the capacity to make this decision. This was supported by his significant other and son. Orders were placed in the chart. Buttock Pain Score (Numeric/FACES): 3 - Related Data Allergies/Adverse Reactions: Allergies Allergy/AdvReac Type Severity Reaction Status Date / Time Penicillins Allergy Rash Verified 06/27/20 22:41 Home Medications: Home Meds Nitroglycerin [Nitrostat] 0.4 mg SL ASDIRECTED 02/08/14 [History] Clopidogrel [Plavix] 75 mg PO DAILY 04/26/18 [History] Insulin Aspart [NovoLOG] 10 - 17 units SQ TID 04/26/18 [History] Insulin Detemir [Levemir Flextouch] 26 units SQ BEDTIME 04/26/18 [History] Warfarin Sodium [Jantoven] 5 mg PO ASDIRECTED 04/26/18 [History] Metoprolol Succinate 25 mg PO DAILY 01/09/20 [History] Multivitamin [Multi-Vitamin Daily] 1 tab PO DAILY 01/09/20 [History] Acetaminophen 650 mg PO Q6HR 08/06/20 [History] Albuterol [Proventil Neb Soln] 2.5 inhalation INH Q4HR PRN 08/06/20 [History] Escitalopram [Lexapro] 10 mg PO DAILY 08/06/20 [History] Isosorbide Dinitrate 5 mg PO TID 08/06/20 [History] Lidocaine 5% [Lidoderm 5%] 1 patch TOP DAILY 08/06/20 [History] Rosuvastatin [Crestor] 20 mg PO DAILY 08/06/20 [History] Sodium Bicarbonate 650 mg PO TID 08/06/20 [History] calcitrioL [Calcitriol] 0.25 mcg PO .Q48HRS 08/06/20 [History] traZODone 50 mg PO BEDTIME PRN 08/06/20 [History] Acetaminophen [Tylenol] 650 mg PO Q4H PRN tablet 08/07/20 [Rx] Dextrose 50% in Water [Dextrose 50%-Water] 50 ml IV ASDIRECTED PRN syringe 08/07/20 [Rx] Glucagon,Human Recombinant [Glucagen] 1 mg IM ASDIRECTED PRN vial 08/07/20 [Rx] Insulin Glarg,Human.Rec.Analog [Lantus] 26 unit SUBCUT BEDTIME ml 08/07/20 [Rx] Insulin Lispro [HumaLOG] 0 unit SUBCUT WITHMEALSANDBED vial 08/07/20 [Rx] Past Medical History HEENT History: Reports: Impaired Vision Other HEENT History: wears glasses Cardiovascular History: Reports: Blood Clots/VTE/DVT, CAD, Heart Failure, Heart Valve Replacement, High Cholesterol, Hypertension, HI, Pacemaker, PTCA, Stents Respiratory History: Reports: COPD Gastrointestinal History: Reports: GERD Genitourinary History: Reports: Acute Renal Failure, Chronic Renal Insuffiency, Dialysis Other Genitourinary History: Chronic kidney disease,stage 3 Musculoskeletal History: Reports: Arthritis, Back Pain, Chronic, Gout Neurological History: Reports: CVA, Neuropathy, Diabetic, Neuropathy, Peripheral Psychiatric History: Reports: None, Depression Endocrine/Metabolic History: Reports: Diabetes, Type II, Obesity/BMI 30+ Hematologic History: Reports: Anticoagulation Therapy Immunologic History: Reports: None Oncologic (Cancer) History: Reports: None Dermatologic History: Reports: None - Infectious Disease History Infectious Disease History: Reports: Chicken Pox - Past Surgical History Head Surgeries/Procedures: Reports: None Cardiovascular Surgical History: Reports: Coronary Artery Stent, Valve Replacement Other Cardiovascular Surgeries/Procedures: stents in legs GI Surgical History: Reports: Hernia, Inguinal, Hernia Repair/Other Male Surgical History: Reports: None Endocrine Surgical History: Reports: None Neurological Surgical History: Reports: None Musculoskeletal Surgical History: Reports: None Dermatological Surgical History: Reports: None Social & Family History - Family History Family Medical History: No Pertinent Family History - Tobacco Use Tobacco Use Status *Q: Former Tobacco User Used Tobacco, but Quit: Yes Month/Year Tobacco Last Used: 2008 - Caffeine Use Caffeine Use: Reports: Coffee, Soda, Tea - Recreational Drug Use Recreational Drug Use: No H&P Review of Systems - Review of Systems: Review Of Systems: See Below General: Reports: Weakness. Denies: Fever, Chills HEENT: Denies: Headaches Pulmonary: Reports: Shortness of Breath, Cough Cardiovascular: Denies: Chest Pain Gastrointestinal: Denies: Abdominal Pain Genitourinary: Denies: Dysuria Musculoskeletal: Denies: Neck Pain Skin: Reports: Other (c/o buttock pain). Denies: Diaphoresis Psychiatric: Denies: Confusion Neurological: Denies: Dizziness Hematologic/Lymphatic: Denies: Easy Bleeding Exam - Exam Exam: See Below - Vital Signs Vital Signs: Last Vital Signs Temp 98.2 F 08/07/20 16:30 Pulse 98 08/07/20 16:30 Resp 20 08/07/20 16:30 BP 113/64 08/07/20 16:30 Pulse Ox 96 08/07/20 16:30 Weight: 225 lb - Exam Quality Assessment: Supplemental Oxygen General: Alert, Oriented, Cooperative, Other (somnolent) HEENT: Conjunctiva Clear Neck: Supple Lungs: Other (dec BS and rales bibasilar) Cardiovascular: Regular Rate, Regular Rhythm GI/Abdominal Exam: Normal Bowel Sounds, Soft, Non-Tender, No Distention Back Exam: Other (elongated, stage 3, perirectal decubitus) Extremities: Pedal Edema (2+) Skin: Warm, Dry Neurological: Normal Speech Neuro Extensive - Mental Status: Alert, Oriented x3, Memory Intact Psychiatric: Alert, Depressed - Patient Data Lab Results Last 24 hrs: Laboratory Results - last 24 hr 08/07/20 Range/Units 17:00 POC Glucose 269 H (83-110) mg/dl Problem List Initiated/Reviewed/Updated: No Orders Last 24hrs: Active Orders 24 hr Category Date Time Status Admission Status [Patient Status] [ADT] Routine ADT 08/07/20 09:42 Active Antiembolic Devices [RC] Care 08/07/20 09:40 Active Antiembolic Devices [RC] PER UNIT ROUTINE Care 08/07/20 09:40 Active Blood Glucose Check, Bedside [RC] WITHMEALSANDBED Care 08/07/20 09:40 Active Silverio Catheter Insertion [Insert Urinary Catheter] [OM. Care 08/07/20 09:40 Ordered PC] Q24H Oxygen Therapy [RC] .PRN Care 08/07/20 09:40 Active Peripheral IV Care [RC] . DIRECTED Care 08/07/20 09:40 Active RT Aerosol Therapy [RC] ASDIRECTED Care 08/07/20 09:40 Active RT Aerosol Therapy [RC] ASDIRECTED Care 08/07/20 09:40 Active Urinary Catheter Assessment [RC] , Care 08/07/20 09:40 Active Urinary Catheter Assessment [RC] Care 08/07/20 09:40 Active VTE/DVT Education [RC] PER UNIT ROUTINE Care 08/07/20 09:40 Active Vital Signs [RC] 00,04,08,12,16,20 Care 08/07/20 09:40 Active OT Evaluation and Treatment [CONS] Routine Cons 08/07/20 09:40 Active PT Evaluation and Treatment [CONS] Routine Cons 08/07/20 09:40 Active Fluid Restriction [DIET] Diet 08/07/20 Dinner Active Heart Healthy Diet [DIET] Diet 08/07/20 Dinner Active Acetaminophen [TylenoL] Med 08/07/20 09:40 Active 650 mg PO Q4H PRN Albuterol [Proventil Neb Soln] Med 08/07/20 09:40 Active 2.5 mg INH Q4H PRN Bumetanide [Bumex] Med 08/07/20 14:00 Active 2 mg IVPUSH Q8H Clopidogrel [Plavix] Med 08/08/20 09:00 Active 75 mg PO DAILY Dextrose 50% in Water Med 08/07/20 09:40 Active 50 ml IV ASDIRECTED PRN Escitalopram [Lexapro] Med 08/08/20 09:00 Active 10 mg PO DAILY Glucagon,Human Recombinant [GlucaGen] Med 08/07/20 09:40 Active 1 mg IM ASDIRECTED PRN Glucagon,Human Recombinant [GlucaGen] Med 08/07/20 09:40 Active 1 mg IM ASDIRECTED PRN Insulin Glarg,Human.Rec.Analog [LantUS] Med 08/07/20 21:00 Active 26 unit SUBCUT BEDTIME Insulin Lispro [HumaLOG] Med 08/07/20 12:00 Active See Protocol SUBCUT WITHMEALSANDBED Isosorbide Dinitrate [Isordil] Med 08/07/20 14:00 Active 5 mg PO TID Lidocaine 5% [Lidoderm 5%] Med 08/08/20 09:00 Active 700 mg TOP DAILY Metoprolol Succinate [Toprol XL] Med 08/08/20 09:00 Active 25 mg PO DAILY Multivitamins,Therapeutic [Thera] Med 08/08/20 09:00 Active 1 each PO DAILY Remove Patch Med 08/07/20 21:00 Active 1 ea TRDERM DAILY@2100 Rosuvastatin [Crestor] Med 08/08/20 09:00 Active 20 mg PO DAILY Sodium Bicarbonate Med 08/07/20 14:00 Active 650 mg PO TID Sodium Chloride 0.9% [Saline Flush] Med 08/07/20 09:40 Active 10 ml FLUSH ASDIRECTED PRN Sodium Chloride 0.9% [Saline Flush] Med 08/07/20 09:40 Active 10 ml FLUSH ASDIRECTED PRN calcitrioL [Rocaltrol] Med 08/08/20 09:00 Active 0.25 mcg PO Q48H traZODone Med 08/07/20 09:40 Active 50 mg PO BEDTIME PRN Antiembolic Hose [OM.PC] Per Unit Routine Oth 08/07/20 09:40 Ordered Peripheral IV Insertion Adult [OM.PC] Routine Oth 08/07/20 09:40 Ordered Resuscitation Status Routine Resus Stat 08/07/20 09:40 Ordered Assessment/Plan Comment:: #acute hypoxic respiratory failure 2/2 acute on chronic systolic and diastolic CHF - responding to high dose bumex - c/w 2 mg IV bumex q8h - taper o2 as tolerated - monitor kidney function - d/w Dr Wolf and dobutamine/dopamine gtt still an option if current approach fails #cardio-renal syndrome / CKD 3 - so far CrCl is stable - c/w diuresis #chronic DVT - c/w coumadin #DM2 - A1c was 9 at OSH - c/w lantus and SORAIDA - adjust as needed #gout / HT / CAD / COPD / hx bioprosthetic AVR - c/w home meds PPX - on coumadin PT/OT eval and treat DNR/DNI
[2020-08-07] MEDS ORDERED: Warfarin 5 MG Tab PO ONE (18:00)
[2020-08-07] MEDS: Sodium Chloride 0.9% 10 ML Syringe FLUSH PRN (21:55)
[2020-08-07] MEDS: traZODone 50 MG Tab PO PRN (22:01)
[2020-08-07] MEDS: Insulin Glarg,Human.Rec.Analog 100 Unit/ML SUBCUT SCH (22:04)
[2020-08-08] MEDS: Acetaminophen 325 MG Tab PO PRN ×4 (03:06→21:54)
[2020-08-08] MEDS: Sodium Chloride 0.9% 10 ML Syringe FLUSH PRN ×2 (05:36→09:22)
[2020-08-08] MEDS: Bumetanide 1 MG/4 ML MDV IVPUSH SCH ×3 (05:36→21:39)
[2020-08-08 06:46] LABS: ANION GAP 13.8 mEq/L (7-13)
[2020-08-08] MEDS ORDERED: Magnesium Sulfate/Water 2 GM/50 ML BAG IV ONE (07:33)
[2020-08-08] MEDS ORDERED: Potassium Chloride 10 MEQ Tab.ER PO ONE (07:34)
[2020-08-08] MEDS: Lidocaine 5% 700 MG Patch TOP SCH (08:25)
[2020-08-08] MEDS: Multivitamins,Therapeutic Tab PO SCH (08:26)
[2020-08-08] MEDS: Sodium Bicarbonate 650 MG Tab PO SCH ×3 (08:26→21:34)
[2020-08-08] MEDS: Calcitriol 0.25 MCG Cap PO SCH (08:26)
[2020-08-08] MEDS: Rosuvastatin 10 MG Tab PO SCH (08:26)
[2020-08-08] MEDS: Metoprolol Succinate 25 MG Tab.ER PO SCH (08:27)
[2020-08-08] MEDS: Clopidogrel 75 MG Tab PO SCH (08:27)
[2020-08-08] MEDS: Escitalopram 10 MG Tab PO SCH (08:27)
[2020-08-08] MEDS: Insulin Lispro 100 Units/ML 3 ML Vial SUBCUT SCH ×4 (08:30→21:37)
--- NOTE | 2020-08-08 10:43 | PCM.PN ---
- General Info Date of Service: 08/08/20 Admission Dx/Problem (Free Text): No events overnight. Feels somewhat better. ~3000 cc UOP w/ 1500 net negative. Sats 98% on 2l. - Patient Data Vitals - Most Recent: Last Vital Signs Temp 99.9 F 08/08/20 08:00 Pulse 96 08/08/20 08:27 Resp 20 08/08/20 08:00 BP 111/58 L 08/08/20 08:27 Pulse Ox 98 08/08/20 08:00 Weight - Most Recent: 222 lb 3.2 oz I&O - Last 24 Hours: Intake & Output 08/07/20 08/08/20 08/08/20 22:59 06:59 14:59 Intake Total 525 400 298 Output Total 1275 400 Balance -750 0 298 Lab Results Last 24 Hours: Laboratory Results - last 24 hr 08/07/20 08/07/20 08/08/20 Range/Units 17:00 21:10 05:40 Sodium 143 (136-145) mmol/L Potassium 2.8 L (3.5-5.1) mmol/L Chloride 100 (98-107) mmol/L Carbon Dioxide 32 (21-32) mmol/L Anion Gap 13.8 H (7-13) mEq/L BUN 112 H (7-18) mg/dL Creatinine 1.78 H (0.70-1.30) mg/dL Est Cr Clr Drug Dosing 38.16 mL/min Estimated GFR (MDRD) 38 Glucose 135 H (74-99) mg/dL POC Glucose 269 H 185 H (83-110) mg/dl Calcium 8.5 (8.5-10.1) mg/dL Phosphorus 3.3 (2.6-4.7) mg/dL Magnesium 1.7 L (1.8-2.4) mg/dL B-Natriuretic Peptide 2770 H (0-100) pg/ml 08/08/20 Range/Units 07:38 Sodium (136-145) mmol/L Potassium (3.5-5.1) mmol/L Chloride (98-107) mmol/L Carbon Dioxide (21-32) mmol/L Anion Gap (7-13) mEq/L BUN (7-18) mg/dL Creatinine (0.70-1.30) mg/dL Est Cr Clr Drug Dosing mL/min Estimated GFR (MDRD) Glucose (74-99) mg/dL POC Glucose 130 H (83-110) mg/dl Calcium (8.5-10.1) mg/dL Phosphorus (2.6-4.7) mg/dL Magnesium (1.8-2.4) mg/dL B-Natriuretic Peptide (0-100) pg/ml - Exam Quality Assessment: Supplemental Oxygen (2L) General: Alert, Oriented, Cooperative, No Acute Distress HEENT: Pupils Equal, Pupils Reactive Lungs: Other (dec BS and rales b/l bases) Cardiovascular: Regular Rate, Regular Rhythm, Other (diastolic m.) (Male) Exam: Other (silverio in place) Extremities: Pedal Edema (1+) Skin: Warm, Dry Neurological: No New Focal Deficit Psy/Mental Status: Alert, Depressed - Patient Data Lab Results Last 24 hrs: Laboratory Results - last 24 hr 08/07/20 08/07/20 08/08/20 Range/Units 17:00 21:10 05:40 Sodium 143 (136-145) mmol/L Potassium 2.8 L (3.5-5.1) mmol/L Chloride 100 (98-107) mmol/L Carbon Dioxide 32 (21-32) mmol/L Anion Gap 13.8 H (7-13) mEq/L BUN 112 H (7-18) mg/dL Creatinine 1.78 H (0.70-1.30) mg/dL Est Cr Clr Drug Dosing 38.16 mL/min Estimated GFR (MDRD) 38 Glucose 135 H (74-99) mg/dL POC Glucose 269 H 185 H (83-110) mg/dl Calcium 8.5 (8.5-10.1) mg/dL Phosphorus 3.3 (2.6-4.7) mg/dL Magnesium 1.7 L (1.8-2.4) mg/dL B-Natriuretic Peptide 2770 H (0-100) pg/ml 08/08/20 Range/Units 07:38 Sodium (136-145) mmol/L Potassium (3.5-5.1) mmol/L Chloride (98-107) mmol/L Carbon Dioxide (21-32) mmol/L Anion Gap (7-13) mEq/L BUN (7-18) mg/dL Creatinine (0.70-1.30) mg/dL Est Cr Clr Drug Dosing mL/min Estimated GFR (MDRD) Glucose (74-99) mg/dL POC Glucose 130 H (83-110) mg/dl Calcium (8.5-10.1) mg/dL Phosphorus (2.6-4.7) mg/dL Magnesium (1.8-2.4) mg/dL B-Natriuretic Peptide (0-100) pg/ml Result Diagrams: 08/08/20 05:40 Sepsis Event Note - Evaluation Sepsis Screening Result: No Definite Risk - Focused Exam Vital Signs: Vital Signs Temp Pulse Pulse Resp BP BP Pulse Ox 08/08/20 08:27 96 111/58 L 08/08/20 08:00 99.9 F 96 20 111/58 L 98 08/08/20 03:44 99.6 F 94 20 110/57 L 93 L 08/08/20 00:00 99.2 F 95 20 110/60 97 - Problem List Review Problem List Initiated/Reviewed/Updated: No - My Orders Last 24 Hours: My Active Orders 08/07/20 09:40 Antiembolic Devices [RC] RT Aerosol Therapy [RC] ASDIRECTED Urinary Catheter Assessment [RC] Acetaminophen [TylenoL] 650 mg PO Q4H PRN Albuterol [Proventil Neb Soln] 2.5 mg INH Q4H PRN Dextrose 50% in Water 50 ml IV ASDIRECTED PRN Glucagon,Human Recombinant [GlucaGen] 1 mg IM ASDIRECTED PRN Sodium Chloride 0.9% [Saline Flush] 10 ml FLUSH ASDIRECTED PRN traZODone 50 mg PO BEDTIME PRN 08/07/20 09:40 Antiembolic Devices [RC] PER UNIT ROUTINE Blood Glucose Check, Bedside [RC] WITHMEALSANDBED Silverio Catheter Insertion [Insert Urinary Catheter] [OM.PC] Q24H Oxygen Therapy [RC] .PRN Peripheral IV Care [RC] . DIRECTED RT Aerosol Therapy [RC] ASDIRECTED Urinary Catheter Assessment [RC] VTE/DVT Education [RC] PER UNIT ROUTINE Vital Signs [RC] 00,04,08,12,16,20 OT Evaluation and Treatment [CONS] Routine PT Evaluation and Treatment [CONS] Routine Antiembolic Hose [OM.PC] Per Unit Routine Peripheral IV Insertion Adult [OM.PC] Routine 08/07/20 09:42 Admission Status [Patient Status] [ADT] Routine 08/07/20 12:00 Insulin Lispro [HumaLOG] See Protocol SUBCUT WITHMEALSANDBED 08/07/20 14:00 Bumetanide [Bumex] 2 mg IVPUSH Q8H Sodium Bicarbonate 650 mg PO TID 08/07/20 Dinner Heart Healthy Diet [DIET] 08/07/20 17:53 Resuscitation Status Routine 08/07/20 21:00 Insulin Glarg,Human.Rec.Analog [LantUS] 26 unit SUBCUT BEDTIME Remove Patch 1 ea TRDERM DAILY@2100 08/08/20 07:45 Potassium Chloride [KCl in Water 10 MEQ/100 ML] 10 meq Premix Bag 1 bag IV Q1H 08/08/20 09:00 Clopidogrel [Plavix] 75 mg PO DAILY Escitalopram [Lexapro] 10 mg PO DAILY Lidocaine 5% [Lidoderm 5%] 700 mg TOP DAILY Metoprolol Succinate [Toprol XL] 25 mg PO DAILY Multivitamins,Therapeutic [Thera] 1 each PO DAILY Rosuvastatin [Crestor] 20 mg PO DAILY calcitrioL [Rocaltrol] 0.25 mcg PO Q48H 08/08/20 10:23 Dietary Supplements [RC] BIDMEALS 08/08/20 10:26 Warfarin [Coumadin] 2.5 mg PO ONETIME ONE 08/08/20 Lunch Fluid Restriction [DIET] 08/09/20 05:11 INR,PT,PROTHROMBIN TIME [COAG] AM - Plan Plan:: #acute hypoxic respiratory failure 2/2 acute on chronic systolic and diastolic CHF - diuresing well and renal function holding - c/w 2 mg IV bumex q8h - taper o2 as tolerated #cardio-renal syndrome / CKD 3 - so far CrCl is stable - c/w diuresis #chronic DVT - c/w coumadin #DM2 - A1c was 9 at OSH - c/w lantus and SORAIDA - adjust as needed #gout / HT / CAD / COPD / hx bioprosthetic AVR - c/w home meds PPX - on coumadin PT/OT eval and treat DNR/DNI 08/07 Pt also made a unilateral decision to be DNR/DNI. In my opinion he has the capacity to make this decision. This was supported by his significant other and son. Orders were placed in the chart.
[2020-08-08] MEDS: Potassium Chloride 10 MEQ in Premix Bag 1 BAG IV SCH ×3 (11:33→15:11)
[2020-08-08] MEDS ORDERED: Warfarin 2.5 MG Tab PO ONE (14:00)
[2020-08-08] MEDS ORDERED: Potassium Chloride 10 MEQ in Premix Bag 1 BAG IV SCH (14:45)
[2020-08-08] MEDS: Insulin Glarg,Human.Rec.Analog 100 Unit/ML SUBCUT SCH (21:34)
[2020-08-08] MEDS: traZODone 50 MG Tab PO PRN (21:54)
[2020-08-09] MEDS: Bumetanide 1 MG/4 ML MDV IVPUSH SCH ×4 (05:30→22:48)
[2020-08-09 06:43] LABS: ANION GAP 15.1 mEq/L (7-13)
[2020-08-09] MEDS: Insulin Lispro 100 Units/ML 3 ML Vial SUBCUT SCH ×4 (08:32→20:24)
[2020-08-09] MEDS: Rosuvastatin 10 MG Tab PO SCH (08:33)
[2020-08-09] MEDS: Multivitamins,Therapeutic Tab PO SCH (08:34)
[2020-08-09] MEDS: Metoprolol Succinate 25 MG Tab.ER PO SCH (08:34)
[2020-08-09] MEDS: Escitalopram 10 MG Tab PO SCH (08:35)
[2020-08-09] MEDS: Sodium Bicarbonate 650 MG Tab PO SCH ×3 (08:36→20:27)
[2020-08-09] MEDS: Clopidogrel 75 MG Tab PO SCH (08:36)
[2020-08-09] MEDS: Lidocaine 5% 700 MG Patch TOP SCH (08:36)
[2020-08-09] MEDS: Sodium Chloride 0.9% 10 ML Syringe FLUSH PRN ×2 (08:37→13:31)
[2020-08-09] MEDS ORDERED: Potassium Chloride 10 MEQ Tab.ER PO ONE (09:58)
[2020-08-09] MEDS: Acetaminophen 325 MG Tab PO PRN ×2 (13:27→20:27)
[2020-08-09] MEDS: traZODone 50 MG Tab PO PRN (20:28)
[2020-08-09] MEDS ORDERED: Insulin Glarg,Human.Rec.Analog 100 Unit/ML SUBCUT SCH (21:00)
[2020-08-10] MEDS: Acetaminophen 325 MG Tab PO PRN ×2 (01:01→08:43)
[2020-08-10] MEDS: Bumetanide 1 MG/4 ML MDV IVPUSH SCH ×2 (06:35→13:16)
[2020-08-10 07:02] LABS: ANION GAP 12.9 mEq/L (7-13)
[2020-08-10] MEDS: Clopidogrel 75 MG Tab PO SCH (08:42)
[2020-08-10] MEDS: Multivitamins,Therapeutic Tab PO SCH (08:42)
[2020-08-10] MEDS: Escitalopram 10 MG Tab PO SCH (08:42)
[2020-08-10] MEDS: Rosuvastatin 10 MG Tab PO SCH (08:42)
[2020-08-10] MEDS: Metoprolol Succinate 25 MG Tab.ER PO SCH (08:42)
[2020-08-10] MEDS: Sodium Bicarbonate 650 MG Tab PO SCH ×3 (08:42→21:49)
[2020-08-10] MEDS: Insulin Lispro 100 Units/ML 3 ML Vial SUBCUT SCH ×4 (08:43→19:50)
[2020-08-10] MEDS: Calcitriol 0.25 MCG Cap PO SCH (08:44)
[2020-08-10] MEDS: Lidocaine 5% 700 MG Patch TOP SCH (08:44)
[2020-08-10] MEDS: Sodium Chloride 0.9% 10 ML Syringe FLUSH PRN ×2 (08:46→13:16)
[2020-08-10] MEDS ORDERED: Potassium Chloride 10 MEQ Tab.ER PO ONE ×3 (09:15→18:00)
[2020-08-10] MEDS ORDERED: Warfarin 2.5 MG Tab PO ONE (14:00)
--- NOTE | 2020-08-10 14:53 | PCM.PN ---
- General Info Date of Service: 08/10/20 Admission Dx/Problem (Free Text): Feels tired. Thirsty. Normal sats at rest but c/o marked dyspnea even w/ standing up. c/o coccyx pain. - Patient Data Vitals - Most Recent: Last Vital Signs Temp 98.7 F 08/10/20 12:00 Pulse 109 H 08/10/20 12:00 Resp 20 08/10/20 12:00 BP 110/61 08/10/20 12:00 Pulse Ox 95 08/10/20 12:00 Weight - Most Recent: 222 lb 3.2 oz I&O - Last 24 Hours: Intake & Output 08/09/20 08/10/20 08/10/20 22:59 06:59 14:59 Intake Total 440 Output Total 200 400 Balance 240 -400 Lab Results Last 24 Hours: Laboratory Results - last 24 hr 08/09/20 08/09/20 08/10/20 Range/Units 16:45 20:23 06:12 PT 26.3 H (9.0-12.0) SEC INR 2.7 H (0.9-1.2) Sodium (136-145) mmol/L Potassium (3.5-5.1) mmol/L Chloride (98-107) mmol/L Carbon Dioxide (21-32) mmol/L Anion Gap (7-13) mEq/L BUN (7-18) mg/dL Creatinine (0.70-1.30) mg/dL Est Cr Clr Drug Dosing mL/min Estimated GFR (MDRD) Glucose (74-99) mg/dL POC Glucose 242 H 213 H (83-110) mg/dl Calcium (8.5-10.1) mg/dL 08/10/20 08/10/20 08/10/20 Range/Units 06:12 08:14 11:49 PT (9.0-12.0) SEC INR (0.9-1.2) Sodium 146 H (136-145) mmol/L Potassium 2.9 L (3.5-5.1) mmol/L Chloride 101 (98-107) mmol/L Carbon Dioxide 35 H (21-32) mmol/L Anion Gap 12.9 (7-13) mEq/L BUN 118 H (7-18) mg/dL Creatinine 1.80 H (0.70-1.30) mg/dL Est Cr Clr Drug Dosing 37.74 mL/min Estimated GFR (MDRD) 37 Glucose 146 H (74-99) mg/dL POC Glucose 177 H 237 H (83-110) mg/dl Calcium 9.0 (8.5-10.1) mg/dL Med Orders - Current: Current Medications Acetaminophen (Acetaminophen 325 Mg Tab) 650 mg PO Q4H PRN PRN Reason: Pain (Mild 1-3)/fever Last Admin: 08/10/20 08:43 Dose: 650 mg Documented by: Albuterol (Albuterol 0.083% 2.5 Mg/3 Ml Neb Soln) 2.5 mg INH Q4H PRN PRN Reason: Wheezing Bumetanide (Bumetanide 1 Mg/4 Ml Mdv) 2 mg IVPUSH 0600,1400 [facility] Calcitriol (Calcitriol 0.25 Mcg Cap) 0.25 mcg PO Q48H [facility] Last Admin: 08/10/20 08:44 Dose: 0.25 mcg Documented by: Clopidogrel Bisulfate (Clopidogrel 75 Mg Tab) 75 mg PO DAILY [facility] Last Admin: 08/10/20 08:42 Dose: 75 mg Documented by: Dextrose/Water (50% Dextrose In Water 50 Ml Syringe) 50 ml IV ASDIRECTED PRN PRN Reason: Hypoglycemia Escitalopram Oxalate (Escitalopram 10 Mg Tab) 10 mg PO DAILY [facility] Last Admin: 08/10/20 08:42 Dose: 10 mg Documented by: Glucagon (Glucagon,Human Recombinant 1 Mg Vial) 1 mg IM ASDIRECTED PRN PRN Reason: Hypoglycemia Insulin Glargine (Insulin Glarg,Human.Rec.Analog 100 Unit/Ml) 34 unit SUBCUT BEDTIME [facility] Insulin Human Lispro (Insulin Lispro 100 Units/Ml 3 Ml Vial) 0 unit SUBCUT WITHMEALSANDBED [facility]; Protocol Last Admin: 08/10/20 13:17 Dose: 4 units Documented by: Lidocaine (Lidocaine 5% 700 Mg Patch) 700 mg TOP DAILY [facility] Last Admin: 08/10/20 08:44 Dose: 700 mg Documented by: Melatonin (Melatonin 3 Mg Tab) 6 mg PO BEDTIME [facility] Metoprolol Succinate (Metoprolol Succinate 25 Mg Tab.Er) 25 mg PO DAILY [facility] Last Admin: 08/10/20 08:42 Dose: 25 mg Documented by: Miscellaneous Information (Remove Patch) 1 ea TRDERM DAILY@2100 [facility] Last Admin: 08/09/20 20:28 Dose: 1 ea Documented by: Multivitamins (Multivitamins,Therapeutic Tab) 1 each PO DAILY [facility] Last Admin: 08/10/20 08:42 Dose: 1 each Documented by: Potassium Chloride (Potassium Chloride 10 Meq Tab.Er) 40 meq PO ONETIME ONE Stop: 08/10/20 18:01 Rosuvastatin Calcium (Rosuvastatin 10 Mg Tab) 20 mg PO DAILY [facility] Last Admin: 08/10/20 08:42 Dose: 20 mg Documented by: Sodium Bicarbonate (Sodium Bicarbonate 650 Mg Tab) 650 mg PO TID [facility] Last Admin: 08/10/20 13:13 Dose: 650 mg Documented by: Sodium Chloride (Sodium Chloride 0.9% 10 Ml Syringe) 10 ml FLUSH ASDIRECTED PRN PRN Reason: Keep Vein Open Last Admin: 08/10/20 13:16 Dose: 10 ml Documented by: Trazodone HCl (Trazodone 50 Mg Tab) 50 mg PO BEDTIME PRN PRN Reason: Insomnia Last Admin: 08/09/20 20:28 Dose: 50 mg Documented by: Discontinued Medications Bumetanide (Bumetanide 1 Mg/4 Ml Mdv) 2 mg IVPUSH Q8H [facility] Stop: 08/10/20 16:00 Last Admin: 08/10/20 13:16 Dose: 2 mg Documented by: Bumetanide (Bumetanide 1 Mg Tab) 2 mg PO 0800,1400 [facility] Dextrose/Water (50% Dextrose In Water 50 Ml Syringe) 50 ml IV ASDIRECTED PRN PRN Reason: Hypoglycemia Glucagon (Glucagon,Human Recombinant 1 Mg Vial) 1 mg IM ASDIRECTED PRN PRN Reason: Hypoglycemia Magnesium Sulfate (Magnesium Sulfate In Water 2 Gm/50 Ml) 2 gm in 50 mls @ 25 mls/hr IV ONETIME ONE Stop: 08/08/20 09:32 Last Admin: 08/08/20 09:28 Dose: 25 mls/hr Documented by: Potassium Chloride 10 meq/ (Premix) 100 mls @ 100 mls/hr IV Q1H [facility] Stop: 08/08/20 10:44 Last Admin: 08/08/20 15:11 Dose: Not Given Documented by: Potassium Chloride 10 meq/ (Premix) 100 mls @ 100 mls/hr IV Q1H [facility] Stop: 08/08/20 15:44 Last Admin: 08/08/20 15:10 Dose: 100 mls/hr Documented by: Insulin Glargine (Insulin Glarg,Human.Rec.Analog 100 Unit/Ml) 26 unit SUBCUT BEDTIME [facility] Last Admin: 08/08/20 21:34 Dose: 26 units Documented by: Insulin Glargine (Insulin Glarg,Human.Rec.Analog 100 Unit/Ml) 30 unit SUBCUT B EDTIME [facility] Last Admin: 08/09/20 20:25 Dose: 30 unit Documented by: Isosorbide Dinitrate (Isosorbide Dinitrate 10 Mg Tab) 5 mg PO TID [facility] Last Admin: 08/07/20 22:06 Dose: Not Given Documented by: Potassium Chloride (Potassium Chloride 10 Meq Tab.Er) 40 meq PO ONETIME ONE Stop: 08/08/20 07:35 Last Admin: 08/08/20 08:26 Dose: 40 meq Documented by: Potassium Chloride (Potassium Chloride 10 Meq Tab.Er) 40 meq PO ONETIME ONE Stop: 08/09/20 09:59 Last Admin: 08/09/20 10:41 Dose: 40 meq Documented by: Potassium Chloride (Potassium Chloride 10 Meq Tab.Er) 40 meq PO ONETIME ONE Stop: 08/10/20 09:16 Last Admin: 08/10/20 13:13 Dose: Not Given Documented by: Potassium Chloride (Potassium Chloride 10 Meq Tab.Er) 40 meq PO ONETIME ONE Stop: 08/11/20 14:01 Potassium Chloride (Potassium Chloride 10 Meq Tab.Er) 40 meq PO ONETIME ONE Stop: 08/10/20 13:01 Last Admin: 08/10/20 13:13 Dose: 40 meq Documented by: Sodium Chloride (Sodium Chloride 0.9% 10 Ml Syringe) 10 ml FLUSH ASDIRECTED PRN PRN Reason: Keep Vein Open Warfarin Sodium (Warfarin 5 Mg Tab) 5 mg PO ONETIME ONE Stop: 08/07/20 18:01 Last Admin: 08/07/20 18:29 Dose: 5 mg Documented by: Warfarin Sodium (Warfarin 2.5 Mg Tab) 2.5 mg PO ONETIME ONE Stop: 08/08/20 14:01 Last Admin: 08/08/20 14:08 Dose: 2.5 mg Documented by: Warfarin Sodium (Warfarin 2.5 Mg Tab) 2.5 mg PO ONETIME ONE Stop: 08/10/20 14:01 Last Admin: 08/10/20 13:12 Dose: 2.5 mg Documented by: - Exam Quality Assessment: No: Supplemental Oxygen General: Alert, Oriented, Cooperative HEENT: Pupils Equal, Pupils Reactive Neck: Supple Lungs: Other (dec BS b/l, left base rales) Cardiovascular: Regular Rate, Irregular Rhythm, Other (sys m.) GI/Abdominal Exam: Normal Bowel Sounds, Soft, Non-Tender, No Distention, Other (obese) Extremities: No Pedal Edema Skin: Warm, Dry Neurological: No New Focal Deficit Psy/Mental Status: Alert, Depressed (affect) - Patient Data Lab Results Last 24 hrs: Laboratory Results - last 24 hr 08/09/20 08/09/20 08/10/20 Range/Units 16:45 20:23 06:12 PT 26.3 H (9.0-12.0) SEC INR 2.7 H (0.9-1.2) Sodium (136-145) mmol/L Potassium (3.5-5.1) mmol/L Chloride (98-107) mmol/L Carbon Dioxide (21-32) mmol/L Anion Gap (7-13) mEq/L BUN (7-18) mg/dL Creatinine (0.70-1.30) mg/dL Est Cr Clr Drug Dosing mL/min Estimated GFR (MDRD) Glucose (74-99) mg/dL POC Glucose 242 H 213 H (83-110) mg/dl Calcium (8.5-10.1) mg/dL 08/10/20 08/10/20 08/10/20 Range/Units 06:12 08:14 11:49 PT (9.0-12.0) SEC INR (0.9-1.2) Sodium 146 H (136-145) mmol/L Potassium 2.9 L (3.5-5.1) mmol/L Chloride 101 (98-107) mmol/L Carbon Dioxide 35 H (21-32) mmol/L Anion Gap 12.9 (7-13) mEq/L BUN 118 H (7-18) mg/dL Creatinine 1.80 H (0.70-1.30) mg/dL Est Cr Clr Drug Dosing 37.74 mL/min Estimated GFR (MDRD) 37 Glucose 146 H (74-99) mg/dL POC Glucose 177 H 237 H (83-110) mg/dl Calcium 9.0 (8.5-10.1) mg/dL Result Diagrams: 08/09/20 05:50 08/10/20 06:12 Sepsis Event Note - Evaluation Sepsis Screening Result: No Definite Risk - Focused Exam Vital Signs: Vital Signs Temp Pulse Pulse Resp BP BP Pulse Ox 08/10/20 12:00 98.7 F 109 H 20 110/61 95 08/10/20 08:42 111 H 109/59 L 08/10/20 08:33 98.8 F 111 H 20 109/59 L 95 08/10/20 04:00 98.0 F 91 18 118/58 L 97 - Problem List Review Problem List Initiated/Reviewed/Updated: No - My Orders Last 24 Hours: My Active Orders 08/09/20 19:24 Communication Order [RC] DAILY 08/10/20 09:21 CXR [Chest 1V Frontal] [CR] Routine 08/10/20 18:00 Potassium Chloride [Klor-Con 10] 40 meq PO ONETIME ONE 08/10/20 21:00 Insulin Glarg,Human.Rec.Analog [LantUS] 34 unit SUBCUT BEDTIME Melatonin 6 mg PO BEDTIME 08/11/20 05:11 INR,PT,PROTHROMBIN TIME [COAG] AM 08/11/20 06:00 Bumetanide [Bumex] 2 mg IVPUSH 0600,1400 - Plan Plan:: #acute hypoxic respiratory failure 2/2 acute on chronic systolic and diastolic CHF - diuresing well and renal function holding - LE edema resolved - still w/ residual pulmonary edema and effusions and w/ WILKS - worse on left - Na rising and he feels very thirsty - will taper bumex 2 mg IV q8 >>> bid #cardio-renal syndrome / CKD 3 - so far CrCl is stable - c/w diuresis #chronic DVT - c/w coumadin #DM2 - A1c was 9 at OSH - c/w lantus and SORAIDA - adjust as needed #gout / HT / CAD / COPD / hx bioprosthetic AVR - c/w home meds PPX - on coumadin PT/OT eval and treat DNR/DNI 08/07 Pt also made a unilateral decision to be DNR/DNI. In my opinion he has the capacity to make this decision. This was supported by his significant other and son. Orders were placed in the chart.
--- NOTE | 2020-08-10 17:45 | CR ---
PROCEDURE INFORMATION: Exam: XR Chest Exam date and time: 08/10/2020 9:32 AM Age: 75 years old Clinical indication: Abnormal findings; Other: F/up chf; Prior surgery TECHNIQUE: Imaging protocol: XR of the chest Views: 1 view. COMPARISON: CR Chest 1V Frontal 08/06/2020 10:51 PM FINDINGS: Lungs: Right lung is now clear. Pleural spaces: Small residual left pleural effusion. Heart/Mediastinum: A pacemaker device is present, and its leads are in appropriate position. . No cardiomegaly. Bones/joints: Unremarkable. IMPRESSION: Improvement in prior edema with small residual left pleural effusion.
[2020-08-10] MEDS: Melatonin 3 MG Tab PO SCH (21:50)
[2020-08-10] MEDS: Insulin Glarg,Human.Rec.Analog 100 Unit/ML SUBCUT SCH (22:00)
[2020-08-11] MEDS: traZODone 50 MG Tab PO PRN (01:43)
[2020-08-11] MEDS ORDERED: Bumetanide 1 MG/4 ML MDV IVPUSH SCH (06:00)
[2020-08-11 07:07] LABS: ANION GAP 11.7 mEq/L (7-13)
[2020-08-11] MEDS ORDERED: Bumetanide 1 MG Tab PO SCH (08:00)
[2020-08-11] MEDS: Multivitamins,Therapeutic Tab PO SCH (08:15)
[2020-08-11] MEDS: Metoprolol Succinate 25 MG Tab.ER PO SCH (08:15)
[2020-08-11] MEDS: Escitalopram 10 MG Tab PO SCH (08:15)
[2020-08-11] MEDS: Clopidogrel 75 MG Tab PO SCH (08:16)
[2020-08-11] MEDS: Sodium Bicarbonate 650 MG Tab PO SCH ×3 (08:16→21:08)
[2020-08-11] MEDS: Lidocaine 5% 700 MG Patch TOP SCH (08:16)
[2020-08-11] MEDS: Rosuvastatin 10 MG Tab PO SCH (08:16)
[2020-08-11] MEDS: Insulin Lispro 100 Units/ML 3 ML Vial SUBCUT SCH ×4 (08:16→21:07)
--- NOTE | 2020-08-11 10:07 | PCM.PN ---
- General Info Date of Service: 08/11/20 Admission Dx/Problem (Free Text): Weak, tired, thirsty. Says slept ok. Liberalized from o2 supp at least at rest. - Patient Data Vitals - Most Recent: Last Vital Signs Temp 98.9 F 08/11/20 08:31 Pulse 93 08/11/20 08:31 Resp 20 08/11/20 08:31 BP 106/65 08/11/20 08:31 Pulse Ox 91 L 08/11/20 08:31 Weight - Most Recent: 212 lb 8 oz I&O - Last 24 Hours: Intake & Output 08/10/20 08/11/20 08/11/20 21:59 06:59 14:59 Intake Total Output Total Balance Lab Results Last 24 Hours: Laboratory Results - last 24 hr 08/10/20 08/10/20 08/10/20 Range/Units 11:49 16:41 20:02 PT (9.0-12.0) SEC INR (0.9-1.2) Sodium (136-145) mmol/L Potassium (3.5-5.1) mmol/L Chloride (98-107) mmol/L Carbon Dioxide (21-32) mmol/L Anion Gap (7-13) mEq/L BUN (7-18) mg/dL Creatinine (0.70-1.30) mg/dL Est Cr Clr Drug Dosing mL/min Estimated GFR (MDRD) Glucose (74-99) mg/dL POC Glucose 237 H 242 H 266 H (83-110) mg/dl Calcium (8.5-10.1) mg/dL Phosphorus (2.6-4.7) mg/dL Magnesium (1.8-2.4) mg/dL 08/11/20 08/11/20 08/11/20 Range/Units 06:13 06:13 08:05 PT 47.4 H D (9.0-12.0) SEC INR 4.8 H (0.9-1.2) Sodium 148 H (136-145) mmol/L Potassium 3.7 (3.5-5.1) mmol/L Chloride 104 (98-107) mmol/L Carbon Dioxide 36 H (21-32) mmol/L Anion Gap 11.7 (7-13) mEq/L BUN 120 H (7-18) mg/dL Creatinine 1.92 H (0.70-1.30) mg/dL Est Cr Clr Drug Dosing 35.38 mL/min Estimated GFR (MDRD) 35 Glucose 134 H (74-99) mg/dL POC Glucose 168 H (83-110) mg/dl Calcium 9.4 (8.5-10.1) mg/dL Phosphorus 2.6 (2.6-4.7) mg/dL Magnesium 2.0 (1.8-2.4) mg/dL Med Orders - Current: Current Medications Acetaminophen (Acetaminophen 325 Mg Tab) 650 mg PO Q4H PRN PRN Reason: Pain (Mild 1-3)/fever Last Admin: 08/10/20 08:43 Dose: 650 mg Documented by: Albuterol (Albuterol 0.083% 2.5 Mg/3 Ml Neb Soln) 2.5 mg INH Q4H PRN PRN Reason: Wheezing Bumetanide (Bumetanide 1 Mg Tab) 2 mg PO BIDDIURETIC [facility] Calcitriol (Calcitriol 0.25 Mcg Cap) 0.25 mcg PO Q48H [facility] Last Admin: 08/10/20 08:44 Dose: 0.25 mcg Documented by: Clopidogrel Bisulfate (Clopidogrel 75 Mg Tab) 75 mg PO DAILY [facility] Last Admin: 08/11/20 08:16 Dose: 75 mg Documented by: Dextrose/Water (50% Dextrose In Water 50 Ml Syringe) 50 ml IV ASDIRECTED PRN PRN Reason: Hypoglycemia Escitalopram Oxalate (Escitalopram 10 Mg Tab) 10 mg PO DAILY [facility] Last Admin: 08/11/20 08:15 Dose: 10 mg Documented by: Glucagon (Glucagon,Human Recombinant 1 Mg Vial) 1 mg IM ASDIRECTED PRN PRN Reason: Hypoglycemia Insulin Glargine (Insulin Glarg,Human.Rec.Analog 100 Unit/Ml) 34 unit SUBCUT BEDTIME [facility] Last Admin: 08/10/20 22:00 Dose: 34 units Documented by: Insulin Human Lispro (Insulin Lispro 100 Units/Ml 3 Ml Vial) 0 unit SUBCUT WITHMEALSANDBED [facility]; Protocol Last Admin: 08/11/20 08:16 Dose: 2 units Documented by: Lidocaine (Lidocaine 5% 700 Mg Patch) 700 mg TOP DAILY [facility] Last Admin: 08/11/20 08:16 Dose: 700 mg Documented by: Melatonin (Melatonin 3 Mg Tab) 6 mg PO BEDTIME [facility] Last Admin: 08/10/20 21:50 Dose: 6 mg Documented by: Metoprolol Succinate (Metoprolol Succinate 25 Mg Tab.Er) 25 mg PO DAILY [facility] Last Admin: 08/11/20 08:15 Dose: 25 mg Documented by: Miscellaneous Information (Remove Patch) 1 ea TRDERM DAILY@2100 [facility] Last Admin: 08/11/20 00:26 Dose: 1 ea Documented by: Multivitamins (Multivitamins,Therapeutic Tab) 1 each PO DAILY [facility] Last Admin: 08/11/20 08:15 Dose: 1 each Documented by: Rosuvastatin Calcium (Rosuvastatin 10 Mg Tab) 20 mg PO DAILY [facility] Last Admin: 08/11/20 08:16 Dose: 20 mg Documented by: Sodium Bicarbonate (Sodium Bicarbonate 650 Mg Tab) 650 mg PO TID [facility] Last Admin: 08/11/20 08:16 Dose: 650 mg Documented by: Sodium Chloride (Sodium Chloride 0.9% 10 Ml Syringe) 10 ml FLUSH ASDIRECTED PRN PRN Reason: Keep Vein Open Last Admin: 08/10/20 13:16 Dose: 10 ml Documented by: Trazodone HCl (Trazodone 50 Mg Tab) 50 mg PO BEDTIME PRN PRN Reason: Insomnia Last Admin: 08/11/20 01:43 Dose: 50 mg Documented by: Discontinued Medications Bumetanide (Bumetanide 1 Mg/4 Ml Mdv) 2 mg IVPUSH Q8H [facility] Stop: 08/10/20 16:00 Last Admin: 08/10/20 13:16 Dose: 2 mg Documented by: Bumetanide (Bumetanide 1 Mg Tab) 2 mg PO 0800,1400 [facility] Bumetanide (Bumetanide 1 Mg/4 Ml Mdv) 2 mg IVPUSH 0600,1400 [facility] Dextrose/Water (50% Dextrose In Water 50 Ml Syringe) 50 ml IV ASDIRECTED PRN PRN Reason: Hypoglycemia Glucagon (Glucagon,Human Recombinant 1 Mg Vial) 1 mg IM ASDIRECTED PRN PRN Reason: Hypoglycemia Magnesium Sulfate (Magnesium Sulfate In Water 2 Gm/50 Ml) 2 gm in 50 mls @ 25 mls/hr IV ONETIME ONE Stop: 08/08/20 09:32 Last Admin: 08/08/20 09:28 Dose: 25 mls/hr Documented by: Potassium Chloride 10 meq/ (Premix) 100 mls @ 100 mls/hr IV Q1H [facility] Stop: 08/08/20 10:44 Last Admin: 08/08/20 15:11 Dose: Not Given Documented by: Potassium Chloride 10 meq/ (Premix) 100 mls @ 100 mls/hr IV Q1H [facility] Stop: 08/08/20 15:44 Last Admin: 08/08/20 15:10 Dose: 100 mls/hr Documented by: Insulin Glargine (Insulin Glarg,Human.Rec.Analog 100 Unit/Ml) 26 unit SUBCUT BEDTIME [facility] Last Admin: 08/08/20 21:34 Dose: 26 units Documented by: Insulin Glargine (Insulin Glarg,Human.Rec.Analog 100 Unit/Ml) 30 unit SUBCUT BEDTIME [facility] Last Admin: 08/09/20 20:25 Dose: 30 unit Documented by: Isosorbide Dinitrate (Isosorbide Dinitrate 10 Mg Tab) 5 mg PO TID [facility] Last Admin: 08/07/20 22:06 Dose: Not Given Documented by: Potassium Chloride (Potassium Chloride 10 Meq Tab.Er) 40 meq PO ONETIME ONE Stop: 08/08/20 07:35 Last Admin: 08/08/20 08:26 Dose: 40 meq Documented by: Potassium Chloride (Potassium Chloride 10 Meq Tab.Er) 40 meq PO ONETIME ONE Stop: 08/09/20 09:59 Last Admin: 08/09/20 10:41 Dose: 40 meq Documented by: Potassium Chloride (Potassium Chloride 10 Meq Tab.Er) 40 meq PO ONETIME ONE Stop: 08/10/20 09:16 Last Admin: 08/10/20 13:13 Dose: Not Given Documented by: Potassium Chloride (Potassium Chloride 10 Meq Tab.Er) 40 meq PO ONETIME ONE Stop: 08/11/20 14:01 Potassium Chloride (Potassium Chloride 10 Meq Tab.Er) 40 meq PO ONETIME ONE Stop: 08/10/20 13:01 Last Admin: 08/10/20 13:13 Dose: 40 meq Documented by: Potassium Chloride (Potassium Chloride 10 Meq Tab.Er) 40 meq PO ONETIME ONE Stop: 08/10/20 18:01 Last Admin: 08/10/20 17:15 Dose: 40 meq Documented by: Sodium Chloride (Sodium Chloride 0.9% 10 Ml Syringe) 10 ml FLUSH ASDIRECTED PRN PRN Reason: Keep Vein Open Warfarin Sodium (Warfarin 5 Mg Tab) 5 mg PO ONETIME ONE Stop: 08/07/20 18:01 Last Admin: 08/07/20 18:29 Dose: 5 mg Documented by: Warfarin Sodium (Warfarin 2.5 Mg Tab) 2.5 mg PO ONETIME ONE Stop: 08/08/20 14:01 Last Admin: 08/08/20 14:08 Dose: 2.5 mg Documented by: Warfarin Sodium (Warfarin 2.5 Mg Tab) 2.5 mg PO ONETIME ONE Stop: 08/10/20 14:01 Last Admin: 08/10/20 13:12 Dose: 2.5 mg Documented by: - Exam Quality Assessment: No: Supplemental Oxygen General: Alert, Oriented, Cooperative HEENT: Pupils Equal, Pupils Reactive Neck: Supple Lungs: Clear to Auscultation, Normal Respiratory Effort Cardiovascular: Regular Rate, Irregular Rhythm GI/Abdominal Exam: Normal Bowel Sounds, Soft, Non-Tender, No Distention Extremities: No Pedal Edema Skin: Warm, Dry Neurological: No New Focal Deficit Psy/Mental Status: Alert, Depressed - Patient Data Lab Results Last 24 hrs: Laboratory Results - last 24 hr 08/10/20 08/10/20 08/10/20 Range/Units 11:49 16:41 20:02 PT (9.0-12.0) SEC INR (0.9-1.2) Sodium (136-145) mmol/L Potassium (3.5-5.1) mmol/L Chloride (98-107) mmol/L Carbon Dioxide (21-32) mmol/L Anion Gap (7-13) mEq/L BUN (7-18) mg/dL Creatinine (0.70-1.30) mg/dL Est Cr Clr Drug Dosing mL/min Estimated GFR (MDRD) Glucose (74-99) mg/dL POC Glucose 237 H 242 H 266 H (83-110) mg/dl Calcium (8.5-10.1) mg/dL Phosphorus (2.6-4.7) mg/dL Magnesium (1.8-2.4) mg/dL 08/11/20 08/11/20 08/11/20 Range/Units 06:13 06:13 08:05 PT 47.4 H D (9.0-12.0) SEC INR 4.8 H (0.9-1.2) Sodium 148 H (136-145) mmol/L Potassium 3.7 (3.5-5.1) mmol/L Chloride 104 (98-107) mmol/L Carbon Dioxide 36 H (21-32) mmol/L Anion Gap 11.7 (7-13) mEq/L BUN 120 H (7-18) mg/dL Creatinine 1.92 H (0.70-1.30) mg/dL Est Cr Clr Drug Dosing 35.38 mL/min Estimated GFR (MDRD) 35 Glucose 134 H (74-99) mg/dL POC Glucose 168 H (83-110) mg/dl Calcium 9.4 (8.5-10.1) mg/dL Phosphorus 2.6 (2.6-4.7) mg/dL Magnesium 2.0 (1.8-2.4) mg/dL Result Diagrams: 08/09/20 05:50 08/11/20 06:13 Sepsis Event Note - Evaluation Sepsis Screening Result: No Definite Risk - Focused Exam Vital Signs: Vital Signs Temp Pulse Pulse Resp BP BP BP 08/11/20 08:31 98.9 F 93 20 106/65 08/11/20 08:15 93 106/67 08/11/20 06:12 97.4 F 110 H 16 102/65 Pulse Ox 08/11/20 08:31 91 L 08/11/20 08:15 08/11/20 06:12 86 L - Problem List Review Problem List Initiated/Reviewed/Updated: No - My Orders Last 24 Hours: My Active Orders 08/10/20 21:00 Insulin Glarg,Human.Rec.Analog [LantUS] 34 unit SUBCUT BEDTIME Melatonin 6 mg PO BEDTIME 08/11/20 08:38 Bumetanide [Bumex] 2 mg PO BIDDIURETIC - Plan Plan:: #acute hypoxic respiratory failure 2/2 acute on chronic systolic and diastolic CHF - improved significantly - no need for o2 supp at rest - will stop IV bumex given evidence of contraction alkalosis - switch to bumex 2 mg PO BID #cardio-renal syndrome / CKD 3 - so far CrCl is stable - as above #chronic DVT - c/w coumadin #DM2 - A1c was 9 at OSH - c/w lantus and SORAIDA - adjust as needed #gout / HT / CAD / COPD / hx bioprosthetic AVR - c/w home meds PPX - on coumadin PT/OT eval and treat DNR/DNI 08/07 Pt also made a unilateral decision to be DNR/DNI. In my opinion he has the capacity to make this decision. This was supported by his significant other and son. Orders were placed in the chart.
[2020-08-11] MEDS: Bumetanide 1 MG Tab PO SCH ×2 (11:13→13:23)
[2020-08-11] MEDS: Acetaminophen 325 MG Tab PO PRN (13:23)
[2020-08-11] MEDS ORDERED: Potassium Chloride 10 MEQ Tab.ER PO ONE (14:00)
[2020-08-11] MEDS: Insulin Glarg,Human.Rec.Analog 100 Unit/ML SUBCUT SCH (21:07)
[2020-08-11] MEDS: Melatonin 3 MG Tab PO SCH (21:08)
[2020-08-12 07:10] LABS: ANION GAP 10.6 mEq/L (7-13)
[2020-08-12] MEDS: Bumetanide 1 MG Tab PO SCH ×2 (08:09→13:48)
[2020-08-12] MEDS: Escitalopram 10 MG Tab PO SCH (08:11)
[2020-08-12] MEDS: Multivitamins,Therapeutic Tab PO SCH (08:12)
[2020-08-12] MEDS: Rosuvastatin 10 MG Tab PO SCH (08:12)
[2020-08-12] MEDS: Lidocaine 5% 700 MG Patch TOP SCH (08:13)
[2020-08-12] MEDS: Sodium Bicarbonate 650 MG Tab PO SCH ×2 (08:13→13:48)
[2020-08-12] MEDS: Clopidogrel 75 MG Tab PO SCH (08:13)
[2020-08-12] MEDS: Metoprolol Succinate 25 MG Tab.ER PO SCH (08:20)
[2020-08-12] MEDS: Insulin Lispro 100 Units/ML 3 ML Vial SUBCUT SCH ×4 (08:25→21:47)
[2020-08-12] MEDS: Calcitriol 0.25 MCG Cap PO SCH (08:25)
[2020-08-12] MEDS: Acetaminophen 325 MG Tab PO PRN ×2 (16:36→23:38)
--- NOTE | 2020-08-12 17:27 | PCM.PN ---
- General Info Date of Service: 08/09/20 Admission Dx/Problem (Free Text): Clinically unchanged. - Review of Systems General: Reports: Weakness - Patient Data Vitals - Most Recent: Last Vital Signs Temp 100.1 F 08/12/20 16:00 Pulse 112 H 08/12/20 16:00 Resp 20 08/12/20 12:47 BP 109/58 L 08/12/20 16:00 Pulse Ox 94 L 08/12/20 16:00 Weight - Most Recent: 211 lb 12.8 oz I&O - Last 24 Hours: Intake & Output 08/12/20 08/12/20 08/12/20 06:59 14:59 22:59 Intake Total 360 615 Output Total 325 Balance 35 615 Lab Results Last 24 Hours: Laboratory Results - last 24 hr 08/08/20 08/11/20 08/12/20 Range/Units 05:40 19:58 06:20 PT 24.1 H D 61.5 H (9.0-12.0) SEC INR 2.6 H 6.3 H* (0.9-1.2) Sodium (136-145) mmol/L Potassium (3.5-5.1) mmol/L Chloride (98-107) mmol/L Carbon Dioxide (21-32) mmol/L Anion Gap (7-13) mEq/L BUN (7-18) mg/dL Creatinine (0.70-1.30) mg/dL Est Cr Clr Drug Dosing mL/min Estimated GFR (MDRD) Glucose (74-99) mg/dL POC Glucose 211 H (83-110) mg/dl Calcium (8.5-10.1) mg/dL Phosphorus (2.6-4.7) mg/dL Magnesium (1.8-2.4) mg/dL 08/12/20 08/12/20 08/12/20 Range/Units 06:20 08:07 11:16 PT (9.0-12.0) SEC INR (0.9-1.2) Sodium 149 H (136-145) mmol/L Potassium 3.6 (3.5-5.1) mmol/L Chloride 105 (98-107) mmol/L Carbon Dioxide 37 H (21-32) mmol/L Anion Gap 10.6 (7-13) mEq/L BUN 118 H (7-18) mg/dL Creatinine 2.05 H (0.70-1.30) mg/dL Est Cr Clr Drug Dosing 33.14 mL/min Estimated GFR (MDRD) 32 Glucose 139 H (74-99) mg/dL POC Glucose 180 H 210 H (83-110) mg/dl Calcium 9.1 (8.5-10.1) mg/dL Phosphorus 3.6 (2.6-4.7) mg/dL Magnesium 2.0 (1.8-2.4) mg/dL 08/12/20 Range/Units 16:32 PT (9.0-12.0) SEC INR (0.9-1.2) Sodium (136-145) mmol/L Potassium (3.5-5.1) mmol/L Chloride (98-107) mmol/L Carbon Dioxide (21-32) mmol/L Anion Gap (7-13) mEq/L BUN (7-18) mg/dL Creatinine (0.70-1.30) mg/dL Est Cr Clr Drug Dosing mL/min Estimated GFR (MDRD) Glucose (74-99) mg/dL POC Glucose 228 H (83-110) mg/dl Calcium (8.5-10.1) mg/dL Phosphorus (2.6-4.7) mg/dL Magnesium (1.8-2.4) mg/dL Med Orders - Current: Current Medications Acetaminophen (Acetaminophen 325 Mg Tab) 650 mg PO Q4H PRN PRN Reason: Pain (Mild 1-3)/fever Last Admin: 08/12/20 16:36 Dose: 650 mg Documented by: Albuterol (Albuterol 0.083% 2.5 Mg/3 Ml Neb Soln) 2.5 mg INH Q4H PRN PRN Reason: Wheezing Bumetanide (Bumetanide 1 Mg Tab) 2 mg PO BIDDIURETIC [facility] Last Admin: 08/12/20 13:48 Dose: 2 mg Documented by: Calcitriol (Calcitriol 0.25 Mcg Cap) 0.25 mcg PO Q48H [id number] Last Admin: 08/12/20 08:25 Dose: 0.25 mcg Documented by: Clopidogrel Bisulfate (Clopidogrel 75 Mg Tab) 75 mg PO DAILY [facility] Last Admin: 08/12/20 08:13 Dose: 75 mg Documented by: Dextrose/Water (50% Dextrose In Water 50 Ml Syringe) 50 ml IV ASDIRECTED PRN PRN Reason: Hypoglycemia Escitalopram Oxalate (Escitalopram 10 Mg Tab) 10 mg PO DAILY [facility] Last Admin: 08/12/20 08:11 Dose: 10 mg Documented by: Glucagon (Glucagon,Human Recombinant 1 Mg Vial) 1 mg IM ASDIRECTED PRN PRN Reason: Hypoglycemia Insulin Glargine (Insulin Glarg,Human.Rec.Analog 100 Unit/Ml) 34 unit SUBCUT BEDTIME [facility] Last Admin: 08/11/20 21:07 Dose: 34 units Documented by: Insulin Human Lispro (Insulin Lispro 100 Units/Ml 3 Ml Vial) 0 unit SUBCUT WITHMEALSANDBED [facility]; Protocol Last Admin: 08/12/20 12:34 Dose: 4 units Documented by: Lidocaine (Lidocaine 5% 700 Mg Patch) 700 mg TOP DAILY [facility] Last Admin: 08/12/20 08:13 Dose: 700 mg Documented by: Melatonin (Melatonin 3 Mg Tab) 6 mg PO BEDTIME [facility] Last Admin: 08/11/20 21:08 Dose: 6 mg Documented by: Metoprolol Succinate (Metoprolol Succinate 25 Mg Tab.Er) 25 mg PO DAILY [facility] Last Admin: 08/12/20 08:20 Dose: 25 mg Documented by: Miscellaneous Information (Remove Patch) 1 ea TRDERM DAILY@2100 [facility] Last Admin: 08/11/20 21:08 Dose: 1 ea Documented by: Multivitamins (Multivitamins,Therapeutic Tab) 1 each PO DAILY [facility] Last Admin: 08/12/20 08:12 Dose: 1 each Documented by: Rosuvastatin Calcium (Rosuvastatin 10 Mg Tab) 20 mg PO DAILY [facility] Last Admin: 08/12/20 08:12 Dose: 20 mg Documented by: Sodium Bicarbonate (Sodium Bicarbonate 650 Mg Tab) 650 mg PO TID [facility] Last Admin: 08/12/20 13:48 Dose: 650 mg Documented by: Sodium Chloride (Sodium Chloride 0.9% 10 Ml Syringe) 10 ml FLUSH ASDIRECTED PRN PRN Reason: Keep Vein Open Last Admin: 08/10/20 13:16 Dose: 10 ml Documented by: Trazodone HCl (Trazodone 50 Mg Tab) 50 mg PO BEDTIME PRN PRN Reason: Insomnia Last Admin: 08/11/20 01:43 Dose: 50 mg Documented by: Discontinued Medications Bumetanide (Bumetanide 1 Mg/4 Ml Mdv) 2 mg IVPUSH Q8H [facility] Stop: 08/10/20 16:00 Last Admin: 08/10/20 13:16 Dose: 2 mg Documented by: Bumetanide (Bumetanide 1 Mg Tab) 2 mg PO 0800,1400 [facility] Bumetanide (Bumetanide 1 Mg/4 Ml Mdv) 2 mg IVPUSH 0600,1400 [facility] Dextrose/Water (50% Dextrose In Water 50 Ml Syringe) 50 ml IV ASDIRECTED PRN PRN Reason: Hypoglycemia Glucagon (Glucagon,Human Recombinant 1 Mg Vial) 1 mg IM ASDIRECTED PRN PRN Reason: Hypoglycemia Magnesium Sulfate (Magnesium Sulfate In Water 2 Gm/50 Ml) 2 gm in 50 mls @ 25 mls/hr IV ONETIME ONE Stop: 08/08/20 09:32 Last Admin: 08/08/20 09:28 Dose: 25 mls/hr Documented by: Potassium Chloride 10 meq/ (Premix) 100 mls @ 100 mls/hr IV Q1H [facility] Stop: 08/08/20 10:44 Last Admin: 08/08/20 15:11 Dose: Not Given Documented by: Potassium Chloride 10 meq/ (Premix) 100 mls @ 100 mls/hr IV Q1H [facility] Stop: 08/08/20 15:44 Last Admin: 08/08/20 15:10 Dose: 100 mls/hr Documented by: Insulin Glargine (Insulin Glarg,Human.Rec.Analog 100 Unit/Ml) 26 unit SUBCUT BEDTIME [facility] Last Admin: 08/08/20 21:34 Dose: 26 units Documented by: Insulin Glargine (Insulin Glarg,Human.Rec.Analog 100 Unit/Ml) 30 unit SUBCUT BEDTIME [facility] Last Admin: 08/09/20 20:25 Dose: 30 unit Documented by: Isosorbide Dinitrate (Isosorbide Dinitrate 10 Mg Tab) 5 mg PO TID [facility] Last Admin: 08/07/20 22:06 Dose: Not Given Documented by: Potassium Chloride (Potassium Chloride 10 Meq Tab.Er) 40 meq PO ONETIME ONE Stop: 08/08/20 07:35 Last Admin: 08/08/20 08:26 Dose: 40 meq Documented by: Potassium Chloride (Potassium Chloride 10 Meq Tab.Er) 40 meq PO ONETIME ONE Stop: 08/09/20 09:59 Last Admin: 08/09/20 10:41 Dose: 40 meq Documented by: Potassium Chloride (Potassium Chloride 10 Meq Tab.Er) 40 meq PO ONETIME ONE Stop: 08/10/20 09:16 Last Admin: 08/10/20 13:13 Dose: Not Given Documented by: Potassium Chloride (Potassium Chloride 10 Meq Tab.Er) 40 meq PO ONETIME ONE Stop: 08/11/20 14:01 Potassium Chloride (Potassium Chloride 10 Meq Tab.Er) 40 meq PO ONETIME ONE Stop: 08/10/20 13:01 Last Admin: 08/10/20 13:13 Dose: 40 meq Documented by: Potassium Chloride (Potassium Chloride 10 Meq Tab.Er) 40 meq PO ONETIME ONE Stop: 08/10/20 18:01 Last Admin: 08/10/20 17:15 Dose: 40 meq Documented by: Sodium Chloride (Sodium Chloride 0.9% 10 Ml Syringe) 10 ml FLUSH ASDIRECTED PRN PRN Reason: Keep Vein Open Warfarin Sodium (Warfarin 5 Mg Tab) 5 mg PO ONETIME ONE Stop: 08/07/20 18:01 Last Admin: 08/07/20 18:29 Dose: 5 mg Documented by: Warfarin Sodium (Warfarin 2.5 Mg Tab) 2.5 mg PO ONETIME ONE Stop: 08/08/20 14:01 Last Admin: 08/08/20 14:08 Dose: 2.5 mg Documented by: Warfarin Sodium (Warfarin 2.5 Mg Tab) 2.5 mg PO ONETIME ONE Stop: 08/10/20 14:01 Last Admin: 08/10/20 13:12 Dose: 2.5 mg Documented by: - Exam Quality Assessment: Supplemental Oxygen General: Alert, Oriented, Cooperative HEENT: Pupils Equal Neck: Supple Lungs: Other (dec BS and rales b/l) Cardiovascular: Regular Rate, Regular Rhythm, Other (diastolic m.) Back Exam: Normal Inspection Extremities: Pedal Edema (trace) Skin: Warm, Dry Neurological: No New Focal Deficit Psy/Mental Status: Alert, Depressed (affect) - Patient Data Lab Results Last 24 hrs: Laboratory Results - last 24 hr 08/08/20 08/11/20 08/12/20 Range/Units 05:40 19:58 06:20 PT 24.1 H D 61.5 H (9.0-12.0) SEC INR 2.6 H 6.3 H* (0.9-1.2) Sodium (136-145) mmol/L Potassium (3.5-5.1) mmol/L Chloride (98-107) mmol/L Carbon Dioxide (21-32) mmol/L Anion Gap (7-13) mEq/L BUN (7-18) mg/dL Creatinine (0.70-1.30) mg/dL Est Cr Clr Drug Dosing mL/min Estimated GFR (MDRD) Glucose (74-99) mg/dL POC Glucose 211 H (83-110) mg/dl Calcium (8.5-10.1) mg/dL Phosphorus (2.6-4.7) mg/dL Magnesium (1.8-2.4) mg/dL 08/12/20 08/12/20 08/12/20 Range/Units 06:20 08:07 11:16 PT (9.0-12.0) SEC INR (0.9-1.2) Sodium 149 H (136-145) mmol/L Potassium 3.6 (3.5-5.1) mmol/L Chloride 105 (98-107) mmol/L Carbon Dioxide 37 H (21-32) mmol/L Anion Gap 10.6 (7-13) mEq/L BUN 118 H (7-18) mg/dL Creatinine 2.05 H (0.70-1.30) mg/dL Est Cr Clr Drug Dosing 33.14 mL/min Estimated GFR (MDRD) 32 Glucose 139 H (74-99) mg/dL POC Glucose 180 H 210 H (83-110) mg/dl Calcium 9.1 (8.5-10.1) mg/dL Phosphorus 3.6 (2.6-4.7) mg/dL Magnesium 2.0 (1.8-2.4) mg/dL 08/12/20 Range/Units 16:32 PT (9.0-12.0) SEC INR (0.9-1.2) Sodium (136-145) mmol/L Potassium (3.5-5.1) mmol/L Chloride (98-107) mmol/L Carbon Dioxide (21-32) mmol/L Anion Gap (7-13) mEq/L BUN (7-18) mg/dL Creatinine (0.70-1.30) mg/dL Est Cr Clr Drug Dosing mL/min Estimated GFR (MDRD) Glucose (74-99) mg/dL POC Glucose 228 H (83-110) mg/dl Calcium (8.5-10.1) mg/dL Phosphorus (2.6-4.7) mg/dL Magnesium (1.8-2.4) mg/dL Result Diagrams: 08/09/20 05:50 08/12/20 06:20 Sepsis Event Note - Evaluation Sepsis Screening Result: No Definite Risk - Focused Exam Vital Signs: Vital Signs Temp Pulse Pulse Resp BP BP BP 08/12/20 16:00 100.1 F 112 H 109/58 L 08/12/20 12:47 97.6 F 92 20 107/63 08/12/20 08:20 102 H 106/62 08/12/20 07:54 97.8 F 102 H 20 106/62 Pulse Ox 08/12/20 16:00 94 L 08/12/20 12:47 98 08/12/20 08:20 08/12/20 07:54 98 - Problem List Review Problem List Initiated/Reviewed/Updated: No - Plan Plan:: #acute hypoxic respiratory failure 2/2 acute on chronic systolic and diastolic CHF - diuresing well and renal function holding - c/w 2 mg IV bumex q8h - taper o2 as tolerated #cardio-renal syndrome / CKD 3 - so far CrCl is stable - c/w diuresis #chronic DVT - c/w coumadin #DM2 - A1c was 9 at OSH - c/w lantus and SORAIDA - adjust as needed #gout / HT / CAD / COPD / hx bioprosthetic AVR - c/w home meds PPX - on coumadin PT/OT eval and treat DNR/DNI 08/07 Pt also made a unilateral decision to be DNR/DNI. In my opinion he has the capacity to make this decision. This was supported by his significant other and son. Orders were placed in the chart.
--- NOTE | 2020-08-12 17:34 | PCM.PN ---
- General Info Date of Service: 08/12/20 Admission Dx/Problem (Free Text): Weak and tired. Denies dyspnea however desaturates on occasion when on room air into the 80s. Wt loss 1/2 lb since yesterday on oral regimen. - Patient Data Vitals - Most Recent: Last Vital Signs Temp 100.1 F 08/12/20 16:00 Pulse 112 H 08/12/20 16:00 Resp 20 08/12/20 12:47 BP 109/58 L 08/12/20 16:00 Pulse Ox 94 L 08/12/20 16:00 Weight - Most Recent: 211 lb 12.8 oz I&O - Last 24 Hours: Intake & Output 08/12/20 08/12/20 08/12/20 06:59 14:59 22:59 Intake Total 360 615 Output Total 325 Balance 35 615 Lab Results Last 24 Hours: Laboratory Results - last 24 hr 08/08/20 08/11/20 08/12/20 Range/Units 05:40 19:58 06:20 PT 24.1 H D 61.5 H (9.0-12.0) SEC INR 2.6 H 6.3 H* (0.9-1.2) Sodium (136-145) mmol/L Potassium (3.5-5.1) mmol/L Chloride (98-107) mmol/L Carbon Dioxide (21-32) mmol/L Anion Gap (7-13) mEq/L BUN (7-18) mg/dL Creatinine (0.70-1.30) mg/dL Est Cr Clr Drug Dosing mL/min Estimated GFR (MDRD) Glucose (74-99) mg/dL POC Glucose 211 H (83-110) mg/dl Calcium (8.5-10.1) mg/dL Phosphorus (2.6-4.7) mg/dL Magnesium (1.8-2.4) mg/dL 08/12/20 08/12/20 08/12/20 Range/Units 06:20 08:07 11:16 PT (9.0-12.0) SEC INR (0.9-1.2) Sodium 149 H (136-145) mmol/L Potassium 3.6 (3.5-5.1) mmol/L Chloride 105 (98-107) mmol/L Carbon Dioxide 37 H (21-32) mmol/L Anion Gap 10.6 (7-13) mEq/L BUN 118 H (7-18) mg/dL Creatinine 2.05 H (0.70-1.30) mg/dL Est Cr Clr Drug Dosing 33.14 mL/min Estimated GFR (MDRD) 32 Glucose 139 H (74-99) mg/dL POC Glucose 180 H 210 H (83-110) mg/dl Calcium 9.1 (8.5-10.1) mg/dL Phosphorus 3.6 (2.6-4.7) mg/dL Magnesium 2.0 (1.8-2.4) mg/dL 08/12/20 Range/Units 16:32 PT (9.0-12.0) SEC INR (0.9-1.2) Sodium (136-145) mmol/L Potassium (3.5-5.1) mmol/L Chloride (98-107) mmol/L Carbon Dioxide (21-32) mmol/L Anion Gap (7-13) mEq/L BUN (7-18) mg/dL Creatinine (0.70-1.30) mg/dL Est Cr Clr Drug Dosing mL/min Estimated GFR (MDRD) Glucose (74-99) mg/dL POC Glucose 228 H (83-110) mg/dl Calcium (8.5-10.1) mg/dL Phosphorus (2.6-4.7) mg/dL Magnesium (1.8-2.4) mg/dL Med Orders - Current: Current Medications Acetaminophen (Acetaminophen 325 Mg Tab) 650 mg PO Q4H PRN PRN Reason: Pain (Mild 1-3)/fever Last Admin: 08/12/20 16:36 Dose: 650 mg Documented by: Albuterol (Albuterol 0.083% 2.5 Mg/3 Ml Neb Soln) 2.5 mg INH Q4H PRN PRN Reason: Wheezing Bumetanide (Bumetanide 1 Mg Tab) 2 mg PO BIDDIURETIC RAJEEV Last Admin: 08/12/20 13:48 Dose: 2 mg Documented by: Calcitriol (Calcitriol 0.25 Mcg Cap) 0.25 mcg PO Q48H RAJEEV Last Admin: 08/12/20 08:25 Dose: 0.25 mcg Documented by: Clopidogrel Bisulfate (Clopidogrel 75 Mg Tab) 75 mg PO DAILY [facility] Last Admin: 08/12/20 08:13 Dose: 75 mg Documented by: Dextrose/Water (50% Dextrose In Water 50 Ml Syringe) 50 ml IV ASDIRECTED PRN PRN Reason: Hypoglycemia Escitalopram Oxalate (Escitalopram 10 Mg Tab) 10 mg PO DAILY [facility] Last Admin: 08/12/20 08:11 Dose: 10 mg Documented by: Glucagon (Glucagon,Human Recombinant 1 Mg Vial) 1 mg IM ASDIRECTED PRN PRN Reason: Hypoglycemia Insulin Glargine (Insulin Glarg,Human.Rec.Analog 100 Unit/Ml) 34 unit SUBCUT BEDTIME [facility] Last Admin: 08/11/20 21:07 Dose: 34 units Documented by: Insulin Human Lispro (Insulin Lispro 100 Units/Ml 3 Ml Vial) 0 unit SUBCUT WITHMEALSANDBED [facility]; Protocol Last Admin: 08/12/20 12:34 Dose: 4 units Documented by: Lidocaine (Lidocaine 5% 700 Mg Patch) 700 mg TOP DAILY [facility] Last Admin: 08/12/20 08:13 Dose: 700 mg Documented by: Melatonin (Melatonin 3 Mg Tab) 6 mg PO BEDTIME [facility] Last Admin: 08/11/20 21:08 Dose: 6 mg Documented by: Metoprolol Succinate (Metoprolol Succinate 25 Mg Tab.Er) 25 mg PO DAILY [facility] Last Admin: 08/12/20 08:20 Dose: 25 mg Documented by: Miscellaneous Information (Remove Patch) 1 ea TRDERM DAILY@2100 [facility] Last Admin: 08/11/20 21:08 Dose: 1 ea Documented by: Multivitamins (Multivitamins,Therapeutic Tab) 1 each PO DAILY [facility] Last Admin: 08/12/20 08:12 Dose: 1 each Documented by: Rosuvastatin Calcium (Rosuvastatin 10 Mg Tab) 20 mg PO DAILY [facility] Last Admin: 08/12/20 08:12 Dose: 20 mg Documented by: Sodium Bicarbonate (Sodium Bicarbonate 650 Mg Tab) 650 mg PO TID [facility] Last Admin: 08/12/20 13:48 Dose: 650 mg Documented by: Sodium Chloride (Sodium Chloride 0.9% 10 Ml Syringe) 10 ml FLUSH ASDIRECTED PRN PRN Reason: Keep Vein Open Last Admin: 08/10/20 13:16 Dose: 10 ml Documented by: Trazodone HCl (Trazodone 50 Mg Tab) 50 mg PO BEDTIME PRN PRN Reason: Insomnia Last Admin: 08/11/20 01:43 Dose: 50 mg Documented by: Discontinued Medications Bumetanide (Bumetanide 1 Mg/4 Ml Mdv) 2 mg IVPUSH Q8H [facility] Stop: 08/10/20 16:00 Last Admin: 08/10/20 13:16 Dose: 2 mg Documented by: Bumetanide (Bumetanide 1 Mg Tab) 2 mg PO 0800,1400 [facility] Bumetanide (Bumetanide 1 Mg/4 Ml Mdv) 2 mg IVPUSH 0600,1400 [facility] Dextrose/Water (50% Dextrose In Water 50 Ml Syringe) 50 ml IV ASDIRECTED PRN PRN Reason: Hypoglycemia Glucagon (Glucagon,Human Recombinant 1 Mg Vial) 1 mg IM ASDIRECTED PRN PRN Reason: Hypoglycemia Magnesium Sulfate (Magnesium Sulfate In Water 2 Gm/50 Ml) 2 gm in 50 mls @ 25 mls/hr IV ONETIME ONE Stop: 08/08/20 09:32 Last Admin: 08/08/20 09:28 Dose: 25 mls/hr Documented by: Potassium Chloride 10 meq/ (Premix) 100 mls @ 100 mls/hr IV Q1H [facility] Stop: 08/08/20 10:44 Last Admin: 08/08/20 15:11 Dose: Not Given Documented by: Potassium Chloride 10 meq/ (Premix) 100 mls @ 100 mls/hr IV Q1H [facility] Stop: 08/08/20 15:44 Last Admin: 08/08/20 15:10 Dose: 100 mls/hr Documented by: Insulin Glargine (Insulin Glarg,Human.Rec.Analog 100 Unit/Ml) 26 unit SUBCUT BEDTIME [facility] Last Admin: 08/08/20 21:34 Dose: 26 units Documented by: Insulin Glargine (Insulin Glarg,Human.Rec.Analog 100 Unit/Ml) 30 unit SUBCUT BEDTIME [facility] Last Admin: 08/09/20 20:25 Dose: 30 unit Documented by: Isosorbide Dinitrate (Isosorbide Dinitrate 10 Mg Tab) 5 mg PO TID [facility] Last Admin: 08/07/20 22:06 Dose: Not Given Documented by: Potassium Chloride (Potassium Chloride 10 Meq Tab.Er) 40 meq PO ONETIME ONE Stop: 08/08/20 07:35 Last Admin: 08/08/20 08:26 Dose: 40 meq Documented by: Potassium Chloride (Potassium Chloride 10 Meq Tab.Er) 40 meq PO ONETIME ONE Stop: 08/09/20 09:59 Last Admin: 08/09/20 10:41 Dose: 40 meq Documented by: Potassium Chloride (Potassium Chloride 10 Meq Tab.Er) 40 meq PO ONETIME ONE Stop: 08/10/20 09:16 Last Admin: 08/10/20 13:13 Dose: Not Given Documented by: Potassium Chloride (Potassium Chloride 10 Meq Tab.Er) 40 meq PO ONETIME ONE Stop: 08/11/20 14:01 Potassium Chloride (Potassium Chloride 10 Meq Tab.Er) 40 meq PO ONETIME ONE Stop: 08/10/20 13:01 Last Admin: 08/10/20 13:13 Dose: 40 meq Documented by: Potassium Chloride (Potassium Chloride 10 Meq Tab.Er) 40 meq PO ONETIME ONE Stop: 08/10/20 18:01 Last Admin: 08/10/20 17:15 Dose: 40 meq Documented by: Sodium Chloride (Sodium Chloride 0.9% 10 Ml Syringe) 10 ml FLUSH ASDIRECTED PRN PRN Reason: Keep Vein Open Warfarin Sodium (Warfarin 5 Mg Tab) 5 mg PO ONETIME ONE Stop: 08/07/20 18:01 Last Admin: 08/07/20 18:29 Dose: 5 mg Documented by: Warfarin Sodium (Warfarin 2.5 Mg Tab) 2.5 mg PO ONETIME ONE Stop: 08/08/20 14:01 Last Admin: 08/08/20 14:08 Dose: 2.5 mg Documented by: Warfarin Sodium (Warfarin 2.5 Mg Tab) 2.5 mg PO ONETIME ONE Stop: 08/10/20 14:01 Last Admin: 08/10/20 13:12 Dose: 2.5 mg Documented by: - Exam Quality Assessment: Supplemental Oxygen General: Alert, Oriented, Cooperative, No Acute Distress HEENT: Pupils Equal Neck: Supple Lungs: Clear to Auscultation, Normal Respiratory Effort Cardiovascular: Regular Rate, Regular Rhythm, Other (diastolic m.) GI/Abdominal Exam: Normal Bowel Sounds, Soft, Non-Tender, No Distention Back Exam: Normal Inspection Extremities: No Pedal Edema Skin: Warm, Dry Neurological: No New Focal Deficit Psy/Mental Status: Alert, Depressed (affect) - Patient Data Lab Results Last 24 hrs: Laboratory Results - last 24 hr 08/08/20 08/11/20 08/12/20 Range/Units 05:40 19:58 06:20 PT 24.1 H D 61.5 H (9.0-12.0) SEC INR 2.6 H 6.3 H* (0.9-1.2) Sodium (136-145) mmol/L Potassium (3.5-5.1) mmol/L Chloride (98-107) mmol/L Carbon Dioxide (21-32) mmol/L Anion Gap (7-13) mEq/L BUN (7-18) mg/dL Creatinine (0.70-1.30) mg/dL Est Cr Clr Drug Dosing mL/min Estimated GFR (MDRD) Glucose (74-99) mg/dL POC Glucose 211 H (83-110) mg/dl Calcium (8.5-10.1) mg/dL Phosphorus (2.6-4.7) mg/dL Magnesium (1.8-2.4) mg/dL 08/12/20 08/12/20 08/12/20 Range/Units 06:20 08:07 11:16 PT (9.0-12.0) SEC INR (0.9-1.2) Sodium 149 H (136-145) mmol/L Potassium 3.6 (3.5-5.1) mmol/L Chloride 105 (98-107) mmol/L Carbon Dioxide 37 H (21-32) mmol/L Anion Gap 10.6 (7-13) mEq/L BUN 118 H (7-18) mg/dL Creatinine 2.05 H (0.70-1.30) mg/dL Est Cr Clr Drug Dosing 33.14 mL/min Estimated GFR (MDRD) 32 Glucose 139 H (74-99) mg/dL POC Glucose 180 H 210 H (83-110) mg/dl Calcium 9.1 (8.5-10.1) mg/dL Phosphorus 3.6 (2.6-4.7) mg/dL Magnesium 2.0 (1.8-2.4) mg/dL 08/12/20 Range/Units 16:32 PT (9.0-12.0) SEC INR (0.9-1.2) Sodium (136-145) mmol/L Potassium (3.5-5.1) mmol/L Chloride (98-107) mmol/L Carbon Dioxide (21-32) mmol/L Anion Gap (7-13) mEq/L BUN (7-18) mg/dL Creatinine (0.70-1.30) mg/dL Est Cr Clr Drug Dosing mL/min Estimated GFR (MDRD) Glucose (74-99) mg/dL POC Glucose 228 H (83-110) mg/dl Calcium (8.5-10.1) mg/dL Phosphorus (2.6-4.7) mg/dL Magnesium (1.8-2.4) mg/dL Result Diagrams: 08/09/20 05:50 08/12/20 06:20 Sepsis Event Note - Evaluation Sepsis Screening Result: No Definite Risk - Focused Exam Vital Signs: Vital Signs Temp Pulse Pulse Resp BP BP BP 08/12/20 16:00 100.1 F 112 H 109/58 L 08/12/20 12:47 97.6 F 92 20 107/63 08/12/20 08:20 102 H 106/62 08/12/20 07:54 97.8 F 102 H 20 106/62 Pulse Ox 08/12/20 16:00 94 L 08/12/20 12:47 98 08/12/20 08:20 08/12/20 07:54 98 - Problem List Review Problem List Initiated/Reviewed/Updated: No - Plan Plan:: #acute hypoxic respiratory failure 2/2 acute on chronic systolic and diastolic CHF - weak and tired s/p diuresis - trying to titrate oral diuretic regimen to stabilize I/Os at even - c/w bumex 2 mg PO BID - still requiring o2 and suspect will need o2 on discharge #cardio-renal syndrome / CKD 3 - so far CrCl is stable - as above #chronic DVT - c/w coumadin - hold today #DM2 - A1c was 9 at OSH - c/w lantus and SORAIDA - adjust as needed #gout / HT / CAD / COPD / hx bioprosthetic AVR - c/w home meds PPX - on coumadin PT/OT eval and treat DNR/DNI 08/07 Pt also made a unilateral decision to be DNR/DNI. In my opinion he has the capacity to make this decision. This was supported by his significant other and son. Orders were placed in the chart.
--- NOTE | 2020-08-12 18:14 | CR ---
PROCEDURE INFORMATION: Exam: XR Chest Exam date and time: 08/12/2020 6:08 PM Age: 75 years old Clinical indication: Other: Sepsis; Prior surgery TECHNIQUE: Imaging protocol: XR of the chest Views: 1 view. COMPARISON: CR Chest 1V Frontal 08/10/2020 9:32 AM FINDINGS: Tubes, catheters and devices: A pacemaker device is present and its leads are in appropriate position. There are sternal wires consistent with previous sternotomy incision. Lungs: The pulmonary vasculature is not engorged. The lungs are normal. Pleural spaces: There are no pleural effusions present. Heart/Mediastinum: The heart is not enlarged. Bones/joints: Unremarkable IMPRESSION: No acute abnormality.
[2020-08-12] MEDS: Meropenem Premix 500 MG in Premix Bag 1 BAG IV SCH (18:41)
[2020-08-12 18:53] LABS: ANION GAP 12.5 mEq/L (7-13)
[2020-08-12] MEDS: Sodium Chloride 0.9% 10 ML Syringe FLUSH PRN ×2 (19:38→21:42)
[2020-08-12] MEDS ORDERED: Dextrose 5% in Water 250 ML IV SCH (21:15)
[2020-08-12] MEDS: Melatonin 3 MG Tab PO SCH (21:42)
[2020-08-12] MEDS: Insulin Glarg,Human.Rec.Analog 100 Unit/ML SUBCUT SCH (21:46)
[2020-08-12] MEDS: traZODone 50 MG Tab PO PRN (23:38)
[2020-08-13] MEDS: Meropenem Premix 500 MG in Premix Bag 1 BAG IV SCH ×2 (02:35→15:25)
[2020-08-13 06:34] LABS: ANION GAP 10.3 mEq/L (7-13)
[2020-08-13] MEDS: Lidocaine 5% 700 MG Patch TOP SCH (08:39)
[2020-08-13] MEDS: Insulin Lispro 100 Units/ML 3 ML Vial SUBCUT SCH ×4 (08:49→21:24)
[2020-08-13] MEDS: Clopidogrel 75 MG Tab PO SCH (08:53)
[2020-08-13] MEDS: Metoprolol Succinate 25 MG Tab.ER PO SCH (08:53)
[2020-08-13] MEDS: Rosuvastatin 10 MG Tab PO SCH (08:54)
[2020-08-13] MEDS: Escitalopram 10 MG Tab PO SCH (08:54)
[2020-08-13] MEDS: Multivitamins,Therapeutic Tab PO SCH (08:54)
[2020-08-13] MEDS ORDERED: Potassium Chloride 10 MEQ Tab.ER PO ONE (09:40)
--- NOTE | 2020-08-13 13:19 | CT ---
EXAMINATION: Chest Abdomen Pelvis wo Cont SEX: Male AGE: 75 years CLINICAL HISTORY: 75-year-old 205 pound diabetic male with clinical gram positive bacteremia. History hernia surgery and patient CT 22 May 2020 revealed "distal colonic diverticulitis with indeterminate inflammatory changes anterior to the left common femoral artery (abscess? Small hematoma?)". Scan technique: Volume acquisition of data from the chest, abdomen and pelvis obtained without oral or IV contrast while patient was lying supine on the Siemens multislice scanner [place], [place]. All data archived in the PACS system for storage, reformatting axial/sagittal/coronal planes and study (lung, mediastinal and soft tissue abdominal windows). Some respiratory motion artifact. Interpretation: Abnormal. 1. Cardiomegaly. Coronary artery calcifications. Sternotomy wires. Pacemaker. 2. *Asymmetric dense lobar consolidation posterior segment LLL (infiltrate and/or atelectasis) with ipsilateral dependent left pleural effusion and mild asymmetric elevation of the underlying left hemidiaphragm. Aspiration? 3. Pulmonary vascular congestion with diffuse mild interstitial edema. No pericardial effusion. 4. No lung mass, hilar lymphadenopathy or other lobar consolidation. No peripheral "groundglass" interstitial densities. 5. *Gallbladder distended in the right upper quadrant appears to have layered tiny noncalcified stones. Cystic duct obstruction. No abnormal dilatation of the intra or extrahepatic biliary ducts. 6. Renal cortical scarring bilaterally. No sign of discrete renal cortical mass lesion, ureterolithiasis or obstruction. 7. Numerous diverticula in the descending left and sigmoid colon without current signs of associated inflammation. No pelvic or abdominal mass lesion, mesenteric or retroperitoneal lymphadenopathy, inflammatory "dirty" peritoneal fat, signs of mechanical bowel obstruction, ascites or free intraperitoneal air. Abnormal midline prostate gland. Negative bladder. 8. Atheromatous calcifications normal caliber thoracic and abdominal aorta. No aneurysm or dissection. Osteopenia. Multilevel disc disease. Hypertrophic arthritic changes spine. Large Schmorl's node defect inferior endplate L1 body. 9. No current signs of "inflammation" in the groin. CONCLUSION: Abnormal consolidation LLL. Suspicious gallbladder (ultrasound recommended). Pancolonic diverticulosis. Usual signs of senescence.
[2020-08-13] MEDS: Meropenem Premix 1 GM in Premix Bag 1 BAG IV SCH ×2 (13:28→21:30)
--- NOTE | 2020-08-13 14:24 | PCM.PN ---
- General Info Date of Service: 08/13/20 Admission Dx/Problem (Free Text): Yesterday evening w/ fever 102.2 rectally, diaphoretic, tachy and ill appearing at the time. CXR/blood/urine cultures repeated. Vanc/emmanuel started. This am 4/4 bottles growing GP cocci in pairs. Overnight afebrile and today he is w/ much improved mental status. Continues w/ poor appetite. Voiding spontaneously. Family meeting held w/ son Nestor, daughter and significant other Adamaris. We discussed options for transfer to [facility] or [place]. We discussed [facility]. We discussed alternative of prolonged IV antibiotic course for presumed IE. Pt is adamant he does not want to transfer. His decision making capacity re [facility] is questionable but family and significant other unanimously want to defer [facility] and treat for presumed IE in light of recent [place] and ongoing respiratory failure. - Review of Systems General: Reports: Fever, Weakness HEENT: Denies: Headaches Pulmonary: Denies: Cough, Sputum, Wheezing Cardiovascular: Denies: Chest Pain, Edema Gastrointestinal: Reports: Decreased Appetite. Denies: Abdominal Pain, Diarrhea Genitourinary: Denies: Dysuria Musculoskeletal: Denies: Joint Pain Skin: Denies: Jaundice Neurological: Reports: Confusion Psychiatric: Reports: Depression - Patient Data Vitals - Most Recent: Last Vital Signs Temp 98.6 F 08/13/20 08:00 Pulse 102 H 08/13/20 08:53 Resp 24 H 08/13/20 08:00 BP 109/66 08/13/20 08:53 Pulse Ox 98 08/13/20 04:51 Weight - Most Recent: 206 lb I&O - Last 24 Hours: Intake & Output 08/12/20 08/13/20 08/13/20 22:59 06:59 14:59 Intake Total 250 300 Output Total 300 200 Balance -50 100 Lab Results Last 24 Hours: Laboratory Results - last 24 hr 08/12/20 08/12/20 08/12/20 Range/Units 16:32 18:15 18:15 WBC 13.4 H (5.0-10.0) 10^3/uL RBC 3.35 L (4.6-6.2) 10^6/uL Hgb 9.3 L (14.0-18.0) g/dL Hct 31.4 L (40.0-54.0) % MCV 93.7 D (80-100) fL MCH 27.8 (27.0-34.0) pg MCHC 29.6 L (33.0-35.0) g/dL Plt Count 204 (150-450) 10^3/uL Neut % (Auto) 86.4 H (42.2-75.2) % Lymph % (Auto) 5.6 L (20.5-50.1) % [place] % (Auto) 7.1 (2-8) % Eos % (Auto) 0.6 L (1.0-3.0) % Baso % (Auto) 0.3 (0.0-1.0) % PT (9.0-12.0) SEC INR (0.9-1.2) Sodium 150 H (136-145) mmol/L Potassium 3.5 (3.5-5.1) mmol/L Chloride 104 (98-107) mmol/L Carbon Dioxide 37 H (21-32) mmol/L Anion Gap 12.5 (7-13) mEq/L BUN 124 H (7-18) mg/dL Creatinine 2.27 H (0.70-1.30) mg/dL Est Cr Clr Drug Dosing 29.93 mL/min Estimated GFR (MDRD) 28 BUN/Creatinine Ratio (No establ ref range) Glucose 194 H (74-99) mg/dL POC Glucose 228 H (83-110) mg/dl Lactic Acid (0.4-2.0) mmol/L Calcium 9.4 (8.5-10.1) mg/dL Total Bilirubin (0.2-1.0) mg/dL AST (15-37) U/L ALT (16-63) U/L Alkaline Phosphatase (46-116) U/L Total Protein (6.4-8.2) g/dL Albumin (3.4-5.0) g/dL Globulin Albumin/Globulin Ratio Urine Color (YELLOW) Urine Appearance (CLEAR) Urine pH (5.0-9.0) Ur Specific [place] (1.005-1.030) Urine Protein (NEGATIVE) Urine Glucose (UA) (NEGATIVE) Urine Ketones (NEGATIVE) Urine Occult Blood (NEGATIVE) Urine Nitrite (NEGATIVE) Urine Bilirubin (NEGATIVE) Urine Urobilinogen (0.2-1.0) mg/dL Ur Leukocyte Esterase (NEGATIVE) U Hyaline Cast (Auto) Urine RBC /HPF Urine WBC (0-5/HPF) /HPF Ur Epithelial Cells (NOT SEEN) /HPF Amorphous Sediment (NOT SEEN) /HPF Urine Bacteria (0-FEW/HPF) /HPF Urine Mucus (NOT SEEN) /LPF 08/12/20 08/12/20 08/12/20 Range/Units 18:15 20:48 20:55 WBC (5.0-10.0) 10^3/uL RBC (4.6-6.2) 10^6/uL Hgb (14.0-18.0) g/dL Hct (40.0-54.0) % MCV (80-100) fL MCH (27.0-34.0) pg MCHC (33.0-35.0) g/dL Plt Count (150-450) 10^3/uL Neut % (Auto) (42.2-75.2) % Lymph % (Auto) (20.5-50.1) % [place] % (Auto) (2-8) % Eos % (Auto) (1.0-3.0) % Baso % (Auto) (0.0-1.0) % PT (9.0-12.0) SEC INR (0.9-1.2) Sodium (136-145) mmol/L Potassium (3.5-5.1) mmol/L Chloride (98-107) mmol/L Carbon Dioxide (21-32) mmol/L Anion Gap (7-13) mEq/L BUN (7-18) mg/dL Creatinine (0.70-1.30) mg/dL Est Cr Clr Drug Dosing mL/min Estimated GFR (MDRD) BUN/Creatinine Ratio (No establ ref range) Glucose (74-99) mg/dL POC Glucose 224 H (83-110) mg/dl Lactic Acid 1.0 (0.4-2.0) mmol/L Calcium (8.5-10.1) mg/dL Total Bilirubin (0.2-1.0) mg/dL AST (15-37) U/L ALT (16-63) U/L Alkaline Phosphatase (46-116) U/L Total Protein (6.4-8.2) g/dL Albumin (3.4-5.0) g/dL Globulin Albumin/Globulin Ratio Urine Color Yellow (YELLOW) Urine Appearance Slightly cloudy (CLEAR) Urine pH 5.5 (5.0-9.0) Ur Specific [place] 1.015 (1.005-1.030) Urine Protein 100 H (NEGATIVE) Urine Glucose (UA) Negative (NEGATIVE) Urine Ketones Negative (NEGATIVE) Urine Occult Blood Moderate H (NEGATIVE) Urine Nitrite Negative (NEGATIVE) Urine Bilirubin Negative (NEGATIVE) Urine Urobilinogen 0.2 (0.2-1.0) mg/dL Ur Leukocyte Esterase Negative (NEGATIVE) U Hyaline Cast (Auto) Moderate Urine RBC 10-20 H /HPF Urine WBC 0-5 (0-5/HPF) /HPF Ur Epithelial Cells Few (NOT SEEN) /HPF Amorphous Sediment Many (NOT SEEN) /HPF Urine Bacteria Not seen (0-FEW/HPF) /HPF Urine Mucus Few H (NOT SEEN) /LPF 08/13/20 08/13/20 08/13/20 Range/Units 05:43 05:43 05:43 WBC 11.9 H (5.0-10.0) 10^3/uL RBC 3.20 L (4.6-6.2) 10^6/uL Hgb 8.9 L (14.0-18.0) g/dL Hct 30.2 L (40.0-54.0) % MCV 94.4 (80-100) fL MCH 27.8 (27.0-34.0) pg MCHC 29.5 L (33.0-35.0) g/dL Plt Count 191 (150-450) 10^3/uL Neut % (Auto) (42.2-75.2) % Lymph % (Auto) (20.5-50.1) % [place] % (Auto) (2-8) % Eos % (Auto) (1.0-3.0) % Baso % (Auto) (0.0-1.0) % PT 65.1 H (9.0-12.0) SEC INR 6.7 H* (0.9-1.2) Sodium 150 H (136-145) mmol/L Potassium 3.3 L (3.5-5.1) mmol/L Chloride 106 (98-107) mmol/L Carbon Dioxide 37 H (21-32) mmol/L Anion Gap 10.3 (7-13) mEq/L BUN 121 H (7-18) mg/dL Creatinine 2.17 H (0.70-1.30) mg/dL Est Cr Clr Drug Dosing 31.30 mL/min Estimated GFR (MDRD) 30 BUN/Creatinine Ratio 55.8 (No establ ref range) Glucose 184 H (74-99) mg/dL POC Glucose (83-110) mg/dl Lactic Acid (0.4-2.0) mmol/L Calcium 9.2 (8.5-10.1) mg/dL Total Bilirubin 0.6 (0.2-1.0) mg/dL AST 46 H (15-37) U/L ALT 32 (16-63) U/L Alkaline Phosphatase 201 H (46-116) U/L Total Protein 7.1 (6.4-8.2) g/dL Albumin 1.9 L (3.4-5.0) g/dL Globulin 5.2 Albumin/Globulin Ratio 0.37 Urine Color (YELLOW) Urine Appearance (CLEAR) Urine pH (5.0-9.0) Ur Specific [place] (1.005-1.030) Urine Protein (NEGATIVE) Urine Glucose (UA) (NEGATIVE) Urine Ketones (NEGATIVE) Urine Occult Blood (NEGATIVE) Urine Nitrite (NEGATIVE) Urine Bilirubin (NEGATIVE) Urine Urobilinogen (0.2-1.0) mg/dL Ur Leukocyte Esterase (NEGATIVE) U Hyaline Cast (Auto) Urine RBC /HPF Urine WBC (0-5/HPF) /HPF Ur Epithelial Cells (NOT SEEN) /HPF Amorphous Sediment (NOT SEEN) /HPF Urine Bacteria (0-FEW/HPF) /HPF Urine Mucus (NOT SEEN) /LPF 08/13/20 08/13/20 Range/Units 07:51 12:13 WBC (5.0-10.0) 10^3/uL RBC (4.6-6.2) 10^6/uL Hgb (14.0-18.0) g/dL Hct (40.0-54.0) % MCV (80-100) fL MCH (27.0-34.0) pg MCHC (33.0-35.0) g/dL Plt Count (150-450) 10^3/uL Neut % (Auto) (42.2-75.2) % Lymph % (Auto) (20.5-50.1) % [place] % (Auto) (2-8) % Eos % (Auto) (1.0-3.0) % Baso % (Auto) (0.0-1.0) % PT (9.0-12.0) SEC INR (0.9-1.2) Sodium (136-145) mmol/L Potassium (3.5-5.1) mmol/L Chloride (98-107) mmol/L Carbon Dioxide (21-32) mmol/L Anion Gap (7-13) mEq/L BUN (7-18) mg/dL Creatinine (0.70-1.30) mg/dL Est Cr Clr Drug Dosing mL/min Estimated GFR (MDRD) BUN/Creatinine Ratio (No establ ref range) Glucose (74-99) mg/dL POC Glucose 213 H 269 H (83-110) mg/dl Lactic Acid (0.4-2.0) mmol/L Calcium (8.5-10.1) mg/dL Total Bilirubin (0.2-1.0) mg/dL AST (15-37) U/L ALT (16-63) U/L Alkaline Phosphatase (46-116) U/L Total Protein (6.4-8.2) g/dL Albumin (3.4-5.0) g/dL Globulin Albumin/Globulin Ratio Urine Color (YELLOW) Urine Appearance (CLEAR) Urine pH (5.0-9.0) Ur Specific [place] (1.005-1.030) Urine Protein (NEGATIVE) Urine Glucose (UA) (NEGATIVE) Urine Ketones (NEGATIVE) Urine Occult Blood (NEGATIVE) Urine Nitrite (NEGATIVE) Urine Bilirubin (NEGATIVE) Urine Urobilinogen (0.2-1.0) mg/dL Ur Leukocyte Esterase (NEGATIVE) U Hyaline Cast (Auto) Urine RBC /HPF Urine WBC (0-5/HPF) /HPF Ur Epithelial Cells (NOT SEEN) /HPF Amorphous Sediment (NOT SEEN) /HPF Urine Bacteria (0-FEW/HPF) /HPF Urine Mucus (NOT SEEN) /LPF Christopher Results Last 24 Hours: Microbiology 08/12/20 18:20 Aerobic Blood Culture - Preliminary Blood - Arm, Right Anaerobic Blood Culture - Preliminary 08/12/20 18:15 Aerobic Blood Culture - Preliminary Blood - Arm, Left Anaerobic Blood Culture - Preliminary Med Orders - Current: Current Medications Acetaminophen (Acetaminophen 325 Mg Tab) 650 mg PO Q4H PRN PRN Reason: Pain (Mild 1-3)/fever Last Admin: 08/12/20 23:38 Dose: 650 mg Documented by: Albuterol (Albuterol 0.083% 2.5 Mg/3 Ml Neb Soln) 2.5 mg INH Q4H PRN PRN Reason: Wheezing Bumetanide (Bumetanide 1 Mg Tab) 1 mg PO BIDDIURETIC [facility] Calcitriol (Calcitriol 0.25 Mcg Cap) 0.25 mcg PO Q48H [facility] Last Admin: 08/12/20 08:25 Dose: 0.25 mcg Documented by: Clopidogrel Bisulfate (Clopidogrel 75 Mg Tab) 75 mg PO DAILY [facility] Last Admin: 08/13/20 08:53 Dose: 75 mg Documented by: Dextrose/Water (50% Dextrose In Water 50 Ml Syringe) 50 ml IV ASDIRECTED PRN PRN Reason: Hypoglycemia Escitalopram Oxalate (Escitalopram 10 Mg Tab) 10 mg PO DAILY [facility] Last Admin: 08/13/20 08:54 Dose: 10 mg Documented by: Glucagon (Glucagon,Human Recombinant 1 Mg Vial) 1 mg IM ASDIRECTED PRN PRN Reason: Hypoglycemia Vancomycin HCl 1 gm/ Sodium (Chloride) 250 mls @ 167 mls/hr IV Q24H [facility] Last Admin: 08/12/20 19:36 Dose: 167 mls/hr Documented by: Meropenem/Sodium Chloride 1 gm (/ Premix) 50 mls @ 100 mls/hr IV Q12HR [facility] Last Admin: 08/13/20 13:28 Dose: 100 mls/hr Documented by: Insulin Glargine (Insulin Glarg,Human.Rec.Analog 100 Unit/Ml) 34 unit SUBCUT BEDTIME [facility] Last Admin: 08/12/20 21:46 Dose: 34 units Documented by: Insulin Human Lispro (Insulin Lispro 100 Units/Ml 3 Ml Vial) 0 unit SUBCUT WITHMEALSANDBED [facility]; Protocol Last Admin: 08/13/20 12:44 Dose: 6 units Documented by: Lidocaine (Lidocaine 5% 700 Mg Patch) 700 mg TOP DAILY [facility] Last Admin: 08/13/20 08:39 Dose: 700 mg Documented by: Melatonin (Melatonin 3 Mg Tab) 6 mg PO BEDTIME [facility] Last Admin: 08/12/20 21:42 Dose: 6 mg Documented by: Metoprolol Succinate (Metoprolol Succinate 25 Mg Tab.Er) 25 mg PO DAILY [facility] Last Admin: 08/13/20 08:53 Dose: 25 mg Documented by: Miscellaneous Information (Remove Patch) 1 ea TRDERM DAILY@2100 [facility] Last Admin: 08/12/20 21:45 Dose: 1 ea Documented by: Multivitamins (Multivitamins,Therapeutic Tab) 1 each PO DAILY [facility] Last Admin: 08/13/20 08:54 Dose: 1 each Documented by: Rosuvastatin Calcium (Rosuvastatin 10 Mg Tab) 20 mg PO DAILY [facility] Last Admin: 08/13/20 08:54 Dose: 20 mg Documented by: Sodium Chloride (Sodium Chloride 0.9% 10 Ml Syringe) 10 ml FLUSH ASDIRECTED PRN PRN Reason: Keep Vein Open Last Admin: 08/12/20 21:42 Dose: 10 ml Documented by: Trazodone HCl (Trazodone 50 Mg Tab) 50 mg PO BEDTIME PRN PRN Reason: Insomnia Last Admin: 08/12/20 23:38 Dose: 50 mg Documented by: Discontinued Medications Bumetanide (Bumetanide 1 Mg/4 Ml Mdv) 2 mg IVPUSH Q8H [facility] Stop: 08/10/20 16:00 Last Admin: 08/10/20 13:16 Dose: 2 mg Documented by: Bumetanide (Bumetanide 1 Mg Tab) 2 mg PO 0800,1400 [facility] Bumetanide (Bumetanide 1 Mg/4 Ml Mdv) 2 mg IVPUSH 0600,1400 [facility] Bumetanide (Bumetanide 1 Mg Tab) 2 mg PO BIDDIURETIC [facility] Last Admin: 08/12/20 13:48 Dose: 2 mg Documented by: Dextrose/Water (50% Dextrose In Water 50 Ml Syringe) 50 ml IV ASDIRECTED PRN PRN Reason: Hypoglycemia Glucagon (Glucagon,Human Recombinant 1 Mg Vial) 1 mg IM ASDIRECTED PRN PRN Reason: Hypoglycemia Magnesium Sulfate (Magnesium Sulfate In Water 2 Gm/50 Ml) 2 gm in 50 mls @ 25 mls/hr IV ONETIME ONE Stop: 08/08/20 09:32 Last Admin: 08/08/20 09:28 Dose: 25 mls/hr Documented by: Potassium Chloride 10 meq/ (Premix) 100 mls @ 100 mls/hr IV Q1H [facility] Stop: 08/08/20 10:44 Last Admin: 08/08/20 15:11 Dose: Not Given Documented by: Potassium Chloride 10 meq/ (Premix) 100 mls @ 100 mls/hr IV Q1H [facility] Stop: 08/08/20 15:44 Last Admin: 08/08/20 15:10 Dose: 100 mls/hr Documented by: Meropenem/Sodium Chloride 500 (mg/ Premix) 50 mls @ 100 mls/hr IV Q8H [facility] Last Infusion: 08/13/20 03:08 Dose: Infused Documented by: Dextrose/Water (Dextrose 5% In Water) 250 mls @ 18.75 mls/hr IV ASDIRECTED [facility] Stop: 08/13/20 10:34 Last Infusion: 08/13/20 03:08 Dose: 18.8 mls/hr Documented by: Insulin Glargine (Insulin Glarg,Human.Rec.Analog 100 Unit/Ml) 26 unit SUBCUT BEDTIME [facility] Last Admin: 08/08/20 21:34 Dose: 26 units Documented by: Insulin Glargine (Insulin Glarg,Human.Rec.Analog 100 Unit/Ml) 30 unit SUBCUT BEDTIME [facility] Last Admin: 08/09/20 20:25 Dose: 30 unit Documented by: Isosorbide Dinitrate (Isosorbide Dinitrate 10 Mg Tab) 5 mg PO TID [facility] Last Admin: 08/07/20 22:06 Dose: Not Given Documented by: Potassium Chloride (Potassium Chloride 10 Meq Tab.Er) 40 meq PO ONETIME ONE Stop: 08/08/20 07:35 Last Admin: 08/08/20 08:26 Dose: 40 meq Documented by: Potassium Chloride (Potassium Chloride 10 Meq Tab.Er) 40 meq PO ONETIME ONE Stop: 08/09/20 09:59 Last Admin: 08/09/20 10:41 Dose: 40 meq Documented by: Potassium Chloride (Potassium Chloride 10 Meq Tab.Er) 40 meq PO ONETIME ONE Stop: 08/10/20 09:16 Last Admin: 08/10/20 13:13 Dose: Not Given Documented by: Potassium Chloride (Potassium Chloride 10 Meq Tab.Er) 40 meq PO ONETIME ONE Stop: 08/11/20 14:01 Potassium Chloride (Potassium Chloride 10 Meq Tab.Er) 40 meq PO ONETIME ONE Stop: 08/10/20 13:01 Last Admin: 08/10/20 13:13 Dose: 40 meq Documented by: Potassium Chloride (Potassium Chloride 10 Meq Tab.Er) 40 meq PO ONETIME ONE Stop: 08/10/20 18:01 Last Admin: 08/10/20 17:15 Dose: 40 meq Documented by: Potassium Chloride (Potassium Chloride 10 Meq Tab.Er) 40 meq PO ONETIME ONE Stop: 08/13/20 09:41 Last Admin: 08/13/20 10:34 Dose: 40 meq Documented by: Sodium Bicarbonate (Sodium Bicarbonate 650 Mg Tab) 650 mg PO TID [id number] Last Admin: 08/12/20 13:48 Dose: 650 mg Documented by: Sodium Chloride (Sodium Chloride 0.9% 10 Ml Syringe) 10 ml FLUSH ASDIRECTED PRN PRN Reason: Keep Vein Open Warfarin Sodium (Warfarin 5 Mg Tab) 5 mg PO ONETIME ONE Stop: 08/07/20 18:01 Last Admin: 08/07/20 18:29 Dose: 5 mg Documented by: Warfarin Sodium (Warfarin 2.5 Mg Tab) 2.5 mg PO ONETIME ONE Stop: 08/08/20 14:01 Last Admin: 08/08/20 14:08 Dose: 2.5 mg Documented by: Warfarin Sodium (Warfarin 2.5 Mg Tab) 2.5 mg PO ONETIME ONE Stop: 08/10/20 14:01 Last Admin: 08/10/20 13:12 Dose: 2.5 mg Documented by: - Exam Quality Assessment: Supplemental Oxygen (2L) General: Cooperative, Other (somnolent) HEENT: Pupils Equal, Pupils Reactive Neck: Supple Lungs: Clear to Auscultation, Normal Respiratory Effort Cardiovascular: Regular Rate, Regular Rhythm, Other (diastolic m.) GI/Abdominal Exam: Normal Bowel Sounds, Soft, Non-Tender, Distended (minimally) Extremities: No Pedal Edema Wound/Incisions: Decubitis (stage 3 coccyx) Neurological: Other (slurred speech) Psy/Mental Status: Depressed (affect) - Patient Data Lab Results Last 24 hrs: Laboratory Results - last 24 hr 08/12/20 08/12/20 08/12/20 Range/Units 16:32 18:15 18:15 WBC 13.4 H (5.0-10.0) 10^3/uL RBC 3.35 L (4.6-6.2) 10^6/uL Hgb 9.3 L (14.0-18.0) g/dL Hct 31.4 L (40.0-54.0) % MCV 93.7 D (80-100) fL MCH 27.8 (27.0-34.0) pg MCHC 29.6 L (33.0-35.0) g/dL Plt Count 204 (150-450) 10^3/uL Neut % (Auto) 86.4 H (42.2-75.2) % Lymph % (Auto) 5.6 L (20.5-50.1) % [place] % (Auto) 7.1 (2-8) % Eos % (Auto) 0.6 L (1.0-3.0) % Baso % (Auto) 0.3 (0.0-1.0) % PT (9.0-12.0) SEC INR (0.9-1.2) Sodium 150 H (136-145) mmol/L Potassium 3.5 (3.5-5.1) mmol/L Chloride 104 (98-107) mmol/L Carbon Dioxide 37 H (21-32) mmol/L Anion Gap 12.5 (7-13) mEq/L BUN 124 H (7-18) mg/dL Creatinine 2.27 H (0.70-1.30) mg/dL Est Cr Clr Drug Dosing 29.93 mL/min Estimated GFR (MDRD) 28 BUN/Creatinine Ratio (No establ ref range) Glucose 194 H (74-99) mg/dL POC Glucose 228 H (83-110) mg/dl Lactic Acid (0.4-2.0) mmol/L Calcium 9.4 (8.5-10.1) mg/dL Total Bilirubin (0.2-1.0) mg/dL AST (15-37) U/L ALT (16-63) U/L Alkaline Phosphatase (46-116) U/L Total Protein (6.4-8.2) g/dL Albumin (3.4-5.0) g/dL Globulin Albumin/Globulin Ratio Urine Color (YELLOW) Urine Appearance (CLEAR) Urine pH (5.0-9.0) Ur Specific [place] (1.005-1.030) Urine Protein (NEGATIVE) Urine Glucose (UA) (NEGATIVE) Urine Ketones (NEGATIVE) Urine Occult Blood (NEGATIVE) Urine Nitrite (NEGATIVE) Urine Bilirubin (NEGATIVE) Urine Urobilinogen (0.2-1.0) mg/dL Ur Leukocyte Esterase (NEGATIVE) U Hyaline Cast (Auto) Urine RBC /HPF Urine WBC (0-5/HPF) /HPF Ur Epithelial Cells (NOT SEEN) /HPF Amorphous Sediment (NOT SEEN) /HPF Urine Bacteria (0-FEW/HPF) /HPF Urine Mucus (NOT SEEN) /LPF 08/12/20 08/12/20 08/12/20 Range/Units 18:15 20:48 20:55 WBC (5.0-10.0) 10^3/uL RBC (4.6-6.2) 10^6/uL Hgb (14.0-18.0) g/dL Hct (40.0-54.0) % MCV (80-100) fL MCH (27.0-34.0) pg MCHC (33.0-35.0) g/dL Plt Count (150-450) 10^3/uL Neut % (Auto) (42.2-75.2) % Lymph % (Auto) (20.5-50.1) % [place] % (Auto) (2-8) % Eos % (Auto) (1.0-3.0) % Baso % (Auto) (0.0-1.0) % PT (9.0-12.0) SEC INR (0.9-1.2) Sodium (136-145) mmol/L Potassium (3.5-5.1) mmol/L Chloride (98-107) mmol/L Carbon Dioxide (21-32) mmol/L Anion Gap (7-13) mEq/L BUN (7-18) mg/dL Creatinine (0.70-1.30) mg/dL Est Cr Clr Drug Dosing mL/min Estimated GFR (MDRD) BUN/Creatinine Ratio (No establ ref range) Glucose (74-99) mg/dL POC Glucose 224 H (83-110) mg/dl Lactic Acid 1.0 (0.4-2.0) mmol/L Calcium (8.5-10.1) mg/dL Total Bilirubin (0.2-1.0) mg/dL AST (15-37) U/L ALT (16-63) U/L Alkaline Phosphatase (46-116) U/L Total Protein (6.4-8.2) g/dL Albumin (3.4-5.0) g/dL Globulin Albumin/Globulin Ratio Urine Color Yellow (YELLOW) Urine Appearance Slightly cloudy (CLEAR) Urine pH 5.5 (5.0-9.0) Ur Specific [place] 1.015 (1.005-1.030) Urine Protein 100 H (NEGATIVE) Urine Glucose (UA) Negative (NEGATIVE) Urine Ketones Negative (NEGATIVE) Urine Occult Blood Moderate H (NEGATIVE) Urine Nitrite Negative (NEGATIVE) Urine Bilirubin Negative (NEGATIVE) Urine Urobilinogen 0.2 (0.2-1.0) mg/dL Ur Leukocyte Esterase Negative (NEGATIVE) U Hyaline Cast (Auto) Moderate Urine RBC 10-20 H /HPF Urine WBC 0-5 (0-5/HPF) /HPF Ur Epithelial Cells Few (NOT SEEN) /HPF Amorphous Sediment Many (NOT SEEN) /HPF Urine Bacteria Not seen (0-FEW/HPF) /HPF Urine Mucus Few H (NOT SEEN) /LPF 08/13/20 08/13/20 08/13/20 Range/Units 05:43 05:43 05:43 WBC 11.9 H (5.0-10.0) 10^3/uL RBC 3.20 L (4.6-6.2) 10^6/uL Hgb 8.9 L (14.0-18.0) g/dL Hct 30.2 L (40.0-54.0) % MCV 94.4 (80-100) fL MCH 27.8 (27.0-34.0) pg MCHC 29.5 L (33.0-35.0) g/dL Plt Count 191 (150-450) 10^3/uL Neut % (Auto) (42.2-75.2) % Lymph % (Auto) (20.5-50.1) % [place] % (Auto) (2-8) % Eos % (Auto) (1.0-3.0) % Baso % (Auto) (0.0-1.0) % PT 65.1 H (9.0-12.0) SEC INR 6.7 H* (0.9-1.2) Sodium 150 H (136-145) mmol/L Potassium 3.3 L (3.5-5.1) mmol/L Chloride 106 (98-107) mmol/L Carbon Dioxide 37 H (21-32) mmol/L Anion Gap 10.3 (7-13) mEq/L BUN 121 H (7-18) mg/dL Creatinine 2.17 H (0.70-1.30) mg/dL Est Cr Clr Drug Dosing 31.30 mL/min Estimated GFR (MDRD) 30 BUN/Creatinine Ratio 55.8 (No establ ref range) Glucose 184 H (74-99) mg/dL POC Glucose (83-110) mg/dl Lactic Acid (0.4-2.0) mmol/L Calcium 9.2 (8.5-10.1) mg/dL Total Bilirubin 0.6 (0.2-1.0) mg/dL AST 46 H (15-37) U/L ALT 32 (16-63) U/L Alkaline Phosphatase 201 H (46-116) U/L Total Protein 7.1 (6.4-8.2) g/dL Albumin 1.9 L (3.4-5.0) g/dL Globulin 5.2 Albumin/Globulin Ratio 0.37 Urine Color (YELLOW) Urine Appearance (CLEAR) Urine pH (5.0-9.0) Ur Specific [place] (1.005-1.030) Urine Protein (NEGATIVE) Urine Glucose (UA) (NEGATIVE) Urine Ketones (NEGATIVE) Urine Occult Blood (NEGATIVE) Urine Nitrite (NEGATIVE) Urine Bilirubin (NEGATIVE) Urine Urobilinogen (0.2-1.0) mg/dL Ur Leukocyte Esterase (NEGATIVE) U Hyaline Cast (Auto) Urine RBC /HPF Urine WBC (0-5/HPF) /HPF Ur Epithelial Cells (NOT SEEN) /HPF Amorphous Sediment (NOT SEEN) /HPF Urine Bacteria (0-FEW/HPF) /HPF Urine Mucus (NOT SEEN) /LPF 08/13/20 08/13/20 Range/Units 07:51 12:13 WBC (5.0-10.0) 10^3/uL RBC (4.6-6.2) 10^6/uL Hgb (14.0-18.0) g/dL Hct (40.0-54.0) % MCV (80-100) fL MCH (27.0-34.0) pg MCHC (33.0-35.0) g/dL Plt Count (150-450) 10^3/uL Neut % (Auto) (42.2-75.2) % Lymph % (Auto) (20.5-50.1) % [place] % (Auto) (2-8) % Eos % (Auto) (1.0-3.0) % Baso % (Auto) (0.0-1.0) % PT (9.0-12.0) SEC INR (0.9-1.2) Sodium (136-145) mmol/L Potassium (3.5-5.1) mmol/L Chloride (98-107) mmol/L Carbon Dioxide (21-32) mmol/L Anion Gap (7-13) mEq/L BUN (7-18) mg/dL Creatinine (0.70-1.30) mg/dL Est Cr Clr Drug Dosing mL/min Estimated GFR (MDRD) BUN/Creatinine Ratio (No establ ref range) Glucose (74-99) mg/dL POC Glucose 213 H 269 H (83-110) mg/dl Lactic Acid (0.4-2.0) mmol/L Calcium (8.5-10.1) mg/dL Total Bilirubin (0.2-1.0) mg/dL AST (15-37) U/L ALT (16-63) U/L Alkaline Phosphatase (46-116) U/L Total Protein (6.4-8.2) g/dL Albumin (3.4-5.0) g/dL Globulin Albumin/Globulin Ratio Urine Color (YELLOW) Urine Appearance (CLEAR) Urine pH (5.0-9.0) Ur Specific [place] (1.005-1.030) Urine Protein (NEGATIVE) Urine Glucose (UA) (NEGATIVE) Urine Ketones (NEGATIVE) Urine Occult Blood (NEGATIVE) Urine Nitrite (NEGATIVE) Urine Bilirubin (NEGATIVE) Urine Urobilinogen (0.2-1.0) mg/dL Ur Leukocyte Esterase (NEGATIVE) U Hyaline Cast (Auto) Urine RBC /HPF Urine WBC (0-5/HPF) /HPF Ur Epithelial Cells (NOT SEEN) /HPF Amorphous Sediment (NOT SEEN) /HPF Urine Bacteria (0-FEW/HPF) /HPF Urine Mucus (NOT SEEN) /LPF Result Diagrams: 08/13/20 05:43 08/13/20 05:43 Christopher Results Last 24 hrs: Microbiology 08/12/20 18:20 Aerobic Blood Culture - Preliminary Blood - Arm, Right Anaerobic Blood Culture - Preliminary 08/12/20 18:15 Aerobic Blood Culture - Preliminary Blood - Arm, Left Anaerobic Blood Culture - Preliminary Sepsis Event Note - Evaluation Sepsis Screening Result: No Definite Risk - Focused Exam Vital Signs: Vital Signs Temp Pulse Pulse Resp BP BP BP 08/13/20 08:53 102 H 109/66 08/13/20 08:00 98.6 F 102 H 24 H 109/66 08/13/20 04:51 98.1 F 99 18 108/59 L Pulse Ox 08/13/20 08:53 08/13/20 08:00 08/13/20 04:51 98 - Problem List Review Problem List Initiated/Reviewed/Updated: No - My Orders Last 24 Hours: My Active Orders 08/12/20 17:56 Blood Culture x2 Reflex Set [OM.PC] Stat 08/12/20 18:15 CULTURE BLOOD [BC] Stat 08/12/20 18:20 CULTURE BLOOD [BC] Stat 08/12/20 19:00 Vancomycin 1 gm Sodium Chloride 0.9% [Normal Saline (AdvBag)] 250 ml IV Q24H 08/13/20 09:57 Echo Comp wo Cont [US] Urgent 08/13/20 12:00 Meropenem Premix [Meropenem in NS 1 GM/50 ML] 1 gm Premix Bag 1 bag IV Q12HR 08/13/20 14:00 CULTURE BLOOD [BC] Stat CULTURE BLOOD [BC] Stat Bumetanide [Bumex] 1 mg PO BIDDIURETIC Blood Culture x2 Reflex Set [OM.PC] Stat - Plan Plan:: #sepsis 2/2 gram positive bacteremia - multiple sources in consideration including aliya-oral, translocation via coccyx decubitus, needle pokes and of course IE of the [place] mitral or prosthetic artificial heart valve - awaiting culture speciation and sensitivities - c/w vanc/emmanuel - will check echo - ID Dr Rodarte to consult >>> check CT chest/abdomen/pelvis - pt and family want to defer SALVADOR and treat for IE if needed #acute hypoxic respiratory failure 2/2 acute on chronic systolic and diastolic CHF - weak and tired s/p diuresis - trying to titrate oral diuretic regimen to stabilize I/Os at even - lower bumex 2 >>> 1 mg PO BID - still requiring o2 and suspect will need o2 on discharge #cardio-renal syndrome / CKD 3 - so far CrCl is stable - as above #chronic DVT - c/w coumadin - hold today #DM2 - A1c was 9 at OSH - c/w lantus and SORAIDA - adjust as needed #gout / HT / CAD / COPD / hx bioprosthetic AVR - c/w home meds PPX - on coumadin PT/OT eval and treat DNR/DNI 08/07 Pt also made a unilateral decision to be DNR/DNI. In my opinion he has the capacity to make this decision. This was supported by his significant other and son. Orders were placed in the chart.
[2020-08-13] MEDS: Bumetanide 1 MG Tab PO SCH (16:04)
[2020-08-13] MEDS: Acetaminophen 325 MG Tab PO PRN (20:45)
[2020-08-13] MEDS: traZODone 50 MG Tab PO PRN (20:45)
[2020-08-13] MEDS: Melatonin 3 MG Tab PO SCH (20:45)
[2020-08-13] MEDS: Insulin Glarg,Human.Rec.Analog 100 Unit/ML SUBCUT SCH (21:24)
[2020-08-13] MEDS: Sodium Chloride 0.9% 10 ML Syringe FLUSH PRN (21:29)
[2020-08-14 07:09] LABS: ANION GAP 10.9 mEq/L (7-13)
[2020-08-14] MEDS: Rosuvastatin 10 MG Tab PO SCH (08:31)
[2020-08-14] MEDS: Metoprolol Succinate 25 MG Tab.ER PO SCH (08:32)
[2020-08-14] MEDS: Calcitriol 0.25 MCG Cap PO SCH (08:32)
[2020-08-14] MEDS: Bumetanide 1 MG Tab PO SCH ×2 (08:32→14:17)
[2020-08-14] MEDS: Multivitamins,Therapeutic Tab PO SCH (08:32)
[2020-08-14] MEDS: Escitalopram 10 MG Tab PO SCH (08:33)
[2020-08-14] MEDS: Clopidogrel 75 MG Tab PO SCH (08:33)
[2020-08-14] MEDS: Insulin Lispro 100 Units/ML 3 ML Vial SUBCUT SCH ×2 (08:34→12:24)
[2020-08-14] MEDS: Lidocaine 5% 700 MG Patch TOP SCH (08:35)
[2020-08-14] MEDS ORDERED: Dextrose 5% in Water 500 ML IV SCH (09:30)
[2020-08-14] MEDS: Meropenem Premix 1 GM in Premix Bag 1 BAG IV SCH (10:22)
--- NOTE | 2020-08-14 10:39 | US ---
PROCEDURE INFORMATION: Exam: US Abdomen Complete Exam date and time: 08/14/2020 9:56 AM Age: 75 years old Clinical indication: Abnormal findings; Abnormal radiologic finding of the abdomen; Radiologic exam and body structure: Abn CT; Additional info: R/O acute cholecystitis TECHNIQUE: Imaging protocol: Real-time ultrasound of the abdomen with image documentation. COMPARISON: No relevant prior studies available. FINDINGS: Liver: Liver outline and echotexture partially obscured by bowel gas shadowing. Gallbladder: There is moderate gallbladder distension. Gallbladder wall measures 4.2 mm. No gallstones. Common bile duct: Normal. No stones. No dilation. Pancreas: Obscured by bowel gas shadowing Right kidney: Right sagittal length 12.2 cm. Normal. No mass. No hydronephrosis. Left kidney: Right sagittal length 12.3 cm. Normal. No mass. No hydronephrosis. Spleen: Sagittal length 19 cm. Splenomegaly. Aorta: Obscured by bowel gas shadowing. Inferior vena cava: Obscured by bowel gas shadowing. IMPRESSION: 1. Moderate gallbladder distension with mild gallbladder wall thickening. Cannot exclude chronic cholecystitis. If correlating abdominal pain consider further characterization with nuclear medicine HIDA. 2. Splenomegaly.
[2020-08-14 12:36] VITALS: BP 104/64; PULSE 97
--- NOTE | 2020-08-14 14:28 | PCM.DCSUM1 ---
Discharge Summary - Hospital Course Free Text/Narrative:: 75M w/ pmh systolic and diastolic CHF, CAD, CKD3, chronic DVT, DM2, HT, CHB s/p PPM, s/p bioprosthetic AVR in 2018, COPD, gout, previously briefly on HD presumably for cardio-renal syndrome, now w/ perm cath removed, recently admitted in early July 2020 to [facility] w/ in-stent re-stenosis of multiple LAD lesions treated w/ ballooning only followed by re-admission 07/25-08/06 for acute hypoxic respiratory failure 2/2 CHF exacerbation c/b cardiorenal syndrome and NSTEMI where he was nearly started on dialysis again but refused HD and was planned for PD but kidney function turned around and now transferred to for Swing Bed. Upon arrival at the pt was still vastly fluid overloaded and within 12h of arrival relapsed into respiratory failure 2/2 pulmonary edema. [facility] records showed he had been very resistant to diuresis even w/ 1 mg IV bumex BID. He was therefore started on bumex 2 mg IV q8h and good diuresis was achieved w/ ~3L out daily w/ 1.5L net negative. Throughout this time his BUN/Cr remained 120/1.8 exactly the same as his level upon transfer. He was readied to convert back to Swing Bed for rehabilitation. On evening of 08/12 the pt spiked a temp 102 and he was immediately started on vancomycin and meropenem pending fever work up. His CXR was baseline, UA clean, but blood cultures positive for gram positive bacteremia on 09/01 bottles. Given hx aortic valve replacement ID Dr Rodarte was consulted and recommended for transfer for SAL[facility]. This was discussed w/ pt and family and they did not want to pursue the SALV[facility] and would rather commit the pt to [facility] antibiotics assuming he has endocarditis. Today the pt continues to be febrile and repeat blood cultures are persistently positive for what preliminarily appears to be enterococcus. CT chest/abdomen/pelvis was done and revealed a LLL consolidation but also a distended gallbladder w/ a stone in the cystic duct. LFTs are normal and follow up ultrasound showed a distended gall bladder w/o definitive acute cholecystitis. In the past 3 days since pt began b eing febrile his Cr has gone up 1.8 >>> 2.6 and INR has gone up to 7.5 w/o having received coumadin. Today his maintenance PO bumex was cut 2 mg >>> 1 mg BID. Another family meeting was held and I recommended transfer for HIDA scan and possible cholecystostomy tube if needed. Family agreed but wished to transfer to [facility] instead of back to [facility]. Pt was accepted by Dr Woody. I updated Dr Rodarte and we will switch vancomycin to daptomycin to cover for possible VRE. The dose was unable to be administered as ambulance had already arrived to [facility] the pt. [facility] transfer line was informed of need for daptomycin dose 750 mg q48h upon arrival. 08/07 Pt also made a unilateral decision to be DNR/DNI. This was supported by his significant other and son. - Discharge Data Discharge Date: 08/14/20 Discharge Disposition: DC/Tfer to Acute Hospital 02 Condition: Fair - Referral to Home Health Primary Care Physician: Johan Gallardo MD - Patient Summary/Data Consults: Consultations 08/07/20 09:40 OT Evaluation and Treatment [CONS] Routine PT Evaluation and Treatment [CONS] Routine 08/09/20 09:57 PT Evaluation and Treatment [CONS] Routine - Discharge Plan *PRESCRIPTION DRUG MONITORING PROGRAM REVIEWED*: Not Applicable *COPY OF PRESCRIPTION DRUG MONITORING REPORT IN PATIENT WILLIAN: Not Applicable Prescriptions/Med Rec: DAPTOmycin [Cubicin Rf] 750 mg IV Q48H #1 vial Home Medications: Home Meds Clopidogrel [Plavix] 75 mg PO DAILY 04/26/18 [History] Metoprolol Succinate 25 mg PO DAILY 01/09/20 [History] Multivitamin [Multi-Vitamin Daily] 1 tab PO DAILY 01/09/20 [History] Albuterol [Proventil Neb Soln] 2.5 inhalation INH Q4HR PRN 08/06/20 [History] Escitalopram [Lexapro] 10 mg PO DAILY 08/06/20 [History] Lidocaine 5% [Lidoderm 5%] 1 patch TOP DAILY 08/06/20 [History] calcitrioL [Calcitriol] 0.25 mcg PO .Q48HRS 08/06/20 [History] traZODone 50 mg PO BEDTIME PRN 08/06/20 [History] Acetaminophen [Tylenol] 650 mg PO Q4H PRN tablet 08/14/20 [Rx] Bumetanide [Bumex] 1 mg PO BIDDIURETIC tablet 08/14/20 [Rx] DAPTOmycin [Cubicin Rf] 750 mg IV Q48H #1 vial 08/14/20 [Rx] Insulin Glarg,Human.Rec.Analog [Lantus] 34 unit SUBCUT BEDTIME ml 08/14/20 [Rx] Insulin Lispro [HumaLOG] 0 unit SUBCUT WITHMEALSANDBED vial 08/14/20 [Rx] Melatonin 6 mg PO BEDTIME tablet 08/14/20 [Rx] Meropenem Premix [Meropenem in NS 1 GM/50 ML] 1 gm IV Q12HR bag 08/14/20 [Rx] Remove Patch 1 ea TRDERM DAILY@2100 each 08/14/20 [Rx] - Discharge Summary/Plan Comment DC Time >30 min.: Yes (45 min) - Patient Data Vitals - Most Recent: Last Vital Signs Temp 98.8 F 08/14/20 12:35 Pulse 97 08/14/20 12:35 Resp 20 08/14/20 12:35 BP 104/64 08/14/20 12:35 Pulse Ox 96 08/14/20 12:35 Weight - Most Recent: 206 lb 8 oz I&O - Last 24 hours: Intake & Output 08/13/20 08/14/20 08/14/20 22:59 06:59 14:59 Intake Total 670 100 Output Total 200 Balance 470 100 Lab Results - Last 24 hrs: Laboratory Results - last 24 hr 08/13/20 08/13/20 08/14/20 Range/Units 16:50 21:19 06:04 WBC 13.3 H (5.0-10.0) 10^3/uL RBC 3.12 L (4.6-6.2) 10^6/uL Hgb 8.5 L (14.0-18.0) g/dL Hct 29.5 L (40.0-54.0) % MCV 94.6 (80-100) fL MCH 27.2 (27.0-34.0) pg MCHC 28.8 L (33.0-35.0) g/dL Plt Count 205 (150-450) 10^3/uL Neut % (Auto) 84.3 H (42.2-75.2) % Lymph % (Auto) 7.2 L (20.5-50.1) % Stanton % (Auto) 7.4 (2-8) % Eos % (Auto) 0.6 L (1.0-3.0) % Baso % (Auto) 0.5 (0.0-1.0) % PT (9.0-12.0) SEC INR (0.9-1.2) Sodium (136-145) mmol/L Potassium (3.5-5.1) mmol/L Chloride (98-107) mmol/L Carbon Dioxide (21-32) mmol/L Anion Gap (7-13) mEq/L BUN (7-18) mg/dL Creatinine (0.70-1.30) mg/dL Est Cr Clr Drug Dosing mL/min Estimated GFR (MDRD) Glucose (74-99) mg/dL POC Glucose 222 H 288 H (83-110) mg/dl Calcium (8.5-10.1) mg/dL Total Bilirubin (0.2-1.0) mg/dL Direct Bilirubin (0.0-0.2) mg/dL Indirect Bilirubin AST (15-37) U/L ALT (16-63) U/L Alkaline Phosphatase (46-116) U/L Total Protein (6.4-8.2) g/dL Albumin (3.4-5.0) g/dL Globulin Albumin/Globulin Ratio 08/14/20 08/14/20 08/14/20 Range/Units 06:04 06:04 06:04 WBC (5.0-10.0) 10^3/uL RBC (4.6-6.2) 10^6/uL Hgb (14.0-18.0) g/dL Hct (40.0-54.0) % MCV (80-100) fL MCH (27.0-34.0) pg MCHC (33.0-35.0) g/dL Plt Count (150-450) 10^3/uL Neut % (Auto) (42.2-75.2) % Lymph % (Auto) (20.5-50.1) % Stanton % (Auto) (2-8) % Eos % (Auto) (1.0-3.0) % Baso % (Auto) (0.0-1.0) % PT 72.9 H (9.0-12.0) SEC INR 7.5 H* (0.9-1.2) Sodium 151 H (136-145) mmol/L Potassium 3.9 (3.5-5.1) mmol/L Chloride 108 H (98-107) mmol/L Carbon Dioxide 36 H (21-32) mmol/L Anion Gap 10.9 (7-13) mEq/L BUN 134 H (7-18) mg/dL Creatinine 2.68 H (0.70-1.30) mg/dL Est Cr Clr Drug Dosing 25.35 mL/min Estimated GFR (MDRD) 23 Glucose 188 H (74-99) mg/dL POC Glucose (83-110) mg/dl Calcium 9.1 (8.5-10.1) mg/dL Total Bilirubin 0.8 (0.2-1.0) mg/dL Direct Bilirubin 0.3 H (0.0-0.2) mg/dL Indirect Bilirubin 0.5 AST 55 H (15-37) U/L ALT 31 (16-63) U/L Alkaline Phosphatase 216 H (46-116) U/L Total Protein 7.2 (6.4-8.2) g/dL Albumin 2.0 L (3.4-5.0) g/dL Globulin 5.2 Albumin/Globulin Ratio 0.38 08/14/20 08/14/20 Range/Units 07:51 11:53 WBC (5.0-10.0) 10^3/uL RBC (4.6-6.2) 10^6/uL Hgb (14.0-18.0) g/dL Hct (40.0-54.0) % MCV (80-100) fL MCH (27.0-34.0) pg MCHC (33.0-35.0) g/dL Plt Count (150-450) 10^3/uL Neut % (Auto) (42.2-75.2) % Lymph % (Auto) (20.5-50.1) % Stanton % (Auto) (2-8) % Eos % (Auto) (1.0-3.0) % Baso % (Auto) (0.0-1.0) % PT (9.0-12.0) SEC INR (0.9-1.2) Sodium (136-145) mmol/L Potassium (3.5-5.1) mmol/L Chloride (98-107) mmol/L Carbon Dioxide (21-32) mmol/L Anion Gap (7-13) mEq/L BUN (7-18) mg/dL Creatinine (0.70-1.30) mg/dL Est Cr Clr Drug Dosing mL/min Estimated GFR (MDRD) Glucose (74-99) mg/dL POC Glucose 219 H 282 H (83-110) mg/dl Calcium (8.5-10.1) mg/dL Total Bilirubin (0.2-1.0) mg/dL Direct Bilirubin (0.0-0.2) mg/dL Indirect Bilirubin AST (15-37) U/L ALT (16-63) U/L Alkaline Phosphatase (46-116) U/L Total Protein (6.4-8.2) g/dL Albumin (3.4-5.0) g/dL Globulin Albumin/Globulin Ratio FRANCISCO Results - Last 24 hrs: Microbiology 08/13/20 14:16 Aerobic Blood Culture - Preliminary Blood - Arm, Right 08/13/20 14:12 Aerobic Blood Culture - Preliminary Blood - Arm, Left 08/12/20 18:20 Aerobic Blood Culture - Preliminary Blood - Arm, Right Anaerobic Blood Culture - Preliminary 08/12/20 18:15 Aerobic Blood Culture - Preliminary Blood - Arm, Left Anaerobic Blood Culture - Preliminary Med Orders - Current: Current Medications Acetaminophen (Acetaminophen 325 Mg Tab) 650 mg PO Q4H PRN PRN Reason: Pain (Mild 1-3)/fever Last Admin: 08/13/20 20:45 Dose: 650 mg Documented by: Albuterol (Albuterol 0.083% 2.5 Mg/3 Ml Neb Soln) 2.5 mg INH Q4H PRN PRN Reason: Wheezing Bumetanide (Bumetanide 1 Mg Tab) 1 mg PO BIDDIURETIC [facility] Last Admin: 08/14/20 08:32 Dose: 1 mg Documented by: Calcitriol (Calcitriol 0.25 Mcg Cap) 0.25 mcg PO Q48H RAJEEV Last Admin: 08/14/20 08:32 Dose: 0.25 mcg Documented by: Clopidogrel Bisulfate (Clopidogrel 75 Mg Tab) 75 mg PO DAILY [facility] Last Admin: 08/14/20 08:33 Dose: 75 mg Documented by: Dextrose/Water (50% Dextrose In Water 50 Ml Syringe) 50 ml IV ASDIRECTED PRN PRN Reason: Hypoglycemia Escitalopram Oxalate (Escitalopram 10 Mg Tab) 10 mg PO DAILY [facility] Last Admin: 08/14/20 08:33 Dose: 10 mg Documented by: Glucagon (Glucagon,Human Recombinant 1 Mg Vial) 1 mg IM ASDIRECTED PRN PRN Reason: Hypoglycemia Vancomycin HCl 1 gm/ Sodium (Chloride) 250 mls @ 167 mls/hr IV Q24H [facility] Last Admin: 08/13/20 19:53 Dose: 167 mls/hr Documented by: Meropenem/Sodium Chloride 1 gm (/ Premix) 50 mls @ 100 mls/hr IV Q12HR [facility] Last Admin: 08/14/20 10:22 Dose: 100 mls/hr Documented by: Dextrose/Water (Dextrose 5% In Water) 500 mls @ 75 mls/hr IV ASDIRECTED [facility] Insulin Glargine (Insulin Glarg,Human.Rec.Analog 100 Unit/Ml) 34 unit SUBCUT BEDTIME [facility] Last Admin: 08/13/20 21:24 Dose: 34 units Documented by: Insulin Human Lispro (Insulin Lispro 100 Units/Ml 3 Ml Vial) 0 unit SUBCUT WITHMEALSANDBED [facility]; Protocol Last Admin: 08/14/20 12:24 Dose: 6 units Documented by: Lidocaine (Lidocaine 5% 700 Mg Patch) 700 mg TOP DAILY [facility] Last Admin: 08/14/20 08:35 Dose: 700 mg Documented by: Melatonin (Melatonin 3 Mg Tab) 6 mg PO BEDTIME [facility] Last Admin: 08/13/20 20:45 Dose: 6 mg Documented by: Metoprolol Succinate (Metoprolol Succinate 25 Mg Tab.Er) 25 mg PO DAILY [facility] Last Admin: 08/14/20 08:32 Dose: 25 mg Documented by: Miscellaneous Information (Remove Patch) 1 ea TRDERM DAILY@2100 [facility] Last Admin: 08/13/20 20:46 Dose: 1 ea Documented by: Multivitamins (Multivitamins,Therapeutic Tab) 1 each PO DAILY [facility] Last Admin: 08/14/20 08:32 Dose: 1 each Documented by: Rosuvastatin Calcium (Rosuvastatin 10 Mg Tab) 20 mg PO DAILY [facility] Last Admin: 08/14/20 08:31 Dose: 20 mg Documented by: Sodium Chloride (Sodium Chloride 0.9% 10 Ml Syringe) 10 ml FLUSH ASDIRECTED PRN PRN Reason: Keep Vein Open Last Admin: 08/13/20 21:29 Dose: 10 ml Documented by: Trazodone HCl (Trazodone 50 Mg Tab) 50 mg PO BEDTIME PRN PRN Reason: Insomnia Last Admin: 08/13/20 20:45 Dose: 50 mg Documented by: Discontinued Medications Bumetanide (Bumetanide 1 Mg/4 Ml Mdv) 2 mg IVPUSH Q8H [facility] Stop: 08/10/20 16:00 Last Admin: 08/10/20 13:16 Dose: 2 mg Documented by: Bumetanide (Bumetanide 1 Mg Tab) 2 mg PO 0800,1400 [facility] Bumetanide (Bumetanide 1 Mg/4 Ml Mdv) 2 mg IVPUSH 0600,1400 [facility] Bumetanide (Bumetanide 1 Mg Tab) 2 mg PO BIDDIURETIC [facility] Last Admin: 08/12/20 13:48 Dose: 2 mg Documented by: Dextrose/Water (50% Dextrose In Water 50 Ml Syringe) 50 ml IV ASDIRECTED PRN PRN Reason: Hypoglycemia Glucagon (Glucagon,Human Recombinant 1 Mg Vial) 1 mg IM ASDIRECTED PRN PRN Reason: Hypoglycemia Magnesium Sulfate (Magnesium Sulfate In Water 2 Gm/50 Ml) 2 gm in 50 mls @ 25 mls/hr IV ONETIME ONE Stop: 08/08/20 09:32 Last Admin: 08/08/20 09:28 Dose: 25 mls/hr Documented by: Potassium Chloride 10 meq/ (Premix) 100 mls @ 100 mls/hr IV Q1H [facility] Stop: 08/08/20 10:44 Last Admin: 08/08/20 15:11 Dose: Not Given Documented by: Potassium Chloride 10 meq/ (Premix) 100 mls @ 100 mls/hr IV Q1H [facility] Stop: 08/08/20 15:44 Last Admin: 08/08/20 15:10 Dose: 100 mls/hr Documented by: Meropenem/Sodium Chloride 500 (mg/ Premix) 50 mls @ 100 mls/hr IV Q8H [facility] Last Admin: 08/13/20 15:25 Dose: Not Given Documented by: Dextrose/Water (Dextrose 5% In Water) 250 mls @ 18.75 mls/hr IV ASDIRECTED RAJEEV Stop: 08/13/20 10:34 Last Infusion: 08/13/20 03:08 Dose: 18.8 mls/hr Documented by: Insulin Glargine (Insulin Glarg,Human.Rec.Analog 100 Unit/Ml) 26 unit SUBCUT BEDTIME [facility] Last Admin: 08/08/20 21:34 Dose: 26 units Documented by: Insulin Glargine (Insulin Glarg,Human.Rec.Analog 100 Unit/Ml) 30 unit SUBCUT BEDTIME [facility] Last Admin: 08/09/20 20:25 Dose: 30 unit Documented by: Isosorbide Dinitrate (Isosorbide Dinitrate 10 Mg Tab) 5 mg PO TID [facility] Last Admin: 08/07/20 22:06 Dose: Not Given Documented by: Potassium Chloride (Potassium Chloride 10 Meq Tab.Er) 40 meq PO ONETIME ONE Stop: 08/08/20 07:35 Last Admin: 08/08/20 08:26 Dose: 40 meq Documented by: Potassium Chloride (Potassium Chloride 10 Meq Tab.Er) 40 meq PO ONETIME ONE Stop: 08/09/20 09:59 Last Admin: 08/09/20 10:41 Dose: 40 meq Documented by: Potassium Chloride (Potassium Chloride 10 Meq Tab.Er) 40 meq PO ONETIME ONE Stop: 08/10/20 09:16 Last Admin: 08/10/20 13:13 Dose: Not Given Documented by: Potassium Chloride (Potassium Chloride 10 Meq Tab.Er) 40 meq PO ONETIME ONE Stop: 08/11/20 14:01 Potassium Chloride (Potassium Chloride 10 Meq Tab.Er) 40 meq PO ONETIME ONE Stop: 08/10/20 13:01 Last Admin: 08/10/20 13:13 Dose: 40 meq Documented by: Potassium Chloride (Potassium Chloride 10 Meq Tab.Er) 40 meq PO ONETIME ONE Stop: 08/10/20 18:01 Last Admin: 08/10/20 17:15 Dose: 40 meq Documented by: Potassium Chloride (Potassium Chloride 10 Meq Tab.Er) 40 meq PO ONETIME ONE Stop: 08/13/20 09:41 Last Admin: 08/13/20 10:34 Dose: 40 meq Documented by: Sodium Bicarbonate (Sodium Bicarbonate 650 Mg Tab) 650 mg PO TID [facility] Last Admin: 08/12/20 13:48 Dose: 650 mg Documented by: Sodium Chloride (Sodium Chloride 0.9% 10 Ml Syringe) 10 ml FLUSH ASDIRECTED PRN PRN Reason: Keep Vein Open Warfarin Sodium (Warfarin 5 Mg Tab) 5 mg PO ONETIME ONE Stop: 08/07/20 18:01 Last Admin: 08/07/20 18:29 Dose: 5 mg Documented by: Warfarin Sodium (Warfarin 2.5 Mg Tab) 2.5 mg PO ONETIME ONE Stop: 08/08/20 14:01 Last Admin: 08/08/20 14:08 Dose: 2.5 mg Documented by: Warfarin Sodium (Warfarin 2.5 Mg Tab) 2.5 mg PO ONETIME ONE Stop: 08/10/20 14:01 Last Admin: 08/10/20 13:12 Dose: 2.5 mg Documented by: - Exam Quality Assessment: Reports: Supplemental Oxygen (2L) General: Reports: No Acute Distress, Other (somnolent) HEENT: Reports: Pupils Equal, Pupils Reactive Neck: Reports: Supple Lungs: Reports: Other (dec BS left base) Cardiovascular: Reports: Regular Rate, Regular Rhythm, Irregular Rhythm GI/Abdominal Exam: Normal Bowel Sounds, Soft, Non-Tender, No Distention Back Exam: Reports: Other (stage 3 sacral perirectal coccyx) Extremities: No Pedal Edema Skin: Reports: Warm, Dry Neurological: Reports: No New Focal Deficit Psy/Mental Status: Reports: Depressed (affect)
== END 2020-08-14 14:45 | DRG 291 ==
LOC: DL.MS 09:42
PROVIDERS: ADMIT Internal Medicine; ATTEND Internal Medicine
DX: I13.0 Hypertensive heart and chronic kidney disease with heart failure and stage 1 through stage 4 chronic kidney disease, or unspecified chronic kidney disease (principal); J96.01 Acute respiratory failure with hypoxia; I33.0 Acute and subacute infective endocarditis; A41.81 Sepsis due to Enterococcus; I50.42 Chronic combined systolic (congestive) and diastolic (congestive) heart failure; N18.30 Chronic kidney disease, stage 3 unspecified; Z66 Do not resuscitate; E11.22 Type 2 diabetes mellitus with diabetic chronic kidney disease; I25.10 Atherosclerotic heart disease of native coronary artery without angina pectoris; J44.9 Chronic obstructive pulmonary disease, unspecified; M10.9 Gout, unspecified; K21.9 Gastro-esophageal reflux disease without esophagitis; M19.90 Unspecified osteoarthritis, unspecified site; G89.29 Other chronic pain; M54.9 Dorsalgia, unspecified; E11.42 Type 2 diabetes mellitus with diabetic polyneuropathy; F32.9 Major depressive disorder, single episode, unspecified; E66.9 Obesity, unspecified; Z87.891 Personal history of nicotine dependence; Z79.82 Long term (current) use of aspirin; Z79.899 Other long term (current) drug therapy; Z99.2 Dependence on renal dialysis; Z79.4 Long term (current) use of insulin; Z95.2 Presence of prosthetic heart valve; Z95.0 Presence of cardiac pacemaker; Z95.5 Presence of coronary angioplasty implant and graft; I25.2 Old myocardial infarction; Z86.718 Personal history of other venous thrombosis and embolism; Z79.01 Long term (current) use of anticoagulants
CPT/HCPCS: 36415; 71045; 71250; 74176; 76700; 80048; 80053; 80076; 81001; 82962; 83605; 83735; 83880; 84100; 85025; 85027; 85610; 87040; 87077; 87186; 93306; 97162-GP; 97167-GO; 97530-GO; 99223; 99231; 99232; 99239; A9270-GY; J2185; J3370; J3475; J3480; J3490; J7050; J7060